=== PATIENT | male | born 1950 | race Two or more races ===

== ENCOUNTER 2016-08-19 11:56 | Inpatient (IN) | payer MEDICARE, OTHER ==
[~2016-08-19] VITALS: Ht 175.3 cm; Wt 83.9 kg
[2016-08-19] MEDS ORDERED: Acetaminophen 650 MG SUPP RECTAL ONE ×2 (12:12→12:30)
[2016-08-19 12:15] VITALS: BP 141/71
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
[2016-08-19] MEDS ORDERED: DILANTIN100 MG ORAL (12:29)
[2016-08-19] MEDS ORDERED: PANTOPRAZOLE SO40 MG ORAL (12:29)
[2016-08-19] MEDS ORDERED: DIOVAN160 MG ORAL (12:29)
[2016-08-19] MEDS ORDERED: NICOTINE PATCH1 EAC5 TD (12:29)
[2016-08-19] MEDS ORDERED: ACTOS30 MG ORAL (12:29)
[2016-08-19] MEDS ORDERED: TRICOR145 MG ORAL (12:29)
[2016-08-19] MEDS ORDERED: COLACE100 MG ORAL (12:29)
[2016-08-19] MEDS ORDERED: KLONOPIN0.5 MG ORAL (12:29)
[2016-08-19] MEDS ORDERED: ZYPREXA5 MG ORAL (12:29)
[2016-08-19] MEDS ORDERED: JANUVIA25 MG ORAL (12:29)
[2016-08-19 12:51] LABS: APPEARANCE,URINE CLOUDY; KETONES,URINE NEGATIVE (NEGATIVE); LEUKOCYTE ESTERASE ,URINE 3+ (NEGATIVE); NITRITE,URINE NEGATIVE (NEGATIVE); PH,URINE 5 (4.5-8.0); PROTEIN,URINE 2+ (NEGATIVE); UROBILINOGEN,URINE NORMAL MG/DL (0.0-1.0)
[2016-08-19 13:00] LABS: MEAN CORPUSCULAR HEMOGLOBIN 29.2 PG (27.0-31.0); MEAN CORPUSCULAR HGB CONC 33.2 G/DL (32.0-36.0); MEAN CORPUSCULAR VOLUME 88 FL (80-99); MEAN PLATELET VOLUME 8.1 FL (6.5-10.1); PLATELET COUNT 209 K/UL (150-450); RED BLOOD COUNT 3.59 M/UL (4.70-6.10); RED CELL DISTRIBUTION WIDTH 11.8 % (11.6-14.8); WHITE BLOOD COUNT 12.5 K/UL (4.8-10.8)
[2016-08-19 13:04] LABS: GLOMERULAR FILTRATION RATE 20.9 mL/min (>60); MAGNESIUM 1.4 mg/dL (1.7-2.5); PHOSPHORUS 2.2 mg/dL (2.5-4.8); POTASSIUM 4.4 mEQ/L (3.4-4.9); TOTAL PROTEIN 6.5 g/dL (6.6-8.7); TROPONIN I < 0.30 ng/mL (<=0.30)
[2016-08-19 13:06] LABS: REFLEX LACTIC ACID YES OR NO YES
[2016-08-19 13:10] LABS: INR 1.1 (0.9-1.1); PROTHROMBIN TIME 11.1 SEC (9.30-11.50)
[2016-08-19 13:15] LABS: CKMB 2.9 ng/mL (< 6.7)
[2016-08-19 13:16] LABS: SQUAMOUS EPITHELIAL CELL,UR OCCASIONAL /LPF (NONE/OCC)
[2016-08-19] MEDS ORDERED: Piperacillin/Tazobactam 3.375 GM in NS 110 ML IVPB ONE (13:30)
[2016-08-19] MEDS ORDERED: Zosyn 3.375gm inj ONE (13:39)
[2016-08-19] MEDS ORDERED: Phenytoin 500 MG in NS 110 ML IVPB ONE (13:45)
[2016-08-19 13:48] LABS: BAND NEUTROPHILS % (MANUAL) 1 % (0-8); BASOPHILS % (MANUAL) 0 % (0-2); EOSINOPHILS % (MANUAL) 1 % (0-3); LYMPHOCYTES % (MANUAL) 13 % (20-45); NEUTROPHILS % (MANUAL) 79 % (45-75); PLATELET ESTIMATE ADEQUATE; PLATELET MORPHOLOGY NORMAL; TOTAL CELLS COUNTED 100
--- NOTE | 2016-08-19 13:49 | Diagnostic Imaging Report ---
Indication: SOB chest pain Technique: One view of the chest Comparison: none Findings: Inspiration is suboptimal. There is some atelectasis at the right lung base. The heart is upper limits normal in size. Aorta is ectatic calcified and tortuous. The upper mediastinum is unremarkable. Impression: Suboptimal inspiration with bibasilar atelectasis No definite acute process
[2016-08-19] MEDS ORDERED: Phenytoin 250mg/5ml vial ONE (14:27)
--- NOTE | 2016-08-19 14:57 | Diagnostic Imaging Report ---
Indications: Questionable syncopal episode, nonverbal, altered mental status Technique: Spiral acquisitions obtained through the brain. Angled axial and coronal 5 x 5 mm slices were reconstructed. Total dose length product 1369 mGycm. CTDI vol(s) 70 mGy Comparison: None Findings: There is an area of encephalomalacia in the inferior left frontal lobe. There is also bilateral anterior temporal encephalomalacia. These result in mild ex vacuo dilatation of the adjacent CSF spaces. No acute hemorrhage or edema. No mass effect or midline shift. There is age-related enlargement of the ventricles and extra axial CSF spaces. There is minimal ethmoid sinus disease. The calvarium is intact. Impression: Left frontal, bilateral temporal encephalomalacia. These may reflect old infarcts or be due to prior trauma Negative for acute intracranial bleed or mass effect Other chronic and age-related changes, as described The CT scanner at [facility] is accredited by the [employer] and the scans are performed using protocols designed to limit radiation exposure to as low as reasonably achievable to attain images of sufficient resolution adequate for diagnostic evaluation.
[2016-08-19 15:18] VITALS: BP 107/37
[2016-08-19] MEDS ORDERED: Nitroglycerin Subl 0.4mg tab (Bottle Of 25) SL PRN (15:45)
[2016-08-19] MEDS ORDERED: Miralax 17gm pkt ORAL PRN (15:45)
[2016-08-19] MEDS ORDERED: Mylanta II UD 30ml ORAL PRN (15:45)
[2016-08-19] MEDS ORDERED: clonazePAM 0.5mg tab ORAL SCH (15:45)
[2016-08-19] MEDS ORDERED: DuoNeb 0.5-3(2.5)mg/3ml neb HHN PRN (15:45)
--- NOTE | 2016-08-19 16:07 | Infectious Diseases Prog Note ---
Assessment/Plan Problems: (1) HCAP (healthcare-associated pneumonia) Assessment & Plan: will start clindamycin and cefepime, send sputum and blood culture. (2) Sepsis Assessment & Plan: due to pneumonia, and UTI, continue side spectrum antibiotics, await culture (3) UTI (urinary tract infection) Assessment & Plan: on cefepime, send urine culture (4) Urinary retention Assessment & Plan: S/P folley catheter insertion, recommend urologist eval (5) Seizure disorder Assessment & Plan: continue seizure meds follow up with neurologist Subjective Allergies: Coded Allergies: No Known Allergies (Unverified , 08/19/16) Objective Vital Signs Last 24 Hour Vital Signs Date Time Temp Pulse Resp B/P Pulse Ox O2 Delivery O2 Flow Rate FiO2 08/19/16 15:18 98.6 101 28 107/37 94 Room Air 08/19/16 12:15 103.0 111 22 141/71 98 Nasal Cannula 2.0 08/19/16 12:05 98.1 106 16 120/60 98 Nasal Cannula 2.0 Height (Feet): 6 Weight (Pounds): 170 Laboratory Tests Test 08/19/16 12:05 08/19/16 12:20 08/19/16 14:06 White Blood Count 12.5 K/UL (4.8-10.8) H Red Blood Count 3.59 M/UL (4.70-6.10) L Hemoglobin 10.5 G/DL (14.2-18.0) L Hematocrit 31.6 % (42.0-52.0) L Mean Corpuscular Volume 88 FL (80-99) Mean Corpuscular Hemoglobin 29.2 PG (27.0-31.0) Mean Corpuscular Hemoglobin Concent 33.2 G/DL (32.0-36.0) Red Cell Distribution Width 11.8 % (11.6-14.8) Platelet Count 209 K/UL (150-450) Mean Platelet Volume 8.1 FL (6.5-10.1) Neutrophils (%) (Auto) % (45.0-75.0) Lymphocytes (%) (Auto) % (20.0-45.0) Monocytes (%) (Auto) % (1.0-10.0) Eosinophils (%) (Auto) % (0.0-3.0) Basophils (%) (Auto) % (0.0-2.0) Differential Total Cells Counted 100 Neutrophils % (Manual) 79 % (45-75) H Lymphocytes % (Manual) 13 % (20-45) L Monocytes % (Manual) 6 % (1-10) Eosinophils % (Manual) 1 % (0-3) Basophils % (Manual) 0 % (0-2) Band Neutrophils 1 % (0-8) Platelet Estimate Adequate Platelet Morphology Normal Red Blood Cell Morphology Normal Prothrombin Time 11.1 SEC (9.30-11.50) Prothromb Time International Ratio 1.1 (0.9-1.1) Activated Partial Thromboplast Time 25 SEC (23-33) Sodium Level 140 mEQ/L (135-145) Potassium Level 4.4 mEQ/L (3.4-4.9) Chloride Level 99 mEQ/L (98-107) Carbon Dioxide Level 20 mEQ/L (20-30) Anion Gap 21 (5-15) H Blood Urea Nitrogen 32 mg/dL (7-23) H Creatinine 3.0 mg/dL (0.7-1.2) H Estimat Glomerular Filtration Rate 20.9 mL/min (>60) Glucose Level 355 mg/dL (74-106) H Lactic Acid Level 3.70 mmol/L (0.66-2.22) H 2.10 mmol/L (0.66-2.22) Calcium Level 10.0 mg/dL (8.6-10.2) Phosphorus Level 2.2 mg/dL (2.5-4.8) L Magnesium Level 1.4 mg/dL (1.7-2.5) L Total Bilirubin 0.3 mg/dL (0.0-1.2) Aspartate Amino Transf (AST/SGOT) 17 U/L (5-40) Alanine Aminotransferase (ALT/SGPT) 14 U/L (3-41) Alkaline Phosphatase 51 U/L (40-129) Total Creatine Kinase 203 U/L (38-174) H Creatine Kinase MB 2.9 ng/mL (< 6.7) Creatine Kinase MB Relative Index 1.4 Troponin I < 0.30 ng/mL (<=0.30) Pro-B-Type Natriuretic Peptide 5269 pg/mL (0-125) H Total Protein 6.5 g/dL (6.6-8.7) L Albumin 3.3 g/dL (3.5-5.2) L Globulin 3.2 g/dL Albumin/Globulin Ratio 1.0 (1.0-2.7) Lipase 12 U/L (< 60) Phenytoin (Dilantin) Level 6.0 ug/mL (10-20) L Urine Color Yellow Urine Appearance Cloudy Urine pH 5 (4.5-8.0) Urine Specific [place] 1.010 (1.005-1.035) Urine Protein 2+ (NEGATIVE) H Urine Glucose (UA) 2+ (NEGATIVE) H Urine Ketones Negative (NEGATIVE) Urine Occult Blood 5+ (NEGATIVE) H Urine Nitrite Negative (NEGATIVE) Urine Bilirubin Negative (NEGATIVE) Urine Urobilinogen Normal MG/DL (0.0-1.0) Urine Leukocyte Esterase 3+ (NEGATIVE) H Urine RBC 10-15 /HPF (0 - 0) H Urine WBC 5-10 /HPF (0 - 0) H Urine Squamous Epithelial Cells Occasional /LPF Urine Bacteria None /HPF (NONE) Current Medications Medications (Trade) Dose Ordered Sig/Sharif Route PRN Reason Start Time Stop Time Status Last Admin Dose Admin Acetaminophen (Tylenol) 650 mg Q4H PRN ORAL fever 08/19/16 15:45 09/18/16 15:44 UNV Al Hydroxide/Mg Hydroxide (Mylanta II) 30 ml Q6H PRN ORAL dyspepsia 08/19/16 15:45 09/18/16 15:44 UNV Albuterol/ Ipratropium 3 ml 3 ml EVERY 4 HOURS PRN HHN Shortness of Breath 08/19/16 15:45 08/24/16 15:44 UNV Cefepime HCl/ Dextrose (Maxipime/D5W) 55 ml @ 110 mls/hr EVERY 12 HOURS IV 08/19/16 21:00 08/26/16 20:59 UNV Cefepime HCl/ Dextrose (Maxipime/D5W) 55 ml @ 110 mls/hr EVERY 12 HOURS IVPB 08/19/16 21:00 08/26/16 20:59 UNV Clonazepam (KlonoPIN) 0.5 mg Q6H ORAL 08/19/16 15:45 08/26/16 15:44 UNV Dextrose (Dextrose 50%) STAT PRN IV Hypoglycemia 08/19/16 15:45 09/18/16 15:44 UNV Heparin Sodium (Porcine) (Heparin 5000 units/ml) 5,000 units EVERY 12 HOURS SUBQ 08/19/16 21:00 09/18/16 20:59 UNV Insulin Aspart (NovoLOG) BEFORE MEALS AND HS SUBQ 08/19/16 16:30 09/18/16 16:29 UNV Nitroglycerin (Ntg) 0.4 mg Q5M PRN SL Prn Chest Pain 08/19/16 15:45 09/18/16 15:44 UNV Olanzapine (ZyPREXA) 5 mg DAILY ORAL 08/20/16 09:00 09/19/16 08:59 UNV Ondansetron HCl (Zofran) 4 mg Q6H PRN IVP Nausea & Vomiting 08/19/16 15:45 09/18/16 15:44 UNV Pantoprazole (Protonix) 40 mg DAILY ORAL 08/20/16 09:00 09/19/16 08:59 UNV Phenytoin (Dilantin) 100 mg TWICE A DAY ORAL 08/19/16 18:00 09/18/16 17:59 UNV Polyethylene Glycol (Miralax) 17 gm DAILYPRN PRN ORAL Constipation 08/19/16 15:45 09/18/16 15:44 UNV Temazepam (Restoril) 15 mg HSPRN PRN ORAL Insomnia 08/19/16 15:45 08/26/16 15:44 UNV Treva Martinez M.D. Aug 19, 2016 16:07
[2016-08-19] MEDS: NovoLOG Insulin Flexpen SUBQ SCH ×2 (17:45→21:44)
[2016-08-19] MEDS: Clindamycin 600mg 50 ML IV SCH ×2 (17:45→22:20)
[2016-08-19] MEDS ORDERED: Cefepime HCl 1 GM in D5W 55 ML IVPB SCH (18:00)
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
[2016-08-19 20:00] VITALS: BP 119/55
[2016-08-19] MEDS ORDERED: Phenytoin 100mg cap ORAL SCH (21:00)
[2016-08-19] MEDS ORDERED: Cefepime HCl 1 GM in D5W 55 ML IV SCH (21:00)
[2016-08-19] MEDS: Phenytoin 100mg cap ORAL SCH (21:43)
[2016-08-19] MEDS: Heparin 5000 units/ml inj SUBQ SCH (21:44)
[2016-08-19] MEDS ORDERED: clonazePAM 0.5mg tab ORAL PRN (21:45)
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
[2016-08-20] VITALS: BP 133/56
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
[2016-08-20 04:00] VITALS: BP 148/68
[2016-08-20] MEDS: Clindamycin 600mg 50 ML IV SCH (06:19)
[2016-08-20] MEDS: NovoLOG Insulin Flexpen SUBQ SCH ×4 (06:21→21:01)
[2016-08-20 07:22] LABS: BASOPHILS % (AUTO) 0.5 % (0.0-2.0); MEAN CORPUSCULAR HEMOGLOBIN 29.4 PG (27.0-31.0); MEAN CORPUSCULAR HGB CONC 33.1 G/DL (32.0-36.0); MEAN CORPUSCULAR VOLUME 89 FL (80-99); MONOCYTES % (AUTO) 10.1 % (1.0-10.0); NEUTROPHILS % (AUTO) 73.4 % (45.0-75.0); PLATELET COUNT 196 K/UL (150-450); RED BLOOD COUNT 3.76 M/UL (4.70-6.10); RED CELL DISTRIBUTION WIDTH 12.1 % (11.6-14.8); WHITE BLOOD COUNT 12.9 K/UL (4.8-10.8)
[2016-08-20 07:29] LABS: CALCIUM 10.4 mg/dL (8.6-10.2); CREATININE 1.6 mg/dL (0.7-1.2); GLOMERULAR FILTRATION RATE 43.2 mL/min (>60); PHOSPHORUS 3.4 mg/dL (2.5-4.8)
[2016-08-20 08:01] VITALS: BP 126/46
[2016-08-20] MEDS: Phenytoin 100mg cap ORAL SCH ×2 (08:25→21:05)
[2016-08-20] MEDS: Heparin 5000 units/ml inj SUBQ SCH ×2 (08:27→21:00)
[2016-08-20] MEDS ORDERED: LORazepam Inj 2mg/ml 1ml IV PRN ×2 (11:15→13:36)
[2016-08-20] MEDS ORDERED: Haloperidol 5mg/ml Inj IM PRN (11:15)
[2016-08-20] MEDS ORDERED: LORazepam Inj 2mg/ml 1ml IM PRN ×2 (11:15→16:30)
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
[2016-08-20 11:22] VITALS: BP 150/76
[2016-08-20] MEDS ORDERED: DAPTOmycin 500 MG in NS 55 ML IV SCH (12:00)
--- NOTE | 2016-08-20 15:23 | Infectious Diseases Prog Note ---
Assessment/Plan Problems: (1) HCAP (healthcare-associated pneumonia) Assessment & Plan: on clindamycin and cefepime, will switch clindamycin to daptomycin to cover for possible enterococcus bacteremia ,await sputum and blood culture. (2) Sepsis Assessment & Plan: with gram positive cocci in chains, suspect streptococcus VS enterococcus spp, will start daptomycin meanwhile since he is still febrile , and await further identification and sensitivity (3) UTI (urinary tract infection) Assessment & Plan: on cefepime, send urine culture (4) Urinary retention Assessment & Plan: S/P folley catheter insertion, recommend urologist eval (5) Seizure disorder Assessment & Plan: continue seizure meds follow up with neurologist Subjective ROS Limited/Unobtainable: Yes Allergies: Coded Allergies: No Known Allergies (Unverified , 08/19/16) Subjective he is demented, resting in bed, comfortable, daughter at the bedside, not in distress. Objective Vital Signs Last 24 Hour Vital Signs Date Time Temp Pulse Resp B/P Pulse Ox O2 Delivery O2 Flow Rate FiO2 08/20/16 11:22 99.0 100 20 150/76 98 Room Air 08/20/16 09:36 99.7 08/20/16 08:30 100.9 08/20/16 08:27 101 20 Room Air 08/20/16 08:01 102.4 112 20 126/46 95 Room Air 08/20/16 08:00 116 08/20/16 04:00 108 08/20/16 04:00 98.6 109 20 148/68 95 Room Air 08/20/16 00:00 99.3 111 20 133/56 94 Room Air 08/19/16 20:00 97.9 116 21 119/55 94 Room Air 08/19/16 19:37 103 20 Room Air 08/19/16 19:16 113 08/19/16 17:21 101 28 107/37 97 Room Air Height (Feet): 5 Height (Inches): 9.00 Weight (Pounds): 185 General Appearance: WD/WN, no acute distress HEENT: normocephalic, atraumatic, anicteric, mucous membranes moist Respiratory/Chest: chest wall non-tender, lungs clear, normal breath sounds, no respiratory distress, no accessory muscle use Cardiovascular: normal peripheral pulses, normal rate, regular rhythm Abdomen: normal bowel sounds, soft, non tender, no organomegaly, non distended Extremities: no cyanosis, no clubbing Skin: no rash, no lesions, no ulcers Microbiology Date/Time Source Procedure Growth Status 08/19/16 12:15 Blood Blood Culture - Preliminary Resulted 08/19/16 12:05 Blood Blood Culture - Preliminary Resulted Laboratory Tests Test 08/19/16 21:50 08/20/16 06:10 Urine Legionella Antigen Pending White Blood Count 12.9 K/UL (4.8-10.8) H Red Blood Count 3.76 M/UL (4.70-6.10) L Hemoglobin 11.0 G/DL (14.2-18.0) L Hematocrit 33.4 % (42.0-52.0) L Mean Corpuscular Volume 89 FL (80-99) Mean Corpuscular Hemoglobin 29.4 PG (27.0-31.0) Mean Corpuscular Hemoglobin Concent 33.1 G/DL (32.0-36.0) Red Cell Distribution Width 12.1 % (11.6-14.8) Platelet Count 196 K/UL (150-450) Mean Platelet Volume 8.0 FL (6.5-10.1) Neutrophils (%) (Auto) 73.4 % (45.0-75.0) Lymphocytes (%) (Auto) 16.0 % (20.0-45.0) L Monocytes (%) (Auto) 10.1 % (1.0-10.0) H Eosinophils (%) (Auto) 0.0 % (0.0-3.0) Basophils (%) (Auto) 0.5 % (0.0-2.0) Sodium Level 145 mEQ/L (135-145) Potassium Level 4.0 mEQ/L (3.4-4.9) Chloride Level 103 mEQ/L (98-107) Carbon Dioxide Level 24 mEQ/L (20-30) Anion Gap 18 (5-15) H Blood Urea Nitrogen 28 mg/dL (7-23) H Creatinine 1.6 mg/dL (0.7-1.2) H Estimat Glomerular Filtration Rate 43.2 mL/min (>60) Glucose Level 119 mg/dL (74-106) #H Calcium Level 10.4 mg/dL (8.6-10.2) H Phosphorus Level 3.4 mg/dL (2.5-4.8) Albumin 3.5 g/dL (3.5-5.2) Phenytoin (Dilantin) Level 6.7 ug/mL (10-20) L Current Medications Medications (Trade) Dose Ordered Sig/Sharif Route PRN Reason Start Time Stop Time Status Last Admin Dose Admin Acetaminophen (Tylenol) 650 mg Q4H PRN ORAL fever 08/19/16 15:45 09/18/16 15:44 08/20/16 08:37 Al Hydroxide/Mg Hydroxide (Mylanta II) 30 ml Q6H PRN ORAL dyspepsia 08/19/16 15:45 09/18/16 15:44 Albuterol/ Ipratropium (DuoNeb 0.5-3(2.5)mg/3ml) 3 ml Q4H PRN HHN Shortness of Breath 08/19/16 15:45 08/24/16 15:44 Cefepime HCl/ Dextrose (Maxipime/D5W) 55 ml @ 110 mls/hr Q24H IVPB 08/19/16 18:00 08/26/16 17:59 08/19/16 19:00 Clindamycin HCl/ Dextrose (Cleocin 600mg) 50 ml @ 100 mls/hr Q8HR IV 08/19/16 17:00 08/26/16 16:59 08/20/16 06:19 Clonazepam (KlonoPIN) 0.5 mg Q6H PRN ORAL anxiety 08/19/16 21:45 08/26/16 21:44 Daptomycin/Sodium Chloride (Cubicin/Sodium Chloride) 55 ml @ 100 mls/hr Q24H IV 08/20/16 12:00 08/27/16 11:59 08/20/16 12:50 Dextrose STAT PRN IV Hypoglycemia 08/19/16 15:45 09/18/16 15:44 Haloperidol Lactate (Haldol) 5 mg Q6H PRN IM Agitation 08/20/16 11:15 09/19/16 11:14 Heparin Sodium (Porcine) (Heparin 5000 units/ml) 5,000 units EVERY 12 HOURS SUBQ 08/19/16 21:00 09/18/16 20:59 08/20/16 08:27 Insulin Aspart (NovoLOG) BEFORE MEALS AND HS SUBQ 08/19/16 17:00 09/18/16 16:59 08/20/16 12:52 Lorazepam (Ativan 2mg/ml 1ml) 1 mg Q4H PRN IM For Anxiety 08/20/16 11:15 08/27/16 11:14 Lorazepam (Ativan 2mg/ml 1ml) 1 mg Q4H PRN IV For Anxiety 08/20/16 13:36 08/27/16 11:14 08/20/16 14:09 Nitroglycerin (Ntg) 0.4 mg Q5M PRN SL Prn Chest Pain 08/19/16 15:45 09/18/16 15:44 Olanzapine (ZyPREXA) 5 mg DAILY ORAL 08/20/16 09:00 09/19/16 08:59 08/20/16 08:26 Ondansetron HCl (Zofran) 4 mg Q6H PRN IVP Nausea & Vomiting 08/19/16 15:45 09/18/16 15:44 Pantoprazole (Protonix) 40 mg DAILY ORAL 08/20/16 09:00 09/19/16 08:59 08/20/16 08:26 Phenytoin 200 mg 200 mg Q12HR ORAL 08/19/16 21:00 09/18/16 20:59 08/20/16 08:25 Polyethylene Glycol (Miralax) 17 gm DAILYPRN PRN ORAL Constipation 08/19/16 15:45 09/18/16 15:44 Temazepam (Restoril) 15 mg HSPRN PRN ORAL Insomnia 08/19/16 15:45 08/26/16 15:44 Treva Martinez M.D. Aug 20, 2016 15:23
[2016-08-20] MEDS ORDERED: Nitroglycerin Subl 0.4mg tab (Bottle Of 25) SL PRN (15:35)
[2016-08-20] MEDS ORDERED: Mylanta II UD 30ml ORAL PRN (15:45)
[2016-08-20] MEDS ORDERED: Miralax 17gm pkt ORAL PRN (15:45)
[2016-08-20] MEDS ORDERED: DuoNeb 0.5-3(2.5)mg/3ml neb HHN PRN (15:45)
[2016-08-20 16:00] VITALS: BP 142/75
[2016-08-20] MEDS: LORazepam Inj 2mg/ml 1ml IV PRN ×2 (16:35→22:12)
[2016-08-20] MEDS ORDERED: Tubing IV Secondary IV ONE (16:58)
[2016-08-20] MEDS ORDERED: NS 275ml ONE (16:58)
--- NOTE | 2016-08-20 17:49 | General Progress Note ---
Progress Note Progress Note [id number] full note dictated NENITA PINO Aug 20, 2016 17:49
--- NOTE | 2016-08-20 17:59 | History and Physical Report ---
DATE OF ADMISSION: 08/19/2016 Time Seen: At 8:00 a.m. CONSULTANTS: 1. Kaylynn Fountain M.D. 2. Treva Martinez M.D. 3. Carmina Calvillo M.D. 4. Antonio Chapin M.D. 5. Freddy Ford M.D. CHIEF COMPLAINT: Possible syncopal episode. BRIEF HISTORY: This is a 66-year-old male who lives at home was deaf and blind, initially had a possible syncopal episode and was sent to [place] diagnosed with syncope, UTI, sepsis, weakness, and renal insufficiency and admitted to telemetry for further care. Currently, sleep in bed, not talking much. REVIEW OF SYSTEMS: Unavailable. PAST MEDICAL HISTORY: Diabetes, hypertension, deafness, and blindness. PAST SURGICAL HISTORY: None. MEDICATIONS: Include Zyprexa, Protonix, Klonopin, heparin, Dilantin, cefepime, NovoLog, clindamycin, DuoNeb, Tylenol, Zofran, MiraLAX, and Restoril. ALLERGIES: None. SOCIAL HISTORY: Positive smoke. No alcohol. No intravenous drug use. FAMILY HISTORY: Noncontributory. PHYSICAL EXAMINATION: GENERAL: Lethargic in bed, sleeping and refusing to answer questions. VITAL SIGNS: Show temperature is 98 degrees, pulse 109, respirations 20, and blood pressure 140/68. CARDIOVASCULAR: No murmur. LUNGS: Poor air exchange. ABDOMEN: Positive bowel sounds. Nontender. Nondistended. EXTREMITIES: No cyanosis, clubbing, or edema. NEUROLOGIC: The patient moves all extremities and does not want to follow commands. LABORATORY DATA: Show white count 12.9, hemoglobin and hematocrit 11 and 33, and platelet 196,000. BMP shows BUN and creatinine 20 and 1.6, glucose 119, otherwise CBC, BNP is 5269 and INR is 1.0. Urine toxicology, phenytoin of 6.0. Urinalysis 5+ blood, 3+ leukocyte esterase. ASSESSMENT: 1. Syncope. 2. Renal insufficiency. 3. Urinary tract infection. 4. Sepsis. 5. Anemia. 6. Deafness. 7. Blindness. 8. Diabetes. 9. Hypertension. PLAN: Continue premedications. Troponin q. 8 x3. EKG in the morning. Accu-Chek sliding scale. Antibiotics per Infectious Disease. Check cultures. OT/PT dietary evaluation. CBC and BMP. Dr. Fountain, Dr. Martinez, Dr. Calvillo, Dr. Chapin, and Dr. Dubois to consult. Abelino Marvin D.O. DR: KATHY JOB#: [id number] CC:
[2016-08-20] MEDS: Cefepime HCl 1 GM in D5W 55 ML IVPB SCH (18:20)
[2016-08-20 20:35] VITALS: BP 158/85
[2016-08-21] VITALS (24 sets, daily range): BP systolic 94–243; BP diastolic 38–121
[2016-08-21] MEDS: Haloperidol 5mg/ml Inj IM PRN (00:23)
[2016-08-21] MEDS: clonazePAM 0.5mg tab ORAL PRN (03:11)
[2016-08-21 04:40] LABS: ABG ALLEN TEST POSITIVE; ABG BASE EXCESS -4.6
[2016-08-21 06:03] LABS: ABG BASE EXCESS -4.9; ABG PCO2 34.2 mmHg (35.0-45.0)
[2016-08-21 06:04] LABS: ABG ALLEN TEST POSITIVE
[2016-08-21] MEDS: NovoLOG Insulin Flexpen SUBQ SCH ×4 (06:47→20:40)
--- NOTE | 2016-08-21 07:39 | Consultation ---
DATE OF CONSULTATION: 08/20/2016 NEPHROLOGY CONSULTATION: CONSULTING PHYSICIAN: Carmina Calvillo M.D. REFERRING PHYSICIAN: Abelino Marvin D.O. REASON FOR CONSULTATION: Acute renal failure and electrolyte abnormalities. HISTORY OF PRESENT ILLNESS: The patient is an unfortunate 66-year-old male with past medical history significant for history of diabetes, dyslipidemia, hypertension, , legally blind, history of CVA who was brought in by family to [facility] for questionable epidural syncopal episode and generalized weakness and increased confusion. Upon arrival in the ER, the patient found to have an elevation of the creatinine at 503 also found to be hyperglycemic, dehydrated, and was admitted in the hospital, had a CT scan of head neurology evaluation and I was called for evaluation of his abnormal renal function. PAST MEDICAL HISTORY: 1. Diabetes. 2. Hypertension. 3. History of CVA. 4. History of bilateral deafness and legally blind. 5. History of hypertension. 6. History of dyslipidemia. 7. History of chronic paranoid psychosis. ALLERGIES: Not known drug allergies. HOME MEDICATIONS: Including 1. Klonopin 0.5 mg q.6. 2. Colace 100 mg p.o. b.i.d. 3. Fenofibrate 145 mg by mouth daily. 4. . 5. Zyprexa 5 mg p.o. daily. 6. Protonix 40 mg p.o. daily. 7. Dilantin 100 mg by mouth twice a day. 8. Paxil 30 mg by mouth daily. 9. Januvia 100 mg p.o. daily. 10. Losartan and Diovan 160 mg by mouth daily. FAMILY HISTORY: Noncontributory. PAST SURGICAL HISTORY: None. REVIEW OF SYSTEMS: Unable to obtain due to patient condition and mental status. He open his eyes with verbal stimuli and not following commands. By the fact, therefore at this time I was in the room. The patient pulls his IV and he is not follow any of . PHYSICAL EXAMINATION: VITAL SIGNS: The patient has temperature of 102.4 degrees, pulse rate of 112, respiratory rate of 20, blood pressure 124/96. HEAD AND NECK: No JVP. No LAD. No thyromegaly. Dry mucous membranes. LUNGS EXAM: Clear to auscultation. CARDIAC: Regular rate and rhythm. S1-S2. No murmur. No rub. ABDOMEN: Soft, nontender, and nondistended. EXTREMITIES: Trace edema. No clubbing. No cyanosis. LABORATORY STUDIES: The patient has a sodium of 140, potassium 4.4, chloride 99, bicarbonate 25, BUN of 32, creatinine of 3, glucose of 365, calcium of 10, phosphorus of 2.2, and magnesium of 1.4. AST of 17, ALT of 14, alkaline phosphatase of 51. Total CK of 203. BNP of 5269. Total protein of 6.9. Albumin of 3.3. CBC reveal WBC count of 12,000, hemoglobin of 10, hematocrit of 31, and platelet count of 201,000. Chemistry revealed UA specific gravity of 1.010, protein 2+, glucose 3+, blood 5+, leukocyte esterase ____, RBC 10 to [address] of the head, the patient had a left frontal and bilateral temporal encephalomalacia, negative for any history of any acute disease. Chest x-ray is negative for any acute process. ASSESSMENT: 1. Acute renal failure, the etiology of acute renal failure including prerenal azotemia versus azotemia versus obstructive uropathy. 2. Uncontrolled diabetes. 3. Hypomagnesemia. 4. Urosepsis. 5. Fever. 6. History of seizure disorder. PLAN: Plan for the patient is to obtain and repeat the UA. Check the random urine, protein, creatinine ratio to calculate the proteinuria. Check the urine sodium and creatinine to calculate fractional excretion of sodium. Ultrasound of the kidney to evaluate the kidney size. Check the urine for eosinophils. Controlling the diabetes, intravenous fluids, and broad-spectrum antibiotics. Repeat the UA and ultrasound of the kidney. Avoid any further nephrotoxins. Monitor renal function closely. Again, I would like to thank, Dr. Abelino Marvin for allowing me to participate in the care of this patient. Carmina Calvillo M.D. DR: FARRUKH JOB#: [id number] CC:
--- NOTE | 2016-08-21 07:44 | General Progress Note ---
Assessment/Plan Problem List: (1) Hypertensive urgency ICD Codes: I16.0 - Hypertensive urgency SNOMED: 796756171 (2) Respiratory failure ICD Codes: J96.90 - Respiratory failure, unspecified, unspecified whether with hypoxia or hypercapnia SNOMED: 242127316 (3) Blind ICD Codes: H54.0 - Blindness, both eyes SNOMED: 171098586 (4) Renal insufficiency ICD Codes: N28.9 - Disorder of kidney and ureter, unspecified SNOMED: 770006641 (5) Sepsis ICD Codes: A41.9 - Sepsis, unspecified organism SNOMED: 54843587 (6) UTI (urinary tract infection) ICD Codes: N39.0 - Urinary tract infection, site not specified SNOMED: 88839588 Status: unchanged Assessment/Plan o2 pulm tx abx cbcb mp am psyc eval Subjective Constitutional: Reports: weakness Allergies: Coded Allergies: No Known Allergies (Unverified , 08/19/16) All Systems: reviewed and negative except above Subjective on o2 mask in icu Objective Last 24 Hour Vital Signs Date Time Temp Pulse Resp B/P Pulse Ox O2 Delivery O2 Flow Rate FiO2 08/21/16 07:00 84 32 104/57 93 Bi-pap 30 08/21/16 06:48 98 35 96 Facial 30 08/21/16 06:00 95 30 105/61 92 Bi-pap 30 08/21/16 05:00 116 36 131/58 93 Bi-pap 30 08/21/16 05:00 30 08/21/16 04:45 122 37 95 Facial 30 08/21/16 04:30 128 08/21/16 04:30 100.0 128 36 174/90 92 Non-Rebreather 15.0 100 08/21/16 04:00 97.0 24 219/114 99 Non-Rebreather 08/21/16 03:45 97.0 24 243/121 98 Non-Rebreather 15.0 08/21/16 01:37 98.0 103 20 143/75 96 Nasal Cannula 2.0 08/21/16 00:58 97.7 105 19 141/66 90 Nasal Cannula 08/21/16 00:24 110 22 92 Room Air 08/21/16 00:21 110 22 92 Room Air 08/20/16 20:35 97.9 92 19 158/85 95 Room Air 08/20/16 19:45 98 18 Room Air 08/20/16 16:00 99.5 107 20 142/75 94 Room Air 08/20/16 11:22 99.0 100 20 150/76 98 Room Air 08/20/16 09:36 99.7 08/20/16 08:30 100.9 08/20/16 08:27 101 20 Room Air 08/20/16 08:01 102.4 112 20 126/46 95 Room Air 08/20/16 08:00 116 Intake and Output 08/20/16 08/21/16 18:59 06:59 Intake Total 390 ml 240 ml Output Total 600 ml 1300 ml Balance -210 ml -1060 ml Intake Oral 390 ml 240 ml Output Urine Total 600 ml 1300 ml Laboratory Tests 08/21/16 04:35: Arterial Blood pH 7.200*L, Arterial Blood Partial Pressure CO2 63.0*H, Arterial Blood Partial Pressure O2 114.8H, Arterial Blood HCO3 24.2, Arterial Blood Oxygen Saturation 97.0, Arterial Blood Base Excess -4.6, Erasto Test Positive 08/21/16 05:55: Arterial Blood pH 7.376, Arterial Blood Partial Pressure CO2 34.2L, Arterial Blood Partial Pressure O2 71.6L, Arterial Blood HCO3 19.6L, Arterial Blood Oxygen Saturation 92.9, Arterial Blood Base Excess -4.9, Erasto Test Positive Height (Feet): 5 Height (Inches): 9.00 Weight (Pounds): 185 General Appearance: lethargic EENT: normal ENT inspection Neck: normal alignment Cardiovascular: normal peripheral pulses, normal rate, regular rhythm Respiratory/Chest: chest wall non-tender, lungs clear, decreased breath sounds Abdomen: normal bowel sounds, non tender, soft Extremities: normal inspection Edema: no edema noted Arm (L), no edema noted Arm (R), no edema noted Leg (L), no edema noted Leg (R), no edema noted Pedal (L), no edema noted Pedal (R), no edema noted Generalized Neurologic: motor weakness Skin: normal pigmentation, warm/dry DOROTA FRANCO Aug 21, 2016 07:44
[2016-08-21] MEDS: Phenytoin 100mg cap ORAL SCH ×2 (09:00→20:28)
[2016-08-21] MEDS: Heparin 5000 units/ml inj SUBQ SCH ×2 (09:00→20:45)
[2016-08-21 09:10] LABS: BASOPHILS % (AUTO) 0.4 % (0.0-2.0); EOSINOPHILS % (AUTO) 0.1 % (0.0-3.0); LYMPHOCYTES % (AUTO) 7.7 % (20.0-45.0); MEAN CORPUSCULAR HEMOGLOBIN 28.8 PG (27.0-31.0); MEAN CORPUSCULAR HGB CONC 32.4 G/DL (32.0-36.0); MEAN CORPUSCULAR VOLUME 89 FL (80-99); MEAN PLATELET VOLUME 8.8 FL (6.5-10.1); MONOCYTES % (AUTO) 10.3 % (1.0-10.0); NEUTROPHILS % (AUTO) 81.5 % (45.0-75.0); PLATELET COUNT 218 K/UL (150-450); RED BLOOD COUNT 3.56 M/UL (4.70-6.10); RED CELL DISTRIBUTION WIDTH 12.1 % (11.6-14.8); WHITE BLOOD COUNT 10.2 K/UL (4.8-10.8)
[2016-08-21 09:25] LABS: CALCIUM 9.8 mg/dL (8.6-10.2); CREATININE 1.7 mg/dL (0.7-1.2); GLOMERULAR FILTRATION RATE 40.3 mL/min (>60)
--- NOTE | 2016-08-21 11:27 | Pulmonolgy Critical Care Note ---
Critical Care - Asmt/Plan Problems: (1) Respiratory failure (2) Bacteremia (3) Sepsis (4) Seizure disorder (5) Deaf (6) Blind (7) sp severe TBI Respiratory: monitor respiratory rate, adjust FIO2, CXR, weaning trial Cardiac: continue to monitor HR/BP Infectious Disease: check cultures Gastrointestinal: continue feedings/current rate Endocrine: monitor blood sugar, check HgA1C, continue sliding scale insulin Hematologic: transfuse if hgb<8.5 Neurologic: keep patient comfortable Affect: PRN ativan Notes Reviewed: whizzer, cardio, renal Discussed with: nurses, consultants Critical Care - Objective Last 24 Hour Vital Signs Date Time Temp Pulse Resp B/P Pulse Ox O2 Delivery O2 Flow Rate FiO2 08/21/16 10:00 88 22 116/71 98 Bi-pap 30 08/21/16 09:04 95 25 100 Facial 30 08/21/16 09:00 85 17 101/51 100 Bi-pap 30 08/21/16 08:00 98.3 86 20 107/59 100 Bi-pap 30 08/21/16 07:00 84 32 104/57 93 Bi-pap 30 08/21/16 06:48 98 35 96 Facial 30 08/21/16 06:00 95 30 105/61 92 Bi-pap 30 08/21/16 05:00 116 36 131/58 93 Bi-pap 30 08/21/16 05:00 30 08/21/16 04:45 122 37 95 Facial 30 08/21/16 04:30 128 08/21/16 04:30 100.0 128 36 174/90 92 Non-Rebreather 15.0 100 08/21/16 04:00 97.0 24 219/114 99 Non-Rebreather 08/21/16 03:45 97.0 24 243/121 98 Non-Rebreather 15.0 08/21/16 01:37 98.0 103 20 143/75 96 Nasal Cannula 2.0 08/21/16 00:58 97.7 105 19 141/66 90 Nasal Cannula 08/21/16 00:24 110 22 92 Room Air 08/21/16 00:21 110 22 92 Room Air 08/20/16 20:35 97.9 92 19 158/85 95 Room Air 08/20/16 19:45 98 18 Room Air 08/20/16 16:00 99.5 107 20 142/75 94 Room Air Status: awake, sedated Condition: critical HEENT: atraumatic Neck: full ROM Heart: HR/BP stable, HR/BP unstable Abdomen: soft, non-tender Extremities: no C/C/E, edema Micro: Microbiology Date/Time Source Procedure Growth Status 08/19/16 12:15 Blood Blood Culture - Preliminary Streptococcus Species Resulted 08/19/16 12:05 Blood Blood Culture - Preliminary Streptococcus Species Resulted Accucheck: 210 Critical Care - Subjective ROS Limited/Unobtainable: Yes ICU Day: 1 Interval Events: pt was dyspnic early this morning, an ABG showed hypercapnea and hypoxemia, pt was started on BIPAP and transferred to ICU. He is somnolent now, saturating well. FI02: 30 Sputum Amount: None I&O: Intake and Output 08/20/16 08/21/16 19:00 07:00 Intake Total 390 ml 240 ml Output Total 600 ml 1330 ml Balance -210 ml -1090 ml Intake Oral 390 ml 240 ml Output Urine Total 600 ml 1330 ml CXR: BRIAN Labs: Laboratory Tests Test 08/21/16 04:35 08/21/16 05:55 08/21/16 08:00 Arterial Blood pH 7.200 (7.350-7.450) 7.376 (7.350-7.450) Arterial Blood Partial Pressure CO2 63.0 mmHg (35.0-45.0) *H 34.2 mmHg (35.0-45.0) L Arterial Blood Partial Pressure O2 114.8 mmHg (75.0-100.0) H 71.6 mmHg (75.0-100.0) L Arterial Blood HCO3 24.2 mmol/L (22.0-26.0) 19.6 mmol/L (22.0-26.0) L Arterial Blood Oxygen Saturation 97.0 % (92.0-98.0) 92.9 % (92.0-98.0) Arterial Blood Base Excess -4.6 -4.9 Erasto Test Positive Positive White Blood Count 10.2 K/UL (4.8-10.8) Red Blood Count 3.56 M/UL (4.70-6.10) L Hemoglobin 10.2 G/DL (14.2-18.0) L Hematocrit 31.6 % (42.0-52.0) L Mean Corpuscular Volume 89 FL (80-99) Mean Corpuscular Hemoglobin 28.8 PG (27.0-31.0) Mean Corpuscular Hemoglobin Concent 32.4 G/DL (32.0-36.0) Red Cell Distribution Width 12.1 % (11.6-14.8) Platelet Count 218 K/UL (150-450) Mean Platelet Volume 8.8 FL (6.5-10.1) Neutrophils (%) (Auto) 81.5 % (45.0-75.0) H Lymphocytes (%) (Auto) 7.7 % (20.0-45.0) L Monocytes (%) (Auto) 10.3 % (1.0-10.0) H Eosinophils (%) (Auto) 0.1 % (0.0-3.0) Basophils (%) (Auto) 0.4 % (0.0-2.0) Sodium Level 142 mEQ/L (135-145) Potassium Level 4.0 mEQ/L (3.4-4.9) Chloride Level 100 mEQ/L (98-107) Carbon Dioxide Level 22 mEQ/L (20-30) Anion Gap 20 (5-15) H Blood Urea Nitrogen 36 mg/dL (7-23) H Creatinine 1.7 mg/dL (0.7-1.2) H Estimat Glomerular Filtration Rate 40.3 mL/min (>60) Glucose Level 172 mg/dL (74-106) H Calcium Level 9.8 mg/dL (8.6-10.2) LATANYA GALLARDO Aug 21, 2016 11:27
[2016-08-21] MEDS ORDERED: DAPTOmycin 500 MG in NS 110 ML IV SCH (12:00)
--- NOTE | 2016-08-21 12:05 | Diagnostic Imaging Report ---
Clinical history: Shortness of breath Technique: Portable AP chest radiograph was obtained. Comparison: 08/19/16. Findings: Low lung volumes with basilar atelectasis noted. There is no significant interval change in the interval, allowing for differences in technique and positioning. Impression: Low lung volumes with probable basilar atelectasis and vascular crowding.
[2016-08-21] MEDS: Cefepime HCl 1 GM in D5W 55 ML IVPB SCH (18:02)
--- NOTE | 2016-08-21 21:15 | Nephrology Progress Note ---
Assessment/Plan Assessment 1. Acute renal failure, 2. Uncontrolled diabetes. 3. Hypomagnesemia. 4. Urosepsis. 5. Fever. 6. History of seizure disorder. Plan plan to continue IVF Fallow up with urine study monitoring renal function avoid NSAID Fallow up with us of kidney Subjective ROS Limited/Unobtainable: Yes Constitutional: Reports: no symptoms HEENT: Reports: no symptoms Genitourinary: Reports: no symptoms Neurologic/Psychiatric: Reports: no symptoms Subjective awake confused Objective Objective Last 24 Hour Vital Signs Date Time Temp Pulse Resp B/P Pulse Ox O2 Delivery O2 Flow Rate FiO2 08/21/16 20:00 72 08/21/16 20:00 98.1 74 20 113/61 99 Bi-pap 30 08/21/16 20:00 30 08/21/16 19:54 74 17 98 Facial 30 08/21/16 19:00 79 20 110/56 99 Bi-pap 30 08/21/16 18:00 79 20 112/38 99 Bi-pap 30 08/21/16 17:04 75 22 98 Facial 30 08/21/16 17:00 89 19 116/46 99 Bi-pap 30 08/21/16 16:00 30 08/21/16 16:00 97.7 79 21 125/40 99 Bi-pap 30 08/21/16 15:09 79 18 99 Facial 30 08/21/16 15:00 78 20 110/58 99 Bi-pap 30 08/21/16 14:00 80 20 94/45 99 Bi-pap 30 08/21/16 13:18 83 30 99 Facial 30 08/21/16 13:00 85 22 110/50 98 Bi-pap 30 08/21/16 12:00 97.8 88 18 124/67 98 Bi-pap 30 08/21/16 12:00 30 08/21/16 11:25 97 24 100 Facial 30 08/21/16 11:00 87 30 129/66 98 Bi-pap 30 08/21/16 10:00 88 22 116/71 98 Bi-pap 30 08/21/16 09:04 95 25 100 Facial 30 08/21/16 09:00 85 17 101/51 100 Bi-pap 30 08/21/16 08:00 30 08/21/16 08:00 98.3 86 20 107/59 100 Bi-pap 30 08/21/16 07:00 84 32 104/57 93 Bi-pap 30 08/21/16 06:48 98 35 96 Facial 30 08/21/16 06:00 95 30 105/61 92 Bi-pap 30 08/21/16 05:00 116 36 131/58 93 Bi-pap 30 08/21/16 05:00 30 08/21/16 04:45 122 37 95 Facial 30 08/21/16 04:30 128 08/21/16 04:30 100.0 128 36 174/90 92 Non-Rebreather 15.0 100 08/21/16 04:00 97.0 24 219/114 99 Non-Rebreather 08/21/16 03:45 97.0 24 243/121 98 Non-Rebreather 15.0 08/21/16 01:37 98.0 103 20 143/75 96 Nasal Cannula 2.0 08/21/16 00:58 97.7 105 19 141/66 90 Nasal Cannula 08/21/16 00:24 110 22 92 Room Air 08/21/16 00:21 110 22 92 Room Air Intake and Output 08/20/16 08/21/16 19:00 07:00 Intake Total 390 ml 240 ml Output Total 600 ml 1330 ml Balance -210 ml -1090 ml Intake Oral 390 ml 240 ml Output Urine Total 600 ml 1330 ml Laboratory Tests 08/21/16 04:35: Arterial Blood pH 7.200*L, Arterial Blood Partial Pressure CO2 63.0*H, Arterial Blood Partial Pressure O2 114.8H, Arterial Blood HCO3 24.2, Arterial Blood Oxygen Saturation 97.0, Arterial Blood Base Excess -4.6, Erasto Test Positive 08/21/16 05:55: Arterial Blood pH 7.376, Arterial Blood Partial Pressure CO2 34.2L, Arterial Blood Partial Pressure O2 71.6L, Arterial Blood HCO3 19.6L, Arterial Blood Oxygen Saturation 92.9, Arterial Blood Base Excess -4.9, Erasto Test Positive 08/21/16 08:00: White Blood Count 10.2, Red Blood Count 3.56L, Hemoglobin 10.2L, Hematocrit 31.6L, Mean Corpuscular Volume 89, Mean Corpuscular Hemoglobin 28.8, Mean Corpuscular Hemoglobin Concent 32.4, Red Cell Distribution Width 12.1, Platelet Count 218, Mean Platelet Volume 8.8, Neutrophils (%) (Auto) 81.5H, Lymphocytes ( %) (Auto) 7.7L, Monocytes (%) (Auto) 10.3H, Eosinophils (%) (Auto) 0.1, Basophils (%) (Auto) 0.4, Sodium Level 142, Potassium Level 4.0, Chloride Level 100, Carbon Dioxide Level 22, Anion Gap 20H, Blood Urea Nitrogen 36H, Creatinine 1.7H, Estimat Glomerular Filtration Rate 40.3, Glucose Level 172H, Calcium Level 9.8 Height (Feet): 5 Height (Inches): 9.00 Weight (Pounds): 185 Objective HEAD AND NECK: No JVP. No LAD. No thyromegaly. Dry mucous membranes. LUNGS EXAM: Clear to auscultation. CARDIAC: Regular rate and rhythm. S1-S2. No murmur. No rub. ABDOMEN: Soft, nontender, and nondistended. EXTREMITIES: Trace edema. No clubbing. No cyanosis. NENITA PINO Aug 21, 2016 21:15
--- NOTE | 2016-08-21 21:17 | Cardiology Report ---
APPROVED REPORT EKG Measurement Heart [id number] Sinus tachycardia Possible Left atrial enlargement Left ventricular hypertrophy with repolarization abnormality Abnormal ECG
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
[2016-08-21] MEDS: LORazepam Inj 2mg/ml 1ml IV PRN (23:07)
[2016-08-22] VITALS (24 sets, daily range): BP systolic 31–200; BP diastolic 61–166
--- NOTE | 2016-08-22 03:09 | Progress Note ---
DATE: 08/21/2016 CARDIOLOGY PROGRESS NOTE: Coverage for Dr. Chapin. SUBJECTIVE: The patient's condition has worsened overnight. He became acutely tachypneic, tachycardic, and developed malignant range hypertension. He was transferred to the intensive care unit. His initial ABG revealed a pH 7.20, pCO2 63, and pO2 114. Blood pressure was above 230 systolic. BiPAP support was initiated with improvement noted over the subsequent hours. Presently, he is in no acute distress, but remains on BiPAP support. OBJECTIVE: VITAL SIGNS: Temperature maximum 100, blood pressure 131/58, heart rate 116, and respiratory rate 36. RESPIRATORY: Bilateral breath sounds with rhonchi. CARDIOVASCULAR: Regular rhythm. Rapid rate. Normal S1 and S2. ABDOMEN: Distended, but soft. EXTREMITIES: With dependent edema. NEUROLOGIC: The patient is withdrawn and lethargic. LABORATORY AND DIAGNOSTIC DATA: Repeat ABG; 7.37, 34, 71. Labs: White count 10 and hemoglobin 10. Sodium 142, potassium 4.0, bicarbonate 22, BUN 36, and creatinine 1.7. IMPRESSION: 1. Acute respiratory insufficiency. 2. Acute on chronic respiratory acidosis. 3. Acute bronchospasm. 4. Chronic encephalopathy. 5. Probable sepsis. 6. Recovering lactic acidosis. 7. Acute myocardial ischemia, secondary sinus tachycardia. PLAN: BiPAP support. Continued hydration. Avoid sedation. Anxiolytics as tolerated. DVT and stress ulcer prophylaxis. Recheck troponin level. Check Dilantin level. Volodymyr Ibarra M.D. DR: Linda JOB#: [id number] CC:
[2016-08-22] MEDS: LORazepam Inj 2mg/ml 1ml IV PRN ×4 (03:10→20:17)
[2016-08-22 05:12] LABS: BASOPHILS % (AUTO) 0.5 % (0.0-2.0); EOSINOPHILS % (AUTO) 2.3 % (0.0-3.0); LYMPHOCYTES % (AUTO) 16.9 % (20.0-45.0); MEAN CORPUSCULAR HEMOGLOBIN 29.6 PG (27.0-31.0); MEAN CORPUSCULAR HGB CONC 33.2 G/DL (32.0-36.0); MEAN CORPUSCULAR VOLUME 89 FL (80-99); MEAN PLATELET VOLUME 8.4 FL (6.5-10.1); MONOCYTES % (AUTO) 7.9 % (1.0-10.0); NEUTROPHILS % (AUTO) 72.4 % (45.0-75.0); PLATELET COUNT 216 K/UL (150-450); RED CELL DISTRIBUTION WIDTH 12.8 % (11.6-14.8)
[2016-08-22] MEDS: NovoLOG Insulin Flexpen SUBQ SCH ×4 (05:29→21:00)
[2016-08-22 05:42] LABS: APPEARANCE,URINE VERY CLOUDY; KETONES,URINE NEGATIVE (NEGATIVE); LEUKOCYTE ESTERASE ,URINE 2+ (NEGATIVE); NITRITE,URINE NEGATIVE (NEGATIVE); PH,URINE 5 (4.5-8.0); PROTEIN,URINE 3+ (NEGATIVE); UROBILINOGEN,URINE NORMAL MG/DL (0.0-1.0)
[2016-08-22 05:53] LABS: ALBUMIN/GLOBULIN RATIO 0.7 (1.0-2.7); CALCIUM 9.4 mg/dL (8.6-10.2); CREATININE 1.4 mg/dL (0.7-1.2); GLOMERULAR FILTRATION RATE 50.4 mL/min (>60); POTASSIUM 4.5 mEQ/L (3.4-4.9); TOTAL PROTEIN 6.4 g/dL (6.6-8.7)
[2016-08-22 06:12] LABS: BACTERIA,URINE MODERATE /HPF; RBC,URINE TNTC /HPF (0 - 0); SQUAMOUS EPITHELIAL CELL,UR MODERATE /LPF (NONE/OCC); WBC,URINE 15-20 /HPF (0 - 0)
[2016-08-22 06:13] LABS: AMORPHOUS SEDIMENT,UR MODERATE /LPF
[2016-08-22 06:28] LABS: TROPONIN I < 0.30 ng/mL (<=0.30)
[2016-08-22 06:58] LABS: MAGNESIUM 1.9 mg/dL (1.7-2.5); PHOSPHORUS 3.8 mg/dL (2.5-4.8)
[2016-08-22] MEDS: Phenytoin 100mg cap ORAL SCH ×2 (08:37→20:49)
[2016-08-22] MEDS: Heparin 5000 units/ml inj SUBQ SCH ×2 (08:41→20:51)
[2016-08-22] MEDS: Clindamycin 600mg 50 ML IV SCH ×2 (09:44→22:24)
[2016-08-22 10:07] LABS: ABG BASE EXCESS -1.5; ABG PCO2 35.4 mmHg (35.0-45.0)
[2016-08-22] MEDS: Ampicillin/Sulbactam Sod 3 GM in NS 110 ML IVPB SCH ×3 (10:25→22:24)
[2016-08-22] MEDS: Haloperidol 5mg/ml Inj IM PRN ×2 (10:35→17:13)
--- NOTE | 2016-08-22 11:17 | Pulmonology Progress Note ---
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 Discussed with: nurses, consultants, gearcase assembler Subjective ROS Limited/Unobtainable: No Interval Events: comfortable, agitated at times Allergies: Coded Allergies: No Known Allergies (Unverified , 08/19/16) Objective Last 24 Hour Vital Signs Date Time Temp Pulse Resp B/P Pulse Ox O2 Delivery O2 Flow Rate FiO2 08/22/16 09:00 111 36 176/104 95 Nasal Cannula 2.0 08/22/16 08:00 81 08/22/16 08:00 30 08/22/16 08:00 97.7 78 26 145/70 99 Bi-pap 30 08/22/16 07:25 77 26 98 Facial 30 08/22/16 07:00 74 20 149/64 99 Bi-pap 30 08/22/16 06:00 72 20 136/65 99 Bi-pap 30 08/22/16 05:35 74 18 98 Facial 30 08/22/16 05:00 71 20 131/61 99 Bi-pap 30 08/22/16 04:01 98.0 70 20 139/71 99 Bi-pap 30 08/22/16 04:00 30 08/22/16 04:00 72 08/22/16 03:20 73 16 98 Facial 30 08/22/16 03:00 70 20 126/73 99 Bi-pap 30 08/22/16 02:00 68 20 131/62 99 Bi-pap 30 08/22/16 01:40 72 18 98 Facial 30 08/22/16 01:00 69 20 128/84 99 Bi-pap 30 08/22/16 00:00 30 08/22/16 00:00 98.0 72 20 138/68 99 Bi-pap 30 08/22/16 00:00 75 08/21/16 23:18 71 23 97 Facial 30 08/21/16 23:00 80 20 147/72 99 Bi-pap 30 08/21/16 22:00 68 21 123/56 99 Bi-pap 30 08/21/16 21:20 77 16 100 Facial 30 08/21/16 21:00 80 21 118/69 99 Bi-pap 30 08/21/16 20:00 72 08/21/16 20:00 98.1 74 20 113/61 99 Bi-pap 30 08/21/16 20:00 30 08/21/16 19:54 74 17 98 Facial 30 08/21/16 19:00 79 20 110/56 99 Bi-pap 30 08/21/16 18:00 79 20 112/38 99 Bi-pap 30 08/21/16 17:04 75 22 98 Facial 30 08/21/16 17:00 89 19 116/46 99 Bi-pap 30 08/21/16 16:00 30 08/21/16 16:00 97.7 79 21 125/40 99 Bi-pap 30 08/21/16 15:09 79 18 99 Facial 30 08/21/16 15:00 78 20 110/58 99 Bi-pap 30 08/21/16 14:00 80 20 94/45 99 Bi-pap 30 08/21/16 13:18 83 30 99 Facial 30 08/21/16 13:00 85 22 110/50 98 Bi-pap 30 08/21/16 12:00 97.8 88 18 124/67 98 Bi-pap 30 08/21/16 12:00 30 08/21/16 11:25 97 24 100 Facial 30 Intake and Output 08/21/16 08/22/16 19:00 07:00 Intake Total 575 ml 600 ml Output Total 160 ml 610 ml Balance 415 ml -10 ml IV Total 575 ml 600 ml Output Urine Total 160 ml 610 ml General Appearance: WD/WN HEENT: normocephalic, atraumatic Respiratory/Chest: chest wall non-tender, lungs clear Cardiovascular: normal peripheral pulses, normal rate Abdomen: normal bowel sounds, soft, non tender Genitourinary: normal external genitalia Extremities: no cyanosis Skin: no rash 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, no motor/sensory deficits Lymphatic: no neck adenopathy Microbiology Date/Time Source Procedure Growth Status 08/19/16 12:15 Blood Blood Culture - Final Enterococcus Faecalis Complete 08/19/16 12:05 Blood Blood Culture - Final Enterococcus Faecalis Complete Laboratory Tests 08/22/16 04:20: White Blood Count 9.0, Red Blood Count 3.20L, Hemoglobin 9.5L, Hematocrit 28.6L , Mean Corpuscular Volume 89, Mean Corpuscular Hemoglobin 29.6, Mean Corpuscular Hemoglobin Concent 33.2, Red Cell Distribution Width 12.8, Platelet Count 216, Mean Platelet Volume 8.4, Neutrophils (%) (Auto) 72.4, Lymphocytes (% ) (Auto) 16.9L, Monocytes (%) (Auto) 7.9, Eosinophils (%) (Auto) 2.3, Basophils (%) (Auto) 0.5, Sodium Level 150H, Potassium Level 4.5, Chloride Level 109H, Carbon Dioxide Level 24, Anion Gap 17H, Blood Urea Nitrogen 47H, Creatinine 1.4H , Estimat Glomerular Filtration Rate 50.4, Glucose Level 95, Calcium Level 9.4, Phosphorus Level 3.8, Magnesium Level 1.9, Total Bilirubin 0.2, Aspartate Amino Transf (AST/SGOT) 61H, Alanine Aminotransferase (ALT/SGPT) 34, Alkaline Phosphatase 51, Troponin I < 0.30, Pro-B-Type Natriuretic Peptide 656H, Total Protein 6.4L, Albumin 2.8L, Globulin 3.6, Albumin/Globulin Ratio 0.7L, Phenytoin (Dilantin) Level 3.0L 08/22/16 05:00: Urine Color Brown, Urine Appearance Very cloudy, Urine pH 5, Urine Specific [place] 1.020, Urine Protein 3+H, Urine Glucose (UA) Negative, Urine Ketones Negative, Urine Occult Blood 5+H, Urine Nitrite Negative, Urine Bilirubin Negative, Urine Urobilinogen Normal, Urine Leukocyte Esterase 2+H, Urine RBC TntcH, Urine WBC 15-20H, Urine Squamous Epithelial Cells ModerateH, Urine Amorphous Sediment ModerateH, Urine Bacteria ModerateH, Urine Eosinophils None seen 08/22/16 10:03: Arterial Blood pH 7.420, Arterial Blood Partial Pressure CO2 35.4, Arterial Blood Partial Pressure O2 65.0L, Arterial Blood HCO3 22.5, Arterial Blood Oxygen Saturation 91.2L, Arterial Blood Base Excess -1.5, Erasto Test N/a Current Medications Medications (Trade) Dose Ordered Sig/Sharif Route PRN Reason Start Time Stop Time Status Last Admin Dose Admin Acetaminophen (Tylenol) 650 mg Q4H PRN ORAL fever 08/20/16 15:45 09/19/16 15:44 Al Hydroxide/Mg Hydroxide (Mylanta II) 30 ml Q6H PRN ORAL dyspepsia 08/20/16 15:45 09/19/16 15:44 Albuterol/ Ipratropium (DuoNeb 0.5-3(2.5)mg/3ml) 3 ml Q4H PRN HHN Shortness of Breath 08/20/16 15:45 08/25/16 15:44 08/21/16 00:30 Ampicillin Sodium/ Sulbactam Sodium 3 gm/Sodium Chloride 110 ml @ 220 mls/hr Q6H IVPB 08/22/16 10:30 08/29/16 10:29 08/22/16 10:25 Clindamycin HCl/ Dextrose 50 ml @ 100 mls/hr Q8HR IV 08/22/16 10:00 08/29/16 09:59 08/22/16 09:44 Clonazepam (KlonoPIN) 0.5 mg Q6H PRN ORAL anxiety 08/20/16 15:45 08/27/16 15:44 08/21/16 03:11 Dextrose (D5W 1000ml) 1,000 ml @ 75 mls/hr [id number] IV 08/22/16 09:45 09/21/16 09:44 08/22/16 09:44 Dextrose (Dextrose 50%) STAT PRN IV Hypoglycemia 08/20/16 15:45 09/19/16 15:44 Haloperidol Lactate (Haldol) 5 mg Q6H PRN IM Agitation 08/20/16 17:15 09/19/16 17:14 08/22/16 10:35 Heparin Sodium (Porcine) (Heparin 5000 units/ml) 5,000 units EVERY 12 HOURS SUBQ 08/20/16 21:00 09/19/16 20:59 08/22/16 08:41 Insulin Aspart (NovoLOG) BEFORE MEALS AND HS SUBQ 08/20/16 16:30 09/19/16 16:29 08/21/16 12:21 Lorazepam 0.5 mg 0.5 mg Q4H PRN IV For Anxiety 08/21/16 11:30 08/28/16 11:29 08/22/16 08:47 Nitroglycerin (Ntg) 0.4 mg Q5M PRN SL Prn Chest Pain 08/20/16 15:35 09/19/16 15:34 Olanzapine (ZyPREXA) 5 mg DAILY ORAL 08/21/16 09:00 09/20/16 08:59 08/22/16 08:37 Ondansetron HCl (Zofran) 4 mg Q6H PRN IVP Nausea & Vomiting 08/20/16 15:45 09/19/16 15:44 Pantoprazole (Protonix) 40 mg DAILY ORAL 08/21/16 09:00 09/20/16 08:59 08/22/16 08:37 Phenytoin (Dilantin) 200 mg Q12HR ORAL 08/20/16 21:00 09/19/16 20:59 08/22/16 08:37 Polyethylene Glycol (Miralax) 17 gm DAILYPRN PRN ORAL Constipation 08/20/16 15:45 09/19/16 15:44 Temazepam (Restoril) 15 mg HSPRN PRN ORAL Insomnia 08/20/16 15:45 08/27/16 15:44 LATANYA GALLARDO Aug 22, 2016 11:17
--- NOTE | 2016-08-22 12:10 | Diagnostic Imaging Report ---
Indication: DYSPNEA Technique: One view of the chest Comparison: 08/21/2016 Findings: Lungs and pleural spaces are clear. Heart size is normal. No significant change Impression: No acute process
--- NOTE | 2016-08-22 13:33 | General Progress Note ---
Assessment/Plan Problem List: (1) Hypertensive urgency ICD Codes: I16.0 - Hypertensive urgency SNOMED: 844382440 (2) Respiratory failure ICD Codes: J96.90 - Respiratory failure, unspecified, unspecified whether with hypoxia or hypercapnia SNOMED: 088869777 (3) Blind ICD Codes: H54.0 - Blindness, both eyes SNOMED: 946316826 (4) Renal insufficiency ICD Codes: N28.9 - Disorder of kidney and ureter, unspecified SNOMED: 233403522 (5) Sepsis ICD Codes: A41.9 - Sepsis, unspecified organism SNOMED: 55895708 (6) UTI (urinary tract infection) ICD Codes: N39.0 - Urinary tract infection, site not specified SNOMED: 29206313 Assessment/Plan o2 pulm tx abx cbc bmp am psyc eval promise ltach eval Subjective Constitutional: Reports: weakness Allergies: Coded Allergies: No Known Allergies (Unverified , 08/19/16) All Systems: reviewed and negative except above Subjective on o2 nc in icu Objective Last 24 Hour Vital Signs Date Time Temp Pulse Resp B/P Pulse Ox O2 Delivery O2 Flow Rate FiO2 08/22/16 13:00 127 40 179/122 98 Nasal Cannula 3.0 08/22/16 12:00 132 08/22/16 12:00 97.9 125 26 200/166 97 Nasal Cannula 3.0 08/22/16 11:16 3.0 08/22/16 11:00 123 35 174/154 94 Nasal Cannula 2.0 08/22/16 10:00 112 36 183/88 95 Nasal Cannula 2.0 08/22/16 09:00 111 36 176/104 95 Nasal Cannula 2.0 08/22/16 08:00 81 08/22/16 08:00 30 08/22/16 08:00 97.7 78 26 145/70 99 Bi-pap 30 08/22/16 07:25 77 26 98 Facial 30 08/22/16 07:00 74 20 149/64 99 Bi-pap 30 08/22/16 06:00 72 20 136/65 99 Bi-pap 30 08/22/16 05:35 74 18 98 Facial 30 08/22/16 05:00 71 20 131/61 99 Bi-pap 30 08/22/16 04:01 98.0 70 20 139/71 99 Bi-pap 30 08/22/16 04:00 30 08/22/16 04:00 72 08/22/16 03:20 73 16 98 Facial 30 08/22/16 03:00 70 20 126/73 99 Bi-pap 30 08/22/16 02:00 68 20 131/62 99 Bi-pap 30 08/22/16 01:40 72 18 98 Facial 30 08/22/16 01:00 69 20 128/84 99 Bi-pap 30 08/22/16 00:00 30 08/22/16 00:00 98.0 72 20 138/68 99 Bi-pap 30 08/22/16 00:00 75 08/21/16 23:18 71 23 97 Facial 30 08/21/16 23:00 80 20 147/72 99 Bi-pap 30 08/21/16 22:00 68 21 123/56 99 Bi-pap 30 08/21/16 21:20 77 16 100 Facial 30 08/21/16 21:00 80 21 118/69 99 Bi-pap 30 08/21/16 20:00 72 08/21/16 20:00 98.1 74 20 113/61 99 Bi-pap 30 08/21/16 20:00 30 08/21/16 19:54 74 17 98 Facial 30 08/21/16 19:00 79 20 110/56 99 Bi-pap 30 08/21/16 18:00 79 20 112/38 99 Bi-pap 30 08/21/16 17:04 75 22 98 Facial 30 08/21/16 17:00 89 19 116/46 99 Bi-pap 30 08/21/16 16:00 30 08/21/16 16:00 97.7 79 21 125/40 99 Bi-pap 30 08/21/16 15:09 79 18 99 Facial 30 08/21/16 15:00 78 20 110/58 99 Bi-pap 30 08/21/16 14:00 80 20 94/45 99 Bi-pap 30 Intake and Output 08/21/16 08/22/16 18:59 06:59 Intake Total 470 ml 655 ml Output Total 180 ml 520 ml Balance 290 ml 135 ml IV Total 470 ml 655 ml Output Urine Total 180 ml 520 ml Laboratory Tests 08/22/16 04:20: White Blood Count 9.0, Red Blood Count 3.20L, Hemoglobin 9.5L, Hematocrit 28.6L , Mean Corpuscular Volume 89, Mean Corpuscular Hemoglobin 29.6, Mean Corpuscular Hemoglobin Concent 33.2, Red Cell Distribution Width 12.8, Platelet Count 216, Mean Platelet Volume 8.4, Neutrophils (%) (Auto) 72.4, Lymphocytes (% ) (Auto) 16.9L, Monocytes (%) (Auto) 7.9, Eosinophils (%) (Auto) 2.3, Basophils (%) (Auto) 0.5, Sodium Level 150H, Potassium Level 4.5, Chloride Level 109H, Carbon Dioxide Level 24, Anion Gap 17H, Blood Urea Nitrogen 47H, Creatinine 1.4H , Estimat Glomerular Filtration Rate 50.4, Glucose Level 95, Calcium Level 9.4, Phosphorus Level 3.8, Magnesium Level 1.9, Total Bilirubin 0.2, Aspartate Amino Transf (AST/SGOT) 61H, Alanine Aminotransferase (ALT/SGPT) 34, Alkaline Phosphatase 51, Troponin I < 0.30, Pro-B-Type Natriuretic Peptide 656H, Total Protein 6.4L, Albumin 2.8L, Globulin 3.6, Albumin/Globulin Ratio 0.7L, Phenytoin (Dilantin) Level 3.0L 08/22/16 05:00: Urine Color Brown, Urine Appearance Very cloudy, Urine pH 5, Urine Specific [place] 1.020, Urine Protein 3+H, Urine Glucose (UA) Negative, Urine Ketones Negative, Urine Occult Blood 5+H, Urine Nitrite Negative, Urine Bilirubin Negative, Urine Urobilinogen Normal, Urine Leukocyte Esterase 2+H, Urine RBC TntcH, Urine WBC 15-20H, Urine Squamous Epithelial Cells ModerateH, Urine Amorphous Sediment ModerateH, Urine Bacteria ModerateH, Urine Eosinophils None seen 08/22/16 10:03: Arterial Blood pH 7.420, Arterial Blood Partial Pressure CO2 35.4, Arterial Blood Partial Pressure O2 65.0L, Arterial Blood HCO3 22.5, Arterial Blood Oxygen Saturation 91.2L, Arterial Blood Base Excess -1.5, Erasto Test N/a Height (Feet): 5 Height (Inches): 9.00 Weight (Pounds): 185 General Appearance: lethargic EENT: normal ENT inspection Neck: normal alignment Cardiovascular: normal peripheral pulses, normal rate, regular rhythm Respiratory/Chest: chest wall non-tender, lungs clear, decreased breath sounds Abdomen: normal bowel sounds, non tender, soft Extremities: normal inspection Edema: no edema noted Arm (L), no edema noted Arm (R), no edema noted Leg (L), no edema noted Leg (R), no edema noted Pedal (L), no edema noted Pedal (R), no edema noted Generalized Neurologic: motor weakness Skin: normal pigmentation, warm/dry DOROTA FRANCO Aug 22, 2016 13:33
[2016-08-22] MEDS: Lactobacillus-GG tablet ORAL SCH ×2 (13:39→17:58)
[2016-08-22] MEDS ORDERED: 1/2 NS 1000ml IV ONE (14:15)
[2016-08-22] MEDS ORDERED: Tubing IV Secondary IV ONE (14:15)
--- NOTE | 2016-08-22 15:07 | Wound Care Consultation ---
Wound Assessment Wound Assessment #1: Wound Number: #1 Wound Present on Admission: Yes New Wound: No Status Change of Wound: No Wound Location Body Site Modif: left Wound Location Body Site: toe - 3rd Wound Type: other - Diabetic Ulcer Eron Test: Does not Eron Wound Thickness: Full Thickness Wound Width: 1.0 Wound Depth: 1.0 Percent of Wound Black/Brown: 100 - dry adhered scab attached Wound Drainage Amount: None Wound Drainage Odor: None/Absent Tissue Surrounding Wound: Intact Wound General Appearance: Blackened - scab Wound Assessment #2: Wound Number: #2 Wound Present on Admission: Yes New Wound: No Status Change of Wound: No Wound Location Body Site Modif: left, lateral, plantar Wound Location Body Site: toe - 1st Wound Type: other - DM ULCER WITH THICK CALLOUS ADHERED Eron Test: Does not Eron Wound Thickness: Full Thickness Wound Length: 2.0 Wound Width: 2.0 Wound Depth: UTD Percent of Wound Black/Brown: 100 Wound Drainage Amount: None Wound Drainage Odor: None/Absent Tissue Surrounding Wound: Intact Wound General Appearance: Blackened - INTACT ADHERED THICK DRY SCAB Wound Comment #1 Left 1st lateral toe Diabetic ulcer.-thick callus adhered to site. #2 Left 3rd toe Diabetic ulcer.- Dry Scab adhered to site. Recommendation -Local wound care as ordered. -Turn and reposition. -Keep clean and dry. -Optimize nutrition. -Heel protectors. -Offload heels and feet. -Pressure reducing mattress for skin management. -Assess and notify MD for any changes in condition noted. ROSA TAFOYA Aug 22, 2016 15:07
--- NOTE | 2016-08-22 17:37 | Infectious Diseases Prog Note ---
Assessment/Plan Problems: (1) HCAP (healthcare-associated pneumonia) Assessment & Plan: on clindamycin and unasyn to cover for E.faecalis bacteremia , await sputum culture , monitor CXR (2) Sepsis Assessment & Plan: with enterococcus faecalis , source ? could be gallbladder , or GI tract, will order US of the gall bladder , and echocardiogram to rule out valve vegetations , will stop daptomycin and switch him to unasyn. (3) UTI (urinary tract infection) Assessment & Plan: on unasyn , await urine culture (4) Urinary retention Assessment & Plan: S/P folley catheter insertion, recommend urologist eval (5) Seizure disorder Assessment & Plan: continue seizure meds follow up with neurologist Subjective ROS Limited/Unobtainable: Yes Allergies: Coded Allergies: No Known Allergies (Unverified , 08/19/16) Subjective he was restless , lying in bed , not agitated, daughter at the bedside, not in distress. Objective Vital Signs Last 24 Hour Vital Signs Date Time Temp Pulse Resp B/P Pulse Ox O2 Delivery O2 Flow Rate FiO2 08/22/16 17:00 97.0 93 26 160/95 97 Nasal Cannula 3.0 08/22/16 16:00 103 35 145/85 97 Nasal Cannula 3.0 08/22/16 16:00 99 08/22/16 15:08 3.0 08/22/16 15:00 101 40 184/78 97 Nasal Cannula 3.0 08/22/16 14:38 98.8 08/22/16 14:00 104 41 199/67 96 Nasal Cannula 3.0 08/22/16 13:00 127 40 179/122 98 Nasal Cannula 3.0 08/22/16 12:53 3.0 08/22/16 12:00 132 08/22/16 12:00 97.9 125 26 200/166 97 Nasal Cannula 3.0 08/22/16 11:16 3.0 08/22/16 11:00 123 35 174/154 94 Nasal Cannula 2.0 08/22/16 10:00 112 36 183/88 95 Nasal Cannula 2.0 08/22/16 09:00 111 36 176/104 95 Nasal Cannula 2.0 08/22/16 08:00 81 08/22/16 08:00 30 08/22/16 08:00 97.7 78 26 145/70 99 Bi-pap 30 08/22/16 07:25 77 26 98 Facial 30 08/22/16 07:00 74 20 149/64 99 Bi-pap 30 08/22/16 06:00 72 20 136/65 99 Bi-pap 30 08/22/16 05:35 74 18 98 Facial 30 08/22/16 05:00 71 20 131/61 99 Bi-pap 30 08/22/16 04:01 98.0 70 20 139/71 99 Bi-pap 30 08/22/16 04:00 30 08/22/16 04:00 72 08/22/16 03:20 73 16 98 Facial 30 08/22/16 03:00 70 20 126/73 99 Bi-pap 30 08/22/16 02:00 68 20 131/62 99 Bi-pap 30 08/22/16 01:40 72 18 98 Facial 30 08/22/16 01:00 69 20 128/84 99 Bi-pap 30 08/22/16 00:00 30 08/22/16 00:00 98.0 72 20 138/68 99 Bi-pap 30 08/22/16 00:00 75 08/21/16 23:18 71 23 97 Facial 30 08/21/16 23:00 80 20 147/72 99 Bi-pap 30 08/21/16 22:00 68 21 123/56 99 Bi-pap 30 08/21/16 21:20 77 16 100 Facial 30 08/21/16 21:00 80 21 118/69 99 Bi-pap 30 08/21/16 20:00 72 08/21/16 20:00 98.1 74 20 113/61 99 Bi-pap 30 08/21/16 20:00 30 08/21/16 19:54 74 17 98 Facial 30 08/21/16 19:00 79 20 110/56 99 Bi-pap 30 08/21/16 18:00 79 20 112/38 99 Bi-pap 30 Height (Feet): 5 Height (Inches): 9.00 Weight (Pounds): 185 General Appearance: WD/WN HEENT: normocephalic, atraumatic, anicteric, mucous membranes moist Respiratory/Chest: chest wall non-tender, normal breath sounds, no respiratory distress, no accessory muscle use, decreased breath sounds, crackles/rales Cardiovascular: normal peripheral pulses, regular rhythm, no gallop/murmur, tachycardia Abdomen: normal bowel sounds, soft, non tender, no organomegaly, non distended , no mass Extremities: no cyanosis, no clubbing Skin: no rash, no lesions Laboratory Tests Test 08/22/16 04:20 08/22/16 05:00 08/22/16 10:03 White Blood Count 9.0 K/UL (4.8-10.8) Red Blood Count 3.20 M/UL (4.70-6.10) L Hemoglobin 9.5 G/DL (14.2-18.0) L Hematocrit 28.6 % (42.0-52.0) L Mean Corpuscular Volume 89 FL (80-99) Mean Corpuscular Hemoglobin 29.6 PG (27.0-31.0) Mean Corpuscular Hemoglobin Concent 33.2 G/DL (32.0-36.0) Red Cell Distribution Width 12.8 % (11.6-14.8) Platelet Count 216 K/UL (150-450) Mean Platelet Volume 8.4 FL (6.5-10.1) Neutrophils (%) (Auto) 72.4 % (45.0-75.0) Lymphocytes (%) (Auto) 16.9 % (20.0-45.0) L Monocytes (%) (Auto) 7.9 % (1.0-10.0) Eosinophils (%) (Auto) 2.3 % (0.0-3.0) Basophils (%) (Auto) 0.5 % (0.0-2.0) Sodium Level 150 mEQ/L (135-145) H Potassium Level 4.5 mEQ/L (3.4-4.9) Chloride Level 109 mEQ/L (98-107) H Carbon Dioxide Level 24 mEQ/L (20-30) Anion Gap 17 (5-15) H Blood Urea Nitrogen 47 mg/dL (7-23) H Creatinine 1.4 mg/dL (0.7-1.2) H Estimat Glomerular Filtration Rate 50.4 mL/min (>60) Glucose Level 95 mg/dL (74-106) Calcium Level 9.4 mg/dL (8.6-10.2) Phosphorus Level 3.8 mg/dL (2.5-4.8) Magnesium Level 1.9 mg/dL (1.7-2.5) Total Bilirubin 0.2 mg/dL (0.0-1.2) Aspartate Amino Transf (AST/SGOT) 61 U/L (5-40) H Alanine Aminotransferase (ALT/SGPT) 34 U/L (3-41) Alkaline Phosphatase 51 U/L (40-129) Troponin I < 0.30 ng/mL (<=0.30) Pro-B-Type Natriuretic Peptide 656 pg/mL (0-125) H Total Protein 6.4 g/dL (6.6-8.7) L Albumin 2.8 g/dL (3.5-5.2) L Globulin 3.6 g/dL Albumin/Globulin Ratio 0.7 (1.0-2.7) L Phenytoin (Dilantin) Level 3.0 ug/mL (10-20) L Urine Color Brown Urine Appearance Very cloudy Urine pH 5 (4.5-8.0) Urine Specific [place] 1.020 (1.005-1.035) Urine Protein 3+ (NEGATIVE) H Urine Glucose (UA) Negative (NEGATIVE) Urine Ketones Negative (NEGATIVE) Urine Occult Blood 5+ (NEGATIVE) H Urine Nitrite Negative (NEGATIVE) Urine Bilirubin Negative (NEGATIVE) Urine Urobilinogen Normal MG/DL (0.0-1.0) Urine Leukocyte Esterase 2+ (NEGATIVE) H Urine RBC Tntc /HPF (0 - 0) H Urine WBC 15-20 /HPF (0 - 0) H Urine Squamous Epithelial Cells Moderate /LPF (NONE/OCC) H Urine Amorphous Sediment Moderate /LPF (NONE) H Urine Bacteria Moderate /HPF (NONE) H Urine Eosinophils None seen Arterial Blood pH 7.420 (7.350-7.450) Arterial Blood Partial Pressure CO2 35.4 mmHg (35.0-45.0) Arterial Blood Partial Pressure O2 65.0 mmHg (75.0-100.0) L Arterial Blood HCO3 22.5 mmol/L (22.0-26.0) Arterial Blood Oxygen Saturation 91.2 % (92.0-98.0) L Arterial Blood Base Excess -1.5 Erasto Test N/a Current Medications Medications (Trade) Dose Ordered Sig/Sharif Route PRN Reason Start Time Stop Time Status Last Admin Dose Admin Acetaminophen (Tylenol) 650 mg Q4H PRN ORAL fever 08/20/16 15:45 09/19/16 15:44 08/22/16 13:39 Al Hydroxide/Mg Hydroxide (Mylanta II) 30 ml Q6H PRN ORAL dyspepsia 08/20/16 15:45 09/19/16 15:44 Albuterol/ Ipratropium (DuoNeb 0.5-3(2.5)mg/3ml) 3 ml Q4H PRN HHN Shortness of Breath 08/20/16 15:45 08/25/16 15:44 08/21/16 00:30 Ampicillin Sodium/ Sulbactam Sodium 3 gm/Sodium Chloride 110 ml @ 220 mls/hr Q6H IVPB 08/22/16 10:30 08/29/16 10:29 08/22/16 16:35 Clindamycin HCl/ Dextrose 50 ml @ 100 mls/hr Q8HR IV 08/22/16 10:00 08/29/16 09:59 08/22/16 09:44 Clonazepam (KlonoPIN) 0.5 mg Q6H PRN ORAL anxiety 08/20/16 15:45 08/27/16 15:44 08/21/16 03:11 Dextrose (D5W 1000ml) 1,000 ml @ 75 mls/hr [id number] IV 08/22/16 09:45 09/21/16 09:44 08/22/16 09:44 Dextrose (Dextrose 50%) STAT PRN IV Hypoglycemia 08/20/16 15:45 09/19/16 15:44 Haloperidol Lactate (Haldol) 5 mg Q6H PRN IM Agitation 08/20/16 17:15 09/19/16 17:14 08/22/16 17:13 Heparin Sodium (Porcine) (Heparin 5000 units/ml) 5,000 units EVERY 12 HOURS SUBQ 08/20/16 21:00 09/19/16 20:59 08/22/16 08:41 Insulin Aspart (NovoLOG) BEFORE MEALS AND HS SUBQ 08/20/16 16:30 09/19/16 16:29 08/22/16 11:43 Lactobacillus Acidophilus (Culturelle) 1 tab THREE TIMES A DAY ORAL 08/22/16 13:00 09/21/16 12:59 08/22/16 13:39 Lorazepam 0.5 mg 0.5 mg Q4H PRN IV For Anxiety 08/21/16 11:30 08/28/16 11:29 08/22/16 12:58 Nitroglycerin (Ntg) 0.4 mg Q5M PRN SL Prn Chest Pain 08/20/16 15:35 09/19/16 15:34 Olanzapine (ZyPREXA) 5 mg DAILY ORAL 08/21/16 09:00 09/20/16 08:59 08/22/16 08:37 Ondansetron HCl (Zofran) 4 mg Q6H PRN IVP Nausea & Vomiting 08/20/16 15:45 09/19/16 15:44 Pantoprazole (Protonix) 40 mg DAILY ORAL 08/21/16 09:00 09/20/16 08:59 08/22/16 08:37 Phenytoin (Dilantin) 200 mg Q12HR ORAL 08/20/16 21:00 09/19/16 20:59 08/22/16 08:37 Polyethylene Glycol (Miralax) 17 gm DAILYPRN PRN ORAL Constipation 08/20/16 15:45 09/19/16 15:44 Quetiapine Fumarate (SEROquel) 50 mg Q12HR ORAL 08/22/16 12:00 09/21/16 11:59 08/22/16 11:41 Temazepam (Restoril) 15 mg HSPRN PRN ORAL Insomnia 08/20/16 15:45 08/27/16 15:44 Treva Martinez M.D. Aug 22, 2016 17:37
--- NOTE | 2016-08-22 19:27 | Nephrology Progress Note ---
Assessment/Plan Assessment 1. Acute renal failure, 2. Uncontrolled diabetes. 3. Hypomagnesemia. 4. Urosepsis. 5. Fever. 6. History of seizure disorder. 7.hypernatremia Plan plan to continue IVF change to d5w at 75cc/hour monitoring urine out put monitoring renal function avoid NSAID Fallow up with us of kidney Subjective ROS Limited/Unobtainable: Yes Subjective awake confused in icu Objective Objective Last 24 Hour Vital Signs Date Time Temp Pulse Resp B/P Pulse Ox O2 Delivery O2 Flow Rate FiO2 08/22/16 19:00 97 26 97 3.0 08/22/16 19:00 97 35 164/72 97 Nasal Cannula 3.0 08/22/16 18:00 95 35 154/72 97 Nasal Cannula 3.0 08/22/16 17:30 93 24 97 3.0 08/22/16 17:00 97.0 93 26 160/95 97 Nasal Cannula 3.0 08/22/16 16:00 103 35 145/85 97 Nasal Cannula 3.0 08/22/16 16:00 99 08/22/16 15:08 3.0 08/22/16 15:00 101 40 184/78 97 Nasal Cannula 3.0 08/22/16 14:38 98.8 08/22/16 14:00 104 41 199/67 96 Nasal Cannula 3.0 08/22/16 13:00 127 40 179/122 98 Nasal Cannula 3.0 08/22/16 12:53 3.0 08/22/16 12:00 132 08/22/16 12:00 97.9 125 26 200/166 97 Nasal Cannula 3.0 08/22/16 11:16 3.0 08/22/16 11:00 123 35 174/154 94 Nasal Cannula 2.0 08/22/16 10:00 112 36 183/88 95 Nasal Cannula 2.0 08/22/16 09:00 111 36 176/104 95 Nasal Cannula 2.0 08/22/16 08:00 81 08/22/16 08:00 30 08/22/16 08:00 97.7 78 26 145/70 99 Bi-pap 30 08/22/16 07:25 77 26 98 Facial 30 08/22/16 07:00 74 20 149/64 99 Bi-pap 30 08/22/16 06:00 72 20 136/65 99 Bi-pap 30 08/22/16 05:35 74 18 98 Facial 30 08/22/16 05:00 71 20 131/61 99 Bi-pap 30 08/22/16 04:01 98.0 70 20 139/71 99 Bi-pap 30 08/22/16 04:00 30 08/22/16 04:00 72 08/22/16 03:20 73 16 98 Facial 30 08/22/16 03:00 70 20 126/73 99 Bi-pap 30 08/22/16 02:00 68 20 131/62 99 Bi-pap 30 08/22/16 01:40 72 18 98 Facial 30 08/22/16 01:00 69 20 128/84 99 Bi-pap 30 08/22/16 00:00 30 08/22/16 00:00 98.0 72 20 138/68 99 Bi-pap 30 08/22/16 00:00 75 08/21/16 23:18 71 23 97 Facial 30 08/21/16 23:00 80 20 147/72 99 Bi-pap 30 08/21/16 22:00 68 21 123/56 99 Bi-pap 30 08/21/16 21:20 77 16 100 Facial 30 08/21/16 21:00 80 21 118/69 99 Bi-pap 30 08/21/16 20:00 72 08/21/16 20:00 98.1 74 20 113/61 99 Bi-pap 30 08/21/16 20:00 30 08/21/16 19:54 74 17 98 Facial 30 Intake and Output 08/21/16 08/22/16 19:00 07:00 Intake Total 575 ml 600 ml Output Total 160 ml 610 ml Balance 415 ml -10 ml IV Total 575 ml 600 ml Output Urine Total 160 ml 610 ml Laboratory Tests 08/22/16 04:20: White Blood Count 9.0, Red Blood Count 3.20L, Hemoglobin 9.5L, Hematocrit 28.6L , Mean Corpuscular Volume 89, Mean Corpuscular Hemoglobin 29.6, Mean Corpuscular Hemoglobin Concent 33.2, Red Cell Distribution Width 12.8, Platelet Count 216, Mean Platelet Volume 8.4, Neutrophils (%) (Auto) 72.4, Lymphocytes (% ) (Auto) 16.9L, Monocytes (%) (Auto) 7.9, Eosinophils (%) (Auto) 2.3, Basophils (%) (Auto) 0.5, Sodium Level 150H, Potassium Level 4.5, Chloride Level 109H, Carbon Dioxide Level 24, Anion Gap 17H, Blood Urea Nitrogen 47H, Creatinine 1.4H , Estimat Glomerular Filtration Rate 50.4, Glucose Level 95, Calcium Level 9.4, Phosphorus Level 3.8, Magnesium Level 1.9, Total Bilirubin 0.2, Aspartate Amino Transf (AST/SGOT) 61H, Alanine Aminotransferase (ALT/SGPT) 34, Alkaline Phosphatase 51, Troponin I < 0.30, Pro-B-Type Natriuretic Peptide 656H, Total Protein 6.4L, Albumin 2.8L, Globulin 3.6, Albumin/Globulin Ratio 0.7L, Phenytoin (Dilantin) Level 3.0L 08/22/16 05:00: Urine Color Brown, Urine Appearance Very cloudy, Urine pH 5, Urine Specific [place] 1.020, Urine Protein 3+H, Urine Glucose (UA) Negative, Urine Ketones Negative, Urine Occult Blood 5+H, Urine Nitrite Negative, Urine Bilirubin Negative, Urine Urobilinogen Normal, Urine Leukocyte Esterase 2+H, Urine RBC TntcH, Urine WBC 15-20H, Urine Squamous Epithelial Cells ModerateH, Urine Amorphous Sediment ModerateH, Urine Bacteria ModerateH, Urine Eosinophils None seen 08/22/16 10:03: Arterial Blood pH 7.420, Arterial Blood Partial Pressure CO2 35.4, Arterial Blood Partial Pressure O2 65.0L, Arterial Blood HCO3 22.5, Arterial Blood Oxygen Saturation 91.2L, Arterial Blood Base Excess -1.5, Erasto Test N/a Height (Feet): 5 Height (Inches): 9.00 Weight (Pounds): 185 Objective HEAD AND NECK: No JVP. No LAD. No thyromegaly. Dry mucous membranes. LUNGS EXAM: Clear to auscultation. CARDIAC: Regular rate and rhythm. S1-S2. No murmur. No rub. ABDOMEN: Soft, nontender, and nondistended. EXTREMITIES: Trace edema. No clubbing. No cyanosis. NENITA PINO Aug 22, 2016 19:27
--- NOTE | 2016-08-22 21:59 | Consultation ---
DATE OF CONSULTATION: 08/21/2016 PSYCHOTHERAPY CONSULTATION PROGRESS NOTE: CONSULTING PHYSICIAN: Adan Sebastian M.D. TREATING ATTENDING: Abelino Marvin D.O. HISTORY OF PRESENT ILLNESS: The patient is a 66-year-old male. The patient has been admitted to the hospital for possible syncopal episode. He lives at home. He presented to [facility] due to possible syncope, UTI, sepsis, weakness, and renal insufficiency. The patient was psychotherapy and therapeutic services. This clinician assessed this patient at this time as well and was very confused, disorganized, altered mental status, and weak. He is very poor historian, unable to provide any liable information at this time. PAST MEDICAL HISTORY: History of diabetes and hypertension documented and diagnosed. ALLERGIES: The patient has no known drug allergies. SUBSTANCE ABUSE HISTORY: There is no indication of alcohol use, illicit substance use, or smoking cigarettes for this patient SOCIAL HISTORY: The patient is a 66-year-old male lives at home. MENTAL STATUS EXAMINATION: The patient is alert and oriented to person. Mood is . Affect is congruent. The patient has poor attention and concentration at this time. The patient is unable to provide any valuable information. DIAGNOSES: AXIS I 02:55 AXIS II Deferred. AXIS III Per History and Physical. AXIS IV Problems with social environment. PLAN: This clinician assessed the patient, assessed the patient's mental status. At this time, the patient is a very poor historian. Continue with medication management and behavioral management. This clinician has reviewed the patient's chart. Discussed the treatment with nursing staff. Adan Sebastian PsyD. DR: Beena JOB#: [id number] CC:
--- NOTE | 2016-08-22 23:58 | Cardiology Progress Note ---
Assessment/Plan Assessment/Plan 1. Sinus tachycardia likely due to hypovolemia, continue hydration,.start low dose non-selective B-blockers. 2. Syncope, likely due to hypovolemia. 3. Possible sepsis. 4. Toxic and metabolic encephalopathy. 5. Seizure disorder. Subjective Subjective Agitated. Sinus tachycardia at 105. Has been hypertensive. Objective Last 24 Hour Vital Signs Date Time Temp Pulse Resp B/P Pulse Ox O2 Delivery O2 Flow Rate FiO2 08/22/16 23:27 96 25 99 3.0 08/22/16 23:00 98 36 175/80 97 Nasal Cannula 3.0 08/22/16 22:00 105 36 176/87 98 Nasal Cannula 3.0 08/22/16 21:12 96 25 99 3.0 08/22/16 21:00 113 35 170/90 98 Nasal Cannula 3.0 08/22/16 20:00 98 08/22/16 20:00 97.7 105 26 161/99 98 Nasal Cannula 3.0 08/22/16 19:00 97 26 97 3.0 08/22/16 19:00 97 35 164/72 97 Nasal Cannula 3.0 08/22/16 18:00 95 35 154/72 97 Nasal Cannula 3.0 08/22/16 17:30 93 24 97 3.0 08/22/16 17:00 97.0 93 26 160/95 97 Nasal Cannula 3.0 08/22/16 16:00 103 35 145/85 97 Nasal Cannula 3.0 08/22/16 16:00 99 08/22/16 15:08 3.0 08/22/16 15:00 101 40 184/78 97 Nasal Cannula 3.0 08/22/16 14:38 98.8 08/22/16 14:00 104 41 199/67 96 Nasal Cannula 3.0 08/22/16 13:00 127 40 179/122 98 Nasal Cannula 3.0 08/22/16 12:53 3.0 08/22/16 12:00 132 08/22/16 12:00 97.9 125 26 200/166 97 Nasal Cannula 3.0 08/22/16 11:16 3.0 08/22/16 11:00 123 35 174/154 94 Nasal Cannula 2.0 08/22/16 10:00 112 36 183/88 95 Nasal Cannula 2.0 08/22/16 09:00 111 36 176/104 95 Nasal Cannula 2.0 08/22/16 08:00 81 08/22/16 08:00 30 08/22/16 08:00 97.7 78 26 145/70 99 Bi-pap 30 08/22/16 07:25 77 26 98 Facial 30 08/22/16 07:00 74 20 149/64 99 Bi-pap 30 08/22/16 06:00 72 20 136/65 99 Bi-pap 30 08/22/16 05:35 74 18 98 Facial 30 08/22/16 05:00 71 20 131/61 99 Bi-pap 30 08/22/16 04:01 98.0 70 20 139/71 99 Bi-pap 30 08/22/16 04:00 30 08/22/16 04:00 72 08/22/16 03:20 73 16 98 Facial 30 08/22/16 03:00 70 20 126/73 99 Bi-pap 30 08/22/16 02:00 68 20 131/62 99 Bi-pap 30 08/22/16 01:40 72 18 98 Facial 30 08/22/16 01:00 69 20 128/84 99 Bi-pap 30 08/22/16 00:00 30 08/22/16 00:00 98.0 72 20 138/68 99 Bi-pap 30 08/22/16 00:00 75 Intake and Output 08/21/16 08/22/16 19:00 07:00 Intake Total 575 ml 600 ml Output Total 160 ml 610 ml Balance 415 ml -10 ml IV Total 575 ml 600 ml Output Urine Total 160 ml 610 ml Laboratory Tests Test 08/22/16 04:20 08/22/16 05:00 08/22/16 10:03 White Blood Count 9.0 K/UL (4.8-10.8) Red Blood Count 3.20 M/UL (4.70-6.10) L Hemoglobin 9.5 G/DL (14.2-18.0) L Hematocrit 28.6 % (42.0-52.0) L Mean Corpuscular Volume 89 FL (80-99) Mean Corpuscular Hemoglobin 29.6 PG (27.0-31.0) Mean Corpuscular Hemoglobin Concent 33.2 G/DL (32.0-36.0) Red Cell Distribution Width 12.8 % (11.6-14.8) Platelet Count 216 K/UL (150-450) Mean Platelet Volume 8.4 FL (6.5-10.1) Neutrophils (%) (Auto) 72.4 % (45.0-75.0) Lymphocytes (%) (Auto) 16.9 % (20.0-45.0) L Monocytes (%) (Auto) 7.9 % (1.0-10.0) Eosinophils (%) (Auto) 2.3 % (0.0-3.0) Basophils (%) (Auto) 0.5 % (0.0-2.0) Sodium Level 150 mEQ/L (135-145) H Potassium Level 4.5 mEQ/L (3.4-4.9) Chloride Level 109 mEQ/L (98-107) H Carbon Dioxide Level 24 mEQ/L (20-30) Anion Gap 17 (5-15) H Blood Urea Nitrogen 47 mg/dL (7-23) H Creatinine 1.4 mg/dL (0.7-1.2) H Estimat Glomerular Filtration Rate 50.4 mL/min (>60) Glucose Level 95 mg/dL (74-106) Calcium Level 9.4 mg/dL (8.6-10.2) Phosphorus Level 3.8 mg/dL (2.5-4.8) Magnesium Level 1.9 mg/dL (1.7-2.5) Total Bilirubin 0.2 mg/dL (0.0-1.2) Aspartate Amino Transf (AST/SGOT) 61 U/L (5-40) H Alanine Aminotransferase (ALT/SGPT) 34 U/L (3-41) Alkaline Phosphatase 51 U/L (40-129) Troponin I < 0.30 ng/mL (<=0.30) Pro-B-Type Natriuretic Peptide 656 pg/mL (0-125) H Total Protein 6.4 g/dL (6.6-8.7) L Albumin 2.8 g/dL (3.5-5.2) L Globulin 3.6 g/dL Albumin/Globulin Ratio 0.7 (1.0-2.7) L Phenytoin (Dilantin) Level 3.0 ug/mL (10-20) L Urine Color Brown Urine Appearance Very cloudy Urine pH 5 (4.5-8.0) Urine Specific [place] 1.020 (1.005-1.035) Urine Protein 3+ (NEGATIVE) H Urine Glucose (UA) Negative (NEGATIVE) Urine Ketones Negative (NEGATIVE) Urine Occult Blood 5+ (NEGATIVE) H Urine Nitrite Negative (NEGATIVE) Urine Bilirubin Negative (NEGATIVE) Urine Urobilinogen Normal MG/DL (0.0-1.0) Urine Leukocyte Esterase 2+ (NEGATIVE) H Urine RBC Tntc /HPF (0 - 0) H Urine WBC 15-20 /HPF (0 - 0) H Urine Squamous Epithelial Cells Moderate /LPF (NONE/OCC) H Urine Amorphous Sediment Moderate /LPF (NONE) H Urine Bacteria Moderate /HPF (NONE) H Urine Eosinophils None seen Arterial Blood pH 7.420 (7.350-7.450) Arterial Blood Partial Pressure CO2 35.4 mmHg (35.0-45.0) Arterial Blood Partial Pressure O2 65.0 mmHg (75.0-100.0) L Arterial Blood HCO3 22.5 mmol/L (22.0-26.0) Arterial Blood Oxygen Saturation 91.2 % (92.0-98.0) L Arterial Blood Base Excess -1.5 Erasto Test N/a Objective HEENT: Temporal wasting. Pale conjunctivae. Oropharynx clear, PERRLA, EOMI, Mucous membranes dry. NECK: negative JVD, no carotid bruit with 2+ upstroke B/L LUNGS: clear breath sounds CARDIAC: Regular rate rhythm, tachycardic, Normal S1 and S2 with no murmurs, gallops or rubs. ABDOMEN: Soft and nontender, no HSM, normal BS EXTREMITIES: No edema, clubbing or cyanosis NEUROLOGIC: Altered mental status MAC ATKINSON Aug 22, 2016 23:58
[2016-08-23] VITALS (25 sets, daily range): BP systolic 101–208; BP diastolic 63–110
[2016-08-23] MEDS: Propranolol 10mg tab ORAL SCH ×4 (00:39→22:12)
[2016-08-23] MEDS: LORazepam Inj 2mg/ml 1ml IV PRN ×4 (04:47→19:50)
[2016-08-23] MEDS: Ampicillin/Sulbactam Sod 3 GM in NS 110 ML IVPB SCH ×4 (04:47→22:44)
[2016-08-23] MEDS: Clindamycin 600mg 50 ML IV SCH ×3 (05:41→22:11)
[2016-08-23] MEDS: Haloperidol 5mg/ml Inj IM PRN ×2 (05:44→15:30)
[2016-08-23 05:45] LABS: BASOPHILS % (AUTO) 0.9 % (0.0-2.0); EOSINOPHILS % (AUTO) 3.2 % (0.0-3.0); LYMPHOCYTES % (AUTO) 14.4 % (20.0-45.0); MEAN CORPUSCULAR HEMOGLOBIN 29.5 PG (27.0-31.0); MEAN CORPUSCULAR HGB CONC 32.4 G/DL (32.0-36.0); MEAN CORPUSCULAR VOLUME 91 FL (80-99); MEAN PLATELET VOLUME 7.9 FL (6.5-10.1); MONOCYTES % (AUTO) 9.3 % (1.0-10.0); NEUTROPHILS % (AUTO) 72.1 % (45.0-75.0); PLATELET COUNT 234 K/UL (150-450); RED BLOOD COUNT 3.65 M/UL (4.70-6.10); WHITE BLOOD COUNT 6.5 K/UL (4.8-10.8)
[2016-08-23] MEDS: NovoLOG Insulin Flexpen SUBQ SCH ×4 (05:54→21:08)
[2016-08-23 06:14] LABS: ALANINE AMINOTRANSFERASE 38 U/L (3-41); ALBUMIN/GLOBULIN RATIO 0.7 (1.0-2.7); ANION GAP 15 (5-15); ASPARTATE AMINO TRANSFERASE 51 U/L (5-40); CALCIUM 9.1 mg/dL (8.6-10.2); CARBON DIOXIDE 23 mEQ/L (20-30); CHLORIDE 101 mEQ/L (98-107); CREATININE 0.9 mg/dL (0.7-1.2); GLOMERULAR FILTRATION RATE > 60 mL/min (>60); HEMOLYSIS 3; POTASSIUM 3.6 mEQ/L (3.4-4.9); SODIUM 139 mEQ/L (135-145); TOTAL PROTEIN 6.5 g/dL (6.6-8.7)
[2016-08-23 07:05] LABS: CREATININE, RANDOM URINE 142.1 mg/dL
[2016-08-23] MEDS: Phenytoin 100mg cap ORAL SCH ×2 (08:47→20:36)
[2016-08-23] MEDS: Lactobacillus-GG tablet ORAL SCH ×3 (08:49→17:49)
[2016-08-23] MEDS: Heparin 5000 units/ml inj SUBQ SCH ×2 (08:52→21:11)
--- NOTE | 2016-08-23 09:29 | Pulmonolgy Critical Care Note ---
Critical Care - Asmt/Plan Problems: (1) Respiratory failure (2) Bacteremia (3) Sepsis (4) Seizure disorder (5) Deaf (6) Blind (7) sp severe TBI Respiratory: monitor respiratory rate Cardiac: continue to monitor HR/BP Renal: F/U I&O, keep IV fluid, check electrolytes Infectious Disease: check cultures, continue antibiotics, other - blood has enterococus faecalis Gastrointestinal: continue feedings/current rate Endocrine: monitor blood sugar, continue sliding scale insulin Hematologic: monitor H/H, transfuse if hgb<8.5 Neurologic: PRN Ativan, keep patient comfortable Affect: PRN ativan Prophylaxis: Protonix Notes Reviewed: inspector ball points, cardio, renal Discussed with: nurses, consultants, case resolution specialistmanager cargo - Objective Last 24 Hour Vital Signs Date Time Temp Pulse Resp B/P Pulse Ox O2 Delivery O2 Flow Rate FiO2 08/23/16 08:46 96 177/91 08/23/16 07:05 78 36 152/83 97 Nasal Cannula 3.0 08/23/16 06:20 95 193/88 08/23/16 06:00 95 36 193/88 97 Nasal Cannula 3.0 08/23/16 05:11 93 20 94 3.0 08/23/16 05:00 88 36 162/73 97 Nasal Cannula 3.0 08/23/16 04:00 80 08/23/16 04:00 98.5 80 36 155/90 97 Nasal Cannula 3.0 08/23/16 03:16 82 20 99 3.0 08/23/16 03:01 98.3 85 36 101/79 97 Nasal Cannula 3.0 08/23/16 02:00 78 36 150/72 97 Nasal Cannula 3.0 08/23/16 01:00 80 20 99 3.0 08/23/16 01:00 101.6 90 36 163/80 97 Nasal Cannula 3.0 08/23/16 00:57 101.6 08/23/16 00:39 102 174/88 08/23/16 00:00 102.2 98 36 174/88 97 Nasal Cannula 3.0 08/23/16 00:00 98 08/22/16 23:27 96 25 99 3.0 08/22/16 23:00 98 36 175/80 97 Nasal Cannula 3.0 08/22/16 22:00 105 36 176/87 98 Nasal Cannula 3.0 08/22/16 21:12 96 25 99 3.0 08/22/16 21:00 113 35 170/90 98 Nasal Cannula 3.0 08/22/16 20:00 98 08/22/16 20:00 97.7 105 26 161/99 98 Nasal Cannula 3.0 08/22/16 19:00 97 26 97 3.0 08/22/16 19:00 97 35 164/72 97 Nasal Cannula 3.0 08/22/16 18:00 95 35 154/72 97 Nasal Cannula 3.0 08/22/16 17:30 93 24 97 3.0 08/22/16 17:00 97.0 93 26 160/95 97 Nasal Cannula 3.0 08/22/16 16:00 103 35 145/85 97 Nasal Cannula 3.0 08/22/16 16:00 99 08/22/16 15:08 3.0 08/22/16 15:00 101 40 184/78 97 Nasal Cannula 3.0 08/22/16 14:00 104 41 199/67 96 Nasal Cannula 3.0 08/22/16 13:00 127 40 179/122 98 Nasal Cannula 3.0 08/22/16 12:53 3.0 08/22/16 12:00 132 08/22/16 12:00 97.9 125 26 200/166 97 Nasal Cannula 3.0 08/22/16 11:16 3.0 08/22/16 11:00 123 35 174/154 94 Nasal Cannula 2.0 08/22/16 10:00 112 36 183/88 95 Nasal Cannula 2.0 Status: sedated Condition: critical HEENT: atraumatic, normocephalic Neck: full ROM Lungs: rales, rhonchi Heart: HR/BP stable Abdomen: soft, non-tender, active bowel sounds Extremities: no C/C/E, edema Decubiti: location Micro: Microbiology Date/Time Source Procedure Growth Status 08/22/16 05:00 Urine,Clean Catch Urine Culture - Preliminary NO GROWTH AFTER 24 HOURS Resulted Accucheck: 125 Critical Care - Subjective ROS Limited/Unobtainable: Yes ICU Day: 3 Intubation Day: 3 Interval Events: agitated at times, eating well. needs restrains. EKG Rhythm: Sinus Rhythm FI02: 30 Sputum Amount: None Fluids: d5 /12 NS 75 cc.hour I&O: Intake and Output 08/22/16 08/23/16 19:00 07:00 Intake Total 1255 ml 2335 ml Output Total 1770 ml 1225 ml Balance -515 ml 1110 ml Intake Oral 380 ml 1230 ml IV Total 875 ml 1105 ml Output Urine Total 1770 ml 1225 ml CXR: no new infiltrate Labs: Laboratory Tests Test 08/22/16 10:03 08/23/16 04:40 08/23/16 05:49 Arterial Blood pH 7.420 (7.350-7.450) Arterial Blood Partial Pressure CO2 35.4 mmHg (35.0-45.0) Arterial Blood Partial Pressure O2 65.0 mmHg (75.0-100.0) L Arterial Blood HCO3 22.5 mmol/L (22.0-26.0) Arterial Blood Oxygen Saturation 91.2 % (92.0-98.0) L Arterial Blood Base Excess -1.5 Erasto Test N/a White Blood Count 6.5 K/UL (4.8-10.8) Red Blood Count 3.65 M/UL (4.70-6.10) L Hemoglobin 10.7 G/DL (14.2-18.0) L Hematocrit 33.2 % (42.0-52.0) L Mean Corpuscular Volume 91 FL (80-99) Mean Corpuscular Hemoglobin 29.5 PG (27.0-31.0) Mean Corpuscular Hemoglobin Concent 32.4 G/DL (32.0-36.0) Red Cell Distribution Width 12.0 % (11.6-14.8) Platelet Count 234 K/UL (150-450) Mean Platelet Volume 7.9 FL (6.5-10.1) Neutrophils (%) (Auto) 72.1 % (45.0-75.0) Lymphocytes (%) (Auto) 14.4 % (20.0-45.0) L Monocytes (%) (Auto) 9.3 % (1.0-10.0) Eosinophils (%) (Auto) 3.2 % (0.0-3.0) H Basophils (%) (Auto) 0.9 % (0.0-2.0) Sodium Level 139 mEQ/L (135-145) Potassium Level 3.6 mEQ/L (3.4-4.9) Chloride Level 101 mEQ/L (98-107) Carbon Dioxide Level 23 mEQ/L (20-30) Anion Gap 15 (5-15) Blood Urea Nitrogen 20 mg/dL (7-23) # Creatinine 0.9 mg/dL (0.7-1.2) Estimat Glomerular Filtration Rate > 60 mL/min (>60) Glucose Level 129 mg/dL (74-106) H Calcium Level 9.1 mg/dL (8.6-10.2) Total Bilirubin 0.3 mg/dL (0.0-1.2) Aspartate Amino Transf (AST/SGOT) 51 U/L (5-40) H Alanine Aminotransferase (ALT/SGPT) 38 U/L (3-41) Alkaline Phosphatase 54 U/L (40-129) Total Protein 6.5 g/dL (6.6-8.7) L Albumin 2.7 g/dL (3.5-5.2) L Globulin 3.8 g/dL Albumin/Globulin Ratio 0.7 (1.0-2.7) L Urine Random Creatinine Pending Urine Random Microalbumin Pending Urine Random Total Protein 105 mg/dL Urine Creatinine 142.1 mg/dL Urine Microalbumin/Creatinine Ratio Pending LATANYA GALLARDO Aug 23, 2016 09:29
--- NOTE | 2016-08-23 12:57 | Diagnostic Imaging Report ---
Indications: Bowel pain, elevated hepatic and renal function tests Technique: Transabdominal real-time grayscale and duplex Doppler imaging of the upper abdomen and retroperitoneum was performed. Findings: Comparison: None. Liver 19.5 cm in length. Normal surface contour, parenchymal echogenicity. 1.5 cm circumscribed anechoic focus in right lobe. No other focal lesions. Gallbladder unremarkable. No intraluminal stones or sludge. No mural thickening or adjacent fluid collections. Sonographic Whitney sign not reported.. Bile ducts normal caliber. Common bile duct 6 mm. Pancreas head and body unremarkable; tail obscured. Spleen 13.5 cm, no focal lesions.. Right kidney unremarkable. Left kidney unremarkable. Abdominal aorta, intrahepatic portion of inferior vena cava patent, normal caliber. Duplex Doppler imaging demonstrates antegrade flow in splenic, portal, hepatic veins. No ascites. IMPRESSION: Hepatosplenomegaly Hepatic cyst Pancreatic tail obscured Remainder of exam unremarkable.
--- NOTE | 2016-08-23 12:57 | Diagnostic Imaging Report ---
Indications: DYSPNEA Technique: Portable AP chest Findings: Comparison: 08/22/16 Inspiratory effort has decreased. Linear densities have increased in the right lung base. Left lung remains clear. Cardiac mediastinal silhouette stable. No obvious pleural abnormalities. IMPRESSION: Worsening of right lung base subsegmental atelectasis with decrease in inspiration No other evidence of acute cardio pulmonary disease, unchanged
--- NOTE | 2016-08-23 15:31 | General Progress Note ---
Assessment/Plan Problem List: (1) Hypertensive urgency ICD Codes: I16.0 - Hypertensive urgency SNOMED: 641923910 (2) Respiratory failure ICD Codes: J96.90 - Respiratory failure, unspecified, unspecified whether with hypoxia or hypercapnia SNOMED: 877606361 (3) Blind ICD Codes: H54.0 - Blindness, both eyes SNOMED: 077460639 (4) Renal insufficiency ICD Codes: N28.9 - Disorder of kidney and ureter, unspecified SNOMED: 477603574 (5) Sepsis ICD Codes: A41.9 - Sepsis, unspecified organism SNOMED: 08991827 (6) UTI (urinary tract infection) ICD Codes: N39.0 - Urinary tract infection, site not specified SNOMED: 58068038 Status: stable, progressing, tolerating diet Assessment/Plan o2 pulm tx abx cbc bmp am psyc eval promise ltach eval Subjective Constitutional: Reports: weakness Allergies: Coded Allergies: No Known Allergies (Unverified , 08/19/16) All Systems: reviewed and negative except above Subjective on o2 nc in icu Objective Last 24 Hour Vital Signs Date Time Temp Pulse Resp B/P Pulse Ox O2 Delivery O2 Flow Rate FiO2 08/23/16 15:00 98.7 89 34 166/92 97 Nasal Cannula 3.0 08/23/16 14:09 88 156/77 08/23/16 14:00 98.6 87 34 156/77 97 Nasal Cannula 3.0 08/23/16 13:00 98.6 86 34 153/68 97 Nasal Cannula 3.0 08/23/16 12:00 98.7 101 36 137/73 97 Nasal Cannula 3.0 08/23/16 11:36 169/72 08/23/16 11:08 208/96 08/23/16 11:00 98.6 101 44 208/96 97 Nasal Cannula 3.0 08/23/16 10:42 102 197/89 08/23/16 10:00 98.8 95 44 197/89 97 Nasal Cannula 3.0 08/23/16 09:44 80 08/23/16 09:00 100.7 98 44 177/74 97 Nasal Cannula 3.0 08/23/16 08:46 96 177/91 08/23/16 08:00 99.1 87 40 177/91 97 Nasal Cannula 3.0 08/23/16 08:00 80 08/23/16 07:11 Nasal Cannula 3.0 08/23/16 07:10 98 Nasal Cannula 3.0 08/23/16 07:05 78 36 152/83 97 Nasal Cannula 3.0 08/23/16 06:20 95 193/88 08/23/16 06:00 95 36 193/88 97 Nasal Cannula 3.0 08/23/16 05:11 93 20 94 3.0 08/23/16 05:00 88 36 162/73 97 Nasal Cannula 3.0 08/23/16 04:00 80 08/23/16 04:00 98.5 80 36 155/90 97 Nasal Cannula 3.0 08/23/16 03:16 82 20 99 3.0 08/23/16 03:01 98.3 85 36 101/79 97 Nasal Cannula 3.0 08/23/16 02:00 78 36 150/72 97 Nasal Cannula 3.0 08/23/16 01:00 80 20 99 3.0 08/23/16 01:00 101.6 90 36 163/80 97 Nasal Cannula 3.0 08/23/16 00:57 101.6 08/23/16 00:39 102 174/88 08/23/16 00:00 102.2 98 36 174/88 97 Nasal Cannula 3.0 08/23/16 00:00 98 08/22/16 23:27 96 25 99 3.0 08/22/16 23:00 98 36 175/80 97 Nasal Cannula 3.0 08/22/16 22:00 105 36 176/87 98 Nasal Cannula 3.0 08/22/16 21:12 96 25 99 3.0 08/22/16 21:00 113 35 170/90 98 Nasal Cannula 3.0 08/22/16 20:00 98 08/22/16 20:00 97.7 105 26 161/99 98 Nasal Cannula 3.0 08/22/16 19:00 97 26 97 3.0 08/22/16 19:00 97 35 164/72 97 Nasal Cannula 3.0 08/22/16 18:00 95 35 154/72 97 Nasal Cannula 3.0 08/22/16 17:30 93 24 97 3.0 08/22/16 17:00 97.0 93 26 160/95 97 Nasal Cannula 3.0 08/22/16 16:00 103 35 145/85 97 Nasal Cannula 3.0 08/22/16 16:00 99 Intake and Output 08/22/16 08/23/16 19:00 07:00 Intake Total 1255 ml 2335 ml Output Total 1770 ml 1225 ml Balance -515 ml 1110 ml Intake Oral 380 ml 1230 ml IV Total 875 ml 1105 ml Output Urine Total 1770 ml 1225 ml Laboratory Tests 08/23/16 04:40: White Blood Count 6.5, Red Blood Count 3.65L, Hemoglobin 10.7L, Hematocrit 33.2L , Mean Corpuscular Volume 91, Mean Corpuscular Hemoglobin 29.5, Mean Corpuscular Hemoglobin Concent 32.4, Red Cell Distribution Width 12.0, Platelet Count 234, Mean Platelet Volume 7.9, Neutrophils (%) (Auto) 72.1, Lymphocytes (% ) (Auto) 14.4L, Monocytes (%) (Auto) 9.3, Eosinophils (%) (Auto) 3.2H, Basophils (%) (Auto) 0.9, Sodium Level 139, Potassium Level 3.6, Chloride Level 101, Carbon Dioxide Level 23, Anion Gap 15, Blood Urea Nitrogen 20#, Creatinine 0.9, Estimat Glomerular Filtration Rate > 60, Glucose Level 129H, Calcium Level 9.1, Total Bilirubin 0.3, Aspartate Amino Transf (AST/SGOT) 51H, Alanine Aminotransferase (ALT/SGPT) 38, Alkaline Phosphatase 54, Total Protein 6.5L, Albumin 2.7L, Globulin 3.8, Albumin/Globulin Ratio 0.7L 08/23/16 05:49: Urine Random Creatinine [Pending], Urine Random Microalbumin [Pending], Urine Random Total Protein 105, Urine Creatinine 142.1, Urine Microalbumin/Creatinine Ratio [Pending] Height (Feet): 5 Height (Inches): 9.00 Weight (Pounds): 185 General Appearance: lethargic EENT: normal ENT inspection Neck: normal alignment Cardiovascular: normal peripheral pulses, normal rate, regular rhythm Respiratory/Chest: chest wall non-tender, lungs clear, normal breath sounds Abdomen: normal bowel sounds, non tender, soft Extremities: normal inspection Edema: no edema noted Arm (L), no edema noted Arm (R), no edema noted Leg (L), no edema noted Leg (R), no edema noted Pedal (L), no edema noted Pedal (R), no edema noted Generalized Neurologic: motor weakness Skin: normal pigmentation, warm/dry DOROTA FRANCO Aug 23, 2016 15:31
--- NOTE | 2016-08-23 16:05 | Nephrology Progress Note ---
Assessment/Plan Assessment 1. Acute renal failure, 2. Uncontrolled HTN 3. Hypomagnesemia. 4. Urosepsis. 5. Fever. 6. History of seizure disorder. 7.hypernatremia resolved Plan plan to d/c ivf start norvasc mg monitoring urine out put monitoring renal function avoid NSAID Subjective Constitutional: Reports: no symptoms HEENT: Reports: no symptoms Genitourinary: Reports: no symptoms Neurologic/Psychiatric: Reports: no symptoms Subjective found to have very elevated BP awake confused in icu Objective Objective Last 24 Hour Vital Signs Date Time Temp Pulse Resp B/P Pulse Ox O2 Delivery O2 Flow Rate FiO2 08/23/16 15:29 163/77 08/23/16 15:00 98.7 89 34 166/92 97 Nasal Cannula 3.0 08/23/16 14:09 88 156/77 08/23/16 14:00 98.6 87 34 156/77 97 Nasal Cannula 3.0 08/23/16 13:00 98.6 86 34 153/68 97 Nasal Cannula 3.0 08/23/16 12:00 98.7 101 36 137/73 97 Nasal Cannula 3.0 08/23/16 11:36 169/72 08/23/16 11:08 208/96 08/23/16 11:00 98.6 101 44 208/96 97 Nasal Cannula 3.0 08/23/16 10:42 102 197/89 08/23/16 10:00 98.8 95 44 197/89 97 Nasal Cannula 3.0 08/23/16 09:44 80 08/23/16 09:00 100.7 98 44 177/74 97 Nasal Cannula 3.0 08/23/16 08:46 96 177/91 08/23/16 08:00 99.1 87 40 177/91 97 Nasal Cannula 3.0 08/23/16 08:00 80 08/23/16 07:11 Nasal Cannula 3.0 08/23/16 07:10 98 Nasal Cannula 3.0 08/23/16 07:05 78 36 152/83 97 Nasal Cannula 3.0 08/23/16 06:20 95 193/88 08/23/16 06:00 95 36 193/88 97 Nasal Cannula 3.0 08/23/16 05:11 93 20 94 3.0 08/23/16 05:00 88 36 162/73 97 Nasal Cannula 3.0 08/23/16 04:00 80 08/23/16 04:00 98.5 80 36 155/90 97 Nasal Cannula 3.0 08/23/16 03:16 82 20 99 3.0 08/23/16 03:01 98.3 85 36 101/79 97 Nasal Cannula 3.0 08/23/16 02:00 78 36 150/72 97 Nasal Cannula 3.0 08/23/16 01:00 80 20 99 3.0 08/23/16 01:00 101.6 90 36 163/80 97 Nasal Cannula 3.0 08/23/16 00:57 101.6 08/23/16 00:39 102 174/88 08/23/16 00:00 102.2 98 36 174/88 97 Nasal Cannula 3.0 08/23/16 00:00 98 08/22/16 23:27 96 25 99 3.0 08/22/16 23:00 98 36 175/80 97 Nasal Cannula 3.0 08/22/16 22:00 105 36 176/87 98 Nasal Cannula 3.0 08/22/16 21:12 96 25 99 3.0 08/22/16 21:00 113 35 170/90 98 Nasal Cannula 3.0 08/22/16 20:00 98 08/22/16 20:00 97.7 105 26 161/99 98 Nasal Cannula 3.0 08/22/16 19:00 97 26 97 3.0 08/22/16 19:00 97 35 164/72 97 Nasal Cannula 3.0 08/22/16 18:00 95 35 154/72 97 Nasal Cannula 3.0 08/22/16 17:30 93 24 97 3.0 08/22/16 17:00 97.0 93 26 160/95 97 Nasal Cannula 3.0 Intake and Output 08/22/16 08/23/16 19:00 07:00 Intake Total 1255 ml 2335 ml Output Total 1770 ml 1225 ml Balance -515 ml 1110 ml Intake Oral 380 ml 1230 ml IV Total 875 ml 1105 ml Output Urine Total 1770 ml 1225 ml Laboratory Tests 08/23/16 04:40: White Blood Count 6.5, Red Blood Count 3.65L, Hemoglobin 10.7L, Hematocrit 33.2L , Mean Corpuscular Volume 91, Mean Corpuscular Hemoglobin 29.5, Mean Corpuscular Hemoglobin Concent 32.4, Red Cell Distribution Width 12.0, Platelet Count 234, Mean Platelet Volume 7.9, Neutrophils (%) (Auto) 72.1, Lymphocytes (% ) (Auto) 14.4L, Monocytes (%) (Auto) 9.3, Eosinophils (%) (Auto) 3.2H, Basophils (%) (Auto) 0.9, Sodium Level 139, Potassium Level 3.6, Chloride Level 101, Carbon Dioxide Level 23, Anion Gap 15, Blood Urea Nitrogen 20#, Creatinine 0.9, Estimat Glomerular Filtration Rate > 60, Glucose Level 129H, Calcium Level 9.1, Total Bilirubin 0.3, Aspartate Amino Transf (AST/SGOT) 51H, Alanine Aminotransferase (ALT/SGPT) 38, Alkaline Phosphatase 54, Total Protein 6.5L, Albumin 2.7L, Globulin 3.8, Albumin/Globulin Ratio 0.7L 08/23/16 05:49: Urine Random Creatinine [Pending], Urine Random Microalbumin [Pending], Urine Random Total Protein 105, Urine Creatinine 142.1, Urine Microalbumin/Creatinine Ratio [Pending] Height (Feet): 5 Height (Inches): 9.00 Weight (Pounds): 185 Objective HEAD AND NECK: No JVP. No LAD. No thyromegaly. Dry mucous membranes. LUNGS EXAM: Clear to auscultation. CARDIAC: Regular rate and rhythm. S1-S2. No murmur. No rub. ABDOMEN: Soft, nontender, and nondistended. EXTREMITIES: Trace edema. No clubbing. No cyanosis. NENITA PINO Aug 23, 2016 16:05
[2016-08-23] MEDS ORDERED: Tubing IV Secondary IV ONE (18:09)
[2016-08-23] MEDS: clonazePAM 0.5mg tab ORAL PRN (18:51)
--- NOTE | 2016-08-23 20:54 | Infectious Diseases Prog Note ---
Assessment/Plan Problems: (1) HCAP (healthcare-associated pneumonia) Assessment & Plan: with new RLL infiltrates, rule out aspiration, on clindamycin and unasyn to cover for E.faecalis bacteremia , await sputum culture , monitor CXR, recommend swallow eval and NPO (2) Sepsis Assessment & Plan: with enterococcus faecalis , source ? most likely GI tract , US of the gall bladder was unremarkable, and echocardiogram to rule out valve vegetations is pending . (3) UTI (urinary tract infection) Assessment & Plan: on unasyn , await urine culture (4) Urinary retention Assessment & Plan: S/P folley catheter insertion, recommend urologist eval (5) Seizure disorder Assessment & Plan: continue seizure meds follow up with neurologist Subjective ROS Limited/Unobtainable: Yes Allergies: Coded Allergies: No Known Allergies (Unverified , 08/19/16) Subjective he was more quiet and comfortable today , lying in bed , not agitated, daughter at the bedside, not in distress. Objective Vital Signs Last 24 Hour Vital Signs Date Time Temp Pulse Resp B/P Pulse Ox O2 Delivery O2 Flow Rate FiO2 08/23/16 19:54 172/79 08/23/16 19:17 Nasal Cannula 3.0 08/23/16 19:16 98 Nasal Cannula 3.0 08/23/16 19:06 169/91 08/23/16 19:00 98.5 97 36 169/91 98 Nasal Cannula 3.0 08/23/16 18:00 98.6 81 36 144/66 98 Nasal Cannula 3.0 08/23/16 17:00 98.9 84 39 137/65 98 Nasal Cannula 3.0 08/23/16 16:00 98.9 86 40 147/68 98 Nasal Cannula 3.0 08/23/16 16:00 86 08/23/16 15:29 163/77 08/23/16 15:00 98.7 89 34 166/92 97 Nasal Cannula 3.0 08/23/16 14:09 88 156/77 08/23/16 14:00 98.6 87 34 156/77 97 Nasal Cannula 3.0 08/23/16 13:00 98.6 86 34 153/68 97 Nasal Cannula 3.0 08/23/16 12:00 98.7 101 36 137/73 97 Nasal Cannula 3.0 08/23/16 11:36 169/72 08/23/16 11:08 208/96 08/23/16 11:00 98.6 101 44 208/96 97 Nasal Cannula 3.0 08/23/16 10:42 102 197/89 08/23/16 10:00 98.8 95 44 197/89 97 Nasal Cannula 3.0 08/23/16 09:44 80 08/23/16 09:00 100.7 98 44 177/74 97 Nasal Cannula 3.0 08/23/16 08:46 96 177/91 08/23/16 08:00 99.1 87 40 177/91 97 Nasal Cannula 3.0 08/23/16 08:00 80 08/23/16 07:11 Nasal Cannula 3.0 08/23/16 07:10 98 Nasal Cannula 3.0 08/23/16 07:05 78 36 152/83 97 Nasal Cannula 3.0 08/23/16 06:20 95 193/88 08/23/16 06:00 95 36 193/88 97 Nasal Cannula 3.0 08/23/16 05:11 93 20 94 3.0 08/23/16 05:00 88 36 162/73 97 Nasal Cannula 3.0 08/23/16 04:00 80 08/23/16 04:00 98.5 80 36 155/90 97 Nasal Cannula 3.0 08/23/16 03:16 82 20 99 3.0 08/23/16 03:01 98.3 85 36 101/79 97 Nasal Cannula 3.0 08/23/16 02:00 78 36 150/72 97 Nasal Cannula 3.0 08/23/16 01:00 80 20 99 3.0 08/23/16 01:00 101.6 90 36 163/80 97 Nasal Cannula 3.0 08/23/16 00:57 101.6 08/23/16 00:39 102 174/88 08/23/16 00:00 102.2 98 36 174/88 97 Nasal Cannula 3.0 08/23/16 00:00 98 08/22/16 23:27 96 25 99 3.0 08/22/16 23:00 98 36 175/80 97 Nasal Cannula 3.0 08/22/16 22:00 105 36 176/87 98 Nasal Cannula 3.0 08/22/16 21:12 96 25 99 3.0 08/22/16 21:00 113 35 170/90 98 Nasal Cannula 3.0 Height (Feet): 5 Height (Inches): 9.00 Weight (Pounds): 185 General Appearance: WD/WN, no acute distress HEENT: normocephalic, atraumatic, anicteric, mucous membranes moist Respiratory/Chest: chest wall non-tender, normal breath sounds, no respiratory distress, no accessory muscle use, decreased breath sounds, crackles/rales Cardiovascular: normal peripheral pulses, normal rate, regular rhythm, no gallop/murmur Abdomen: normal bowel sounds, soft, non tender, no organomegaly, non distended , no mass, no scars Extremities: no cyanosis, no clubbing Skin: no rash, no lesions Microbiology Date/Time Source Procedure Growth Status 08/22/16 05:00 Urine,Clean Catch Urine Culture - Preliminary NO GROWTH AFTER 24 HOURS Resulted Laboratory Tests Test 08/23/16 04:40 08/23/16 05:49 White Blood Count 6.5 K/UL (4.8-10.8) Red Blood Count 3.65 M/UL (4.70-6.10) L Hemoglobin 10.7 G/DL (14.2-18.0) L Hematocrit 33.2 % (42.0-52.0) L Mean Corpuscular Volume 91 FL (80-99) Mean Corpuscular Hemoglobin 29.5 PG (27.0-31.0) Mean Corpuscular Hemoglobin Concent 32.4 G/DL (32.0-36.0) Red Cell Distribution Width 12.0 % (11.6-14.8) Platelet Count 234 K/UL (150-450) Mean Platelet Volume 7.9 FL (6.5-10.1) Neutrophils (%) (Auto) 72.1 % (45.0-75.0) Lymphocytes (%) (Auto) 14.4 % (20.0-45.0) L Monocytes (%) (Auto) 9.3 % (1.0-10.0) Eosinophils (%) (Auto) 3.2 % (0.0-3.0) H Basophils (%) (Auto) 0.9 % (0.0-2.0) Sodium Level 139 mEQ/L (135-145) Potassium Level 3.6 mEQ/L (3.4-4.9) Chloride Level 101 mEQ/L (98-107) Carbon Dioxide Level 23 mEQ/L (20-30) Anion Gap 15 (5-15) Blood Urea Nitrogen 20 mg/dL (7-23) # Creatinine 0.9 mg/dL (0.7-1.2) Estimat Glomerular Filtration Rate > 60 mL/min (>60) Glucose Level 129 mg/dL (74-106) H Calcium Level 9.1 mg/dL (8.6-10.2) Total Bilirubin 0.3 mg/dL (0.0-1.2) Aspartate Amino Transf (AST/SGOT) 51 U/L (5-40) H Alanine Aminotransferase (ALT/SGPT) 38 U/L (3-41) Alkaline Phosphatase 54 U/L (40-129) Total Protein 6.5 g/dL (6.6-8.7) L Albumin 2.7 g/dL (3.5-5.2) L Globulin 3.8 g/dL Albumin/Globulin Ratio 0.7 (1.0-2.7) L Urine Random Creatinine Pending Urine Random Microalbumin Pending Urine Random Total Protein 105 mg/dL Urine Creatinine 142.1 mg/dL Urine Microalbumin/Creatinine Ratio Pending Current Medications Medications (Trade) Dose Ordered Sig/Sharif Route PRN Reason Start Time Stop Time Status Last Admin Dose Admin Acetaminophen (Tylenol) 650 mg Q4H PRN ORAL fever 08/20/16 15:45 09/19/16 15:44 08/22/16 23:58 Al Hydroxide/Mg Hydroxide (Mylanta II) 30 ml Q6H PRN ORAL dyspepsia 08/20/16 15:45 09/19/16 15:44 Albuterol/ Ipratropium (DuoNeb 0.5-3(2.5)mg/3ml) 3 ml Q4H PRN HHN Shortness of Breath 08/20/16 15:45 08/25/16 15:44 08/21/16 00:30 Ampicillin Sodium/ Sulbactam Sodium 3 gm/Sodium Chloride 110 ml @ 220 mls/hr Q6H IVPB 08/22/16 10:30 08/29/16 10:29 08/23/16 16:02 Clindamycin HCl/ Dextrose 50 ml @ 100 mls/hr Q8HR IV 08/22/16 10:00 08/29/16 09:59 08/23/16 14:04 Clonazepam (KlonoPIN) 0.5 mg Q6H PRN ORAL anxiety 08/20/16 15:45 08/27/16 15:44 08/23/16 18:51 Clonidine HCl (Catapres) 0.1 mg TIDPRN PRN ORAL if SBP >160 mmHg 08/23/16 00:00 09/22/16 00:00 08/23/16 19:06 Dextrose (D5W 1000ml) 1,000 ml @ 75 mls/hr [id number] IV 08/22/16 09:45 09/21/16 09:44 08/23/16 12:40 Dextrose (Dextrose 50%) STAT PRN IV Hypoglycemia 08/20/16 15:45 09/19/16 15:44 Haloperidol Lactate (Haldol) 5 mg Q6H PRN IM Agitation 08/20/16 17:15 09/19/16 17:14 08/23/16 15:30 Heparin Sodium (Porcine) (Heparin 5000 units/ml) 5,000 units EVERY 12 HOURS SUBQ 08/20/16 21:00 09/19/16 20:59 08/23/16 08:52 Hydralazine HCl (Apresoline) 10 mg Q4H PRN IV For SBP > 160. 08/23/16 13:15 09/22/16 13:14 08/23/16 19:54 Insulin Aspart (NovoLOG) BEFORE MEALS AND HS SUBQ 08/20/16 16:30 09/19/16 16:29 08/23/16 16:31 Lactobacillus Acidophilus (Culturelle) 1 tab THREE TIMES A DAY ORAL 08/22/16 13:00 09/21/16 12:59 08/23/16 17:49 Lorazepam 0.5 mg 0.5 mg Q4H PRN IV For Anxiety 08/21/16 11:30 08/28/16 11:29 08/23/16 19:50 Nitroglycerin (Ntg) 0.4 mg Q5M PRN SL Prn Chest Pain 08/20/16 15:35 09/19/16 15:34 Olanzapine (ZyPREXA) 5 mg DAILY ORAL 08/21/16 09:00 09/20/16 08:59 08/23/16 08:47 Ondansetron HCl (Zofran) 4 mg Q6H PRN IVP Nausea & Vomiting 08/20/16 15:45 09/19/16 15:44 Pantoprazole (Protonix) 40 mg DAILY ORAL 08/21/16 09:00 09/20/16 08:59 08/23/16 08:47 Phenytoin (Dilantin) 200 mg Q12HR ORAL 08/20/16 21:00 09/19/16 20:59 08/23/16 20:36 Polyethylene Glycol (Miralax) 17 gm DAILYPRN PRN ORAL Constipation 08/20/16 15:45 09/19/16 15:44 Propranolol HCl (Inderal) 10 mg Q8HR ORAL 08/23/16 00:00 09/22/16 00:00 08/23/16 14:09 Quetiapine Fumarate (SEROquel) 50 mg Q12HR ORAL 08/22/16 12:00 09/21/16 11:59 08/23/16 20:36 Temazepam (Restoril) 15 mg HSPRN PRN ORAL Insomnia 08/20/16 15:45 08/27/16 15:44 Treva Martinez M.D. Aug 23, 2016 20:54
--- NOTE | 2016-08-23 22:32 | Cardiology Progress Note ---
Assessment/Plan Assessment/Plan 1. Sinus tachycardia likely due to hypovolemia, sepsis, continue hydration, continue propranolol. 2. Syncope, likely due to hypovolemia. 3. Enterococcal Faecalis bacteremia, awaiting echo to assess endocarditis. 4. Toxic and metabolic encephalopathy. 5. Seizure disorder. Subjective Subjective Sinus rhythm at 95. Objective Last 24 Hour Vital Signs Date Time Temp Pulse Resp B/P Pulse Ox O2 Delivery O2 Flow Rate FiO2 08/23/16 22:12 97 141/63 08/23/16 21:00 92 36 134/84 100 Nasal Cannula 3.0 08/23/16 20:00 94 08/23/16 20:00 98.9 96 36 165/110 98 Nasal Cannula 3.0 08/23/16 19:54 172/79 08/23/16 19:17 Nasal Cannula 3.0 08/23/16 19:16 98 Nasal Cannula 3.0 08/23/16 19:06 169/91 08/23/16 19:00 98.5 97 36 169/91 98 Nasal Cannula 3.0 08/23/16 18:00 98.6 81 36 144/66 98 Nasal Cannula 3.0 08/23/16 17:00 98.9 84 39 137/65 98 Nasal Cannula 3.0 08/23/16 16:00 98.9 86 40 147/68 98 Nasal Cannula 3.0 08/23/16 16:00 86 08/23/16 15:29 163/77 08/23/16 15:00 98.7 89 34 166/92 97 Nasal Cannula 3.0 08/23/16 14:09 88 156/77 08/23/16 14:00 98.6 87 34 156/77 97 Nasal Cannula 3.0 08/23/16 13:00 98.6 86 34 153/68 97 Nasal Cannula 3.0 08/23/16 12:00 98.7 101 36 137/73 97 Nasal Cannula 3.0 08/23/16 11:36 169/72 08/23/16 11:08 208/96 08/23/16 11:00 98.6 101 44 208/96 97 Nasal Cannula 3.0 08/23/16 10:42 102 197/89 08/23/16 10:00 98.8 95 44 197/89 97 Nasal Cannula 3.0 08/23/16 09:44 80 08/23/16 09:00 100.7 98 44 177/74 97 Nasal Cannula 3.0 08/23/16 08:46 96 177/91 08/23/16 08:00 99.1 87 40 177/91 97 Nasal Cannula 3.0 08/23/16 08:00 80 08/23/16 07:11 Nasal Cannula 3.0 08/23/16 07:10 98 Nasal Cannula 3.0 08/23/16 07:05 78 36 152/83 97 Nasal Cannula 3.0 08/23/16 06:20 95 193/88 08/23/16 06:00 95 36 193/88 97 Nasal Cannula 3.0 08/23/16 05:11 93 20 94 3.0 08/23/16 05:00 88 36 162/73 97 Nasal Cannula 3.0 08/23/16 04:00 80 08/23/16 04:00 98.5 80 36 155/90 97 Nasal Cannula 3.0 08/23/16 03:16 82 20 99 3.0 08/23/16 03:01 98.3 85 36 101/79 97 Nasal Cannula 3.0 08/23/16 02:00 78 36 150/72 97 Nasal Cannula 3.0 08/23/16 01:00 80 20 99 3.0 08/23/16 01:00 101.6 90 36 163/80 97 Nasal Cannula 3.0 08/23/16 00:57 101.6 08/23/16 00:39 102 174/88 08/23/16 00:00 102.2 98 36 174/88 97 Nasal Cannula 3.0 08/23/16 00:00 98 08/22/16 23:27 96 25 99 3.0 08/22/16 23:00 98 36 175/80 97 Nasal Cannula 3.0 Intake and Output 08/22/16 08/23/16 19:00 07:00 Intake Total 1255 ml 2335 ml Output Total 1770 ml 1225 ml Balance -515 ml 1110 ml Intake Oral 380 ml 1230 ml IV Total 875 ml 1105 ml Output Urine Total 1770 ml 1225 ml Laboratory Tests Test 08/23/16 04:40 08/23/16 05:49 White Blood Count 6.5 K/UL (4.8-10.8) Red Blood Count 3.65 M/UL (4.70-6.10) L Hemoglobin 10.7 G/DL (14.2-18.0) L Hematocrit 33.2 % (42.0-52.0) L Mean Corpuscular Volume 91 FL (80-99) Mean Corpuscular Hemoglobin 29.5 PG (27.0-31.0) Mean Corpuscular Hemoglobin Concent 32.4 G/DL (32.0-36.0) Red Cell Distribution Width 12.0 % (11.6-14.8) Platelet Count 234 K/UL (150-450) Mean Platelet Volume 7.9 FL (6.5-10.1) Neutrophils (%) (Auto) 72.1 % (45.0-75.0) Lymphocytes (%) (Auto) 14.4 % (20.0-45.0) L Monocytes (%) (Auto) 9.3 % (1.0-10.0) Eosinophils (%) (Auto) 3.2 % (0.0-3.0) H Basophils (%) (Auto) 0.9 % (0.0-2.0) Sodium Level 139 mEQ/L (135-145) Potassium Level 3.6 mEQ/L (3.4-4.9) Chloride Level 101 mEQ/L (98-107) Carbon Dioxide Level 23 mEQ/L (20-30) Anion Gap 15 (5-15) Blood Urea Nitrogen 20 mg/dL (7-23) # Creatinine 0.9 mg/dL (0.7-1.2) Estimat Glomerular Filtration Rate > 60 mL/min (>60) Glucose Level 129 mg/dL (74-106) H Calcium Level 9.1 mg/dL (8.6-10.2) Total Bilirubin 0.3 mg/dL (0.0-1.2) Aspartate Amino Transf (AST/SGOT) 51 U/L (5-40) H Alanine Aminotransferase (ALT/SGPT) 38 U/L (3-41) Alkaline Phosphatase 54 U/L (40-129) Total Protein 6.5 g/dL (6.6-8.7) L Albumin 2.7 g/dL (3.5-5.2) L Globulin 3.8 g/dL Albumin/Globulin Ratio 0.7 (1.0-2.7) L Urine Random Creatinine Pending Urine Random Microalbumin Pending Urine Random Total Protein 105 mg/dL Urine Creatinine 142.1 mg/dL Urine Microalbumin/Creatinine Ratio Pending Microbiology Date/Time Source Procedure Growth Status 08/22/16 05:00 Urine,Clean Catch Urine Culture - Preliminary NO GROWTH AFTER 24 HOURS Resulted Objective HEENT: Temporal wasting. Pale conjunctivae. Oropharynx clear, PERRLA, EOMI, Mucous membranes dry. NECK: negative JVD, no carotid bruit with 2+ upstroke B/L LUNGS: clear breath sounds CARDIAC: Regular rate rhythm, tachycardic, Normal S1 and S2 with no murmurs, gallops or rubs. ABDOMEN: Soft and nontender, no HSM, normal BS EXTREMITIES: No edema, clubbing or cyanosis NEUROLOGIC: Altered mental status MAC ATKINSON Aug 23, 2016 22:32
[2016-08-24] VITALS (16 sets, daily range): BP systolic 108–164; BP diastolic 32–86
[2016-08-24] MEDS: Ampicillin/Sulbactam Sod 3 GM in NS 110 ML IVPB SCH ×4 (04:00→22:39)
[2016-08-24] MEDS: Haloperidol 5mg/ml Inj IM PRN ×3 (04:26→19:52)
[2016-08-24 06:05] LABS: BASOPHILS % (AUTO) 0.8 % (0.0-2.0); EOSINOPHILS % (AUTO) 3.7 % (0.0-3.0); LYMPHOCYTES % (AUTO) 17.9 % (20.0-45.0); MEAN CORPUSCULAR HEMOGLOBIN 28.9 PG (27.0-31.0); MEAN CORPUSCULAR HGB CONC 31.6 G/DL (32.0-36.0); MEAN CORPUSCULAR VOLUME 91 FL (80-99); MEAN PLATELET VOLUME 8.2 FL (6.5-10.1); MONOCYTES % (AUTO) 9.4 % (1.0-10.0); NEUTROPHILS % (AUTO) 68.1 % (45.0-75.0); PLATELET COUNT 240 K/UL (150-450); RED CELL DISTRIBUTION WIDTH 12.3 % (11.6-14.8); WHITE BLOOD COUNT 5.8 K/UL (4.8-10.8)
[2016-08-24] MEDS: Clindamycin 600mg 50 ML IV SCH ×3 (06:10→22:39)
[2016-08-24] MEDS: Propranolol 10mg tab ORAL SCH ×3 (06:11→22:00)
[2016-08-24] MEDS: NovoLOG Insulin Flexpen SUBQ SCH ×4 (06:13→21:17)
[2016-08-24 06:36] LABS: ALANINE AMINOTRANSFERASE 32 U/L (3-41); ALBUMIN/GLOBULIN RATIO 0.7 (1.0-2.7); ANION GAP 16 (5-15); ASPARTATE AMINO TRANSFERASE 37 U/L (5-40); CALCIUM 9.1 mg/dL (8.6-10.2); CARBON DIOXIDE 23 mEQ/L (20-30); CHLORIDE 104 mEQ/L (98-107); CREATININE 0.8 mg/dL (0.7-1.2); GLOMERULAR FILTRATION RATE > 60 mL/min (>60); HEMOLYSIS 2; MAGNESIUM 1.5 mg/dL (1.7-2.5); PHOSPHORUS 2.9 mg/dL (2.5-4.8); POTASSIUM 3.6 mEQ/L (3.4-4.9); SODIUM 143 mEQ/L (135-145); TOTAL PROTEIN 6.6 g/dL (6.6-8.7)
[2016-08-24] MEDS: Lactobacillus-GG tablet ORAL SCH ×3 (08:14→16:49)
[2016-08-24] MEDS: Phenytoin 100mg cap ORAL SCH ×2 (08:15→21:11)
[2016-08-24] MEDS: Heparin 5000 units/ml inj SUBQ SCH ×2 (08:17→21:12)
[2016-08-24] MEDS ORDERED: Magnesium Oxide 400mg tab ORAL SCH ×2 (09:00→18:00)
[2016-08-24 10:20] LABS: CREATININE RANDOM URINE 136.8 mg/dL (Not Estab.); MICROALBUMIN/CREATININE RATIO 164.2 mg/g creat (0.0-30.0)
[2016-08-24] MEDS ORDERED: Nitroglycerin Subl 0.4mg tab (Bottle Of 25) SL PRN (10:45)
[2016-08-24] MEDS ORDERED: LORazepam Inj 2mg/ml 1ml IV PRN (11:30)
[2016-08-24] MEDS ORDERED: clonazePAM 0.5mg tab ORAL PRN (12:00)
[2016-08-24] MEDS ORDERED: DuoNeb 0.5-3(2.5)mg/3ml neb HHN PRN (12:00)
[2016-08-24] MEDS ORDERED: Mylanta II UD 30ml ORAL PRN (12:00)
[2016-08-24] MEDS ORDERED: Miralax 17gm pkt ORAL PRN (12:00)
--- NOTE | 2016-08-24 12:57 | Pulmonology Progress Note ---
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 Subjective ROS Limited/Unobtainable: No Interval Events: episodes of shortness of breath Allergies: Coded Allergies: No Known Allergies (Unverified , 08/19/16) Objective Last 24 Hour Vital Signs Date Time Temp Pulse Resp B/P Pulse Ox O2 Delivery O2 Flow Rate FiO2 08/24/16 12:18 98 22 97 Nasal Cannula 3.0 32 08/24/16 12:13 96 22 95 Nasal Cannula 3.0 32 08/24/16 12:00 88 08/24/16 12:00 98.5 96 25 164/86 94 Nasal Cannula 2.0 08/24/16 10:00 75 21 108/32 100 Nasal Cannula 2.0 08/24/16 09:26 83 131/53 08/24/16 09:00 83 25 131/53 100 Nasal Cannula 2.0 08/24/16 08:00 98.4 83 31 156/69 100 Nasal Cannula 2.0 08/24/16 08:00 68 08/24/16 07:07 Nasal Cannula 3.0 08/24/16 07:06 98 Nasal Cannula 3.0 08/24/16 07:00 78 31 163/76 100 Nasal Cannula 2.0 08/24/16 06:11 87 150/66 08/24/16 06:00 92 25 150/66 100 Nasal Cannula 2.0 08/24/16 05:00 92 26 149/69 100 Nasal Cannula 2.0 08/24/16 04:00 95 08/24/16 04:00 98.9 92 26 150/69 100 Nasal Cannula 2.0 08/24/16 03:00 93 26 142/69 100 Nasal Cannula 2.0 08/24/16 02:00 86 26 136/59 100 Nasal Cannula 2.0 08/24/16 01:00 79 35 120/57 100 Nasal Cannula 3.0 08/24/16 00:00 99.0 87 38 137/66 100 Nasal Cannula 3.0 08/24/16 00:00 87 08/23/16 23:00 93 36 169/78 100 Nasal Cannula 3.0 08/23/16 22:12 97 141/63 08/23/16 22:00 92 35 141/63 100 Nasal Cannula 3.0 08/23/16 21:00 92 36 134/84 100 Nasal Cannula 3.0 08/23/16 20:00 94 08/23/16 20:00 98.9 96 36 165/110 98 Nasal Cannula 3.0 08/23/16 19:54 172/79 08/23/16 19:17 Nasal Cannula 3.0 08/23/16 19:16 98 Nasal Cannula 3.0 08/23/16 19:06 169/91 08/23/16 19:00 98.5 97 36 169/91 98 Nasal Cannula 3.0 08/23/16 18:00 98.6 81 36 144/66 98 Nasal Cannula 3.0 08/23/16 17:00 98.9 84 39 137/65 98 Nasal Cannula 3.0 08/23/16 16:00 98.9 86 40 147/68 98 Nasal Cannula 3.0 08/23/16 16:00 86 08/23/16 15:29 163/77 08/23/16 15:00 98.7 89 34 166/92 97 Nasal Cannula 3.0 08/23/16 14:09 88 156/77 08/23/16 14:00 98.6 87 34 156/77 97 Nasal Cannula 3.0 08/23/16 13:00 98.6 86 34 153/68 97 Nasal Cannula 3.0 Intake and Output 08/23/16 08/24/16 19:00 07:00 Intake Total 1240 ml 425 ml Output Total 1110 ml 890 ml Balance 130 ml -465 ml Intake Oral 340 ml 200 ml IV Total 900 ml 225 ml Output Urine Total 1110 ml 890 ml General Appearance: WD/WN HEENT: normocephalic, atraumatic Respiratory/Chest: chest wall non-tender, lungs clear Cardiovascular: normal peripheral pulses, normal rate Abdomen: normal bowel sounds, soft, non tender Genitourinary: normal external genitalia Extremities: no cyanosis Skin: no rash Neurologic/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: 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 grossly normal, no motor/sensory deficits Lymphatic: no neck adenopathy Microbiology Date/Time Source Procedure Growth Status 08/22/16 19:55 Blood Blood Culture - Preliminary NO GROWTH AFTER 24 HOURS Resulted 08/22/16 19:45 Blood Blood Culture - Preliminary NO GROWTH AFTER 24 HOURS Resulted 08/22/16 05:00 Urine,Clean Catch Urine Culture - Final Mixed Gram Positive Organism Complete Laboratory Tests 08/24/16 05:20: White Blood Count 5.8, Red Blood Count 3.60L, Hemoglobin 10.4L, Hematocrit 33.0L , Mean Corpuscular Volume 91, Mean Corpuscular Hemoglobin 28.9, Mean Corpuscular Hemoglobin Concent 31.6L, Red Cell Distribution Width 12.3, Platelet Count 240, Mean Platelet Volume 8.2, Neutrophils (%) (Auto) 68.1, Lymphocytes (%) (Auto) 17.9L, Monocytes (%) (Auto) 9.4, Eosinophils (%) (Auto) 3.7H, Basophils (%) (Auto) 0.8, Sodium Level 143, Potassium Level 3.6, Chloride Level 104, Carbon Dioxide Level 23, Anion Gap 16H, Blood Urea Nitrogen 15, Creatinine 0.8, Estimat Glomerular Filtration Rate > 60, Glucose Level 114H, Calcium Level 9.1, Phosphorus Level 2.9, Magnesium Level 1.5L, Total Bilirubin 0.3, Aspartate Amino Transf (AST/SGOT) 37, Alanine Aminotransferase (ALT/SGPT) 32, Alkaline Phosphatase 54, Total Protein 6.6, Albumin 2.8L, Globulin 3.8, Albumin/Globulin Ratio 0.7L Current Medications Medications (Trade) Dose Ordered Sig/Sharif Route PRN Reason Start Time Stop Time Status Last Admin Dose Admin Acetaminophen (Tylenol) 650 mg Q4H PRN ORAL T>100.5 08/24/16 11:45 09/23/16 11:44 Al Hydroxide/Mg Hydroxide (Mylanta II) 30 ml Q6H PRN ORAL dyspepsia 08/24/16 12:00 09/23/16 11:59 Albuterol/ Ipratropium (DuoNeb 0.5-3(2.5)mg/3ml) 3 ml Q4H PRN HHN Shortness of Breath 08/24/16 12:00 08/29/16 11:59 08/24/16 12:16 Amlodipine Besylate (Norvasc) 10 mg DAILY ORAL 08/25/16 09:00 09/24/16 08:59 Ampicillin Sodium/ Sulbactam Sodium 3 gm/Sodium Chloride 110 ml @ 220 mls/hr Q6H IVPB 08/24/16 16:30 08/31/16 16:29 Clindamycin HCl/ Dextrose (Cleocin 600mg) 50 ml @ 100 mls/hr Q8HR IV 08/24/16 14:00 08/31/16 13:59 Clonidine HCl (Catapres) 0.1 mg TIDPRN PRN ORAL if SBP >160 mmHg 08/24/16 12:00 09/23/16 11:59 Dextrose (Dextrose 50%) STAT PRN IV Hypoglycemia 08/24/16 12:00 09/23/16 11:59 Haloperidol Lactate (Haldol) 5 mg Q6H PRN IM Agitation 08/24/16 12:00 09/23/16 11:59 Heparin Sodium (Porcine) (Heparin 5000 units/ml) 5,000 units EVERY 12 HOURS SUBQ 08/24/16 21:00 09/23/16 20:59 Insulin Aspart (NovoLOG) BEFORE MEALS AND HS SUBQ 08/24/16 12:30 09/23/16 12:29 08/24/16 11:36 Lactobacillus Acidophilus (Culturelle) 1 tab THREE TIMES A DAY ORAL 08/24/16 13:00 09/23/16 12:59 Lorazepam (Ativan 2mg/ml 1ml) 0.5 mg Q4H PRN IV For Anxiety 08/24/16 11:30 08/31/16 11:29 Magnesium Oxide (Mag-Ox 400mg) 400 mg BID ORAL 08/24/16 18:00 08/24/16 18:01 Nitroglycerin (Ntg) 0.4 mg Q5M PRN SL Prn Chest Pain 08/24/16 10:45 09/23/16 10:44 Olanzapine (ZyPREXA) 5 mg DAILY ORAL 08/25/16 09:00 09/24/16 08:59 Ondansetron HCl (Zofran) 4 mg Q6H PRN IVP Nausea & Vomiting 08/24/16 15:45 09/23/16 15:44 Pantoprazole (Protonix) 40 mg DAILY ORAL 08/25/16 09:00 09/24/16 08:59 Phenytoin (Dilantin) 200 mg Q12HR ORAL 08/24/16 21:00 09/23/16 20:59 Polyethylene Glycol (Miralax) 17 gm DAILYPRN PRN ORAL Constipation 08/24/16 12:00 09/23/16 11:59 Propranolol HCl (Inderal) 10 mg Q8HR ORAL 08/24/16 14:00 09/23/16 13:59 Quetiapine Fumarate (SEROquel) 50 mg Q12HR ORAL 08/24/16 21:00 09/23/16 20:59 Sodium Chloride 1,000 ml @ 75 mls/hr [id number] IV 08/24/16 11:30 09/23/16 11:29 08/24/16 11:34 Temazepam (Restoril) 15 mg HSPRN PRN ORAL Insomnia 08/24/16 21:00 08/31/16 20:59 LATANYA GALLARDO Aug 24, 2016 12:57
--- NOTE | 2016-08-24 13:36 | Nephrology Progress Note ---
Assessment/Plan Assessment 1. Acute renal failure, 2. Uncontrolled HTN 3. Hypomagnesemia. 4. Urosepsis. 5. Fever. 6. History of seizure disorder. 7.hypernatremia resolved Plan plan to d/c ivf when ct of abdomen done increase norvasc 10 mg monitoring urine out put monitoring renal function avoid NSAID Subjective Constitutional: Reports: no symptoms HEENT: Reports: no symptoms Genitourinary: Reports: no symptoms Neurologic/Psychiatric: Reports: no symptoms Subjective in icu family on his bedside good appetite Objective Objective Last 24 Hour Vital Signs Date Time Temp Pulse Resp B/P Pulse Ox O2 Delivery O2 Flow Rate FiO2 08/24/16 13:04 96 164/86 08/24/16 12:18 98 22 97 Nasal Cannula 3.0 32 08/24/16 12:13 96 22 95 Nasal Cannula 3.0 32 08/24/16 12:00 88 08/24/16 12:00 98.5 96 25 164/86 94 Nasal Cannula 2.0 08/24/16 10:00 75 21 108/32 100 Nasal Cannula 2.0 08/24/16 09:26 83 131/53 08/24/16 09:00 83 25 131/53 100 Nasal Cannula 2.0 08/24/16 08:00 98.4 83 31 156/69 100 Nasal Cannula 2.0 08/24/16 08:00 68 08/24/16 07:07 Nasal Cannula 3.0 08/24/16 07:06 98 Nasal Cannula 3.0 08/24/16 07:00 78 31 163/76 100 Nasal Cannula 2.0 08/24/16 06:11 87 150/66 08/24/16 06:00 92 25 150/66 100 Nasal Cannula 2.0 08/24/16 05:00 92 26 149/69 100 Nasal Cannula 2.0 08/24/16 04:00 95 08/24/16 04:00 98.9 92 26 150/69 100 Nasal Cannula 2.0 08/24/16 03:00 93 26 142/69 100 Nasal Cannula 2.0 08/24/16 02:00 86 26 136/59 100 Nasal Cannula 2.0 08/24/16 01:00 79 35 120/57 100 Nasal Cannula 3.0 08/24/16 00:00 99.0 87 38 137/66 100 Nasal Cannula 3.0 08/24/16 00:00 87 08/23/16 23:00 93 36 169/78 100 Nasal Cannula 3.0 08/23/16 22:12 97 141/63 08/23/16 22:00 92 35 141/63 100 Nasal Cannula 3.0 08/23/16 21:00 92 36 134/84 100 Nasal Cannula 3.0 08/23/16 20:00 94 08/23/16 20:00 98.9 96 36 165/110 98 Nasal Cannula 3.0 08/23/16 19:54 172/79 08/23/16 19:17 Nasal Cannula 3.0 08/23/16 19:16 98 Nasal Cannula 3.0 08/23/16 19:06 169/91 08/23/16 19:00 98.5 97 36 169/91 98 Nasal Cannula 3.0 08/23/16 18:00 98.6 81 36 144/66 98 Nasal Cannula 3.0 08/23/16 17:00 98.9 84 39 137/65 98 Nasal Cannula 3.0 08/23/16 16:00 98.9 86 40 147/68 98 Nasal Cannula 3.0 08/23/16 16:00 86 08/23/16 15:29 163/77 08/23/16 15:00 98.7 89 34 166/92 97 Nasal Cannula 3.0 08/23/16 14:09 88 156/77 08/23/16 14:00 98.6 87 34 156/77 97 Nasal Cannula 3.0 Intake and Output 08/23/16 08/24/16 19:00 07:00 Intake Total 1240 ml 425 ml Output Total 1110 ml 890 ml Balance 130 ml -465 ml Intake Oral 340 ml 200 ml IV Total 900 ml 225 ml Output Urine Total 1110 ml 890 ml Laboratory Tests 08/24/16 05:20: White Blood Count 5.8, Red Blood Count 3.60L, Hemoglobin 10.4L, Hematocrit 33.0L , Mean Corpuscular Volume 91, Mean Corpuscular Hemoglobin 28.9, Mean Corpuscular Hemoglobin Concent 31.6L, Red Cell Distribution Width 12.3, Platelet Count 240, Mean Platelet Volume 8.2, Neutrophils (%) (Auto) 68.1, Lymphocytes (%) (Auto) 17.9L, Monocytes (%) (Auto) 9.4, Eosinophils (%) (Auto) 3.7H, Basophils (%) (Auto) 0.8, Sodium Level 143, Potassium Level 3.6, Chloride Level 104, Carbon Dioxide Level 23, Anion Gap 16H, Blood Urea Nitrogen 15, Creatinine 0.8, Estimat Glomerular Filtration Rate > 60, Glucose Level 114H, Calcium Level 9.1, Phosphorus Level 2.9, Magnesium Level 1.5L, Total Bilirubin 0.3, Aspartate Amino Transf (AST/SGOT) 37, Alanine Aminotransferase (ALT/SGPT) 32, Alkaline Phosphatase 54, Total Protein 6.6, Albumin 2.8L, Globulin 3.8, Albumin/Globulin Ratio 0.7L Height (Feet): 5 Height (Inches): 9.00 Weight (Pounds): 185 Objective HEAD AND NECK: No JVP. No LAD. No thyromegaly. Dry mucous membranes. LUNGS EXAM: Clear to auscultation. CARDIAC: Regular rate and rhythm. S1-S2. No murmur. No rub. ABDOMEN: Soft, nontender, and nondistended. EXTREMITIES: Trace edema. No clubbing. No cyanosis. NENITA PINO Aug 24, 2016 13:36
--- NOTE | 2016-08-24 14:27 | General Progress Note ---
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, both eyes SNOMED: 644062840 (4) Renal insufficiency ICD Codes: N28.9 - Disorder of kidney and ureter, unspecified SNOMED: 247094666 (5) Sepsis ICD Codes: A41.9 - Sepsis, unspecified organism SNOMED: 39846190 (6) UTI (urinary tract infection) ICD Codes: N39.0 - Urinary tract infection, site not specified SNOMED: 01427304 Status: stable, progressing, tolerating diet Assessment/Plan o2 pulm tx abx cbc bmp am psyc eval promise ltach eval Subjective Constitutional: Reports: weakness Allergies: Coded Allergies: No Known Allergies (Unverified , 08/19/16) All Systems: reviewed and negative except above Subjective on o2 nc in [place] Objective Last 24 Hour Vital Signs Date Time Temp Pulse Resp B/P Pulse Ox O2 Delivery O2 Flow Rate FiO2 08/24/16 13:04 96 164/86 08/24/16 12:18 98 22 97 Nasal Cannula 3.0 32 08/24/16 12:13 96 22 95 Nasal Cannula 3.0 32 08/24/16 12:00 88 08/24/16 12:00 98.5 96 25 164/86 94 Nasal Cannula 2.0 08/24/16 10:00 75 21 108/32 100 Nasal Cannula 2.0 08/24/16 09:26 83 131/53 08/24/16 09:00 83 25 131/53 100 Nasal Cannula 2.0 08/24/16 08:00 98.4 83 31 156/69 100 Nasal Cannula 2.0 08/24/16 08:00 68 08/24/16 07:07 Nasal Cannula 3.0 08/24/16 07:06 98 Nasal Cannula 3.0 08/24/16 07:00 78 31 163/76 100 Nasal Cannula 2.0 08/24/16 06:11 87 150/66 08/24/16 06:00 92 25 150/66 100 Nasal Cannula 2.0 08/24/16 05:00 92 26 149/69 100 Nasal Cannula 2.0 08/24/16 04:00 95 08/24/16 04:00 98.9 92 26 150/69 100 Nasal Cannula 2.0 08/24/16 03:00 93 26 142/69 100 Nasal Cannula 2.0 08/24/16 02:00 86 26 136/59 100 Nasal Cannula 2.0 08/24/16 01:00 79 35 120/57 100 Nasal Cannula 3.0 08/24/16 00:00 99.0 87 38 137/66 100 Nasal Cannula 3.0 08/24/16 00:00 87 08/23/16 23:00 93 36 169/78 100 Nasal Cannula 3.0 08/23/16 22:12 97 141/63 08/23/16 22:00 92 35 141/63 100 Nasal Cannula 3.0 08/23/16 21:00 92 36 134/84 100 Nasal Cannula 3.0 08/23/16 20:00 94 08/23/16 20:00 98.9 96 36 165/110 98 Nasal Cannula 3.0 08/23/16 19:54 172/79 08/23/16 19:17 Nasal Cannula 3.0 08/23/16 19:16 98 Nasal Cannula 3.0 08/23/16 19:06 169/91 08/23/16 19:00 98.5 97 36 169/91 98 Nasal Cannula 3.0 08/23/16 18:00 98.6 81 36 144/66 98 Nasal Cannula 3.0 08/23/16 17:00 98.9 84 39 137/65 98 Nasal Cannula 3.0 08/23/16 16:00 98.9 86 40 147/68 98 Nasal Cannula 3.0 08/23/16 16:00 86 08/23/16 15:29 163/77 08/23/16 15:00 98.7 89 34 166/92 97 Nasal Cannula 3.0 Intake and Output 08/23/16 08/24/16 19:00 07:00 Intake Total 1240 ml 425 ml Output Total 1110 ml 890 ml Balance 130 ml -465 ml Intake Oral 340 ml 200 ml IV Total 900 ml 225 ml Output Urine Total 1110 ml 890 ml Laboratory Tests 08/24/16 05:20: White Blood Count 5.8, Red Blood Count 3.60L, Hemoglobin 10.4L, Hematocrit 33.0L , Mean Corpuscular Volume 91, Mean Corpuscular Hemoglobin 28.9, Mean Corpuscular Hemoglobin Concent 31.6L, Red Cell Distribution Width 12.3, Platelet Count 240, Mean Platelet Volume 8.2, Neutrophils (%) (Auto) 68.1, Lymphocytes (%) (Auto) 17.9L, Monocytes (%) (Auto) 9.4, Eosinophils (%) (Auto) 3.7H, Basophils (%) (Auto) 0.8, Sodium Level 143, Potassium Level 3.6, Chloride Level 104, Carbon Dioxide Level 23, Anion Gap 16H, Blood Urea Nitrogen 15, Creatinine 0.8, Estimat Glomerular Filtration Rate > 60, Glucose Level 114H, Calcium Level 9.1, Phosphorus Level 2.9, Magnesium Level 1.5L, Total Bilirubin 0.3, Aspartate Amino Transf (AST/SGOT) 37, Alanine Aminotransferase (ALT/SGPT) 32, Alkaline Phosphatase 54, Total Protein 6.6, Albumin 2.8L, Globulin 3.8, Albumin/Globulin Ratio 0.7L Height (Feet): 5 Height (Inches): 9.00 Weight (Pounds): 185 General Appearance: lethargic EENT: normal ENT inspection Neck: normal alignment Cardiovascular: normal peripheral pulses, normal rate, regular rhythm Respiratory/Chest: chest wall non-tender, lungs clear, decreased breath sounds Abdomen: normal bowel sounds, non tender, soft Extremities: normal inspection Edema: no edema noted Arm (L), no edema noted Arm (R), no edema noted Leg (L), no edema noted Leg (R), no edema noted Pedal (L), no edema noted Pedal (R), no edema noted Generalized Neurologic: motor weakness Skin: normal pigmentation, warm/dry DOROTA FRANCO Aug 24, 2016 14:27
--- NOTE | 2016-08-24 14:30 | Diagnostic Imaging Report ---
Clinical Indication: Abdominal pain Technique: Patient able to ingest only a small amount of oral contrast IV administration nonionic contrast. Venous phase spiral acquisition obtained through the abdomen and pelvis. Multiplanar reconstructions were generated. Total dose length product this 1232 mGycm. CTDIvol(s) 19 mGy Comparison: None Findings: No evidence of diverticulosis or diverticulitis. The appendix is not definitely identified, but there are no findings to suggest acute appendicitis. No small bowel distention. No free or loculated intraperitoneal air or fluid. The distal esophagus, stomach, duodenum are unremarkable. The gallbladder is nondistended. There is no biliary ductal dilatation. The liver demonstrates a 2 cm cyst within segment 5. The pancreas is unremarkable. The spleen and right adrenal are unremarkable. The left adrenal demonstrates a 3.6 cm lesion which is low in attenuation but higher than would be diagnostic for a benign adenoma. The kidneys demonstrate bilateral perinephric fat stranding, right greater than left. There is equivocal slight right renal low-attenuation. The left kidney demonstrates subcentimeter low-attenuation lesions which are too small to characterize. No hydronephrosis, renal or ureteral calculi are evident. No retroperitoneal or mesenteric mass or adenopathy. There is presacral edema, anterior to both the upper sacrum and also the more usual location anterior to the sacrococcygeal junction. There is a Brewer catheter present within the bladder. The bladder is unusually thickwalled. There is a small bladder diverticulum posterolaterally on the right. There is a slight amount of infiltration of the perivesical fat. There is a 11 mm bladder calculus located dependently within the bladder lumen on the left. The prostate is somewhat prominent The lung bases demonstrate dependent atelectasis. The heart is enlarged. Within the lower mediastinum, there is a 2.5 cm diameter fluid attenuation mass without a perceptible wall. There is also a 2 x 0.7 cm fluid collection in the subcarinal region just anterior to the esophagus. The bones demonstrate degenerative spondylosis changes Impression: Unusually thickwalled bladder. The presence of a bladder diverticulum indicates this may be due to chronic bladder obstruction. However, slight infiltration of the perivesical fat ulcer is a possibility of acute cystitis. Correlation with clinical and laboratory findings is recommended There is also an 11 mm bladder calculus Presacral soft tissue edema, nonspecific as regards etiology Equivocal very slight decreased attenuation of the right kidney diffusely, with some perinephric fat stranding. If real, this could indicate mild pyelonephritis changes. Left adrenal 3.6 cm lesion, low but nonspecific in attenuation. Recommend further evaluation with adrenal protocol MRI or contrast CT 2.5 cm fluid attenuation mass within the lower mediastinum, presumably a cyst, the nature of which is otherwise nonspecific, possibly a duplication cyst. There is a second less well-defined subcarinal fluid attenuation lesion as well. Mild cardiomegaly Subcentimeter low-attenuation left renal lesions, too small to characterize, most likely benign simple cortical cysts Other findings as noted, including right lobe liver cyst, Brewer catheter, prominent prostate, subsegmental dependent pulmonary atelectasis, degenerative spondylosis changes The CT scanner at [facility] is accredited by the [employer] and the scans are performed using protocols designed to limit radiation exposure to as low as reasonably achievable to attain images of sufficient resolution adequate for diagnostic evaluation.
[2016-08-24] MEDS ORDERED: 1/2 NS 1000ml IV ONE (15:24)
--- NOTE | 2016-08-24 17:28 | Infectious Diseases Prog Note ---
Assessment/Plan Problems: (1) HCAP (healthcare-associated pneumonia) Assessment & Plan: with RLL infiltrates, rule out aspiration, on clindamycin and unasyn to cover for E.faecalis bacteremia too , await sputum culture , monitor CXR, recommend swallow eval and NPO (2) Sepsis Assessment & Plan: with enterococcus faecalis , source ? unclear, CT abdomen is negative for any abscess or phlegmon. US of the gall bladder was unremarkable, and echocardiogram to rule out valve vegetations is pending . (3) UTI (urinary tract infection) Assessment & Plan: on unasyn , await urine culture (4) Urinary retention Assessment & Plan: S/P folley catheter insertion, recommend urologist eval (5) Seizure disorder Assessment & Plan: continue seizure meds follow up with neurologist Subjective ROS Limited/Unobtainable: Yes Allergies: Coded Allergies: No Known Allergies (Unverified , 08/19/16) Subjective he was more quiet and comfortable today , lying in bed , not agitated, at the bedside Objective Vital Signs Last 24 Hour Vital Signs Date Time Temp Pulse Resp B/P Pulse Ox O2 Delivery O2 Flow Rate FiO2 08/24/16 16:00 87 08/24/16 15:50 98.2 87 21 161/64 95 Nasal Cannula 2.0 08/24/16 14:48 92 160/74 08/24/16 13:04 96 164/86 08/24/16 12:18 98 22 97 Nasal Cannula 3.0 32 08/24/16 12:13 96 22 95 Nasal Cannula 3.0 32 08/24/16 12:00 88 08/24/16 12:00 98.5 96 25 164/86 94 Nasal Cannula 2.0 08/24/16 10:00 75 21 108/32 100 Nasal Cannula 2.0 08/24/16 09:26 83 131/53 08/24/16 09:00 83 25 131/53 100 Nasal Cannula 2.0 08/24/16 08:00 98.4 83 31 156/69 100 Nasal Cannula 2.0 08/24/16 08:00 68 08/24/16 07:07 Nasal Cannula 3.0 08/24/16 07:06 98 Nasal Cannula 3.0 08/24/16 07:00 78 31 163/76 100 Nasal Cannula 2.0 08/24/16 06:11 87 150/66 08/24/16 06:00 92 25 150/66 100 Nasal Cannula 2.0 08/24/16 05:00 92 26 149/69 100 Nasal Cannula 2.0 08/24/16 04:00 95 08/24/16 04:00 98.9 92 26 150/69 100 Nasal Cannula 2.0 08/24/16 03:00 93 26 142/69 100 Nasal Cannula 2.0 08/24/16 02:00 86 26 136/59 100 Nasal Cannula 2.0 08/24/16 01:00 79 35 120/57 100 Nasal Cannula 3.0 08/24/16 00:00 99.0 87 38 137/66 100 Nasal Cannula 3.0 08/24/16 00:00 87 08/23/16 23:00 93 36 169/78 100 Nasal Cannula 3.0 08/23/16 22:12 97 141/63 08/23/16 22:00 92 35 141/63 100 Nasal Cannula 3.0 08/23/16 21:00 92 36 134/84 100 Nasal Cannula 3.0 08/23/16 20:00 94 08/23/16 20:00 98.9 96 36 165/110 98 Nasal Cannula 3.0 08/23/16 19:54 172/79 08/23/16 19:17 Nasal Cannula 3.0 08/23/16 19:16 98 Nasal Cannula 3.0 08/23/16 19:06 169/91 08/23/16 19:00 98.5 97 36 169/91 98 Nasal Cannula 3.0 08/23/16 18:00 98.6 81 36 144/66 98 Nasal Cannula 3.0 Height (Feet): 5 Height (Inches): 9.00 Weight (Pounds): 185 General Appearance: WD/WN, no acute distress HEENT: normocephalic, atraumatic, anicteric, mucous membranes moist Respiratory/Chest: chest wall non-tender, lungs clear, normal breath sounds, no respiratory distress, no accessory muscle use Cardiovascular: normal peripheral pulses, normal rate, regular rhythm, no gallop/murmur, no JVD Abdomen: normal bowel sounds, soft, non tender, no organomegaly, non distended , no mass Extremities: no cyanosis, no clubbing Skin: no rash, no lesions Microbiology Date/Time Source Procedure Growth Status 08/22/16 19:55 Blood Blood Culture - Preliminary NO GROWTH AFTER 24 HOURS Resulted 08/22/16 19:45 Blood Blood Culture - Preliminary NO GROWTH AFTER 24 HOURS Resulted 08/22/16 05:00 Urine,Clean Catch Urine Culture - Final Mixed Gram Positive Organism Complete Laboratory Tests Test 08/24/16 05:20 White Blood Count 5.8 K/UL (4.8-10.8) Red Blood Count 3.60 M/UL (4.70-6.10) L Hemoglobin 10.4 G/DL (14.2-18.0) L Hematocrit 33.0 % (42.0-52.0) L Mean Corpuscular Volume 91 FL (80-99) Mean Corpuscular Hemoglobin 28.9 PG (27.0-31.0) Mean Corpuscular Hemoglobin Concent 31.6 G/DL (32.0-36.0) L Red Cell Distribution Width 12.3 % (11.6-14.8) Platelet Count 240 K/UL (150-450) Mean Platelet Volume 8.2 FL (6.5-10.1) Neutrophils (%) (Auto) 68.1 % (45.0-75.0) Lymphocytes (%) (Auto) 17.9 % (20.0-45.0) L Monocytes (%) (Auto) 9.4 % (1.0-10.0) Eosinophils (%) (Auto) 3.7 % (0.0-3.0) H Basophils (%) (Auto) 0.8 % (0.0-2.0) Sodium Level 143 mEQ/L (135-145) Potassium Level 3.6 mEQ/L (3.4-4.9) Chloride Level 104 mEQ/L (98-107) Carbon Dioxide Level 23 mEQ/L (20-30) Anion Gap 16 (5-15) H Blood Urea Nitrogen 15 mg/dL (7-23) Creatinine 0.8 mg/dL (0.7-1.2) Estimat Glomerular Filtration Rate > 60 mL/min (>60) Glucose Level 114 mg/dL (74-106) H Calcium Level 9.1 mg/dL (8.6-10.2) Phosphorus Level 2.9 mg/dL (2.5-4.8) Magnesium Level 1.5 mg/dL (1.7-2.5) L Total Bilirubin 0.3 mg/dL (0.0-1.2) Aspartate Amino Transf (AST/SGOT) 37 U/L (5-40) Alanine Aminotransferase (ALT/SGPT) 32 U/L (3-41) Alkaline Phosphatase 54 U/L (40-129) Total Protein 6.6 g/dL (6.6-8.7) Albumin 2.8 g/dL (3.5-5.2) L Globulin 3.8 g/dL Albumin/Globulin Ratio 0.7 (1.0-2.7) L Current Medications Medications (Trade) Dose Ordered Sig/Sharif Route PRN Reason Start Time Stop Time Status Last Admin Dose Admin Acetaminophen (Tylenol) 650 mg Q4H PRN ORAL T>100.5 08/24/16 11:45 09/23/16 11:44 Al Hydroxide/Mg Hydroxide (Mylanta II) 30 ml Q6H PRN ORAL dyspepsia 08/24/16 12:00 09/23/16 11:59 Albuterol/ Ipratropium (DuoNeb 0.5-3(2.5)mg/3ml) 3 ml Q4H PRN HHN Shortness of Breath 08/24/16 12:00 08/29/16 11:59 08/24/16 12:16 Amlodipine Besylate (Norvasc) 10 mg DAILY ORAL 08/25/16 09:00 09/24/16 08:59 Ampicillin Sodium/ Sulbactam Sodium 3 gm/Sodium Chloride 110 ml @ 220 mls/hr Q6H IVPB 08/24/16 16:30 08/31/16 16:29 08/24/16 16:36 Clindamycin HCl/ Dextrose (Cleocin 600mg) 50 ml @ 100 mls/hr Q8HR IV 08/24/16 14:00 08/31/16 13:59 08/24/16 14:17 Clonidine HCl (Catapres) 0.1 mg TIDPRN PRN ORAL if SBP >160 mmHg 08/24/16 12:00 09/23/16 11:59 Dextrose (Dextrose 50%) STAT PRN IV Hypoglycemia 08/24/16 12:00 09/23/16 11:59 Haloperidol Lactate (Haldol) 5 mg Q6H PRN IM Agitation 08/24/16 12:00 09/23/16 11:59 08/24/16 13:03 Heparin Sodium (Porcine) (Heparin 5000 units/ml) 5,000 units EVERY 12 HOURS SUBQ 08/24/16 21:00 09/23/16 20:59 Insulin Aspart (NovoLOG) BEFORE MEALS AND HS SUBQ 08/24/16 12:30 09/23/16 12:29 08/24/16 16:43 Lactobacillus Acidophilus (Culturelle) 1 tab THREE TIMES A DAY ORAL 08/24/16 13:00 09/23/16 12:59 08/24/16 16:49 Lorazepam (Ativan 2mg/ml 1ml) 0.5 mg Q4H PRN IV For Anxiety 08/24/16 11:30 08/31/16 11:29 Magnesium Oxide (Mag-Ox 400mg) 400 mg BID ORAL 08/24/16 18:00 08/24/16 18:01 08/24/16 16:48 Nitroglycerin (Ntg) 0.4 mg Q5M PRN SL Prn Chest Pain 08/24/16 10:45 09/23/16 10:44 Olanzapine (ZyPREXA) 5 mg DAILY ORAL 08/25/16 09:00 09/24/16 08:59 Ondansetron HCl (Zofran) 4 mg Q6H PRN IVP Nausea & Vomiting 08/24/16 15:45 09/23/16 15:44 Pantoprazole (Protonix) 40 mg DAILY ORAL 08/25/16 09:00 09/24/16 08:59 Phenytoin (Dilantin) 200 mg Q12HR ORAL 08/24/16 21:00 09/23/16 20:59 Polyethylene Glycol (Miralax) 17 gm DAILYPRN PRN ORAL Constipation 08/24/16 12:00 09/23/16 11:59 Propranolol HCl (Inderal) 10 mg Q8HR ORAL 08/24/16 14:00 09/23/16 13:59 08/24/16 13:04 Quetiapine Fumarate (SEROquel) 50 mg Q12HR ORAL 08/24/16 21:00 09/23/16 20:59 Sodium Chloride 1,000 ml @ 75 mls/hr [id number] IV 08/24/16 11:30 09/23/16 11:29 08/24/16 11:34 Temazepam (Restoril) 15 mg HSPRN PRN ORAL Insomnia 08/24/16 21:00 08/31/16 20:59 Treva Martinez M.D. Aug 24, 2016 17:28
--- NOTE | 2016-08-24 23:51 | Cardiology Progress Note ---
Assessment/Plan Assessment/Plan 1. Sinus tachycardia resolved, likely due to hypovolemia, sepsis, continue hydration and propranolol. 2. Syncope, likely due to hypovolemia. 3. Enterococcal Faecalis bacteremia 4. Toxic and metabolic encephalopathy. 5. Seizure disorder. Subjective Subjective Sinus rhythm at 90. Transferred out of the ICU to [facility]. Objective Last 24 Hour Vital Signs Date Time Temp Pulse Resp B/P Pulse Ox O2 Delivery O2 Flow Rate FiO2 08/24/16 22:00 90 158/80 08/24/16 20:00 90 08/24/16 20:00 98.2 93 24 158/80 96 Room Air 08/24/16 19:44 98 Room Air 08/24/16 19:44 Room Air 21 08/24/16 18:26 72 21 125/54 08/24/16 17:52 161/64 08/24/16 16:00 87 08/24/16 15:50 98.2 87 21 161/64 95 Nasal Cannula 2.0 08/24/16 14:48 92 160/74 08/24/16 13:04 96 164/86 08/24/16 12:18 98 22 97 Nasal Cannula 3.0 32 08/24/16 12:13 96 22 95 Nasal Cannula 3.0 32 08/24/16 12:00 88 08/24/16 12:00 98.5 96 25 164/86 94 Nasal Cannula 2.0 08/24/16 10:00 75 21 108/32 100 Nasal Cannula 2.0 08/24/16 09:26 83 131/53 08/24/16 09:00 83 25 131/53 100 Nasal Cannula 2.0 08/24/16 08:00 98.4 83 31 156/69 100 Nasal Cannula 2.0 08/24/16 08:00 68 08/24/16 07:07 Nasal Cannula 3.0 08/24/16 07:06 98 Nasal Cannula 3.0 08/24/16 07:00 78 31 163/76 100 Nasal Cannula 2.0 08/24/16 06:11 87 150/66 08/24/16 06:00 92 25 150/66 100 Nasal Cannula 2.0 08/24/16 05:00 92 26 149/69 100 Nasal Cannula 2.0 08/24/16 04:00 95 08/24/16 04:00 98.9 92 26 150/69 100 Nasal Cannula 2.0 08/24/16 03:00 93 26 142/69 100 Nasal Cannula 2.0 08/24/16 02:00 86 26 136/59 100 Nasal Cannula 2.0 08/24/16 01:00 79 35 120/57 100 Nasal Cannula 3.0 08/24/16 00:00 99.0 87 38 137/66 100 Nasal Cannula 3.0 08/24/16 00:00 87 Intake and Output 08/23/16 08/24/16 19:00 07:00 Intake Total 1240 ml 425 ml Output Total 1110 ml 890 ml Balance 130 ml -465 ml Intake Oral 340 ml 200 ml IV Total 900 ml 225 ml Output Urine Total 1110 ml 890 ml Laboratory Tests Test 08/24/16 05:20 White Blood Count 5.8 K/UL (4.8-10.8) Red Blood Count 3.60 M/UL (4.70-6.10) L Hemoglobin 10.4 G/DL (14.2-18.0) L Hematocrit 33.0 % (42.0-52.0) L Mean Corpuscular Volume 91 FL (80-99) Mean Corpuscular Hemoglobin 28.9 PG (27.0-31.0) Mean Corpuscular Hemoglobin Concent 31.6 G/DL (32.0-36.0) L Red Cell Distribution Width 12.3 % (11.6-14.8) Platelet Count 240 K/UL (150-450) Mean Platelet Volume 8.2 FL (6.5-10.1) Neutrophils (%) (Auto) 68.1 % (45.0-75.0) Lymphocytes (%) (Auto) 17.9 % (20.0-45.0) L Monocytes (%) (Auto) 9.4 % (1.0-10.0) Eosinophils (%) (Auto) 3.7 % (0.0-3.0) H Basophils (%) (Auto) 0.8 % (0.0-2.0) Sodium Level 143 mEQ/L (135-145) Potassium Level 3.6 mEQ/L (3.4-4.9) Chloride Level 104 mEQ/L (98-107) Carbon Dioxide Level 23 mEQ/L (20-30) Anion Gap 16 (5-15) H Blood Urea Nitrogen 15 mg/dL (7-23) Creatinine 0.8 mg/dL (0.7-1.2) Estimat Glomerular Filtration Rate > 60 mL/min (>60) Glucose Level 114 mg/dL (74-106) H Calcium Level 9.1 mg/dL (8.6-10.2) Phosphorus Level 2.9 mg/dL (2.5-4.8) Magnesium Level 1.5 mg/dL (1.7-2.5) L Total Bilirubin 0.3 mg/dL (0.0-1.2) Aspartate Amino Transf (AST/SGOT) 37 U/L (5-40) Alanine Aminotransferase (ALT/SGPT) 32 U/L (3-41) Alkaline Phosphatase 54 U/L (40-129) Total Protein 6.6 g/dL (6.6-8.7) Albumin 2.8 g/dL (3.5-5.2) L Globulin 3.8 g/dL Albumin/Globulin Ratio 0.7 (1.0-2.7) L Microbiology Date/Time Source Procedure Growth Status 08/22/16 19:55 Blood Blood Culture - Preliminary NO GROWTH AFTER 24 HOURS Resulted 08/22/16 19:45 Blood Blood Culture - Preliminary NO GROWTH AFTER 24 HOURS Resulted 08/22/16 05:00 Urine,Clean Catch Urine Culture - Final Mixed Gram Positive Organism Complete Objective HEENT: Temporal wasting. Pale conjunctivae. Oropharynx clear, PERRLA, EOMI, Mucous membranes dry. NECK: negative JVD, no carotid bruit with 2+ upstroke B/L LUNGS: clear breath sounds CARDIAC: Regular rate rhythm, tachycardic, Normal S1 and S2 with no murmurs, gallops or rubs. ABDOMEN: Soft and nontender, no HSM, normal BS EXTREMITIES: No edema, clubbing or cyanosis MAC ATKINSON Aug 24, 2016 23:51
[2016-08-25] VITALS: BP 186/89
[2016-08-25 04:00] VITALS: BP 196/94
[2016-08-25 04:35] LABS: BASOPHILS % (AUTO) 0.7 % (0.0-2.0); EOSINOPHILS % (AUTO) 4.2 % (0.0-3.0); LYMPHOCYTES % (AUTO) 25.1 % (20.0-45.0); MEAN CORPUSCULAR HEMOGLOBIN 30.6 PG (27.0-31.0); MEAN CORPUSCULAR HGB CONC 33.7 G/DL (32.0-36.0); MEAN CORPUSCULAR VOLUME 91 FL (80-99); MEAN PLATELET VOLUME 7.5 FL (6.5-10.1); MONOCYTES % (AUTO) 8.9 % (1.0-10.0); NEUTROPHILS % (AUTO) 61.1 % (45.0-75.0); PLATELET COUNT 239 K/UL (150-450); RED BLOOD COUNT 3.37 M/UL (4.70-6.10); RED CELL DISTRIBUTION WIDTH 12.3 % (11.6-14.8); WHITE BLOOD COUNT 5.6 K/UL (4.8-10.8)
[2016-08-25] MEDS: Ampicillin/Sulbactam Sod 3 GM in NS 110 ML IVPB SCH ×5 (04:37→22:28)
[2016-08-25] MEDS: Haloperidol 5mg/ml Inj IM PRN ×3 (04:42→20:24)
[2016-08-25 05:16] LABS: ALANINE AMINOTRANSFERASE 35 U/L (3-41); ALBUMIN/GLOBULIN RATIO 0.8 (1.0-2.7); ANION GAP 14 (5-15); ASPARTATE AMINO TRANSFERASE 43 U/L (5-40); CALCIUM 9.3 mg/dL (8.6-10.2); CARBON DIOXIDE 24 mEQ/L (20-30); CHLORIDE 106 mEQ/L (98-107); CREATININE 0.7 mg/dL (0.7-1.2); GLOMERULAR FILTRATION RATE > 60 mL/min (>60); HEMOLYSIS 0; POTASSIUM 3.7 mEQ/L (3.4-4.9); SODIUM 144 mEQ/L (135-145); TOTAL PROTEIN 6.3 g/dL (6.6-8.7)
[2016-08-25] MEDS: Clindamycin 600mg 50 ML IV SCH ×3 (05:51→21:42)
[2016-08-25] MEDS: NovoLOG Insulin Flexpen SUBQ SCH ×4 (06:22→21:53)
[2016-08-25] MEDS: Propranolol 10mg tab ORAL SCH ×3 (06:22→22:00)
--- NOTE | 2016-08-25 07:31 | Nephrology Progress Note ---
Assessment/Plan Assessment 1. Acute renal failure, 2. Uncontrolled HTN 3. Hypomagnesemia. 4. Urosepsis. 5. Fever. 6. History of seizure disorder. 7.hypernatremia resolved Plan plan to d/c ivf increase norvasc 10 mg add losartan 50 mg monitoring urine out put monitoring renal function avoid NSAID Subjective Constitutional: Reports: no symptoms HEENT: Reports: no symptoms Genitourinary: Reports: no symptoms Neurologic/Psychiatric: Reports: no symptoms Subjective transferred out of icu confused Objective Objective Last 24 Hour Vital Signs Date Time Temp Pulse Resp B/P Pulse Ox O2 Delivery O2 Flow Rate FiO2 08/25/16 06:55 97 Room Air 08/25/16 06:55 Room Air 21 08/25/16 06:22 86 196/94 08/25/16 04:00 97.5 78 20 196/94 93 Room Air 08/25/16 04:00 86 08/25/16 00:27 187/96 08/25/16 00:00 86 08/25/16 00:00 97.6 86 22 186/89 93 Room Air 08/24/16 22:00 90 158/80 08/24/16 20:00 90 08/24/16 20:00 98.2 93 24 158/80 96 Room Air 08/24/16 19:44 98 Room Air 08/24/16 19:44 Room Air 21 08/24/16 18:26 72 21 125/54 08/24/16 17:52 161/64 08/24/16 16:00 87 08/24/16 15:50 98.2 87 21 161/64 95 Nasal Cannula 2.0 08/24/16 14:48 92 160/74 08/24/16 13:04 96 164/86 08/24/16 12:18 98 22 97 Nasal Cannula 3.0 32 08/24/16 12:13 96 22 95 Nasal Cannula 3.0 32 08/24/16 12:00 88 08/24/16 12:00 98.5 96 25 164/86 94 Nasal Cannula 2.0 08/24/16 10:00 75 21 108/32 100 Nasal Cannula 2.0 08/24/16 09:26 83 131/53 08/24/16 09:00 83 25 131/53 100 Nasal Cannula 2.0 08/24/16 08:00 98.4 83 31 156/69 100 Nasal Cannula 2.0 08/24/16 08:00 68 Intake and Output 08/24/16 08/25/16 19:00 07:00 Intake Total 1467.5 ml 1465 ml Output Total 775 ml 1100 ml Balance 692.5 ml 365 ml Intake Oral 720 ml 100 ml IV Total 747.5 ml 1365 ml Output Urine Total 775 ml 1100 ml Laboratory Tests 08/25/16 03:45: White Blood Count 5.6, Red Blood Count 3.37L, Hemoglobin 10.3L, Hematocrit 30.6L , Mean Corpuscular Volume 91, Mean Corpuscular Hemoglobin 30.6, Mean Corpuscular Hemoglobin Concent 33.7, Red Cell Distribution Width 12.3, Platelet Count 239, Mean Platelet Volume 7.5, Neutrophils (%) (Auto) 61.1, Lymphocytes (% ) (Auto) 25.1, Monocytes (%) (Auto) 8.9, Eosinophils (%) (Auto) 4.2H, Basophils (%) (Auto) 0.7, Sodium Level 144, Potassium Level 3.7, Chloride Level 106, Carbon Dioxide Level 24, Anion Gap 14, Blood Urea Nitrogen 11, Creatinine 0.7, Estimat Glomerular Filtration Rate > 60, Glucose Level 109H, Calcium Level 9.3, Total Bilirubin < 0.2, Aspartate Amino Transf (AST/SGOT) 43H, Alanine Aminotransferase (ALT/SGPT) 35, Alkaline Phosphatase 53, Pro-B-Type Natriuretic Peptide 598H, Total Protein 6.3L, Albumin 2.8L, Globulin 3.5, Albumin/Globulin Ratio 0.8L Height (Feet): 5 Height (Inches): 9.00 Weight (Pounds): 185 Objective HEAD AND NECK: No JVP. No LAD. No thyromegaly. Dry mucous membranes. LUNGS EXAM: Clear to auscultation. CARDIAC: Regular rate and rhythm. S1-S2. No murmur. No rub. ABDOMEN: Soft, nontender, and nondistended. EXTREMITIES: Trace edema. No clubbing. No cyanosis. NENITA PINO Aug 25, 2016 07:31
[2016-08-25 08:01] VITALS: BP 168/92
[2016-08-25] MEDS: Lactobacillus-GG tablet ORAL SCH ×3 (08:24→17:23)
[2016-08-25] MEDS: Phenytoin 100mg cap ORAL SCH ×2 (08:24→20:24)
[2016-08-25] MEDS: Heparin 5000 units/ml inj SUBQ SCH ×2 (08:27→20:26)
[2016-08-25] MEDS ORDERED: Losartan 50mg tab ORAL SCH (09:00)
[2016-08-25 12:00] VITALS: BP 144/82
--- NOTE | 2016-08-25 12:23 | Diagnostic Imaging Report ---
Indication: DYSPNEA Technique: One view of the chest Comparison: 08/23/2016 Findings: Interim resolution of previously demonstrated right basilar atelectasis. There is mild central interstitial prominence and bronchial wall thickening again demonstrated. No focal airspace consolidation. No effusions. The heart size is normal. Impression: Interim resolution of previously demonstrated right basilar atelectasis. Otherwise, little change management specialist 2 days, findings as described
--- NOTE | 2016-08-25 14:04 | General Progress Note ---
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, both eyes SNOMED: 077363622 (4) Renal insufficiency ICD Codes: N28.9 - Disorder of kidney and ureter, unspecified SNOMED: 431321088 (5) Sepsis ICD Codes: A41.9 - Sepsis, unspecified organism SNOMED: 02407767 (6) UTI (urinary tract infection) ICD Codes: N39.0 - Urinary tract infection, site not specified SNOMED: 70269538 Status: stable, progressing, tolerating diet Assessment/Plan o2 pulm tx abx cbc bmp am dc plan w hh Subjective Allergies: Coded Allergies: No Known Allergies (Unverified , 08/19/16) All Systems: reviewed and negative except above Subjective on o2 nc in [place] Objective Last 24 Hour Vital Signs Date Time Temp Pulse Resp B/P Pulse Ox O2 Delivery O2 Flow Rate FiO2 08/25/16 13:15 73 144/82 08/25/16 12:00 73 08/25/16 12:00 98.2 124 20 144/82 93 Room Air 08/25/16 08:24 96 168/92 08/25/16 08:23 168/92 08/25/16 08:01 98.1 96 21 168/92 93 Room Air 08/25/16 08:00 93 08/25/16 06:55 97 Room Air 08/25/16 06:55 Room Air 21 08/25/16 06:22 86 196/94 08/25/16 04:00 97.5 78 20 196/94 93 Room Air 08/25/16 04:00 86 08/25/16 00:27 187/96 08/25/16 00:00 86 08/25/16 00:00 97.6 86 22 186/89 93 Room Air 08/24/16 22:00 90 158/80 08/24/16 20:00 90 08/24/16 20:00 98.2 93 24 158/80 96 Room Air 08/24/16 19:44 98 Room Air 08/24/16 19:44 Room Air 21 08/24/16 18:26 72 21 125/54 08/24/16 17:52 161/64 08/24/16 16:00 87 08/24/16 15:50 98.2 87 21 161/64 95 Nasal Cannula 2.0 08/24/16 14:48 92 160/74 Intake and Output 08/24/16 08/25/16 19:00 07:00 Intake Total 1467.5 ml 1565 ml Output Total 775 ml 1100 ml Balance 692.5 ml 465 ml Intake Oral 720 ml 100 ml IV Total 747.5 ml 1465 ml Output Urine Total 775 ml 1100 ml Laboratory Tests 08/25/16 03:45: White Blood Count 5.6, Red Blood Count 3.37L, Hemoglobin 10.3L, Hematocrit 30.6L , Mean Corpuscular Volume 91, Mean Corpuscular Hemoglobin 30.6, Mean Corpuscular Hemoglobin Concent 33.7, Red Cell Distribution Width 12.3, Platelet Count 239, Mean Platelet Volume 7.5, Neutrophils (%) (Auto) 61.1, Lymphocytes (% ) (Auto) 25.1, Monocytes (%) (Auto) 8.9, Eosinophils (%) (Auto) 4.2H, Basophils (%) (Auto) 0.7, Sodium Level 144, Potassium Level 3.7, Chloride Level 106, Carbon Dioxide Level 24, Anion Gap 14, Blood Urea Nitrogen 11, Creatinine 0.7, Estimat Glomerular Filtration Rate > 60, Glucose Level 109H, Calcium Level 9.3, Total Bilirubin < 0.2, Aspartate Amino Transf (AST/SGOT) 43H, Alanine Aminotransferase (ALT/SGPT) 35, Alkaline Phosphatase 53, Pro-B-Type Natriuretic Peptide 598H, Total Protein 6.3L, Albumin 2.8L, Globulin 3.5, Albumin/Globulin Ratio 0.8L Height (Feet): 5 Height (Inches): 9.00 Weight (Pounds): 185 General Appearance: lethargic EENT: normal ENT inspection Neck: normal alignment Cardiovascular: normal peripheral pulses, normal rate, regular rhythm Respiratory/Chest: chest wall non-tender, lungs clear, normal breath sounds Abdomen: normal bowel sounds, non tender, soft Extremities: normal inspection Edema: no edema noted Arm (L), no edema noted Arm (R), no edema noted Leg (L), no edema noted Leg (R), no edema noted Pedal (L), no edema noted Pedal (R), no edema noted Generalized Neurologic: motor weakness Skin: normal pigmentation, warm/dry DOROTA FRANCO Aug 25, 2016 14:04
[2016-08-25] MEDS ORDERED: Nitroglycerin Subl 0.4mg tab (Bottle Of 25) SL PRN (14:05)
[2016-08-25] MEDS ORDERED: DuoNeb 0.5-3(2.5)mg/3ml neb HHN PRN (16:00)
[2016-08-25 16:14] VITALS: BP 154/84
[2016-08-25] MEDS: LORazepam Inj 2mg/ml 1ml IV PRN (16:35)
--- NOTE | 2016-08-25 17:56 | Infectious Diseases Prog Note ---
Assessment/Plan Problems: (1) HCAP (healthcare-associated pneumonia) Assessment & Plan: with RLL infiltrates, rule out aspiration, on clindamycin and unasyn , await sputum culture , monitor CXR, recommend swallow eval if not done yet. (2) Sepsis Assessment & Plan: with enterococcus faecalis , source ? unclear, CT abdomen is negative for any abscess or phlegmon. US of the gall bladder was unremarkable, and echocardiogram ruled out valve vegetations , will treat for four weeks starting from the date he clears his bacteremia 08/22/16 (3) UTI (urinary tract infection) Assessment & Plan: on unasyn , await urine culture (4) Urinary retention Assessment & Plan: S/P folley catheter insertion, recommend urologist eval (5) Seizure disorder Assessment & Plan: continue seizure meds follow up with neurologist (6) Adrenal mass, left Assessment & Plan: recommend endocrinology for evaluation and management Subjective ROS Limited/Unobtainable: Yes Allergies: Coded Allergies: No Known Allergies (Unverified , 08/19/16) Subjective he was lying in bed, comfortable, not agitated, sitter at the bedside, afebrile. Objective Vital Signs Last 24 Hour Vital Signs Date Time Temp Pulse Resp B/P Pulse Ox O2 Delivery O2 Flow Rate FiO2 08/25/16 16:14 97.3 83 15 154/84 94 Room Air 08/25/16 13:15 73 144/82 08/25/16 12:00 73 08/25/16 12:00 98.2 88 20 144/82 93 Room Air 08/25/16 08:24 96 168/92 08/25/16 08:23 168/92 08/25/16 08:01 98.1 96 21 168/92 93 Room Air 08/25/16 08:00 93 08/25/16 06:55 97 Room Air 08/25/16 06:55 Room Air 21 08/25/16 06:22 86 196/94 08/25/16 04:00 97.5 78 20 196/94 93 Room Air 08/25/16 04:00 86 08/25/16 00:27 187/96 08/25/16 00:00 86 08/25/16 00:00 97.6 86 22 186/89 93 Room Air 08/24/16 22:00 90 158/80 08/24/16 20:00 90 08/24/16 20:00 98.2 93 24 158/80 96 Room Air 08/24/16 19:44 98 Room Air 08/24/16 19:44 Room Air 21 08/24/16 18:26 72 21 125/54 08/24/16 17:52 161/64 Height (Feet): 5 Height (Inches): 9.00 Weight (Pounds): 185 General Appearance: WD/WN, no acute distress HEENT: normocephalic, atraumatic, anicteric, mucous membranes moist Respiratory/Chest: chest wall non-tender, normal breath sounds, no respiratory distress, no accessory muscle use, decreased breath sounds, crackles/rales Cardiovascular: normal peripheral pulses, normal rate, regular rhythm Abdomen: normal bowel sounds, soft, non tender, no organomegaly, non distended , no mass Extremities: no cyanosis, no clubbing, other - calus Skin: no rash, no lesions Microbiology Date/Time Source Procedure Growth Status 08/22/16 19:55 Blood Blood Culture - Preliminary NO GROWTH AFTER 48 HOURS Resulted 08/22/16 19:45 Blood Blood Culture - Preliminary NO GROWTH AFTER 48 HOURS Resulted Laboratory Tests Test 08/25/16 03:45 White Blood Count 5.6 K/UL (4.8-10.8) Red Blood Count 3.37 M/UL (4.70-6.10) L Hemoglobin 10.3 G/DL (14.2-18.0) L Hematocrit 30.6 % (42.0-52.0) L Mean Corpuscular Volume 91 FL (80-99) Mean Corpuscular Hemoglobin 30.6 PG (27.0-31.0) Mean Corpuscular Hemoglobin Concent 33.7 G/DL (32.0-36.0) Red Cell Distribution Width 12.3 % (11.6-14.8) Platelet Count 239 K/UL (150-450) Mean Platelet Volume 7.5 FL (6.5-10.1) Neutrophils (%) (Auto) 61.1 % (45.0-75.0) Lymphocytes (%) (Auto) 25.1 % (20.0-45.0) Monocytes (%) (Auto) 8.9 % (1.0-10.0) Eosinophils (%) (Auto) 4.2 % (0.0-3.0) H Basophils (%) (Auto) 0.7 % (0.0-2.0) Sodium Level 144 mEQ/L (135-145) Potassium Level 3.7 mEQ/L (3.4-4.9) Chloride Level 106 mEQ/L (98-107) Carbon Dioxide Level 24 mEQ/L (20-30) Anion Gap 14 (5-15) Blood Urea Nitrogen 11 mg/dL (7-23) Creatinine 0.7 mg/dL (0.7-1.2) Estimat Glomerular Filtration Rate > 60 mL/min (>60) Glucose Level 109 mg/dL (74-106) H Calcium Level 9.3 mg/dL (8.6-10.2) Total Bilirubin < 0.2 mg/dL (0.0-1.2) Aspartate Amino Transf (AST/SGOT) 43 U/L (5-40) H Alanine Aminotransferase (ALT/SGPT) 35 U/L (3-41) Alkaline Phosphatase 53 U/L (40-129) Pro-B-Type Natriuretic Peptide 598 pg/mL (0-125) H Total Protein 6.3 g/dL (6.6-8.7) L Albumin 2.8 g/dL (3.5-5.2) L Globulin 3.5 g/dL Albumin/Globulin Ratio 0.8 (1.0-2.7) L Current Medications Medications (Trade) Dose Ordered Sig/Sharif Route PRN Reason Start Time Stop Time Status Last Admin Dose Admin Acetaminophen (Tylenol) 650 mg Q4H PRN ORAL T>100.5 08/25/16 15:45 09/24/16 15:44 Al Hydroxide/Mg Hydroxide (Mylanta II) 30 ml Q6H PRN ORAL dyspepsia 08/25/16 18:00 09/24/16 17:59 Albuterol/ Ipratropium (DuoNeb 0.5-3(2.5)mg/3ml) 3 ml Q4HRT PRN HHN Shortness of Breath 08/25/16 16:00 08/30/16 15:59 Amlodipine Besylate (Norvasc) 10 mg DAILY ORAL 08/26/16 09:00 09/25/16 08:59 Ampicillin Sodium/ Sulbactam Sodium 3 gm/Sodium Chloride 110 ml @ 220 mls/hr Q6H IVPB 08/25/16 16:30 08/31/16 16:29 08/25/16 17:23 Clindamycin HCl/ Dextrose (Cleocin 600mg) 50 ml @ 100 mls/hr Q8HR IV 08/25/16 22:00 08/31/16 21:59 Clonidine HCl (Catapres) 0.1 mg TIDPRN PRN ORAL if SBP >160 mmHg 08/26/16 12:00 09/25/16 11:59 Dextrose (Dextrose 50%) STAT PRN IV Hypoglycemia 08/26/16 12:00 09/25/16 11:59 Haloperidol Lactate (Haldol) 5 mg Q6H PRN IM Agitation 08/25/16 18:00 09/24/16 17:59 08/25/16 14:14 Heparin Sodium (Porcine) (Heparin 5000 units/ml) 5,000 units EVERY 12 HOURS SUBQ 08/25/16 21:00 09/24/16 20:59 Insulin Aspart (NovoLOG) BEFORE MEALS AND HS SUBQ 08/25/16 16:30 09/24/16 16:29 08/25/16 17:23 Lactobacillus Acidophilus (Culturelle) 1 tab THREE TIMES A DAY ORAL 08/25/16 18:00 09/24/16 17:59 08/25/16 17:23 Lorazepam (Ativan 2mg/ml 1ml) 0.5 mg Q4H PRN IV For Anxiety 08/25/16 15:30 09/01/16 15:29 08/25/16 16:35 Losartan Potassium (Cozaar) 50 mg DAILY ORAL 08/26/16 09:00 09/25/16 08:59 Nitroglycerin (Ntg) 0.4 mg Q5M PRN SL Prn Chest Pain 08/25/16 14:05 09/24/16 14:04 Olanzapine (ZyPREXA) 5 mg DAILY ORAL 08/26/16 09:00 09/25/16 08:59 Ondansetron HCl (Zofran) 4 mg Q6H PRN IVP Nausea & Vomiting 08/25/16 15:45 09/24/16 15:44 Pantoprazole (Protonix) 40 mg DAILY ORAL 08/26/16 09:00 09/25/16 08:59 Phenytoin (Dilantin) 200 mg Q12HR ORAL 08/25/16 21:00 09/24/16 20:59 Polyethylene Glycol (Miralax) 17 gm DAILYPRN PRN ORAL Constipation 08/26/16 12:00 09/25/16 11:59 Propranolol HCl (Inderal) 10 mg Q8HR ORAL 08/25/16 22:00 09/24/16 21:59 Quetiapine Fumarate (SEROquel) 50 mg Q12HR ORAL 08/25/16 21:00 09/24/16 20:59 Sodium Chloride 1,000 ml @ 75 mls/hr [id number] IV 08/25/16 14:00 09/24/16 13:59 Temazepam (Restoril) 15 mg HSPRN PRN ORAL Insomnia 08/25/16 21:00 09/01/16 20:59 Treva Martinez M.D. Aug 25, 2016 17:56
[2016-08-25] MEDS ORDERED: Mylanta II UD 30ml ORAL PRN (18:00)
--- NOTE | 2016-08-25 22:04 | Pulmonology Progress Note ---
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 dc planning Subjective ROS Limited/Unobtainable: Yes Allergies: Coded Allergies: No Known Allergies (Unverified , 08/19/16) Objective Last 24 Hour Vital Signs Date Time Temp Pulse Resp B/P Pulse Ox O2 Delivery O2 Flow Rate FiO2 08/25/16 19:16 Room Air 08/25/16 19:16 95 Room Air 08/25/16 19:16 93 18 Room Air 08/25/16 16:14 97.3 83 15 154/84 94 Room Air 08/25/16 13:15 73 144/82 08/25/16 12:00 73 08/25/16 12:00 98.2 88 20 144/82 93 Room Air 08/25/16 08:24 96 168/92 08/25/16 08:23 168/92 08/25/16 08:01 98.1 96 21 168/92 93 Room Air 08/25/16 08:00 93 08/25/16 06:55 97 Room Air 08/25/16 06:55 Room Air 21 08/25/16 06:22 86 196/94 08/25/16 04:00 97.5 78 20 196/94 93 Room Air 08/25/16 04:00 86 08/25/16 00:27 187/96 08/25/16 00:00 86 08/25/16 00:00 97.6 86 22 186/89 93 Room Air Intake and Output 08/24/16 08/25/16 19:00 07:00 Intake Total 1467.5 ml 1565 ml Output Total 775 ml 1100 ml Balance 692.5 ml 465 ml Intake Oral 720 ml 100 ml IV Total 747.5 ml 1465 ml Output Urine Total 775 ml 1100 ml Objective General Appearance: WD/WN HEENT: normocephalic, atraumatic Respiratory/Chest: chest wall non-tender, lungs clear Cardiovascular: normal peripheral pulses, normal rate, regular rhythm Abdomen: normal bowel sounds, soft, non tender, no organomegaly Genitourinary: normal external genitalia Extremities: no cyanosis, no clubbing Skin: no rash, no lesions Neurologic/Psychiatric: leg breaker II-XII grossly normal Laboratory Tests 08/25/16 03:45: White Blood Count 5.6, Red Blood Count 3.37L, Hemoglobin 10.3L, Hematocrit 30.6L , Mean Corpuscular Volume 91, Mean Corpuscular Hemoglobin 30.6, Mean Corpuscular Hemoglobin Concent 33.7, Red Cell Distribution Width 12.3, Platelet Count 239, Mean Platelet Volume 7.5, Neutrophils (%) (Auto) 61.1, Lymphocytes (% ) (Auto) 25.1, Monocytes (%) (Auto) 8.9, Eosinophils (%) (Auto) 4.2H, Basophils (%) (Auto) 0.7, Sodium Level 144, Potassium Level 3.7, Chloride Level 106, Carbon Dioxide Level 24, Anion Gap 14, Blood Urea Nitrogen 11, Creatinine 0.7, Estimat Glomerular Filtration Rate > 60, Glucose Level 109H, Calcium Level 9.3, Total Bilirubin < 0.2, Aspartate Amino Transf (AST/SGOT) 43H, Alanine Aminotransferase (ALT/SGPT) 35, Alkaline Phosphatase 53, Pro-B-Type Natriuretic Peptide 598H, Total Protein 6.3L, Albumin 2.8L, Globulin 3.5, Albumin/Globulin Ratio 0.8L Current Medications Medications (Trade) Dose Ordered Sig/Sharif Route PRN Reason Start Time Stop Time Status Last Admin Dose Admin Acetaminophen (Tylenol) 650 mg Q4H PRN ORAL T>100.5 08/25/16 15:45 09/24/16 15:44 Al Hydroxide/Mg Hydroxide (Mylanta II) 30 ml Q6H PRN ORAL dyspepsia 08/25/16 18:00 09/24/16 17:59 Albuterol/ Ipratropium (DuoNeb 0.5-3(2.5)mg/3ml) 3 ml Q4HRT PRN HHN Shortness of Breath 08/25/16 16:00 08/30/16 15:59 Amlodipine Besylate (Norvasc) 10 mg DAILY ORAL 08/26/16 09:00 09/25/16 08:59 Ampicillin Sodium/ Sulbactam Sodium 3 gm/Sodium Chloride 110 ml @ 220 mls/hr Q6H IVPB 08/25/16 16:30 08/31/16 16:29 08/25/16 17:23 Clindamycin HCl/ Dextrose (Cleocin 600mg) 50 ml @ 100 mls/hr Q8HR IV 08/25/16 22:00 08/31/16 21:59 08/25/16 21:42 Clonidine HCl (Catapres) 0.1 mg TIDPRN PRN ORAL if SBP >160 mmHg 08/26/16 12:00 09/25/16 11:59 Dextrose (Dextrose 50%) STAT PRN IV Hypoglycemia 08/26/16 12:00 09/25/16 11:59 Haloperidol Lactate (Haldol) 5 mg Q6H PRN IM Agitation 08/25/16 18:00 09/24/16 17:59 08/25/16 20:24 Heparin Sodium (Porcine) (Heparin 5000 units/ml) 5,000 units EVERY 12 HOURS SUBQ 08/25/16 21:00 09/24/16 20:59 08/25/16 20:26 Insulin Aspart (NovoLOG) BEFORE MEALS AND HS SUBQ 08/25/16 16:30 09/24/16 16:29 08/25/16 21:53 Lactobacillus Acidophilus (Culturelle) 1 tab THREE TIMES A DAY ORAL 08/25/16 18:00 09/24/16 17:59 08/25/16 17:23 Lorazepam (Ativan 2mg/ml 1ml) 0.5 mg Q4H PRN IV For Anxiety 08/25/16 15:30 09/01/16 15:29 08/25/16 16:35 Losartan Potassium (Cozaar) 50 mg DAILY ORAL 08/26/16 09:00 09/25/16 08:59 Nicotine (Nicoderm) 1 patch Q24H TDERMAL 08/25/16 18:30 09/24/16 18:29 08/25/16 19:21 Nitroglycerin (Ntg) 0.4 mg Q5M PRN SL Prn Chest Pain 08/25/16 14:05 09/24/16 14:04 Olanzapine (ZyPREXA) 5 mg DAILY ORAL 08/26/16 09:00 09/25/16 08:59 Ondansetron HCl (Zofran) 4 mg Q6H PRN IVP Nausea & Vomiting 08/25/16 15:45 09/24/16 15:44 Pantoprazole (Protonix) 40 mg DAILY ORAL 08/26/16 09:00 09/25/16 08:59 Phenytoin (Dilantin) 200 mg Q12HR ORAL 08/25/16 21:00 09/24/16 20:59 08/25/16 20:24 Polyethylene Glycol (Miralax) 17 gm DAILYPRN PRN ORAL Constipation 08/26/16 12:00 09/25/16 11:59 Propranolol HCl (Inderal) 10 mg Q8HR ORAL 08/25/16 22:00 09/24/16 21:59 Quetiapine Fumarate (SEROquel) 50 mg Q12HR ORAL 08/25/16 21:00 09/24/16 20:59 08/25/16 20:23 Sodium Chloride 1,000 ml @ 75 mls/hr [id number] IV 08/25/16 14:00 09/24/16 13:59 Temazepam (Restoril) 15 mg HSPRN PRN ORAL Insomnia 08/25/16 21:00 09/01/16 20:59 LATANYA GALLARDO Aug 25, 2016 22:04
--- NOTE | 2016-08-25 23:22 | Cardiology Progress Note ---
Assessment/Plan Assessment/Plan 1. Sinus tachycardia resolved, likely due to hypovolemia, sepsis, continue hydration and propranolol. 2. HTN, continue amlodipine and clonidine, increase losartan to 100mg daily and propranolol to 20mg po qid. 3. Enterococcal Faecalis bacteremia 4. Toxic and metabolic encephalopathy. 5. Seizure disorder. 6. Syncope, likely due to hypovolemia. Subjective Subjective Sinus rhythm at 73-96. Denies chest pain or SOB Objective Last 24 Hour Vital Signs Date Time Temp Pulse Resp B/P Pulse Ox O2 Delivery O2 Flow Rate FiO2 08/25/16 19:16 Room Air 08/25/16 19:16 95 Room Air 08/25/16 19:16 93 18 Room Air 08/25/16 16:14 97.3 83 15 154/84 94 Room Air 08/25/16 13:15 73 144/82 08/25/16 12:00 73 08/25/16 12:00 98.2 88 20 144/82 93 Room Air 08/25/16 08:24 96 168/92 08/25/16 08:23 168/92 08/25/16 08:01 98.1 96 21 168/92 93 Room Air 08/25/16 08:00 93 08/25/16 06:55 97 Room Air 08/25/16 06:55 Room Air 21 08/25/16 06:22 86 196/94 08/25/16 04:00 97.5 78 20 196/94 93 Room Air 08/25/16 04:00 86 08/25/16 00:27 187/96 08/25/16 00:00 86 08/25/16 00:00 97.6 86 22 186/89 93 Room Air Intake and Output 08/24/16 08/25/16 19:00 07:00 Intake Total 1467.5 ml 1565 ml Output Total 775 ml 1100 ml Balance 692.5 ml 465 ml Intake Oral 720 ml 100 ml IV Total 747.5 ml 1465 ml Output Urine Total 775 ml 1100 ml 2D Echo: LVEF 55%, LVH, Moderate MR, RVSP 18 mmHg Laboratory Tests Test 08/25/16 03:45 White Blood Count 5.6 K/UL (4.8-10.8) Red Blood Count 3.37 M/UL (4.70-6.10) L Hemoglobin 10.3 G/DL (14.2-18.0) L Hematocrit 30.6 % (42.0-52.0) L Mean Corpuscular Volume 91 FL (80-99) Mean Corpuscular Hemoglobin 30.6 PG (27.0-31.0) Mean Corpuscular Hemoglobin Concent 33.7 G/DL (32.0-36.0) Red Cell Distribution Width 12.3 % (11.6-14.8) Platelet Count 239 K/UL (150-450) Mean Platelet Volume 7.5 FL (6.5-10.1) Neutrophils (%) (Auto) 61.1 % (45.0-75.0) Lymphocytes (%) (Auto) 25.1 % (20.0-45.0) Monocytes (%) (Auto) 8.9 % (1.0-10.0) Eosinophils (%) (Auto) 4.2 % (0.0-3.0) H Basophils (%) (Auto) 0.7 % (0.0-2.0) Sodium Level 144 mEQ/L (135-145) Potassium Level 3.7 mEQ/L (3.4-4.9) Chloride Level 106 mEQ/L (98-107) Carbon Dioxide Level 24 mEQ/L (20-30) Anion Gap 14 (5-15) Blood Urea Nitrogen 11 mg/dL (7-23) Creatinine 0.7 mg/dL (0.7-1.2) Estimat Glomerular Filtration Rate > 60 mL/min (>60) Glucose Level 109 mg/dL (74-106) H Calcium Level 9.3 mg/dL (8.6-10.2) Total Bilirubin < 0.2 mg/dL (0.0-1.2) Aspartate Amino Transf (AST/SGOT) 43 U/L (5-40) H Alanine Aminotransferase (ALT/SGPT) 35 U/L (3-41) Alkaline Phosphatase 53 U/L (40-129) Pro-B-Type Natriuretic Peptide 598 pg/mL (0-125) H Total Protein 6.3 g/dL (6.6-8.7) L Albumin 2.8 g/dL (3.5-5.2) L Globulin 3.5 g/dL Albumin/Globulin Ratio 0.8 (1.0-2.7) L Objective HEENT: Temporal wasting. Pale conjunctivae. Oropharynx clear, PERRLA, EOMI, Mucous membranes dry. NECK: negative JVD, no carotid bruit with 2+ upstroke B/L LUNGS: clear breath sounds CARDIAC: Regular rate rhythm, tachycardic, Normal S1 and S2 with no murmurs, gallops or rubs. ABDOMEN: Soft and nontender, no HSM, normal BS EXTREMITIES: No edema, clubbing or cyanosis MAC ATKINSON Aug 25, 2016 23:22
[2016-08-26] VITALS (8 sets, daily range): BP systolic 148–198; BP diastolic 75–103
[2016-08-26] MEDS: LORazepam Inj 2mg/ml 1ml IV PRN ×2 (00:09→04:48)
[2016-08-26] MEDS: Ampicillin/Sulbactam Sod 3 GM in NS 110 ML IVPB SCH ×3 (04:22→17:20)
[2016-08-26] MEDS: Propranolol 10mg tab ORAL SCH ×3 (05:33→21:45)
[2016-08-26] MEDS: Clindamycin 600mg 50 ML IV SCH ×3 (05:33→21:45)
--- NOTE | 2016-08-26 06:12 | General Progress Note ---
Assessment/Plan Problem List: (1) Hypertensive urgency ICD Codes: I16.0 - Hypertensive urgency SNOMED: 554583314 (2) Respiratory failure ICD Codes: J96.90 - Respiratory failure, unspecified, unspecified whether with hypoxia or hypercapnia SNOMED: 076705464 (3) Blind ICD Codes: H54.0 - Blindness, both eyes SNOMED: 451912990 (4) Renal insufficiency ICD Codes: N28.9 - Disorder of kidney and ureter, unspecified SNOMED: 778080960 (5) Sepsis ICD Codes: A41.9 - Sepsis, unspecified organism SNOMED: 48985471 (6) UTI (urinary tract infection) ICD Codes: N39.0 - Urinary tract infection, site not specified SNOMED: 52906576 Status: stable, progressing, tolerating diet Assessment/Plan o2 pulm tx abx cbc bmp am dc plan w hh Subjective Constitutional: Reports: weakness Allergies: Coded Allergies: No Known Allergies (Unverified , 08/19/16) All Systems: reviewed and negative except above Subjective on o2 sleepy Objective Last 24 Hour Vital Signs Date Time Temp Pulse Resp B/P Pulse Ox O2 Delivery O2 Flow Rate FiO2 08/26/16 05:33 91 148/79 08/26/16 04:00 98.2 91 18 148/79 96 Room Air 08/26/16 00:00 98.0 86 16 150/81 95 Room Air 08/25/16 19:16 Room Air 08/25/16 19:16 95 Room Air 08/25/16 19:16 93 18 Room Air 08/25/16 16:14 97.3 83 15 154/84 94 Room Air 08/25/16 13:15 73 144/82 08/25/16 12:00 73 08/25/16 12:00 98.2 88 20 144/82 93 Room Air 08/25/16 08:24 96 168/92 08/25/16 08:23 168/92 08/25/16 08:01 98.1 96 21 168/92 93 Room Air 08/25/16 08:00 93 08/25/16 06:55 97 Room Air 08/25/16 06:55 Room Air 21 08/25/16 06:22 86 196/94 Intake and Output 08/25/16 08/26/16 18:59 06:59 Intake Total 1225 ml 460 ml Output Total 1450 ml 700 ml Balance -225 ml -240 ml Intake Oral 405 ml IV Total 820 ml 460 ml Output Urine Total 1450 ml 700 ml # Bowel Movements 1 Height (Feet): 5 Height (Inches): 9.00 Weight (Pounds): 185 General Appearance: lethargic EENT: normal ENT inspection Neck: normal alignment Cardiovascular: normal peripheral pulses, normal rate, regular rhythm Respiratory/Chest: chest wall non-tender, lungs clear, normal breath sounds Abdomen: normal bowel sounds, non tender, soft Extremities: normal inspection Edema: no edema noted Arm (L), no edema noted Arm (R), no edema noted Leg (L), no edema noted Leg (R), no edema noted Pedal (L), no edema noted Pedal (R), no edema noted Generalized Neurologic: motor weakness Skin: normal pigmentation, warm/dry DOORTA FRANCO Aug 26, 2016 06:12
[2016-08-26] MEDS: NovoLOG Insulin Flexpen SUBQ SCH ×4 (06:23→20:12)
[2016-08-26 06:49] LABS: BASOPHILS % (AUTO) 0.4 % (0.0-2.0); EOSINOPHILS % (AUTO) 4.2 % (0.0-3.0); LYMPHOCYTES % (AUTO) 28.6 % (20.0-45.0); MEAN CORPUSCULAR HEMOGLOBIN 28.9 PG (27.0-31.0); MEAN CORPUSCULAR HGB CONC 32.7 G/DL (32.0-36.0); MEAN CORPUSCULAR VOLUME 88 FL (80-99); MEAN PLATELET VOLUME 7.7 FL (6.5-10.1); NEUTROPHILS % (AUTO) 56.8 % (45.0-75.0); PLATELET COUNT 292 K/UL (150-450); RED BLOOD COUNT 3.66 M/UL (4.70-6.10); RED CELL DISTRIBUTION WIDTH 12.3 % (11.6-14.8); WHITE BLOOD COUNT 4.8 K/UL (4.8-10.8)
[2016-08-26 07:13] LABS: ANION GAP 17 (5-15); CALCIUM 9.3 mg/dL (8.6-10.2); CARBON DIOXIDE 23 mEQ/L (20-30); CHLORIDE 103 mEQ/L (98-107); CREATININE 0.8 mg/dL (0.7-1.2); GLOMERULAR FILTRATION RATE > 60 mL/min (>60); HEMOLYSIS 5; POTASSIUM 3.5 mEQ/L (3.4-4.9); SODIUM 143 mEQ/L (135-145)
[2016-08-26] MEDS: Lactobacillus-GG tablet ORAL SCH ×3 (08:14→18:11)
[2016-08-26] MEDS: Phenytoin 100mg cap ORAL SCH ×2 (08:16→21:11)
[2016-08-26] MEDS: Heparin 5000 units/ml inj SUBQ SCH ×2 (08:19→21:00)
[2016-08-26] MEDS ORDERED: Losartan 50mg tab ORAL SCH ×2 (09:00)
[2016-08-26] MEDS ORDERED: NS 275ml ONE (10:26)
--- NOTE | 2016-08-26 11:32 | Pulmonology Progress Note ---
Assessment/Plan Assessment/Plan ASSESSMENT acute hypoxemic hypercapnic respiratory failure, requiring BiPAP - resolved sepsis with bacteremia /gram negative - Enterococci possible HCAP ( recent dc from [facility] - 3 days ago prior to admission to [facility]) UTI toxic and metabolic encephalopathy ARF/ ATN-resolved ( prerenal likely) HTN urgency sinus tachycardia - resolved ( due to hypovolemia and sepsis) syncope due to hypovolemia 2 to dehydration urinary retention BPH DM seizure disorder with subtherapeutic Dilantin level OBS chronic paranoid psychosis active smoker legally blind anemia-stable L adrenal cyst [facility] floor tachycardia resolved with IV hydration , likely due to hypovolemia and sepsis cardio follows BP management with multiple regimen of antiHTN mediations: BB, ARB, CCB and Clonidine - per cardio management O2 HHN, CPT prn repeated CXR with resolved atelectasis, demonstrated preciously, no acute cardiopulmonary changes Venous Duplex BLE negative 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 These may reflect old infarcts or be due to prior trauma. Negative for acute intracranial bleed or mass effect patient with hx of CVA 7 months ago seizure precautions, continue Dilantin DVT prophylaxis fall precautions dc plan home with HH as per PMD , will need PICC line prior to discharge case discussed and evaluated by supervising physician Subjective Allergies: Coded Allergies: No Known Allergies (Unverified , 08/19/16) Subjective afebrile, no leukocytosis family at the bedside no sign of respiratory distress denies chest pain, SOB Objective Last 24 Hour Vital Signs Date Time Temp Pulse Resp B/P Pulse Ox O2 Delivery O2 Flow Rate FiO2 08/26/16 08:17 173/88 08/26/16 08:16 89 173/88 08/26/16 08:15 173/88 08/26/16 08:00 97.3 89 19 173/88 97 Room Air 08/26/16 05:33 91 148/79 08/26/16 04:00 98.2 91 18 148/79 96 Room Air 08/26/16 00:00 98.0 86 16 150/81 95 Room Air 08/25/16 19:16 Room Air 08/25/16 19:16 95 Room Air 08/25/16 19:16 93 18 Room Air 08/25/16 16:14 97.3 83 15 154/84 94 Room Air 08/25/16 13:15 73 144/82 08/25/16 12:00 73 08/25/16 12:00 98.2 88 20 144/82 93 Room Air Intake and Output 08/25/16 08/26/16 19:00 07:00 Intake Total 1225 ml 620 ml Output Total 1450 ml 1400 ml Balance -225 ml -780 ml Intake Oral 405 ml IV Total 820 ml 620 ml Output Urine Total 1450 ml 1400 ml # Bowel Movements 1 General Appearance: no acute distress HEENT: normocephalic, atraumatic, other - blind Respiratory/Chest: chest wall non-tender, lungs clear - with modearte air entry , no respiratory distress, no accessory muscle use Cardiovascular: normal rate, regular rhythm Abdomen: soft, non tender, non distended Genitourinary: normal external genitalia Extremities: no edema, pedal pulses normal Neurologic/Psychiatric: alert, responsive, other - R side weakness Laboratory Tests 08/26/16 05:50: White Blood Count 4.8, Red Blood Count 3.66L, Hemoglobin 10.6L, Hematocrit 32.3L , Mean Corpuscular Volume 88, Mean Corpuscular Hemoglobin 28.9, Mean Corpuscular Hemoglobin Concent 32.7, Red Cell Distribution Width 12.3, Platelet Count 292, Mean Platelet Volume 7.7, Neutrophils (%) (Auto) 56.8, Lymphocytes (% ) (Auto) 28.6, Monocytes (%) (Auto) 10.0, Eosinophils (%) (Auto) 4.2H, Basophils (%) (Auto) 0.4, Sodium Level 143, Potassium Level 3.5, Chloride Level 103, Carbon Dioxide Level 23, Anion Gap 17H, Blood Urea Nitrogen 8, Creatinine 0.8, Estimat Glomerular Filtration Rate > 60, Glucose Level 96, Calcium Level 9.3 Current Medications Medications (Trade) Dose Ordered Sig/Sharif Route PRN Reason Start Time Stop Time Status Last Admin Dose Admin Acetaminophen (Tylenol) 650 mg Q4H PRN ORAL T>100.5 08/25/16 15:45 09/24/16 15:44 Al Hydroxide/Mg Hydroxide (Mylanta II) 30 ml Q6H PRN ORAL dyspepsia 08/25/16 18:00 09/24/16 17:59 Albuterol/ Ipratropium (DuoNeb 0.5-3(2.5)mg/3ml) 3 ml Q4HRT PRN HHN Shortness of Breath 08/25/16 16:00 08/30/16 15:59 Amlodipine Besylate (Norvasc) 10 mg DAILY ORAL 08/26/16 09:00 09/25/16 08:59 08/26/16 08:16 Ampicillin Sodium/ Sulbactam Sodium 3 gm/Sodium Chloride 110 ml @ 220 mls/hr Q6H IVPB 08/25/16 16:30 08/31/16 16:29 08/26/16 04:22 Clindamycin HCl/ Dextrose (Cleocin 600mg) 50 ml @ 100 mls/hr Q8HR IV 08/25/16 22:00 08/31/16 21:59 08/26/16 05:33 Clonidine HCl (Catapres) 0.1 mg TIDPRN PRN ORAL if SBP >160 mmHg 08/26/16 12:00 09/25/16 11:59 08/26/16 08:17 Dextrose (Dextrose 50%) STAT PRN IV Hypoglycemia 08/26/16 12:00 09/25/16 11:59 Haloperidol Lactate (Haldol) 5 mg Q6H PRN IM Agitation 08/26/16 07:00 09/25/16 06:59 Heparin Sodium (Porcine) (Heparin 5000 units/ml) 5,000 units EVERY 12 HOURS SUBQ 08/25/16 21:00 09/24/16 20:59 08/26/16 08:19 Insulin Aspart (NovoLOG) BEFORE MEALS AND HS SUBQ 08/25/16 16:30 09/24/16 16:29 08/25/16 21:53 Lactobacillus Acidophilus (Culturelle) 1 tab THREE TIMES A DAY ORAL 08/25/16 18:00 09/24/16 17:59 2/17/17 08:14 Lorazepam (Ativan 2mg/ml 1ml) 0.5 mg Q4H PRN IV For Anxiety 08/25/16 15:30 09/01/16 15:29 08/26/16 04:48 Losartan Potassium (Cozaar) 100 mg DAILY ORAL 08/26/16 09:00 09/25/16 08:59 08/26/16 08:15 Nicotine (Nicoderm) 1 patch Q24H TDERMAL 08/25/16 18:30 09/24/16 18:29 08/25/16 19:21 Nitroglycerin (Ntg) 0.4 mg Q5M PRN SL Prn Chest Pain 08/25/16 14:05 09/24/16 14:04 Olanzapine (ZyPREXA) 5 mg DAILY ORAL 08/26/16 09:00 09/25/16 08:59 08/26/16 08:14 Ondansetron HCl (Zofran) 4 mg Q6H PRN IVP Nausea & Vomiting 08/25/16 15:45 09/24/16 15:44 Pantoprazole (Protonix) 40 mg DAILY ORAL 08/26/16 09:00 09/25/16 08:59 08/26/16 08:15 Phenytoin (Dilantin) 200 mg Q12HR ORAL 08/25/16 21:00 09/24/16 20:59 08/26/16 08:16 Polyethylene Glycol (Miralax) 17 gm DAILYPRN PRN ORAL Constipation 08/26/16 12:00 09/25/16 11:59 Propranolol HCl (Inderal) 10 mg Q8HR ORAL 08/25/16 22:00 09/24/16 21:59 08/26/16 05:33 Quetiapine Fumarate (SEROquel) 100 mg Q12HR ORAL 08/26/16 09:00 09/25/16 08:59 08/26/16 08:14 Sodium Chloride 1,000 ml @ 75 mls/hr [id number] IV 08/25/16 14:00 09/24/16 13:59 08/26/16 00:09 Temazepam (Restoril) 15 mg HSPRN PRN ORAL Insomnia 08/25/16 21:00 09/01/16 20:59 Cheyenne Ball NP (Vanchtein) Aug 26, 2016 11:31
[2016-08-26] MEDS ORDERED: Miralax 17gm pkt ORAL PRN (12:00)
--- NOTE | 2016-08-26 14:07 | Nephrology Progress Note ---
Assessment/Plan Assessment 1. Acute renal failure, 2. Uncontrolled HTN 3. Hypomagnesemia. 4. Urosepsis. 5. Fever. 6. History of seizure disorder. 7.hypernatremia resolved Plan plan to d/c ivf increase norvasc 10 mg continue losartan 50 mg monitoring urine out put monitoring renal function avoid NSAID Subjective ROS Limited/Unobtainable: Yes Constitutional: Reports: no symptoms HEENT: Reports: no symptoms Genitourinary: Reports: no symptoms Neurologic/Psychiatric: Reports: no symptoms Subjective awake confused Objective Objective Last 24 Hour Vital Signs Date Time Temp Pulse Resp B/P Pulse Ox O2 Delivery O2 Flow Rate FiO2 08/26/16 11:57 96.8 88 20 162/88 94 Room Air 08/26/16 08:17 173/88 08/26/16 08:16 89 173/88 08/26/16 08:15 173/88 08/26/16 08:00 97.3 89 19 173/88 97 Room Air 08/26/16 05:33 91 148/79 08/26/16 04:00 98.2 91 18 148/79 96 Room Air 08/26/16 00:00 98.0 86 16 150/81 95 Room Air 08/25/16 19:16 Room Air 08/25/16 19:16 95 Room Air 08/25/16 19:16 93 18 Room Air 08/25/16 16:14 97.3 83 15 154/84 94 Room Air Intake and Output 08/25/16 08/26/16 19:00 07:00 Intake Total 1225 ml 620 ml Output Total 1450 ml 1400 ml Balance -225 ml -780 ml Intake Oral 405 ml IV Total 820 ml 620 ml Output Urine Total 1450 ml 1400 ml # Bowel Movements 1 Laboratory Tests 08/26/16 05:50: White Blood Count 4.8, Red Blood Count 3.66L, Hemoglobin 10.6L, Hematocrit 32.3L , Mean Corpuscular Volume 88, Mean Corpuscular Hemoglobin 28.9, Mean Corpuscular Hemoglobin Concent 32.7, Red Cell Distribution Width 12.3, Platelet Count 292, Mean Platelet Volume 7.7, Neutrophils (%) (Auto) 56.8, Lymphocytes (% ) (Auto) 28.6, Monocytes (%) (Auto) 10.0, Eosinophils (%) (Auto) 4.2H, Basophils (%) (Auto) 0.4, Sodium Level 143, Potassium Level 3.5, Chloride Level 103, Carbon Dioxide Level 23, Anion Gap 17H, Blood Urea Nitrogen 8, Creatinine 0.8, Estimat Glomerular Filtration Rate > 60, Glucose Level 96, Calcium Level 9.3 Height (Feet): 5 Height (Inches): 9.00 Weight (Pounds): 185 Objective HEAD AND NECK: No JVP. No LAD. No thyromegaly. Dry mucous membranes. LUNGS EXAM: Clear to auscultation. CARDIAC: Regular rate and rhythm. S1-S2. No murmur. No rub. ABDOMEN: Soft, nontender, and nondistended. EXTREMITIES: Trace edema. No clubbing. No cyanosis. NENITA PINO Aug 26, 2016 14:07
[2016-08-26] MEDS ORDERED: UNASYN 3 GM VIAL3 GM IV (14:58)
[2016-08-26] MEDS ORDERED: Lidocaine 1% Plain 30 ml INJ ONE (15:00)
[2016-08-26] MEDS ORDERED: Sodium Bicarbonate 8.4% 50ml Inj IV ONE (15:00)
[2016-08-26] MEDS ORDERED: Heparin 2000 units/Ns 1000ml INJ ONE (15:00)
--- NOTE | 2016-08-26 16:25 | Infectious Diseases Prog Note ---
Assessment/Plan Problems: (1) HCAP (healthcare-associated pneumonia) Assessment & Plan: improving on clindamycin and unasyn , will continue clindamycin for 7 days total. await sputum culture , monitor CXR, recommend swallow eval if not done yet. (2) Sepsis Assessment & Plan: with enterococcus faecalis , source ? unclear, CT abdomen is negative for any abscess or phlegmon. US of the gall bladder was unremarkable, and echocardiogram ruled out valve vegetations , will treat with unasyn for four weeks starting from the date he clears his bacteremia 08/22/16. EOT 09/19/16 (3) UTI (urinary tract infection) Assessment & Plan: on unasyn , urine culture showed mixed gram positive cocci . (4) Urinary retention Assessment & Plan: S/P folley catheter insertion, recommend urologist eval (5) Seizure disorder Assessment & Plan: continue seizure meds follow up with neurologist (6) Adrenal mass, left Assessment & Plan: recommend endocrinology for evaluation and management Subjective ROS Limited/Unobtainable: Yes Allergies: Coded Allergies: No Known Allergies (Unverified , 08/19/16) Subjective he was lying in bed, not coherent, blind, hard of hearing, not agitated, sitter at the bedside, afebrile. Objective Vital Signs Last 24 Hour Vital Signs Date Time Temp Pulse Resp B/P Pulse Ox O2 Delivery O2 Flow Rate FiO2 08/26/16 15:08 88 162/88 08/26/16 11:57 96.8 88 20 162/88 94 Room Air 08/26/16 08:17 173/88 08/26/16 08:16 89 173/88 08/26/16 08:15 173/88 08/26/16 08:00 97.3 89 19 173/88 97 Room Air 08/26/16 05:33 91 148/79 08/26/16 04:00 98.2 91 18 148/79 96 Room Air 08/26/16 00:00 98.0 86 16 150/81 95 Room Air 08/25/16 19:16 Room Air 08/25/16 19:16 95 Room Air 08/25/16 19:16 93 18 Room Air Height (Feet): 5 Height (Inches): 9.00 Weight (Pounds): 185 General Appearance: WD/WN, no acute distress HEENT: normocephalic, atraumatic, anicteric, mucous membranes moist Respiratory/Chest: chest wall non-tender, lungs clear, normal breath sounds, no respiratory distress Cardiovascular: normal peripheral pulses, normal rate, regular rhythm, no gallop/murmur Abdomen: normal bowel sounds, soft, non tender, no organomegaly, non distended , no mass Extremities: no cyanosis, no clubbing Skin: no rash, no lesions, other - callus Laboratory Tests Test 08/26/16 05:50 White Blood Count 4.8 K/UL (4.8-10.8) Red Blood Count 3.66 M/UL (4.70-6.10) L Hemoglobin 10.6 G/DL (14.2-18.0) L Hematocrit 32.3 % (42.0-52.0) L Mean Corpuscular Volume 88 FL (80-99) Mean Corpuscular Hemoglobin 28.9 PG (27.0-31.0) Mean Corpuscular Hemoglobin Concent 32.7 G/DL (32.0-36.0) Red Cell Distribution Width 12.3 % (11.6-14.8) Platelet Count 292 K/UL (150-450) Mean Platelet Volume 7.7 FL (6.5-10.1) Neutrophils (%) (Auto) 56.8 % (45.0-75.0) Lymphocytes (%) (Auto) 28.6 % (20.0-45.0) Monocytes (%) (Auto) 10.0 % (1.0-10.0) Eosinophils (%) (Auto) 4.2 % (0.0-3.0) H Basophils (%) (Auto) 0.4 % (0.0-2.0) Sodium Level 143 mEQ/L (135-145) Potassium Level 3.5 mEQ/L (3.4-4.9) Chloride Level 103 mEQ/L (98-107) Carbon Dioxide Level 23 mEQ/L (20-30) Anion Gap 17 (5-15) H Blood Urea Nitrogen 8 mg/dL (7-23) Creatinine 0.8 mg/dL (0.7-1.2) Estimat Glomerular Filtration Rate > 60 mL/min (>60) Glucose Level 96 mg/dL (74-106) Calcium Level 9.3 mg/dL (8.6-10.2) Current Medications Medications (Trade) Dose Ordered Sig/Sharif Route PRN Reason Start Time Stop Time Status Last Admin Dose Admin Acetaminophen (Tylenol) 650 mg Q4H PRN ORAL T>100.5 08/25/16 15:45 09/24/16 15:44 Al Hydroxide/Mg Hydroxide (Mylanta II) 30 ml Q6H PRN ORAL dyspepsia 08/25/16 18:00 09/24/16 17:59 Albuterol/ Ipratropium (DuoNeb 0.5-3(2.5)mg/3ml) 3 ml Q4HRT PRN HHN Shortness of Breath 08/25/16 16:00 08/30/16 15:59 Amlodipine Besylate (Norvasc) 10 mg DAILY ORAL 08/26/16 09:00 09/25/16 08:59 08/26/16 08:16 Ampicillin Sodium/ Sulbactam Sodium 3 gm/Sodium Chloride 110 ml @ 220 mls/hr Q6H IVPB 08/25/16 16:30 08/31/16 16:29 08/26/16 12:38 Clindamycin HCl/ Dextrose (Cleocin 600mg) 50 ml @ 100 mls/hr Q8HR IV 08/25/16 22:00 08/31/16 21:59 08/26/16 05:33 Clonidine HCl (Catapres) 0.1 mg TIDPRN PRN ORAL if SBP >160 mmHg 08/26/16 12:00 09/25/16 11:59 08/26/16 08:17 Dextrose (Dextrose 50%) STAT PRN IV Hypoglycemia 08/26/16 12:00 09/25/16 11:59 Haloperidol Lactate (Haldol) 5 mg Q6H PRN IM Agitation 08/26/16 07:00 09/25/16 06:59 Heparin Sodium (Porcine) (Heparin 5000 units/ml) 5,000 units EVERY 12 HOURS SUBQ 08/25/16 21:00 09/24/16 20:59 08/26/16 08:19 Insulin Aspart (NovoLOG) BEFORE MEALS AND HS SUBQ 08/25/16 16:30 09/24/16 16:29 08/25/16 21:53 Lactobacillus Acidophilus (Culturelle) 1 tab THREE TIMES A DAY ORAL 08/25/16 18:00 3/18/17 17:59 08/26/16 12:38 Lorazepam (Ativan 2mg/ml 1ml) 0.5 mg Q4H PRN IV For Anxiety 08/25/16 15:30 09/01/16 15:29 08/26/16 04:48 Losartan Potassium (Cozaar) 100 mg DAILY ORAL 08/26/16 09:00 09/25/16 08:59 08/26/16 08:15 Nicotine (Nicoderm) 1 patch Q24H TDERMAL 08/25/16 18:30 09/24/16 18:29 08/25/16 19:21 Nitroglycerin (Ntg) 0.4 mg Q5M PRN SL Prn Chest Pain 08/25/16 14:05 09/24/16 14:04 Olanzapine (ZyPREXA) 5 mg DAILY ORAL 08/26/16 09:00 09/25/16 08:59 08/26/16 08:14 Ondansetron HCl (Zofran) 4 mg Q6H PRN IVP Nausea & Vomiting 08/25/16 15:45 09/24/16 15:44 Pantoprazole (Protonix) 40 mg DAILY ORAL 08/26/16 09:00 09/25/16 08:59 08/26/16 08:15 Phenytoin (Dilantin) 200 mg Q12HR ORAL 08/25/16 21:00 09/24/16 20:59 08/26/16 08:16 Polyethylene Glycol (Miralax) 17 gm DAILYPRN PRN ORAL Constipation 08/26/16 12:00 09/25/16 11:59 Propranolol HCl (Inderal) 10 mg Q8HR ORAL 08/25/16 22:00 09/24/16 21:59 08/26/16 15:08 Quetiapine Fumarate (SEROquel) 100 mg Q12HR ORAL 08/26/16 09:00 09/25/16 08:59 08/26/16 08:14 Sodium Chloride 1,000 ml @ 75 mls/hr [id number] IV 08/25/16 14:00 09/24/16 13:59 08/26/16 00:09 Temazepam (Restoril) 15 mg HSPRN PRN ORAL Insomnia 08/25/16 21:00 09/01/16 20:59 Treva Martinez M.D. Aug 26, 2016 16:25
--- NOTE | 2016-08-26 16:57 | Diagnostic Imaging Report ---
Indications: Needs long-term IV access Technique: Ultrasound confirms patent compressible [ vein. Total sterile technique, including sterile probe cover and sterile gel, hat, mask,, sterile gown, large sterile drape, and preparation with 2% chlorhexidine utilized. Local anesthesia with 1% lidocaine. Under real-time ultrasound guidance, puncture brachial vein using 21-gauge needle, documented and archived, passage 0.018 guidewire under direct fluoroscopy, which was used to determine appropriate catheter length, exchange for 5 Filipino peel-away sheath. 5 Filipino Bard dual-lumen power PICC cut to 44 cm. It was inserted through the peel-away sheath. Peel-away sheath and guidewire removed. Catheter fixed to the skin. Both catheter ports aspirated and flushed. Patient tolerated procedure well, without immediate complication. Digital radiograph documents satisfactory catheter tip position, at the cavoatrial junction. Total fluoroscopy time 0.4 minutes. Total dose area product 4 dGycm2 Impression: Successful placement of PICC under sonographic and fluoroscopic guidance, as described above.
[2016-08-26] MEDS: Haloperidol 5mg/ml Inj IM PRN ×2 (17:10→17:11)
[2016-08-26] MEDS ORDERED: 1/2 NS 1000ml IV ONE (18:32)
[2016-08-26] MEDS ORDERED: AMLODIPINE BESY10 MG ORAL (21:18)
[2016-08-26] MEDS ORDERED: CATAPRES0.1 MG ORAL (21:19)
[2016-08-26] MEDS ORDERED: LOSARTAN POTASS50 MG ORAL (21:19)
[2016-08-26] MEDS ORDERED: PROPRANOLOL HCL20 MG ORAL (21:19)
--- NOTE | 2016-08-26 23:53 | Cardiology Progress Note ---
Assessment/Plan Assessment/Plan 1. Sinus tachycardia resolved, likely due to hypovolemia, sepsis, continue hydration, increase propranolol. 2. HTN, continue amlodipine and clonidine, losartan and propranolol. 3. Enterococcal Faecalis bacteremia 4. Toxic and metabolic encephalopathy. 5. Seizure disorder. 6. Syncope, likely due to hypovolemia. Subjective Subjective Transferred to the med-surg unit.. Denies chest pain or SOB Objective Last 24 Hour Vital Signs Date Time Temp Pulse Resp B/P Pulse Ox O2 Delivery O2 Flow Rate FiO2 08/26/16 21:45 91 162/95 08/26/16 21:03 91 162/95 08/26/16 20:12 198/103 08/26/16 20:00 97.3 93 20 198/103 94 Room Air 08/26/16 18:58 85 18 Room Air 08/26/16 16:00 97.5 74 20 160/75 96 Room Air 08/26/16 15:08 88 162/88 08/26/16 11:57 96.8 88 20 162/88 94 Room Air 08/26/16 08:17 173/88 08/26/16 08:16 89 173/88 08/26/16 08:15 173/88 08/26/16 08:00 97.3 89 19 173/88 97 Room Air 08/26/16 05:33 91 148/79 08/26/16 04:00 98.2 91 18 148/79 96 Room Air 08/26/16 00:00 98.0 86 16 150/81 95 Room Air Intake and Output 08/25/16 08/26/16 19:00 07:00 Intake Total 1225 ml 620 ml Output Total 1450 ml 1400 ml Balance -225 ml -780 ml Intake Oral 405 ml IV Total 820 ml 620 ml Output Urine Total 1450 ml 1400 ml # Bowel Movements 1 2D Echo: LVEF 55%, LVH, Moderate MR, RVSP 18 mmHg Laboratory Tests Test 08/26/16 05:50 White Blood Count 4.8 K/UL (4.8-10.8) Red Blood Count 3.66 M/UL (4.70-6.10) L Hemoglobin 10.6 G/DL (14.2-18.0) L Hematocrit 32.3 % (42.0-52.0) L Mean Corpuscular Volume 88 FL (80-99) Mean Corpuscular Hemoglobin 28.9 PG (27.0-31.0) Mean Corpuscular Hemoglobin Concent 32.7 G/DL (32.0-36.0) Red Cell Distribution Width 12.3 % (11.6-14.8) Platelet Count 292 K/UL (150-450) Mean Platelet Volume 7.7 FL (6.5-10.1) Neutrophils (%) (Auto) 56.8 % (45.0-75.0) Lymphocytes (%) (Auto) 28.6 % (20.0-45.0) Monocytes (%) (Auto) 10.0 % (1.0-10.0) Eosinophils (%) (Auto) 4.2 % (0.0-3.0) H Basophils (%) (Auto) 0.4 % (0.0-2.0) Sodium Level 143 mEQ/L (135-145) Potassium Level 3.5 mEQ/L (3.4-4.9) Chloride Level 103 mEQ/L (98-107) Carbon Dioxide Level 23 mEQ/L (20-30) Anion Gap 17 (5-15) H Blood Urea Nitrogen 8 mg/dL (7-23) Creatinine 0.8 mg/dL (0.7-1.2) Estimat Glomerular Filtration Rate > 60 mL/min (>60) Glucose Level 96 mg/dL (74-106) Calcium Level 9.3 mg/dL (8.6-10.2) Objective HEENT: Temporal wasting. Pale conjunctivae. Oropharynx clear, PERRLA, EOMI, Mucous membranes dry. NECK: negative JVD, no carotid bruit with 2+ upstroke B/L LUNGS: clear breath sounds CARDIAC: Regular rate rhythm, Normal S1 and S2 with no murmurs, gallops or rubs. ABDOMEN: Soft and nontender, no HSM, normal BS EXTREMITIES: No edema, clubbing or cyanosis MAC ATKINSON Aug 26, 2016 23:53
[2016-08-27] MEDS ORDERED: Tubing IV Secondary IV ONE (00:29)
[2016-08-27] MEDS ORDERED: Propranolol 10mg tab ORAL SCH (06:00)
[2016-08-27] MEDS ORDERED: TRIAMTERENE ORAL SCH (09:00)
[2016-08-27] MEDS ORDERED: HCTZ ORAL SCH (09:00)
--- NOTE | 2016-08-29 09:03 | Discharge Summary ---
Discharge Summary Hospital Course Date of Admission Aug 19, 2016 at 13:00 Date of Discharge Aug 27, 2016 at 00:30 Admitting Diagnosis syncope, tachycardia HPI Costa Kelly is a 66 year old male who was admitted on Aug 19, 2016 at 13:00 for Hyperglycemia, Tachy Tele Hospital Course [place] [facility] dictated # [id number] Discharge Medications Continued Medications: Amlodipine Besylate* (Amlodipine Besylate*) 10 Mg Tablet 10 MG ORAL DAILY, TAB Ampicillin Sodium/Sulbactam Na (Unasyn 3 Gm Vial) 3 Gm Vial 3 GM IV Q6HR for 24 Days, VIAL Clonazepam* (Klonopin*) 0.5 Mg Tablet 0.5 MG ORAL Q6H, #15 TAB 0 Refills Clonidine Hcl* (Catapres*) 0.1 Mg Tablet 0.1 MG ORAL EVERY 8 HOURS PRN for SBP > 160, TAB Docusate Sodium* (Colace*) 100 Mg Capsule 100 MG ORAL DAILY, CAP Fenofibrate (Tricor) 145 Mg Tablet 145 MG ORAL DAILY, #30 TAB 0 Refills Nicotine (Nicotine Patch) 1 Each Patch.dysq 1 EACH TD, PATCH Olanzapine* (Zyprexa*) 5 Mg Tablet 5 MG ORAL DAILY, TAB Pantoprazole* (Pantoprazole*) 40 Mg Tablet.dr 40 MG ORAL DAILY, TAB Phenytoin Sodium Extended* (Dilantin*) 100 Mg Capsule 100 MG ORAL TWICE A DAY, #90 CAP 0 Refills Pioglitazone Hcl* (Actos*) 30 Mg Tablet 30 MG ORAL DAILY, TAB Propranolol Hcl* (Inderal*) 20 Mg Tablet 20 MG ORAL QID, #90 TAB 0 Refills Sitagliptin* (Januvia*) 25 Mg Tablet 100 MG ORAL DAILY, TAB Valsartan (Diovan) 160 Mg Tablet 160 MG ORAL DAILY, TAB Discharge Condition Upon Discharge: improving Discharge Disposition Patient was discharged to Home with Home Health() Discharge Diagnoses: Quinn (Corinne)[place] NP Aug 29, 2016 09:02
--- NOTE | 2016-08-29 10:49 | Cardiology Report ---
APPROVED REPORT EXAM: Two-dimensional and M-mode echocardiogram with Doppler and color Doppler. INDICATION Endocarditits M-Mode DIMENSIONS IVSd1.6 (0.7-1.1cm)Left Atrium (MM)3.9 (1.6-4.0cm) LVDd5.1 (3.5-5.6cm)Aortic Root3.0 (2.0-3.7cm) PWd1.3 (0.7-1.1cm)Aortic Cusp Exc.2.0 (1.5-2.0cm) LVDs2.7 (2.5-4.0cm) PWs2.5 cm Technically difficult study due to combative patient. Normal left ventricular chamber size, systolic function and wall motion. Left ventricular ejection fraction estimated to be 55-60 %. Mild left ventricular hypertrophy. Anterior Echo-free space, may be due to pericardial fat or effusion. No evidence of pericaridal effusion. All other cardiac chamber sizes are within normal limits. Mild focal aortic valve sclerosis with adequate cusp excursion. Mildly thickened mitral valve leaflets with normal excursion. Mild mitral annulus and aortic root calcification. Pulmonic valve not well visualized. Normal tricuspid valve structure. IVC dilated at 2.1 cm with physiologic collapse. No vegetations are seen, but cannot r/o. BRIANNA is suggested to evaluate for vegetations if clinically indicated. A color flow and spectral Doppler study was performed and revealed: No aortic regurgitation. Moderate mitral regurgitation. Mitral diastolic velocities suggest reduced left ventricular relaxation (Grade I). Trace tricuspid regurgitation. Tricuspid systolic velocities suggests peak right ventricular systolic pressure of 18 mmHg. Trace pulmonic regurgitation present.
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
== END 2016-08-27 00:30 | disposition home or self-care (01) | DRG 871 ==
LOC: EDBD 11:56 → EMR 12:10 → EDBEDREQ 12:20 → 2E 13:00 → EDBEDREQ 15:19 → 2E 18:02 → 3E 08-20 15:11 → ICU 08-21 04:26 → 2W 08-24 09:59 → 4W 08-25 14:25
PROC: 5A09457 Assistance with Respiratory Ventilation, 24-96 Consecutive Hours, Continuous Positive Airway Pressure (ICD-10-PCS; principal; 2016-08-21)
PROC: 02HV33Z Insertion of Infusion Device into Superior Vena Cava, Percutaneous Approach (ICD-10-PCS; 2016-08-26)
DX: A41.81 Sepsis due to Enterococcus (principal); G92 Toxic encephalopathy; N17.0 Acute kidney failure with tubular necrosis; J96.02 Acute respiratory failure with hypercapnia; J96.01 Acute respiratory failure with hypoxia; J18.9 Pneumonia, unspecified organism; F01.50 Vascular dementia, unspecified severity, without behavioral disturbance, psychotic disturbance, mood disturbance, and anxiety; E86.0 Dehydration; N39.0 Urinary tract infection, site not specified; N13.8 Other obstructive and reflux uropathy; G40.909 Epilepsy, unspecified, not intractable, without status epilepticus; F22 Delusional disorders; H54.8 Legal blindness, as defined in USA; N40.1 Benign prostatic hyperplasia with lower urinary tract symptoms; R33.8 Other retention of urine; Z87.820 Personal history of traumatic brain injury; V89.2XXS Person injured in unspecified motor-vehicle accident, traffic, sequela; I10 Essential (primary) hypertension; H91.8X3 Other specified hearing loss, bilateral; E78.5 Hyperlipidemia, unspecified; E83.42 Hypomagnesemia; E11.65 Type 2 diabetes mellitus with hyperglycemia; E86.1 Hypovolemia; I16.0 Hypertensive urgency; Z79.4 Long term (current) use of insulin; R55 Syncope and collapse
CPT/HCPCS: 36415; 36569; 36600; 70450; 71010; 74177; 76700; 76937; 80048; 80053; 80069; 80185; 81001; 81003; 82043; 82044; 82164; 82550; 82553; 82570; 82803; 82962; 83605; 83690; 83735; 83880; 84100; 84484; 85007; 85025; 85610; 85730; 87040; 87086; 87181; 89050; 93005; 93306; 94640; 94660; 94664; 94760; 97803; J1165; J1815; S0077

== ENCOUNTER 2017-09-09 15:02 | Inpatient (IN) | payer MEDICARE, OTHER ==
[~2017-09-09] VITALS: Ht 198.1 cm; Wt 78.0 kg
[~2017-09-09 15:02] MED LIST: ACTOS30 MG ORAL; AMLODIPINE BESY10 MG ORAL; CATAPRES0.1 MG ORAL; COLACE100 MG ORAL; DILANTIN100 MG ORAL; DIOVAN160 MG ORAL; JANUVIA25 MG ORAL; KLONOPIN0.5 MG ORAL; LOSARTAN POTASS50 MG ORAL; NICOTINE PATCH1 EAC5 TD; PANTOPRAZOLE SO40 MG ORAL; PROPRANOLOL HCL20 MG ORAL; TRICOR145 MG ORAL; UNASYN 3 GM VIAL3 GM IV; ZYPREXA5 MG ORAL
[2017-09-09 15:04] VITALS: BP 139/61
[2017-09-09] MEDS ORDERED: METFORMIN HCL1000 M1 ORAL (15:09)
[2017-09-09] MEDS ORDERED: METOPROLOL SUCC25 MG ORAL (15:10)
[2017-09-09 15:45] LABS: MEAN CORPUSCULAR VOLUME 87 FL (80-99); PLATELET COUNT 480 K/UL (150-450); RED BLOOD COUNT 2.51 M/UL (4.70-6.10); RED CELL DISTRIBUTION WIDTH 15.2 % (11.6-14.8); WHITE BLOOD COUNT 16.2 K/UL (4.8-10.8)
[2017-09-09 16:03] LABS: INR 1.1 (0.9-1.1)
--- NOTE | 2017-09-09 16:09 | Emergency Room Report ---
History of Present Illness General Chief Complaint: Altered Level of Consciousness Source: EMS Present Illness HPI 67-year-old male presents to ED for evaluation. EMS states that patient had a syncopal episode at home today. No reported head injury. Daughter called 911. Patient had been more altered unusual for the last one week. History of schizophrenia. Is deaf. Also blind. However patient is not behaving at his baseline. PMD told daughter that patient also may be anemic based on recent blood work. Upon arrival patient showing no signs of distress. Denies chest pain or shortness of breath. No other aggravating relieving factors. Denies any other associated symptoms Allergies: Coded Allergies: No Known Allergies (Unverified , 08/19/16) Patient History Past Medical History: HTN, CVA/TIA, seizures, psych hx Past Surgical History: none Pertinent Family History: none Social History: Denies: smoking, alcohol use, drug use Immunizations: UTD Reviewed Nursing Documentation: PMH: Agreed, PSxH: Agreed Nursing Documentation-PMH Past Medical History: No History, Except For Hx Hypertension: Yes Hx Pacemaker: No Hx Asthma: No Hx COPD: No Hx Diabetes: Yes Hx Gastrointestinal Problems: Yes Hx Dialysis: No History Of Psychiatric Problem: Yes - schizophrenia Hx Neurological Problems: Yes Hx Cerebrovascular Accident: Yes - 7 months ago Hx Seizures: Yes Hx Head Trauma: Yes Hx Concentration Difficulty: Yes Hx Weakness: Yes Review of Systems All Other Systems: negative except mentioned in HPI Physical Exam Vital Signs Date Time Temp Pulse Resp B/P (MAP) Pulse Ox O2 Delivery O2 Flow Rate FiO2 09/09/17 14:53 89 14 125/69 100 Room Air 09/09/17 15:04 97.6 97.6 Sp02 EP Interpretation: reviewed, normal General Appearance: no apparent distress, alert, other - nonverbal Head: normocephalic, atraumatic Eyes: bilateral eye normal inspection, bilateral eye PERRL ENT: hearing grossly normal, normal pharynx, no angioedema, normal voice Neck: full range of motion, supple/symm/no masses Respiratory: chest non-tender, lungs clear, normal breath sounds, speaking full sentences Cardiovascular #1: regular rate, rhythm, no edema Cardiovascular #2: 2+ carotid (R), 2+ carotid (L), 2+ radial (R), 2+ radial (L) , 2+ dorsalis pedis (R), 2+ dorsalis pedis (L) Gastrointestinal: normal bowel sounds, non tender, soft, non-distended, no guarding, no rebound Rectal: deferred Genitourinary: normal inspection, no CVA tenderness Musculoskeletal: back normal, gait/station normal, normal range of motion, non- tender Neurologic: alert, other - nonverbal Psychiatric: other - nonverbal Reflexes: 3+ bicep (R), 3+ bicep (L), 3+ tricep (R), 3+ tricep (L), 3+ knee (R) , 3+ knee (L) Skin: normal color, no rash, warm/dry, well hydrated Lymphatic: no adenopathy Medical Decision Making Diagnostic Impression: Primary Impression: Syncope Qualified Codes: R55 - Syncope and collapse Additional Impressions: Anemia Qualified Codes: D64.9 - Anemia, unspecified Renal insufficiency UTI (urinary tract infection) Qualified Codes: N39.0 - Urinary tract infection, site not specified ER Course Hospital Course 67-year-old M presents ED s/p syncopal episode. altered for 1 week Differential diagnoses include: PA/unstable angina, arrythmia, dehydration, CVA/ TIA Clinical course Patient placed on stretcher. on office messenger helper. After initial history and physical I ordered labs, EKG, chest x-ray, IVFs, CT Brain labs reviewed- noted leukocytosis, hemoglobin 7.0, BUN/Cr elevated, trop negative, UA + bacteria, Depakote subtherapeutic EKG- NSR, no acute ischemic changes interpreted by me Chest x-ray- no acute process CT brain-unremarkable Given IV fluids. Given antibiotics. PRBCs ordered. Given Depakote IV Patient is deaf, blind. Schizophrenia. Daughter at bedside. States that if required patient may need soft restraints and Haldol for sedation Case discussed with Dr. Wren and he agreed to accept the patient to his service for further care and support I. I feel this is a highly complex case requiring extensive working including EKG/Rhythm strip, Xray/CT/US, Blood/urine lab work, repeat exams while in ED, and administration of strong opiates/narcotics for pain control, admission to hospital or close patient follow up. Diagnosis - syncope, anemia, renal insufficiency, UTI admitted to telemetry in serious condition Labs Test 09/09/17 15:20 09/09/17 15:40 White Blood Count 16.2 K/UL (4.8-10.8) Red Blood Count 2.51 M/UL (4.70-6.10) Hemoglobin 7.0 G/DL (14.2-18.0) Hematocrit 22.0 % (42.0-52.0) Mean Corpuscular Volume 87 FL (80-99) Mean Corpuscular Hemoglobin 27.8 PG (27.0-31.0) Mean Corpuscular Hemoglobin Concent 31.8 G/DL (32.0-36.0) Red Cell Distribution Width 15.2 % (11.6-14.8) Platelet Count 480 K/UL (150-450) Mean Platelet Volume 5.4 FL (6.5-10.1) Neutrophils (%) (Auto) % (45.0-75.0) Lymphocytes (%) (Auto) % (20.0-45.0) Monocytes (%) (Auto) % (1.0-10.0) Eosinophils (%) (Auto) % (0.0-3.0) Basophils (%) (Auto) % (0.0-2.0) Differential Total Cells Counted 100 Neutrophils % (Manual) 85 % (45-75) Lymphocytes % (Manual) 10 % (20-45) Monocytes % (Manual) 5 % (1-10) Eosinophils % (Manual) 0 % (0-3) Basophils % (Manual) 0 % (0-2) Band Neutrophils 0 % (0-8) Platelet Estimate Adequate Platelet Morphology Normal Hypochromasia 1+ Anisocytosis 1+ Microcytosis Occasional Prothrombin Time 11.0 SEC (9.30-11.50) Prothromb Time International Ratio 1.1 (0.9-1.1) Activated Partial Thromboplast Time 30 SEC (23-33) Sodium Level 136 MMOL/L (136-145) Potassium Level 4.9 MMOL/L (3.5-5.1) Chloride Level 106 MMOL/L (98-107) Carbon Dioxide Level 21 MMOL/L (21-32) Anion Gap 9 mmol/L (5-15) Blood Urea Nitrogen 49 mg/dL (7-18) Creatinine 3.0 MG/DL (0.55-1.30) Estimat Glomerular Filtration Rate 20.9 mL/min (>60) Glucose Level 101 MG/DL (74-106) Calcium Level 9.1 MG/DL (8.5-10.1) Total Bilirubin 0.2 MG/DL (0.2-1.0) Aspartate Amino Transf (AST/SGOT) 40 U/L (15-37) Alanine Aminotransferase (ALT/SGPT) 31 U/L (12-78) Alkaline Phosphatase 94 U/L (46-116) Total Creatine Kinase 15 U/L (26-308) Creatine Kinase MB 1.1 NG/ML (0.0-3.6) Creatine Kinase MB Relative Index 7.3 Troponin I 0.000 ng/mL (0.000-0.056) Pro-B-Type Natriuretic Peptide 3056 pg/mL (0-125) Total Protein 7.4 G/DL (6.4-8.2) Albumin 1.7 G/DL (3.4-5.0) Globulin 5.7 g/dL Albumin/Globulin Ratio 0.3 (1.0-2.7) Phenytoin (Dilantin) Level 7.5 ug/mL (10-20) Urine Color Pale yellow Urine Appearance Turbid Urine pH 5 (4.5-8.0) Urine Specific [place] 1.010 (1.005-1.035) Urine Protein 3+ (NEGATIVE) Urine Glucose (UA) Negative (NEGATIVE) Urine Ketones Negative (NEGATIVE) Urine Occult Blood 4+ (NEGATIVE) Urine Nitrite Positive (NEGATIVE) Urine Bilirubin Negative (NEGATIVE) Urine Urobilinogen Normal MG/DL (0.0-1.0) Urine Leukocyte Esterase 3+ (NEGATIVE) Urine RBC 15-20 /HPF (0 - 0) Urine WBC Tntc /HPF (0 - 0) Urine Squamous Epithelial Cells Occasional /LPF Urine Bacteria Many /HPF (NONE) EKG Diagnostic Results Rate: normal Rhythm: NSR ST Segments: no acute changes ASA given to the pt in ED: No Rhythm Strip Diag. Results EP Interpretation: yes Rhythm: NSR, no PVC's, no ectopy Chest X-Ray Diagnostic Results Chest X-Ray Diagnostic Results : Chest X-Ray Ordered: Yes # of Views/Limited/Complete: 1 View Indication: Other - syncope EP Interpretation: Yes Interpretation: no consolidation, no effusion, no pneumothorax, no acute cardiopulmonary disease Impression: No acute disease Electronically Signed by: Electronically signed by Chavo Eaton MD CT/MRI/US Diagnostic Results CT/MRI/US Diagnostic Results : Imaging Test Ordered: CT Head Impression no acute process Last Vital Signs Date Time Temp Pulse Resp B/P (MAP) Pulse Ox O2 Delivery O2 Flow Rate FiO2 09/09/17 15:06 78 24 Room Air 09/09/17 15:04 97.6 139/61 100 97.6 Status: improved Disposition: ADMITTED INPATIENT Condition: Serious Referrals: NON PHYSICIAN (PCP) CHAVO EATON M.D. Sep 09, 2017 16:09
[2017-09-09 16:12] LABS: ANION GAP 9 mmol/L (5-15); BLOOD UREA NITROGEN 49 mg/dL (7-18); CALCIUM 9.1 MG/DL (8.5-10.1); CARBON DIOXIDE 21 MMOL/L (21-32); CHLORIDE 106 MMOL/L (98-107); POTASSIUM 4.9 MMOL/L (3.5-5.1); SODIUM 136 MMOL/L (136-145)
[2017-09-09 16:25] LABS: ALANINE AMINOTRANSFERASE 31 U/L (12-78); ALBUMIN 1.7 G/DL (3.4-5.0); ALBUMIN/GLOBULIN RATIO 0.3 (1.0-2.7); ALKALINE PHOSPHATASE 94 U/L (46-116); ASPARTATE AMINO TRANSFERASE 40 U/L (15-37); BILIRUBIN,TOTAL 0.2 MG/DL (0.2-1.0); CKMB 1.1 NG/ML (0.0-3.6); CREATINE KINASE 15 U/L (26-308)
[2017-09-09 16:39] LABS: APPEARANCE,URINE TURBID; BILIRUBIN, URINE NEGATIVE (NEGATIVE); COLOR,URINE PALE YELLOW; GLUCOSE, URINE (UA) NEGATIVE (NEGATIVE); KETONES,URINE NEGATIVE (NEGATIVE); LEUKOCYTE ESTERASE ,URINE 3+ (NEGATIVE); NITRITE,URINE POSITIVE (NEGATIVE); PH,URINE 5 (4.5-8.0); PROTEIN,URINE 3+ (NEGATIVE); UROBILINOGEN,URINE NORMAL MG/DL (0.0-1.0)
[2017-09-09] MEDS ORDERED: Phenytoin 500 MG in NS 110 ML IVPB ONE (16:45)
[2017-09-09] MEDS ORDERED: Phenytoin 250mg/5ml vial ONE (16:51)
[2017-09-09] MEDS ORDERED: cefTRIAXone 1 GM in NS 55 ML IVPB ONE (17:00)
[2017-09-09 17:09] VITALS: BP 143/62
[2017-09-09] MEDS ORDERED: Mylanta II UD 30ml ORAL PRN (17:30)
[2017-09-09] MEDS ORDERED: Morphine Sulfate 2mg/ml Inj IVP PRN (17:30)
[2017-09-09] MEDS ORDERED: Nitroglycerin Subl 0.4mg tab SL PRN (17:30)
[2017-09-09] MEDS ORDERED: Miralax 17gm pkt ORAL PRN (17:30)
[2017-09-09] MEDS ORDERED: Albuterol/Ipratropium 3ml neb HHN PRN (17:30)
[2017-09-09] MEDS ORDERED: JANUVIA100 MG ORAL (17:48)
[2017-09-09] MEDS ORDERED: KLONOPIN1 MG ORAL (17:48)
[2017-09-09] MEDS ORDERED: CLONIDINE1 EAC1 TD (17:48)
[2017-09-09] MEDS ORDERED: OLANZAPINE ODT5 MG PO (17:52)
[2017-09-09] MEDS ORDERED: PHENYTOIN SODI100 MG ORAL (17:52)
[2017-09-09] MEDS: Propranolol 10mg tab ORAL SCH ×2 (18:40→22:12)
[2017-09-09] MEDS: LORazepam Inj 2mg/ml 1ml IV PRN (18:40)
[2017-09-09] MEDS: Phenytoin 100mg cap ORAL SCH ×2 (18:40→18:43)
[2017-09-09 20:00] VITALS: BP 130/63
[2017-09-09] MEDS: NovoLOG Insulin Flexpen SUBQ SCH (21:00)
[2017-09-09] MEDS: Heparin 5000 units/ml inj SUBQ SCH (22:16)
[2017-09-10] VITALS (8 sets, daily range): BP systolic 128–162; BP diastolic 54–111
[2017-09-10] MEDS: NovoLOG Insulin Flexpen SUBQ SCH ×4 (06:04→21:00)
[2017-09-10] MEDS: OLANZapine 2.5mg tab ORAL SCH (09:46)
[2017-09-10] MEDS: Propranolol 10mg tab ORAL SCH ×4 (09:47→20:31)
[2017-09-10] MEDS: Phenytoin 100mg cap ORAL SCH ×2 (09:47→17:19)
[2017-09-10] MEDS: Heparin 5000 units/ml inj SUBQ SCH ×2 (09:49→20:40)
[2017-09-10] MEDS: Metoprolol Succinate XL 25mg tab ORAL SCH (09:55)
--- NOTE | 2017-09-10 11:00 | Diagnostic Imaging Report ---
Indication: Syncope Technique: Contiguous 5 mm thick transaxial imaging of the head obtained in a Siemens Sensation [address] scanner. Soft tissue and bone windows generated. Automatic Exposure Control was utilized. Total Dose length Product (DLP): 1474.[address] Dose Index Volume (CTDIvol): 70.38 mGy Comparison: 08/19/2016 Findings: There is moderate prominence of the ventricles, basal cisterns, and cerebral sulci consistent with atrophy. Moderate, nonspecific, white matter hypoattenuation is noted throughout the brain consistent with chronic small vessel disease. There is mild encephalomalacia involving the left frontal lobe which may be due to an old infarct or trauma. Similar findings with regard to bilateral temporal lobes. There is no midline shift, edema, acute hemorrhage, mass effect, or abnormal extra-axial fluid collections. Bones and extra osseous soft tissues are unremarkable. Impression: No acute intracranial bleed, mass effect or edema. Scattered bilateral encephalomalacia may be on the basis of old ischemia or trauma. Moderate atrophy of the brain. Evidence of chronic small vessel disease involving white matter tracts. No change compared to the prior study The CT scanner at [facility] is accredited by the [employer] and the scans are performed using dose optimization techniques as appropriate to a performed exam including Automatic Exposure control.
--- NOTE | 2017-09-10 12:07 | Diagnostic Imaging Report ---
Indication: Dyspnea Comparison: 08/25/2016 A single view chest radiograph was obtained. Findings: Cardiomediastinal appearance is within normal limits for age. Pulmonary vascularity is appropriate. The diaphragmatic contour is smooth and costophrenic angles are sharp. No pleural effusions are identified. The bones are unremarkable. Impression: No acute findings
--- NOTE | 2017-09-10 13:37 | Consultation ---
History of Present Illness General Date patient seen: Sep 10, 2017 Time patient seen: 13:00 Chief Complaint: Altered Level of Consciousness Referring physician: dr Wren Reason for Consultation: inpatient management Present Illness HPI 67-year-old male with PMH of HTN, DM, seizure disorder, recent CVA, schizophrenia, deaf, legally blind, presented to ED for evaluation. patient had a syncopal episode at home, family caled 911 No reported head injury. Daughter called 911. Patient was more altered than usually for the last one week. Daughter reported that patient may be anemic given recent laboratory work by PMD Patient denied chest pain or shortness of breath. VSS troponi negatiev CT head gabe cute ischemic changes ECG-NSR elevated WBC UA with probable UTI Hgb-7.0 renal failure with elevated BUN and creat CXR no acute CP pathology patient was admitted for further management Allergies: Coded Allergies: No Known Allergies (Unverified , 08/19/16) Medication History Scheduled Clonazepam* (Klonopin*), 0.5 MG ORAL BID, (Reported) Fenofibrate (Tricor), 145 MG ORAL DAILY, (Reported) Metformin Hcl* (Metformin Hcl*), 1,000 MG ORAL BID, (Reported) Metoprolol Succinate* (Metoprolol Succinate*), 25 MG ORAL DAILY, (Reported) Olanzapine (Olanzapine Odt), 5 MG PO DAILY, (Reported) Pantoprazole* (Pantoprazole*), 40 MG ORAL DAILY, (Reported) Phenytoin Sodium Extended* (Phenytoin Sodium Extended*), 200 MG ORAL TWICE A DAY , (Reported) Sitagliptin (Januvia), 100 MG ORAL DAILY, (Reported) Valsartan (Diovan), 160 MG ORAL DAILY, (Reported) Miscellaneous Medications Clonidine (Clonidine), 1 EACH TD, (Reported) Discontinued Medications Amlodipine Besylate* (Amlodipine Besylate*), 10 MG ORAL DAILY, (Reported) Discontinued Reason: Pt stopped taking med Ampicillin Sodium/Sulbactam Na (Unasyn 3 Gm Vial), 3 GM IV Q6HR, (Reported) Discontinued Reason: Therapy completed Clonazepam* (Klonopin*), 0.5 MG ORAL Q6H, (Reported) Discontinued Reason: Medication dose changed Clonidine Hcl* (Catapres*), 0.1 MG ORAL EVERY 8 HOURS PRN for SBP > 160, ( Reported) Discontinued Reason: Pt stopped taking med Docusate Sodium* (Colace*), 100 MG ORAL BID, (Reported) Discontinued Reason: Pt stopped taking med Nicotine (Nicotine Patch), 1 EACH TD, (Reported) Discontinued Reason: Pt stopped taking med Phenytoin Sodium Extended* (Dilantin*), 100 MG ORAL TWICE A DAY, (Reported) Discontinued Reason: MD discontinued med Pioglitazone Hcl* (Actos*), 30 MG ORAL DAILY, (Reported) Discontinued Reason: Pt stopped taking med Propranolol Hcl* (Inderal*), 20 MG ORAL QID, (Reported) Discontinued Reason: Pt stopped taking med Patient History Healthcare decision maker Resuscitation status Full Code Advanced Directive on File Review of Systems ROS Narrative unable to obtain due to ALOC Physical Exam General Appearance: no apparent distress, alert - awake, Lines, tubes and drains: peripheral HEENT: normocephalic, atraumatic, anicteric, mucous membranes moist, supple, no JVD, other - blind and deaf Neck: non-tender, supple Respiratory/Chest: lungs clear, no accessory muscle use Cardiovascular/Chest: normal peripheral pulses, normal rate - SR on tele , regular rhythm, no JVD Abdomen: normal bowel sounds, non tender, soft Extremities: normal range of motion, non-tender, no calf tenderness Skin Exam: warm/dry Neurologic: alert Musculoskeletal: normal muscle bulk Last 24 Hour Vital Signs Date Time Temp Pulse Resp B/P (MAP) Pulse Ox O2 Delivery O2 Flow Rate FiO2 09/10/17 12:20 65 167/111 09/10/17 09:55 78 140/87 09/10/17 09:48 87 140/87 09/10/17 09:47 78 140/87 09/10/17 08:00 69 09/10/17 08:00 97.7 78 20 140/87 96 Room Air 97.7 09/10/17 05:00 72 09/10/17 04:00 97.5 72 16 141/71 98 Room Air 97.5 09/10/17 00:00 97.3 76 16 136/66 97 Room Air 97.3 09/09/17 22:12 84 131/48 09/09/17 20:00 96.3 65 18 130/63 100 96.3 09/09/17 18:40 84 131/48 09/09/17 18:27 98.1 84 24 131/48 100 Room Air 09/09/17 17:09 97.8 85 20 143/62 99 Room Air 97.8 09/09/17 15:06 78 24 Room Air 09/09/17 15:04 97.6 78 24 139/61 100 Room Air 97.6 09/09/17 14:53 89 14 125/69 100 Room Air Intake and Output 09/09/17 09/10/17 19:00 07:00 Intake Total 120 ml Balance 120 ml Intake Oral 0 ml IV Total 120 ml Laboratory Tests Test 09/09/17 15:20 09/09/17 15:40 White Blood Count 16.2 K/UL (4.8-10.8) H Red Blood Count 2.51 M/UL (4.70-6.10) L Hemoglobin 7.0 G/DL (14.2-18.0) L Hematocrit 22.0 % (42.0-52.0) L Mean Corpuscular Volume 87 FL (80-99) Mean Corpuscular Hemoglobin 27.8 PG (27.0-31.0) Mean Corpuscular Hemoglobin Concent 31.8 G/DL (32.0-36.0) L Red Cell Distribution Width 15.2 % (11.6-14.8) H Platelet Count 480 K/UL (150-450) H Mean Platelet Volume 5.4 FL (6.5-10.1) L Neutrophils (%) (Auto) % (45.0-75.0) Lymphocytes (%) (Auto) % (20.0-45.0) Monocytes (%) (Auto) % (1.0-10.0) Eosinophils (%) (Auto) % (0.0-3.0) Basophils (%) (Auto) % (0.0-2.0) Differential Total Cells Counted 100 Neutrophils % (Manual) 85 % (45-75) H Lymphocytes % (Manual) 10 % (20-45) L Monocytes % (Manual) 5 % (1-10) Eosinophils % (Manual) 0 % (0-3) Basophils % (Manual) 0 % (0-2) Band Neutrophils 0 % (0-8) Platelet Estimate Adequate Platelet Morphology Normal Hypochromasia 1+ Anisocytosis 1+ Microcytosis Occasional Prothrombin Time 11.0 SEC (9.30-11.50) Prothromb Time International Ratio 1.1 (0.9-1.1) Activated Partial Thromboplast Time 30 SEC (23-33) Sodium Level 136 MMOL/L (136-145) Potassium Level 4.9 MMOL/L (3.5-5.1) Chloride Level 106 MMOL/L (98-107) Carbon Dioxide Level 21 MMOL/L (21-32) Anion Gap 9 mmol/L (5-15) Blood Urea Nitrogen 49 mg/dL (7-18) H Creatinine 3.0 MG/DL (0.55-1.30) H Estimat Glomerular Filtration Rate 20.9 mL/min (>60) Glucose Level 101 MG/DL (74-106) Calcium Level 9.1 MG/DL (8.5-10.1) Total Bilirubin 0.2 MG/DL (0.2-1.0) Aspartate Amino Transf (AST/SGOT) 40 U/L (15-37) H Alanine Aminotransferase (ALT/SGPT) 31 U/L (12-78) Alkaline Phosphatase 94 U/L (46-116) Total Creatine Kinase 15 U/L (26-308) L Creatine Kinase MB 1.1 NG/ML (0.0-3.6) Creatine Kinase MB Relative Index 7.3 Troponin I 0.000 ng/mL (0.000-0.056) Pro-B-Type Natriuretic Peptide 3056 pg/mL (0-125) H Total Protein 7.4 G/DL (6.4-8.2) Albumin 1.7 G/DL (3.4-5.0) L Globulin 5.7 g/dL Albumin/Globulin Ratio 0.3 (1.0-2.7) L Phenytoin (Dilantin) Level 7.5 ug/mL (10-20) L Urine Color Pale yellow Urine Appearance Turbid Urine pH 5 (4.5-8.0) Urine Specific [place] 1.010 (1.005-1.035) Urine Protein 3+ (NEGATIVE) H Urine Glucose (UA) Negative (NEGATIVE) Urine Ketones Negative (NEGATIVE) Urine Occult Blood 4+ (NEGATIVE) H Urine Nitrite Positive (NEGATIVE) H Urine Bilirubin Negative (NEGATIVE) Urine Urobilinogen Normal MG/DL (0.0-1.0) Urine Leukocyte Esterase 3+ (NEGATIVE) H Urine RBC 15-20 /HPF (0 - 0) H Urine WBC Tntc /HPF (0 - 0) H Urine Squamous Epithelial Cells Occasional /LPF Urine Bacteria Many /HPF (NONE) H Microbiology Date/Time Source Procedure Growth Status 09/09/17 15:40 Urine,Clean Catch Urine Culture - Preliminary Gram Negative Bacillus 1 Resulted Height (Feet): 6 Height (Inches): 0.00 Weight (Pounds): 190 Medications Current Medications Medications (Trade) Dose Ordered Sig/Sharif Route PRN Reason Start Time Stop Time Status Last Admin Dose Admin Acetaminophen (Tylenol) 650 mg Q4H PRN ORAL fever 09/09/17 17:30 10/09/17 17:29 Al Hydroxide/Mg Hydroxide (Mylanta II) 30 ml Q6H PRN ORAL dyspepsia 09/09/17 17:30 10/09/17 17:29 Albuterol/ Ipratropium (Albuterol/ Ipratropium) 3 ml Q4H PRN HHN Shortness of Breath 09/09/17 17:30 09/14/17 17:29 Amlodipine Besylate (Norvasc) 10 mg DAILY ORAL 09/10/17 09:00 10/10/17 08:59 09/10/17 09:48 Clonidine HCl (Catapres Tab) 0.1 mg Q4H PRN ORAL For High Blood Pressure 09/09/17 17:30 10/09/17 17:29 Clonidine HCl (Catapres Tab) 0.1 mg Q6H PRN ORAL SBP > 160 09/09/17 17:30 10/09/17 17:29 Dextrose (Dextrose 50%) STAT PRN IV Hypoglycemia 09/09/17 17:30 10/09/17 17:29 Dextrose (Dextrose 50%) STAT PRN IV Hypoglycemia 09/09/17 17:30 10/09/17 17:29 Heparin Sodium (Porcine) (Heparin 5000 units/ml) 5,000 units EVERY 12 HOURS SUBQ 09/09/17 21:00 10/09/17 20:59 09/10/17 09:49 Insulin Aspart (NovoLOG) BEFORE MEALS AND HS SUBQ 09/09/17 21:00 10/09/17 20:59 09/10/17 12:14 Lorazepam (Ativan 2mg/ml 1ml) 0.5 mg Q4H PRN IV For Anxiety 09/09/17 17:30 09/16/17 17:29 09/09/17 18:40 Metoprolol Succinate (Toprol XL) 25 mg DAILY ORAL 09/10/17 09:00 10/10/17 08:59 09/10/17 09:55 Morphine Sulfate (Morphine Sulfate) 1 mg Q4H PRN IVP For Pain 7-10 09/09/17 17:30 09/16/17 17:29 Nitroglycerin (Ntg) 0.4 mg Q5M X 3 DOSES PRN SL Prn Chest Pain 09/09/17 17:30 10/09/17 17:29 Olanzapine (ZyPREXA) 5 mg DAILY ORAL 09/10/17 09:00 10/10/17 08:59 09/10/17 09:46 Ondansetron HCl (Zofran) 4 mg Q6H PRN IVP Nausea & Vomiting 09/09/17 17:30 10/09/17 17:29 Phenytoin (Dilantin) 100 mg TWICE A DAY ORAL 09/09/17 18:00 10/09/17 17:59 09/10/17 09:47 Polyethylene Glycol (Miralax) 17 gm HSPRN PRN ORAL Constipation 09/09/17 17:30 10/09/17 17:29 Propranolol HCl (Inderal) 20 mg QID ORAL 09/09/17 18:00 10/09/17 17:59 09/10/17 12:20 Temazepam (Restoril) 15 mg HSPRN PRN ORAL Insomnia 09/09/17 17:30 09/16/17 17:29 Assessment/Plan Assessment/Plan ASSESSMENT syncopal episode (likely due to combination of severe anemia and UTI in addition to underlying blindness) severe anemia UTI acute toxic metabolic encephalopathy on chronic schizophrenia ( likely due to infection and ARF) ARF on CKD seizure disorder HTN hx of recent CVA DM seizure disorder deaf and legally blind PLAN OF CARE tele CT head negative neuro eval Carotid Duplex orthostatic VS CBC stat and transfuse if Hgb below 8 s/p 2 u PRBC anemia w/up stool OB GI eval BP management with CCB and BB, optimize as needed BS management wtih SS of insulin, check HgA1c seizure precautions, continue Dilantin, subtherapeutic level renal US gentle IVF monitor renal parameters correct lytes as needed avoid nephrotoxic DVT prophayxlsi PT/OT/ST fall precautions case discussed and evaluated by supervising physician Quinn (Corinne),Cheyenne MONTANO Sep 10, 2017 13:37
--- NOTE | 2017-09-10 14:09 | History & Physical ---
History and Physical History & Physicial Dictated for Int Med - Dr Wren no. [id number]. DESTINY SETH Sep 10, 2017 14:09
--- NOTE | 2017-09-10 14:16 | Consultation ---
Consult Note Assessment/Plan fill dictation to follow anemia work up fu nephrology plan EGd and colonoscopy this week SILVINA ORTEGA Sep 10, 2017 14:16
--- NOTE | 2017-09-10 15:24 | Cardiology Report ---
APPROVED REPORT EXAM: Two-dimensional and M-mode echocardiogram with Doppler and color Doppler. INDICATION LV FUNCTION M-Mode DIMENSIONS IVSd1.4 (0.7-1.1cm)Left Atrium (MM)3.9 (1.6-4.0cm) LVDd5.5 (3.5-5.6cm)Aortic Root3.7 (2.0-3.7cm) PWd1.4 (0.7-1.1cm)Aortic Cusp Exc.2.3 (1.5-2.0cm) IVSs2.5 cm LVDs3.8 (2.5-4.0cm) PWs1.5 cm Normal left ventricular chamber size, systolic function and wall motion. Left ventricular ejection fraction estimated to be 55-60 %. Mild left ventricular hypertrophy by 2-d. No pericardial effusion . Right cardiac chamber sizes are within normal limits . Focal aortic valve sclerosis with adequate cusp excursion. Thickened mitral valve leaflets with normal excursion. Mitral annulus and aortic root calcification. Normal Pulmonic valve structure. Normal tricuspid valve structure. IVC at size 2.0 with physiological collapse . A color flow and spectral Doppler study was performed and revealed: Mild aortic regurgitation. Mild mitral regurgitation. Mitral diastolic velocities suggest reduced left ventricular relaxation c/w mild LV diastolic dysfunction (Grade I ). Trace tricuspid regurgitation. Tricuspid systolic velocities suggests peak right ventricular systolic pressure of 24 mmHg, No Pulmonic regurgitation present.
[2017-09-10] MEDS ORDERED: NS 275ml ONE (16:33)
[2017-09-10] MEDS ORDERED: Tubing Blood Filter IV ONE (16:33)
--- NOTE | 2017-09-10 18:03 | Consultation ---
Consult Note Consult Note [id number] VIOLETA ESPINOZA M.D. Sep 10, 2017 18:03
[2017-09-10] MEDS ORDERED: cefTRIAXone 1 GM in NS 55 ML IVPB SCH (20:00)
[2017-09-10] MEDS: LORazepam Inj 2mg/ml 1ml IV PRN (20:13)
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
[2017-09-11 01:13] LABS: BASOPHILS % (AUTO) 0.3 % (0.0-2.0); EOSINOPHILS % (AUTO) 0.5 % (0.0-3.0); HEMATOCRIT 28.7 % (42.0-52.0); HEMOGLOBIN 9.5 G/DL (14.2-18.0); LYMPHOCYTES % (AUTO) 11.9 % (20.0-45.0); MEAN CORPUSCULAR VOLUME 86 FL (80-99); MONOCYTES % (AUTO) 5.5 % (1.0-10.0); NEUTROPHILS % (AUTO) 81.9 % (45.0-75.0); PLATELET COUNT 408 K/UL (150-450); RED BLOOD COUNT 3.31 M/UL (4.70-6.10); RED CELL DISTRIBUTION WIDTH 14.6 % (11.6-14.8); WHITE BLOOD COUNT 12.8 K/UL (4.8-10.8)
[2017-09-11 01:23] LABS: ALANINE AMINOTRANSFERASE 24 U/L (12-78); ALBUMIN 1.6 G/DL (3.4-5.0); ALBUMIN/GLOBULIN RATIO 0.3 (1.0-2.7); ALKALINE PHOSPHATASE 106 U/L (46-116); ANION GAP 9 mmol/L (5-15); ASPARTATE AMINO TRANSFERASE 30 U/L (15-37); BILIRUBIN,TOTAL 0.3 MG/DL (0.2-1.0); BLOOD UREA NITROGEN 40 mg/dL (7-18); CALCIUM 8.8 MG/DL (8.5-10.1); CARBON DIOXIDE 21 MMOL/L (21-32); CHLORIDE 108 MMOL/L (98-107); CREATININE 2.7 MG/DL (0.55-1.30); POTASSIUM 4.5 MMOL/L (3.5-5.1); SODIUM 138 MMOL/L (136-145)
[2017-09-11 02:08] LABS: % IRON SATURATION 17 % (15-50); IRON 23 ug/dL (50-175); TOTAL IRON BINDING CAPACITY 136 ug/dL (250-450)
[2017-09-11 04:08] VITALS: BP 137/61
[2017-09-11] MEDS: NovoLOG Insulin Flexpen SUBQ SCH ×3 (06:30→20:30)
[2017-09-11 08:00] VITALS: BP 137/71
[2017-09-11] MEDS: OLANZapine 2.5mg tab ORAL SCH (08:50)
[2017-09-11] MEDS: Phenytoin 100mg cap ORAL SCH (08:50)
[2017-09-11] MEDS: Propranolol 10mg tab ORAL SCH ×2 (08:50→12:16)
[2017-09-11] MEDS: Metoprolol Succinate XL 25mg tab ORAL SCH (08:51)
[2017-09-11] MEDS: Heparin 5000 units/ml inj SUBQ SCH ×2 (08:51→20:29)
--- NOTE | 2017-09-11 11:14 | Internal Med Progress Note ---
Subjective Date of Service: Sep 11, 2017 Physician Name Destiny Seth Attending Physician Remi Wren MD Current Medications Medications (Trade) Dose Ordered Sig/Sharif Route PRN Reason Start Time Stop Time Status Last Admin Dose Admin Acetaminophen (Tylenol) 650 mg Q4H PRN ORAL fever 09/09/17 17:30 10/09/17 17:29 Al Hydroxide/Mg Hydroxide (Mylanta II) 30 ml Q6H PRN ORAL dyspepsia 09/09/17 17:30 10/09/17 17:29 Albuterol/ Ipratropium (Albuterol/ Ipratropium) 3 ml Q4H PRN HHN Shortness of Breath 09/09/17 17:30 09/14/17 17:29 Amlodipine Besylate (Norvasc) 10 mg DAILY ORAL 09/10/17 09:00 10/10/17 08:59 09/11/17 08:50 Ceftriaxone Sodium 1 gm/ Sodium Chloride 55 ml @ 110 mls/hr Q24H IVPB 09/10/17 20:00 09/17/17 19:59 09/10/17 20:15 Clonidine HCl (Catapres Tab) 0.1 mg Q4H PRN ORAL For High Blood Pressure 09/09/17 17:30 10/09/17 17:29 Dextrose (Dextrose 50%) STAT PRN IV Hypoglycemia 09/09/17 17:30 10/09/17 17:29 Folic Acid (Folate) 1 mg DAILY ORAL 09/11/17 10:00 10/11/17 09:59 09/11/17 10:45 Heparin Sodium (Porcine) (Heparin 5000 units/ml) 5,000 units EVERY 12 HOURS SUBQ 09/09/17 21:00 10/09/17 20:59 09/10/17 20:40 Insulin Aspart (NovoLOG) BEFORE MEALS AND HS SUBQ 09/09/17 21:00 10/09/17 20:59 09/10/17 12:14 Lorazepam (Ativan 2mg/ml 1ml) 0.5 mg Q4H PRN IV For Anxiety 09/09/17 17:30 09/16/17 17:29 09/10/17 20:13 Metoprolol Succinate (Toprol XL) 25 mg DAILY ORAL 09/10/17 09:00 10/10/17 08:59 09/11/17 08:51 Morphine Sulfate (Morphine Sulfate) 1 mg Q4H PRN IVP For Pain 7-10 09/09/17 17:30 09/16/17 17:29 Nitroglycerin (Ntg) 0.4 mg Q5M X 3 DOSES PRN SL Prn Chest Pain 09/09/17 17:30 10/09/17 17:29 Olanzapine (ZyPREXA) 5 mg DAILY ORAL 09/10/17 09:00 10/10/17 08:59 09/11/17 08:50 Ondansetron HCl (Zofran) 4 mg Q6H PRN IVP Nausea & Vomiting 09/09/17 17:30 10/09/17 17:29 Phenytoin (Dilantin) 200 mg TWICE A DAY ORAL 09/11/17 18:00 10/11/17 17:59 Polyethylene Glycol (Miralax) 17 gm HSPRN PRN ORAL Constipation 09/09/17 17:30 10/09/17 17:29 09/10/17 22:14 Propranolol HCl (Inderal) 20 mg QID ORAL 09/09/17 18:00 10/09/17 17:59 09/11/17 08:50 Sodium Chloride 1,000 ml @ 50 mls/hr Q20H IV 09/10/17 14:00 10/10/17 13:59 09/11/17 10:00 Temazepam (Restoril) 15 mg HSPRN PRN ORAL Insomnia 09/09/17 17:30 09/16/17 17:29 09/10/17 22:14 Allergies: Coded Allergies: No Known Allergies (Unverified , 08/19/16) ROS Limited/Unobtainable: Yes Constitutional: Reports: no symptoms HEENT: Reports: no symptoms Cardiovascular: Reports: no symptoms Respiratory: Reports: no symptoms Gastrointestinal/Abdominal: Reports: no symptoms Genitourinary: Reports: no symptoms Neurologic/Psychiatric: Reports: no symptoms Subjective 67 YO M admitted with vertigo and severe anemia. S/P transfusion. Await GI workup. Cover for Gloria Lui-Dr Wren. Objective Last Vital Signs Date Time Temp Pulse Resp B/P (MAP) Pulse Ox O2 Delivery O2 Flow Rate FiO2 09/11/17 08:51 70 137/71 09/11/17 08:00 97.0 20 98 97.0 09/10/17 16:00 Room Air General Appearance: WD/WN, lethargic EENT: normal ENT inspection Neck: non-tender, normal alignment, supple, normal inspection Cardiovascular: normal peripheral pulses, normal rate, regular rhythm, no gallop/murmur, no JVD Respiratory/Chest: chest wall non-tender, lungs clear, normal breath sounds, no respiratory distress, no accessory muscle use Abdomen: normal bowel sounds, non tender, soft, no organomegaly, no mass Extremities: non-tender Neurologic: quick mixer operator II-XII grossly normal, no motor/sensory deficits Skin: normal pigmentation, warm/dry Laboratory Tests Test 09/11/17 00:40 09/11/17 02:00 White Blood Count 12.8 K/UL (4.8-10.8) H Red Blood Count 3.31 M/UL (4.70-6.10) L Hemoglobin 9.5 G/DL (14.2-18.0) #L Hematocrit 28.7 % (42.0-52.0) #L Mean Corpuscular Volume 86 FL (80-99) Mean Corpuscular Hemoglobin 28.7 PG (27.0-31.0) Mean Corpuscular Hemoglobin Concent 33.2 G/DL (32.0-36.0) Red Cell Distribution Width 14.6 % (11.6-14.8) Platelet Count 408 K/UL (150-450) Mean Platelet Volume 5.4 FL (6.5-10.1) L Neutrophils (%) (Auto) 81.9 % (45.0-75.0) H Lymphocytes (%) (Auto) 11.9 % (20.0-45.0) L Monocytes (%) (Auto) 5.5 % (1.0-10.0) Eosinophils (%) (Auto) 0.5 % (0.0-3.0) Basophils (%) (Auto) 0.3 % (0.0-2.0) Sodium Level 138 MMOL/L (136-145) Potassium Level 4.5 MMOL/L (3.5-5.1) Chloride Level 108 MMOL/L (98-107) H Carbon Dioxide Level 21 MMOL/L (21-32) Anion Gap 9 mmol/L (5-15) Blood Urea Nitrogen 40 mg/dL (7-18) H Creatinine 2.7 MG/DL (0.55-1.30) H Estimat Glomerular Filtration Rate 23.5 mL/min (>60) Glucose Level 100 MG/DL (74-106) Hemoglobin A1c 6.4 % (4.3-6.0) H Calcium Level 8.8 MG/DL (8.5-10.1) Iron Level 23 ug/dL (50-175) L Total Iron Binding Capacity 136 ug/dL (250-450) L Percent Iron Saturation 17 % (15-50) Unsaturated Iron Binding 113 ug/dL (112-346) Total Bilirubin 0.3 MG/DL (0.2-1.0) Aspartate Amino Transf (AST/SGOT) 30 U/L (15-37) Alanine Aminotransferase (ALT/SGPT) 24 U/L (12-78) Alkaline Phosphatase 106 U/L (46-116) Total Protein 7.3 G/DL (6.4-8.2) Albumin 1.6 G/DL (3.4-5.0) L Globulin 5.7 g/dL Albumin/Globulin Ratio 0.3 (1.0-2.7) L Vitamin B12 Level 202 PG/ML (193-986) Folate 2.8 NG/ML (8.6-58.9) L Phenytoin (Dilantin) Level 9.7 ug/mL (10-20) L Urine Random Sodium 58 mmol/L (20-110) Microbiology Date/Time Source Procedure Growth Status 09/09/17 15:40 Urine,Clean Catch Urine Culture - Preliminary Escherichia Coli Resulted Intake and Output 09/10/17 09/11/17 19:00 07:00 Intake Total 638 ml 295 ml Balance 638 ml 295 ml Intake Oral 588 ml 240 ml IV Total 50 ml 55 ml # Voids 4 5 # Bowel Movements 1 Assessment/Plan Problem List: (1) Diabetes mellitus type II, controlled (2) Seizure disorder Assessment & Plan: Continue dilantin. Await neurology consult. (3) Renal failure Assessment & Plan: Await nephrology consult. 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 S/P transfusion 2 units PRBC total. Await GI workup. Status: not improved Assessment/Plan Discharge planning: patient is bed bound and requires hospital bed at home. DESTINY SETH Sep 11, 2017 11:14
--- NOTE | 2017-09-11 11:19 | GI Progress Note ---
Assessment/Plan Problems: (1) Anemia ICD Codes: D64.9 - Anemia, unspecified SNOMED: 752997724 Qualifiers: Qualified Codes: D64.9 - Anemia, unspecified (2) Blind ICD Codes: H54.0 - Blindness, both eyes SNOMED: 624944308 (3) Syncope ICD Codes: R55 - Syncope and collapse SNOMED: 983402849 Qualifiers: Qualified Codes: R55 - Syncope and collapse Status: unchanged Status Narrative Discussed with Dr. Bonilla. Assessment/Plan anemia work up OB stool r/o GI bleed folate deficiency fu nephrology plan EGD and colonoscopy this week fu labs Subjective Subjective limited Objective Last 24 Hour Vital Signs Date Time Temp Pulse Resp B/P (MAP) Pulse Ox O2 Delivery O2 Flow Rate FiO2 09/11/17 08:51 70 137/71 09/11/17 08:50 70 137/71 09/11/17 08:50 70 137/71 09/11/17 08:00 97.0 70 20 137/71 98 97.0 09/11/17 08:00 69 70 09/11/17 08:00 69 09/11/17 04:08 98.1 65 19 137/61 96 98.1 09/11/17 04:00 66 09/11/17 00:00 62 09/10/17 23:54 98.1 67 19 131/58 99 98.1 09/10/17 20:39 98.3 71 20 128/54 99 98.3 09/10/17 20:31 69 136/69 09/10/17 20:00 69 09/10/17 17:19 69 142/59 09/10/17 16:00 68 09/10/17 16:00 145/60 136/57 09/10/17 16:00 97.7 69 20 142/54 100 Room Air 97.7 09/10/17 12:20 65 167/111 09/10/17 12:00 96.6 66 18 162/111 100 Room Air 96.6 09/10/17 12:00 63 Intake and Output 09/10/17 09/11/17 19:00 07:00 Intake Total 638 ml 295 ml Balance 638 ml 295 ml Intake Oral 588 ml 240 ml IV Total 50 ml 55 ml # Voids 4 5 # Bowel Movements 1 Laboratory Tests Test 09/11/17 00:40 09/11/17 02:00 White Blood Count 12.8 K/UL (4.8-10.8) H Red Blood Count 3.31 M/UL (4.70-6.10) L Hemoglobin 9.5 G/DL (14.2-18.0) #L Hematocrit 28.7 % (42.0-52.0) #L Mean Corpuscular Volume 86 FL (80-99) Mean Corpuscular Hemoglobin 28.7 PG (27.0-31.0) Mean Corpuscular Hemoglobin Concent 33.2 G/DL (32.0-36.0) Red Cell Distribution Width 14.6 % (11.6-14.8) Platelet Count 408 K/UL (150-450) Mean Platelet Volume 5.4 FL (6.5-10.1) L Neutrophils (%) (Auto) 81.9 % (45.0-75.0) H Lymphocytes (%) (Auto) 11.9 % (20.0-45.0) L Monocytes (%) (Auto) 5.5 % (1.0-10.0) Eosinophils (%) (Auto) 0.5 % (0.0-3.0) Basophils (%) (Auto) 0.3 % (0.0-2.0) Sodium Level 138 MMOL/L (136-145) Potassium Level 4.5 MMOL/L (3.5-5.1) Chloride Level 108 MMOL/L (98-107) H Carbon Dioxide Level 21 MMOL/L (21-32) Anion Gap 9 mmol/L (5-15) Blood Urea Nitrogen 40 mg/dL (7-18) H Creatinine 2.7 MG/DL (0.55-1.30) H Estimat Glomerular Filtration Rate 23.5 mL/min (>60) Glucose Level 100 MG/DL (74-106) Hemoglobin A1c 6.4 % (4.3-6.0) H Calcium Level 8.8 MG/DL (8.5-10.1) Iron Level 23 ug/dL (50-175) L Total Iron Binding Capacity 136 ug/dL (250-450) L Percent Iron Saturation 17 % (15-50) Unsaturated Iron Binding 113 ug/dL (112-346) Total Bilirubin 0.3 MG/DL (0.2-1.0) Aspartate Amino Transf (AST/SGOT) 30 U/L (15-37) Alanine Aminotransferase (ALT/SGPT) 24 U/L (12-78) Alkaline Phosphatase 106 U/L (46-116) Total Protein 7.3 G/DL (6.4-8.2) Albumin 1.6 G/DL (3.4-5.0) L Globulin 5.7 g/dL Albumin/Globulin Ratio 0.3 (1.0-2.7) L Vitamin B12 Level 202 PG/ML (193-986) Folate 2.8 NG/ML (8.6-58.9) L Phenytoin (Dilantin) Level 9.7 ug/mL (10-20) L Urine Random Sodium 58 mmol/L (20-110) Height (Feet): 6 Height (Inches): 0.00 Weight (Pounds): 190 General Appearance: thin Cardiovascular: normal rate Respiratory/Chest: other - NC Abdominal Exam: soft Angelique Wheat N.P. Sep 11, 2017 11:19
[2017-09-11 12:00] VITALS: BP 149/71
[2017-09-11] MEDS ORDERED: Piperacillin/Tazobactam 3.375 GM in NS 110 ML IVPB SCH (14:00)
--- NOTE | 2017-09-11 14:19 | Pulmonology Progress Note ---
Assessment/Plan Problems: (1) Acute encephalopathy (2) COPD (chronic obstructive pulmonary disease) (3) UTI (urinary tract infection) (4) Anemia (5) HTN (hypertension) (6) Diabetes mellitus type II, controlled (7) Seizure disorder Assessment/Plan respiratory treatment IV abx check sputum check urine culture anemia w/u stool of OB Subjective ROS Limited/Unobtainable: No Interval Events: comfortable, talked to daughter at the bed site. Allergies: Coded Allergies: No Known Allergies (Unverified , 08/19/16) Objective Last 24 Hour Vital Signs Date Time Temp Pulse Resp B/P (MAP) Pulse Ox O2 Delivery O2 Flow Rate FiO2 09/11/17 12:16 73 147/71 09/11/17 12:00 97.0 73 18 149/71 99 Room Air 97.0 09/11/17 08:51 70 137/71 09/11/17 08:50 70 137/71 09/11/17 08:50 70 137/71 09/11/17 08:00 97.0 70 20 137/71 98 97.0 09/11/17 08:00 69 70 09/11/17 08:00 69 09/11/17 04:08 98.1 65 19 137/61 96 98.1 09/11/17 04:00 66 09/11/17 00:00 62 09/10/17 23:54 98.1 67 19 131/58 99 98.1 09/10/17 20:39 98.3 71 20 128/54 99 98.3 09/10/17 20:31 69 136/69 09/10/17 20:00 69 09/10/17 17:19 69 142/59 09/10/17 16:00 68 09/10/17 16:00 145/60 136/57 09/10/17 16:00 97.7 69 20 142/54 100 Room Air 97.7 Intake and Output 09/10/17 09/11/17 19:00 07:00 Intake Total 638 ml 295 ml Balance 638 ml 295 ml Intake Oral 588 ml 240 ml IV Total 50 ml 55 ml # Voids 4 5 # Bowel Movements 1 General Appearance: WD/WN HEENT: normocephalic, atraumatic Respiratory/Chest: chest wall non-tender, normal breath sounds Cardiovascular: normal peripheral pulses, normal rate Abdomen: normal bowel sounds, soft, non tender Genitourinary: normal external genitalia Extremities: no cyanosis Skin: no rash, no lesions Microbiology Date/Time Source Procedure Growth Status 09/09/17 15:40 Urine,Clean Catch Urine Culture - Preliminary Escherichia Coli Resulted Laboratory Tests 09/11/17 00:40: White Blood Count 12.8H, Red Blood Count 3.31L, Hemoglobin 9.5#L, Hematocrit 28.7#L, Mean Corpuscular Volume 86, Mean Corpuscular Hemoglobin 28.7, Mean Corpuscular Hemoglobin Concent 33.2, Red Cell Distribution Width 14.6, Platelet Count 408, Mean Platelet Volume 5.4L, Neutrophils (%) (Auto) 81.9H, Lymphocytes (%) (Auto) 11.9L, Monocytes (%) (Auto) 5.5, Eosinophils (%) (Auto) 0.5, Basophils (%) (Auto) 0.3, Sodium Level 138, Potassium Level 4.5, Chloride Level 108H, Carbon Dioxide Level 21, Anion Gap 9, Blood Urea Nitrogen 40H, Creatinine 2.7H, Estimat Glomerular Filtration Rate 23.5, Glucose Level 100, Hemoglobin A1c 6.4H, Calcium Level 8.8, Iron Level 23L, Total Iron Binding Capacity 136L, Percent Iron Saturation 17, Unsaturated Iron Binding 113, Total Bilirubin 0.3, Aspartate Amino Transf (AST/SGOT) 30, Alanine Aminotransferase (ALT/SGPT) 24, Alkaline Phosphatase 106, Total Protein 7.3, Albumin 1.6L, Globulin 5.7, Albumin /Globulin Ratio 0.3L, Vitamin B12 Level 202, Folate 2.8L, Phenytoin (Dilantin) Level 9.7L 09/11/17 02:00: Urine Random Sodium 58 Current Medications Medications (Trade) Dose Ordered Sig/Sharif Route PRN Reason Start Time Stop Time Status Last Admin Dose Admin Acetaminophen (Tylenol) 650 mg Q4H PRN ORAL fever 09/09/17 17:30 10/09/17 17:29 Al Hydroxide/Mg Hydroxide (Mylanta II) 30 ml Q6H PRN ORAL dyspepsia 09/09/17 17:30 10/09/17 17:29 Albuterol/ Ipratropium (Albuterol/ Ipratropium) 3 ml Q4H PRN HHN Shortness of Breath 09/09/17 17:30 09/14/17 17:29 Amlodipine Besylate (Norvasc) 10 mg DAILY ORAL 09/10/17 09:00 10/10/17 08:59 09/11/17 08:50 Clonidine HCl (Catapres Tab) 0.1 mg Q4H PRN ORAL For High Blood Pressure 09/09/17 17:30 10/09/17 17:29 Dextrose (Dextrose 50%) STAT PRN IV Hypoglycemia 09/09/17 17:30 10/09/17 17:29 Folic Acid (Folate) 1 mg DAILY ORAL 09/11/17 10:00 10/11/17 09:59 09/11/17 10:45 Heparin Sodium (Porcine) (Heparin 5000 units/ml) 5,000 units EVERY 12 HOURS SUBQ 09/09/17 21:00 10/09/17 20:59 09/10/17 20:40 Insulin Aspart (NovoLOG) BEFORE MEALS AND HS SUBQ 09/09/17 21:00 10/09/17 20:59 09/11/17 12:17 Lorazepam (Ativan 2mg/ml 1ml) 0.5 mg Q4H PRN IV For Anxiety 09/09/17 17:30 09/16/17 17:29 09/10/17 20:13 Metoprolol Succinate (Toprol XL) 25 mg DAILY ORAL 09/10/17 09:00 10/10/17 08:59 09/11/17 08:51 Morphine Sulfate (Morphine Sulfate) 1 mg Q4H PRN IVP For Pain 7-10 09/09/17 17:30 09/16/17 17:29 Nitroglycerin (Ntg) 0.4 mg Q5M X 3 DOSES PRN SL Prn Chest Pain 09/09/17 17:30 10/09/17 17:29 Olanzapine (ZyPREXA) 5 mg DAILY ORAL 09/10/17 09:00 10/10/17 08:59 09/11/17 08:50 Ondansetron HCl (Zofran) 4 mg Q6H PRN IVP Nausea & Vomiting 09/09/17 17:30 10/09/17 17:29 Phenytoin (Dilantin) 200 mg TWICE A DAY ORAL 09/11/17 18:00 10/11/17 17:59 Piperacillin Sod/ Tazobactam Sod 3.375 gm/Sodium Chloride 110 ml @ 27.5 mls/hr EVERY 8 HOURS IVPB 09/11/17 14:00 09/16/17 13:59 Polyethylene Glycol (Miralax) 17 gm HSPRN PRN ORAL Constipation 09/09/17 17:30 10/09/17 17:29 09/10/17 22:14 Propranolol HCl (Inderal) 20 mg QID ORAL 09/09/17 18:00 10/09/17 17:59 09/11/17 12:16 Sodium Chloride 1,000 ml @ 50 mls/hr Q20H IV 09/10/17 14:00 10/10/17 13:59 09/11/17 10:00 Temazepam (Restoril) 15 mg HSPRN PRN ORAL Insomnia 09/09/17 17:30 09/16/17 17:29 09/10/17 22:14 LATANYA GALLARDO Sep 11, 2017 14:19
--- NOTE | 2017-09-11 14:44 | Consultation ---
Consult Note Consult Note asked to eval for renal failure- 67-year-old male presents to ED for evaluation. EMS states that patient had a syncopal episode at home today. No reported head injury. Daughter called 911. Patient had been more altered unusual for the last one week. History of schizophrenia. Is deaf. Also blind. However patient is not behaving at his baseline. PMD told daughter that patient also may be anemic based on recent blood work. Upon arrival patient showing no signs of distress. Denies chest pain or shortness of breath. No other aggravating relieving factors. Denies any other associated symptoms Past Medical History: HTN, CVA/TIA, seizures, psych hx Hx Hypertension: Yes Hx Diabetes: Yes Hx Gastrointestinal Problems: Yes History Of Psychiatric Problem: Yes - schizophrenia Hx Neurological Problems: Yes Hx Cerebrovascular Accident: Yes - 7 months ago Hx Seizures: Yes Hx Head Trauma: Yes Hx Concentration Difficulty: Yes Hx Weakness: Yes examined data reviewed Assessment/Plan - Anemia. - Diabetes. - Hypertension. - Seizure disorder. - Renal failure. acute on chronic - Deaf. - Blind. hydrate- urine studies- avoid nephrotoxics B12- Folate- Iron monitor renal parameters BRAYAN BRITO Sep 11, 2017 14:44
[2017-09-11] MEDS ORDERED: Vitamin B12 1000mcg/ml Inj SUBQ ONE (15:00)
[2017-09-11] MEDS ORDERED: Vitamin B12 1000mcg/ml Inj SUBQ SCH (15:15)
[2017-09-11 16:00] VITALS: BP 147/70
[2017-09-11] MEDS ORDERED: Iron Sucrose 200 MG in NS 110 ML IV ONE (16:00)
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
[2017-09-11] MEDS ORDERED: Sertraline 50mg tab ORAL SCH (17:15)
[2017-09-11] MEDS ORDERED: OLANZapine 2.5mg tab ORAL PRN ×2 (17:15→17:45)
[2017-09-11] MEDS ORDERED: Nitroglycerin Subl 0.4mg tab SL PRN (17:45)
[2017-09-11] MEDS ORDERED: Miralax 17gm pkt ORAL PRN (17:45)
[2017-09-11] MEDS ORDERED: LORazepam Inj 2mg/ml 1ml IV PRN (17:45)
[2017-09-11] MEDS ORDERED: Albuterol/Ipratropium 3ml neb HHN PRN (17:45)
[2017-09-11] MEDS ORDERED: Morphine Sulfate 2mg/ml Inj IVP PRN (17:45)
[2017-09-11 18:00] VITALS: BP 163/72
[2017-09-11] MEDS ORDERED: Phenytoin 100mg cap ORAL SCH ×2 (18:00)
[2017-09-11 20:00] VITALS: BP 148/71
[2017-09-11] MEDS: Tamsulosin 0.4mg cap ORAL SCH (20:28)
--- NOTE | 2017-09-11 20:39 | Infectious Diseases Prog Note ---
Assessment/Plan Assessment/Plan A: Leukocytosis improving Sepsis ALCO 2/2/ above UTI E coli Afebrile Nl WBC syncopal episode anemia schizophrenia ARF on CKD seizure disorder HTN hx of recent CVA DM deaf and legally blind P: cont pt on IV Zosyn d# 2 , upon DC will change to Invanz to complete the course Monitor CBC Monitor BMP Monitor Cx Subjective Allergies: Coded Allergies: No Known Allergies (Unverified , 08/19/16) Subjective Afebrile Objective Vital Signs Last 24 Hour Vital Signs Date Time Temp Pulse Resp B/P (MAP) Pulse Ox O2 Delivery O2 Flow Rate FiO2 09/11/17 20:00 97.0 80 21 148/71 96 97.0 09/11/17 18:18 163/72 09/11/17 18:00 97.2 81 20 163/72 97 Room Air 97.2 09/11/17 16:00 97.3 68 18 147/70 99 Room Air 97.3 09/11/17 12:16 73 147/71 09/11/17 12:00 97.0 73 18 149/71 99 Room Air 97.0 09/11/17 08:51 70 137/71 09/11/17 08:50 70 137/71 09/11/17 08:50 70 137/71 09/11/17 08:00 97.0 70 20 137/71 98 97.0 09/11/17 08:00 69 70 09/11/17 08:00 69 09/11/17 04:08 98.1 65 19 137/61 96 98.1 09/11/17 04:00 66 09/11/17 00:00 62 09/10/17 23:54 98.1 67 19 131/58 99 98.1 09/10/17 20:39 98.3 71 20 128/54 99 98.3 Height (Feet): 6 Height (Inches): 0.00 Weight (Pounds): 190 Respiratory/Chest: respiratory distress Cardiovascular: no JVD Abdomen: no mass Microbiology Date/Time Source Procedure Growth Status 09/09/17 15:40 Urine,Clean Catch Urine Culture - Preliminary Escherichia Coli Resulted Laboratory Tests Test 09/11/17 00:40 09/11/17 02:00 09/11/17 04:30 09/11/17 18:50 White Blood Count 12.8 K/UL (4.8-10.8) H Red Blood Count 3.31 M/UL (4.70-6.10) L Hemoglobin 9.5 G/DL (14.2-18.0) #L Hematocrit 28.7 % (42.0-52.0) #L Mean Corpuscular Volume 86 FL (80-99) Mean Corpuscular Hemoglobin 28.7 PG (27.0-31.0) Mean Corpuscular Hemoglobin Concent 33.2 G/DL (32.0-36.0) Red Cell Distribution Width 14.6 % (11.6-14.8) Platelet Count 408 K/UL (150-450) Mean Platelet Volume 5.4 FL (6.5-10.1) L Neutrophils (%) (Auto) 81.9 % (45.0-75.0) H Lymphocytes (%) (Auto) 11.9 % (20.0-45.0) L Monocytes (%) (Auto) 5.5 % (1.0-10.0) Eosinophils (%) (Auto) 0.5 % (0.0-3.0) Basophils (%) (Auto) 0.3 % (0.0-2.0) Sodium Level 138 MMOL/L (136-145) Potassium Level 4.5 MMOL/L (3.5-5.1) Chloride Level 108 MMOL/L (98-107) H Carbon Dioxide Level 21 MMOL/L (21-32) Anion Gap 9 mmol/L (5-15) Blood Urea Nitrogen 40 mg/dL (7-18) H Creatinine 2.7 MG/DL (0.55-1.30) H Estimat Glomerular Filtration Rate 23.5 mL/min (>60) Glucose Level 100 MG/DL (74-106) Hemoglobin A1c 6.4 % (4.3-6.0) H Calcium Level 8.8 MG/DL (8.5-10.1) Iron Level 23 ug/dL (50-175) L Total Iron Binding Capacity 136 ug/dL (250-450) L Percent Iron Saturation 17 % (15-50) Unsaturated Iron Binding 113 ug/dL (112-346) Total Bilirubin 0.3 MG/DL (0.2-1.0) Aspartate Amino Transf (AST/SGOT) 30 U/L (15-37) Alanine Aminotransferase (ALT/SGPT) 24 U/L (12-78) Alkaline Phosphatase 106 U/L (46-116) Total Protein 7.3 G/DL (6.4-8.2) Albumin 1.6 G/DL (3.4-5.0) L Globulin 5.7 g/dL Albumin/Globulin Ratio 0.3 (1.0-2.7) L Vitamin B12 Level 202 PG/ML (193-986) Folate 2.8 NG/ML (8.6-58.9) L Phenytoin (Dilantin) Level 9.7 ug/mL (10-20) L Urine Random Sodium 58 mmol/L (20-110) Ferritin 536 NG/ML (8-388) H C-Reactive Protein, Quantitative > 70.0 mg/dL (0.00-0.90) H Stool Occult Blood Pending Current Medications Medications (Trade) Dose Ordered Sig/Sharif Route PRN Reason Start Time Stop Time Status Last Admin Dose Admin Acetaminophen (Tylenol) 650 mg Q4H PRN ORAL T>100.5 09/11/17 17:45 10/09/17 17:44 Albuterol/ Ipratropium (Albuterol/ Ipratropium) 3 ml Q4H PRN HHN Shortness of Breath 09/11/17 17:45 09/14/17 17:44 Amlodipine Besylate (Norvasc) 10 mg DAILY ORAL 09/12/17 09:00 10/10/17 08:59 Clonidine HCl (Catapres Tab) 0.1 mg Q4H PRN ORAL SBP>160mmHg 09/11/17 18:00 10/09/17 17:59 09/11/17 18:18 Cyanocobalamin (Vitamin B12) 1,000 mcg DAILY SUBQ 09/12/17 09:00 09/13/17 09:01 Dextrose (Dextrose 50%) STAT PRN IV Hypoglycemia 09/12/17 17:30 10/09/17 17:29 Divalproex Sodium (Depakote) 250 mg EVERY 12 HOURS ORAL 09/11/17 21:00 10/11/17 17:14 Folic Acid (Folate) 5 mg DAILY ORAL 09/12/17 09:00 10/12/17 08:59 Heparin Sodium (Porcine) (Heparin 5000 units/ml) 5,000 units EVERY 12 HOURS SUBQ 09/11/17 21:00 10/09/17 20:59 Insulin Aspart (NovoLOG) BEFORE MEALS AND HS SUBQ 09/11/17 21:00 10/09/17 20:59 Lorazepam (Ativan 2mg/ml 1ml) 0.5 mg Q4H PRN IV For Anxiety 09/11/17 17:45 09/16/17 17:44 Metoprolol Succinate (Toprol XL) 50 mg DAILY ORAL 09/12/17 09:00 10/12/17 08:59 Morphine Sulfate (Morphine Sulfate) 1 mg Q4H PRN IVP For Pain 7-10 09/11/17 17:45 09/16/17 17:44 Nitroglycerin (Ntg) 0.4 mg Q5M X 3 DOSES PRN SL Prn Chest Pain 09/11/17 17:45 10/09/17 17:29 Olanzapine (ZyPREXA) 5 mg DAILYPRN PRN ORAL severe agitation 09/11/17 17:45 10/11/17 17:44 Ondansetron HCl (Zofran) 4 mg Q6H PRN IVP Nausea & Vomiting 09/11/17 17:45 10/09/17 17:44 Phenytoin (Dilantin) 200 mg TWICE A DAY ORAL 09/11/17 18:00 10/11/17 17:59 09/11/17 18:00 Piperacillin Sod/ Tazobactam Sod 3.375 gm/Sodium Chloride 110 ml @ 27.5 mls/hr EVERY 8 HOURS IVPB 09/11/17 22:00 09/16/17 21:59 Polyethylene Glycol (Miralax) 17 gm HSPRN PRN ORAL Constipation 09/11/17 17:45 10/11/17 17:44 Sertraline HCl (Zoloft) 25 mg DAILY ORAL 09/12/17 09:00 10/11/17 17:14 Sodium Chloride 1,000 ml @ 75 mls/hr [id number] IV 09/11/17 17:45 10/11/17 17:44 09/11/17 18:00 Tamsulosin HCl (Flomax) 0.4 mg BEDTIME ORAL 09/11/17 21:00 10/11/17 20:59 Temazepam (Restoril) 15 mg HSPRN PRN ORAL Insomnia 09/11/17 21:00 09/18/17 20:59 VIOLETA ESPINOZA M.D. Sep 11, 2017 20:39
[2017-09-11] MEDS ORDERED: Tamsulosin 0.4mg cap ORAL SCH (21:00)
[2017-09-11] MEDS: Piperacillin/Tazobactam 3.375 GM in NS 110 ML IVPB SCH (22:02)
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
[2017-09-12] VITALS (8 sets, daily range): BP systolic 127–176; BP diastolic 70–90
--- NOTE | 2017-09-12 03:30 | Consultation ---
DATE OF CONSULTATION: 09/10/2017 HEMATOLOGY/ONCOLOGY CONSULTATION CONSULTING PHYSICIAN: Juaquin Mace M.D. REQUESTING PHYSICIAN: Chai Jarrell M.D. REASON FOR CONSULT: Evaluation of ongoing anemia . IDENTIFYING DATA: Dear Dr. Jarrell, The patient is a pleasant 67-year-old male with past medical history psychosis, at this time presents with anemia EGD and colonoscopy, presented with altered level of consciousness. Hematology Service was consulted given ongoing anemia with a hemoglobin of 7, for further evaluation and treatment. The patient presents with a syncopal episode, likely related to anemia, UTI, history of blindness, and acute toxic metabolic encephalopathy, most likely, again pending EGD and colonoscopy and workup from Neurology Service. PAST MEDICAL HISTORY: 01:33 seizure disorder. PAST SURGICAL HISTORY: None reported. ALLERGIES: No known drug allergies. SOCIAL HISTORY: No alcohol, tobacco, or illicit drug use. REVIEW OF SYSTEMS: CONSTITUTIONAL: No fever, chills, or night sweats. SKIN: No rashes, bumps, or itching. HEENT: No headache, hearing or vision changes. BREASTS: No lumps, pain, or discharge. PULMONARY: No cough, sputum, or shortness of breath. GASTROINTESTINAL: No nausea, vomiting, or diarrhea. GENITOURINARY: No dysuria, frequency, or urgency. MUSCULOSKELETAL: No joint swelling, muscle pain, or trauma. PHYSICAL EXAMINATION: VITAL SIGNS: Reviewed. GENERAL: No distress. PULMONARY: Decreased breath sounds. Some crackles at the base. CARDIOVASCULAR: Regular rate. No S3 or S4. ABDOMEN: Soft, nontender, and nondistended. EXTREMITIES: No cyanosis, swelling, or edema. LABORATORY AND DIAGNOSTIC DATA: WBC 16,000, hemoglobin 7, hematocrit 23, and platelet count . BUN of 49 and creatinine of 2. INR 1.1. ASSESSMENT AND RECOMMENDATION: 1. Anemia due to underlying chronic disease. Closely monitor. Obtain anemia workup, potentially to occult blood loss. 2. Thrombocytosis secondary to reactive process from anemia. 3. Leukocytosis, potentially secondary to infection versus reactive process. 4. seizures. 5. Hypertension. Systolic blood pressure goal blood pressure goal . 6. Cerebrovascular accident and transient ischemic attack. Closely monitor. 7. Tetanus. Evaluate as needed. I appreciate the consultation. Juaquin Mace M.D. DR: JANAE JOB#: [id number] CC:
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
[2017-09-12] MEDS: Piperacillin/Tazobactam 3.375 GM in NS 110 ML IVPB SCH (05:18)
[2017-09-12] MEDS: NovoLOG Insulin Flexpen SUBQ SCH ×4 (06:30→20:59)
[2017-09-12 07:52] LABS: BASOPHILS % (AUTO) 0.2 % (0.0-2.0); EOSINOPHILS % (AUTO) 0.3 % (0.0-3.0); HEMATOCRIT 27.6 % (42.0-52.0); HEMOGLOBIN 9.1 G/DL (14.2-18.0); LYMPHOCYTES % (AUTO) 11.5 % (20.0-45.0); MEAN CORPUSCULAR VOLUME 88 FL (80-99); MONOCYTES % (AUTO) 5.1 % (1.0-10.0); NEUTROPHILS % (AUTO) 82.8 % (45.0-75.0); PLATELET COUNT 434 K/UL (150-450); RED BLOOD COUNT 3.14 M/UL (4.70-6.10); RED CELL DISTRIBUTION WIDTH 14.6 % (11.6-14.8); WHITE BLOOD COUNT 13.8 K/UL (4.8-10.8)
[2017-09-12 08:40] LABS: ALANINE AMINOTRANSFERASE 29 U/L (12-78); ALBUMIN 1.7 G/DL (3.4-5.0); ALBUMIN/GLOBULIN RATIO 0.3 (1.0-2.7); ALKALINE PHOSPHATASE 132 U/L (46-116); ANION GAP 11 mmol/L (5-15); ASPARTATE AMINO TRANSFERASE 45 U/L (15-37); BILIRUBIN,TOTAL 0.3 MG/DL (0.2-1.0); BLOOD UREA NITROGEN 42 mg/dL (7-18); CALCIUM 9.1 MG/DL (8.5-10.1); CARBON DIOXIDE 21 MMOL/L (21-32); CHLORIDE 110 MMOL/L (98-107); CHOLESTEROL 154 MG/DL (< 200); HDL CHOLESTEROL 27 MG/DL (40-60); POTASSIUM 4.9 MMOL/L (3.5-5.1); SODIUM 142 MMOL/L (136-145); TRIGLYCERIDES 178 MG/DL (30-150)
[2017-09-12] MEDS: Sertraline 50mg tab ORAL SCH (08:46)
[2017-09-12] MEDS: Heparin 5000 units/ml inj SUBQ SCH ×2 (08:48→21:00)
[2017-09-12] MEDS ORDERED: Metoprolol Succinate XL 25mg tab ORAL SCH (09:00)
[2017-09-12] MEDS ORDERED: Metoprolol Succinate XL 50mg tab ORAL SCH (09:00)
[2017-09-12] MEDS: Valproic Acid 250mg/5ml Liquid ORAL SCH ×2 (09:39→20:57)
[2017-09-12] MEDS: Vitamin B12 1000mcg/ml Inj SUBQ SCH (09:40)
[2017-09-12] MEDS: Phenytoin Susp 100mg/4ml ORAL SCH ×2 (09:40→20:58)
[2017-09-12 09:55] LABS: CREATINE KINASE 22 U/L (26-308); GAMMA GLUTAMYL TRANSPEPTIDASE 195 U/L (5-85); PHOSPHORUS 3.9 MG/DL (2.5-4.9)
--- NOTE | 2017-09-12 10:48 | Diagnostic Imaging Report ---
APPROVED REPORT CPT Code: 22566 Vascular Symptoms Syncope Doppler Spectral Velocity Analysis RightLeft BILATERAL: CCA/BULB - Imaging reveals irregular, minimal plaque (20-30%) in both carotid internal and external carotid arteries. The Doppler spectral flow analysis is within normal limits throughout the internal and external carotid arteries. VERTEBRALS - Imaging reveals both vertebral arteries to be patent, without evidence of stenosis or steal.
--- NOTE | 2017-09-12 11:42 | Pulmonology Progress Note ---
Assessment/Plan Problems: (1) Acute encephalopathy (2) COPD (chronic obstructive pulmonary disease) (3) UTI (urinary tract infection) (4) Anemia (5) HTN (hypertension) (6) Diabetes mellitus type II, controlled (7) Seizure disorder Assessment/Plan urine has MDR Ecoli sensitive to zosyn respiratory treatment IV abx check sputum check urine culture anemia w/u stool of OB GI f/u Subjective Interval Events: looks comfortable Allergies: Coded Allergies: No Known Allergies (Unverified , 08/19/16) Objective Last 24 Hour Vital Signs Date Time Temp Pulse Resp B/P (MAP) Pulse Ox O2 Delivery O2 Flow Rate FiO2 09/12/17 08:47 86 174/90 09/12/17 08:47 86 174/90 09/12/17 08:00 97.6 73 20 174/90 97 97.6 09/12/17 07:58 73 20 Room Air 21 09/12/17 05:17 166/76 09/12/17 04:00 98.2 61 21 166/76 94 98.2 09/12/17 00:10 127/70 09/12/17 00:00 98.5 74 21 165/75 97 98.5 09/12/17 00:00 Room Air 09/11/17 20:00 97.0 80 21 148/71 96 97.0 09/11/17 20:00 Room Air 09/11/17 18:18 163/72 09/11/17 18:00 97.2 81 20 163/72 97 Room Air 97.2 09/11/17 16:00 97.3 68 18 147/70 99 Room Air 97.3 09/11/17 12:16 73 147/71 09/11/17 12:00 97.0 73 18 149/71 99 Room Air 97.0 Intake and Output 09/11/17 09/12/17 19:00 07:00 Intake Total 315 ml 587.5 ml Output Total 800 ml Balance 315 ml -212.5 ml Intake Oral 240 ml IV Total 75 ml 587.5 ml Output Urine Total 800 ml # Voids 2 # Bowel Movements 1 General Appearance: WD/WN HEENT: normocephalic, atraumatic Respiratory/Chest: chest wall non-tender, lungs clear Cardiovascular: normal peripheral pulses, normal rate Abdomen: normal bowel sounds, soft, non tender Genitourinary: normal external genitalia Extremities: no cyanosis Skin: no lesions 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 Microbiology Date/Time Source Procedure Growth Status 09/09/17 15:40 Urine,Clean Catch Urine Culture - Final Escherichia Coli - Esbl Complete Laboratory Tests 09/11/17 18:50: Stool Occult Blood [Pending] 09/11/17 21:15: Urine Random Sodium 57 09/12/17 04:25: Urine Eosinophils Positive 09/12/17 06:25: White Blood Count 13.8H, Red Blood Count 3.14L, Hemoglobin 9.1L, Hematocrit 27.6L, Mean Corpuscular Volume 88, Mean Corpuscular Hemoglobin 29.1, Mean Corpuscular Hemoglobin Concent 33.1, Red Cell Distribution Width 14.6, Platelet Count 434, Mean Platelet Volume 5.2L, Neutrophils (%) (Auto) 82.8H, Lymphocytes (%) (Auto) 11.5L, Monocytes (%) (Auto) 5.1, Eosinophils (%) (Auto) 0.3, Basophils (%) (Auto) 0.2, Sodium Level 142, Potassium Level 4.9, Chloride Level 110H, Carbon Dioxide Level 21, Anion Gap 11, Blood Urea Nitrogen 42H, Creatinine 3.0H, Estimat Glomerular Filtration Rate 20.9, Glucose Level 99, Uric Acid 5.6, Calcium Level 9.1, Phosphorus Level 3.9, Magnesium Level 2.2, Total Bilirubin 0.3, Gamma Glutamyl Transpeptidase 195H, Aspartate Amino Transf (AST/SGOT) 45H, Alanine Aminotransferase (ALT/SGPT) 29, Alkaline Phosphatase 132H, Total Creatine Kinase 22L, Pro-B-Type Natriuretic Peptide 8664H, Total Protein 7.4, Albumin 1.7L, Globulin 5.7, Albumin/Globulin Ratio 0.3L, Triglycerides Level 178H, Cholesterol Level 154, LDL Cholesterol 92, HDL Cholesterol 27L, Cholesterol/HDL Ratio 5.7H, Thyroid Stimulating Hormone (TSH) 1.409, Phenytoin (Dilantin) Level 7.6L Current Medications Medications (Trade) Dose Ordered Sig/Sharif Route PRN Reason Start Time Stop Time Status Last Admin Dose Admin Acetaminophen (Tylenol) 650 mg Q4H PRN ORAL T>100.5 09/11/17 17:45 10/09/17 17:44 Albuterol/ Ipratropium (Albuterol/ Ipratropium) 3 ml Q4H PRN HHN Shortness of Breath 09/11/17 17:45 09/14/17 17:44 Amlodipine Besylate (Norvasc) 10 mg DAILY ORAL 09/12/17 09:00 10/10/17 08:59 09/12/17 08:47 Clonidine HCl (Catapres Tab) 0.1 mg Q4H PRN ORAL SBP>160mmHg 09/11/17 18:00 10/09/17 17:59 09/12/17 05:17 Cyanocobalamin (Vitamin B12) 1,000 mcg DAILY SUBQ 09/12/17 09:00 09/13/17 09:01 09/12/17 09:40 Dextrose (Dextrose 50%) STAT PRN IV Hypoglycemia 09/12/17 17:30 10/09/17 17:29 Folic Acid (Folate) 5 mg DAILY ORAL 09/12/17 09:00 10/12/17 08:59 09/12/17 09:38 Heparin Sodium (Porcine) (Heparin 5000 units/ml) 5,000 units EVERY 12 HOURS SUBQ 09/11/17 21:00 10/09/17 20:59 09/12/17 08:48 Insulin Aspart (NovoLOG) BEFORE MEALS AND HS SUBQ 09/11/17 21:00 10/09/17 20:59 09/11/17 20:30 Lorazepam (Ativan 2mg/ml 1ml) 0.5 mg Q4H PRN IV For Anxiety 09/11/17 17:45 09/16/17 17:44 Metoprolol Succinate (Toprol XL) 50 mg DAILY ORAL 09/12/17 09:00 10/12/17 08:59 09/12/17 08:47 Morphine Sulfate (Morphine Sulfate) 1 mg Q4H PRN IVP For Pain 7-10 09/11/17 17:45 09/16/17 17:44 Nitroglycerin (Ntg) 0.4 mg Q5M X 3 DOSES PRN SL Prn Chest Pain 09/11/17 17:45 10/09/17 17:29 Olanzapine (ZyPREXA) 5 mg DAILYPRN PRN ORAL severe agitation 09/11/17 17:45 10/11/17 17:44 Ondansetron HCl (Zofran) 4 mg Q6H PRN IVP Nausea & Vomiting 09/11/17 17:45 10/09/17 17:44 Phenytoin (Dilantin) 200 mg Q12HR ORAL 09/12/17 09:05 10/12/17 09:04 09/12/17 09:40 Piperacillin Sod/ Tazobactam Sod 3.375 gm/Sodium Chloride 110 ml @ 27.5 mls/hr EVERY 8 HOURS IVPB 09/11/17 22:00 09/16/17 21:59 09/12/17 05:18 Polyethylene Glycol (Miralax) 17 gm HSPRN PRN ORAL Constipation 09/11/17 17:45 10/11/17 17:44 Sertraline HCl (Zoloft) 25 mg DAILY ORAL 09/12/17 09:00 10/11/17 17:14 09/12/17 08:46 Sodium Chloride 1,000 ml @ 75 mls/hr [id number] IV 09/11/17 17:45 10/11/17 17:44 09/11/17 18:00 Tamsulosin HCl (Flomax) 0.4 mg BEDTIME ORAL 09/11/17 21:00 10/11/17 20:59 09/11/17 20:28 Temazepam (Restoril) 15 mg HSPRN PRN ORAL Insomnia 09/11/17 21:00 09/18/17 20:59 Valproic Acid (Depakene) 250 mg Q12HR ORAL 09/12/17 09:00 10/12/17 08:59 09/12/17 09:39 LATANYA GALLARDO Sep 12, 2017 11:42
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
[2017-09-12] MEDS: Ertapenem 1 GM in NS 55 ML IVPB SCH (14:59)
[2017-09-12] MEDS ORDERED: Nulytely 4L ORAL ONE (15:30)
[2017-09-12] MEDS ORDERED: Magnesium Citrate Liq Btl ORAL ONE (16:00)
[2017-09-12] MEDS ORDERED: Polyethylene Glycol 238gm bottle ORAL ONE (16:00)
[2017-09-12] MEDS ORDERED: Bisacodyl EC 5mg tab ORAL ONE (16:00)
--- NOTE | 2017-09-12 16:14 | GI Progress Note ---
Assessment/Plan Problems: (1) Anemia ICD Codes: D64.9 - Anemia, unspecified SNOMED: 285063845 Qualifiers: Qualified Codes: D64.9 - Anemia, unspecified (2) Blind ICD Codes: H54.0 - Blindness, both eyes SNOMED: 935078875 (3) Syncope ICD Codes: R55 - Syncope and collapse SNOMED: 561483377 Qualifiers: Qualified Codes: R55 - Syncope and collapse Status: unchanged Status Narrative Discussed with Dr. Bonilla. Assessment/Plan EGD/colonoscopy scheduled for tomorrow. - CLD, NPO @ CO. - folate deficiency ppi fu nephrology fu labs The patient was seen and examined at bedside and all new and available data was reviewed in the patients chart. I agree with the above findings, impression and plan. (Patient seen earlier today. Signature stamp does not reflect patient encounter time.). - Jay Bonilla MD Subjective Subjective limited Objective Last 24 Hour Vital Signs Date Time Temp Pulse Resp B/P (MAP) Pulse Ox O2 Delivery O2 Flow Rate FiO2 09/12/17 12:00 97.4 67 20 159/79 97 97.4 09/12/17 08:47 86 174/90 09/12/17 08:47 86 174/90 09/12/17 08:00 97.6 73 20 174/90 97 97.6 09/12/17 07:58 73 20 Room Air 21 09/12/17 05:17 166/76 09/12/17 04:00 98.2 61 21 166/76 94 98.2 09/12/17 00:10 127/70 09/12/17 00:00 98.5 74 21 165/75 97 98.5 09/12/17 00:00 Room Air 09/11/17 20:00 97.0 80 21 148/71 96 97.0 09/11/17 20:00 Room Air 09/11/17 18:18 163/72 09/11/17 18:00 97.2 81 20 163/72 97 Room Air 97.2 Intake and Output 09/11/17 09/12/17 19:00 07:00 Intake Total 315 ml 587.5 ml Output Total 800 ml Balance 315 ml -212.5 ml Intake Oral 240 ml IV Total 75 ml 587.5 ml Output Urine Total 800 ml # Voids 2 # Bowel Movements 1 Laboratory Tests Test 09/11/17 18:50 09/11/17 21:15 09/12/17 04:25 09/12/17 06:25 Stool Occult Blood Pending Urine Random Sodium 57 mmol/L (20-110) Urine Eosinophils Positive White Blood Count 13.8 K/UL (4.8-10.8) H Red Blood Count 3.14 M/UL (4.70-6.10) L Hemoglobin 9.1 G/DL (14.2-18.0) L Hematocrit 27.6 % (42.0-52.0) L Mean Corpuscular Volume 88 FL (80-99) Mean Corpuscular Hemoglobin 29.1 PG (27.0-31.0) Mean Corpuscular Hemoglobin Concent 33.1 G/DL (32.0-36.0) Red Cell Distribution Width 14.6 % (11.6-14.8) Platelet Count 434 K/UL (150-450) Mean Platelet Volume 5.2 FL (6.5-10.1) L Neutrophils (%) (Auto) 82.8 % (45.0-75.0) H Lymphocytes (%) (Auto) 11.5 % (20.0-45.0) L Monocytes (%) (Auto) 5.1 % (1.0-10.0) Eosinophils (%) (Auto) 0.3 % (0.0-3.0) Basophils (%) (Auto) 0.2 % (0.0-2.0) Sodium Level 142 MMOL/L (136-145) Potassium Level 4.9 MMOL/L (3.5-5.1) Chloride Level 110 MMOL/L (98-107) H Carbon Dioxide Level 21 MMOL/L (21-32) Anion Gap 11 mmol/L (5-15) Blood Urea Nitrogen 42 mg/dL (7-18) H Creatinine 3.0 MG/DL (0.55-1.30) H Estimat Glomerular Filtration Rate 20.9 mL/min (>60) Glucose Level 99 MG/DL (74-106) Uric Acid 5.6 MG/DL (2.6-7.2) Calcium Level 9.1 MG/DL (8.5-10.1) Phosphorus Level 3.9 MG/DL (2.5-4.9) Magnesium Level 2.2 MG/DL (1.8-2.4) Total Bilirubin 0.3 MG/DL (0.2-1.0) Gamma Glutamyl Transpeptidase 195 U/L (5-85) H Aspartate Amino Transf (AST/SGOT) 45 U/L (15-37) H Alanine Aminotransferase (ALT/SGPT) 29 U/L (12-78) Alkaline Phosphatase 132 U/L (46-116) H Total Creatine Kinase 22 U/L (26-308) L Pro-B-Type Natriuretic Peptide 8664 pg/mL (0-125) H Total Protein 7.4 G/DL (6.4-8.2) Albumin 1.7 G/DL (3.4-5.0) L Globulin 5.7 g/dL Albumin/Globulin Ratio 0.3 (1.0-2.7) L Triglycerides Level 178 MG/DL (30-150) H Cholesterol Level 154 MG/DL (< 200) LDL Cholesterol 92 mg/dL (<100) HDL Cholesterol 27 MG/DL (40-60) L Cholesterol/HDL Ratio 5.7 (3.3-4.4) H Thyroid Stimulating Hormone (TSH) 1.409 uiU/mL (0.358-3.740) Phenytoin (Dilantin) Level 7.6 ug/mL (10-20) L Height (Feet): 6 Height (Inches): 0.00 Weight (Pounds): 190 General Appearance: no apparent distress Cardiovascular: normal rate Abdominal Exam: normal bowel sounds, non tender, soft Angelique Wheat.Alejo Sep 12, 2017 16:14 SILVINA BONILLA Sep 19, 2017 13:32
--- NOTE | 2017-09-12 16:20 | Cardiology Report ---
APPROVED REPORT EKG Measurement Heart [id number] [id number] Normal sinus rhythm Left axis deviation Minimal voltage criteria for LVH, may be normal variant T wave abnormality, consider lateral ischemia Prolonged QT Abnormal ECG
--- NOTE | 2017-09-12 19:43 | Internal Med Progress Note ---
Subjective Date of Service: Sep 12, 2017 Physician Name Destiny Seth Attending Physician Remi Wren MD Current Medications Medications (Trade) Dose Ordered Sig/Sharif Route PRN Reason Start Time Stop Time Status Last Admin Dose Admin Acetaminophen (Tylenol) 650 mg Q4H PRN ORAL T>100.5 09/11/17 17:45 10/09/17 17:44 Albuterol/ Ipratropium (Albuterol/ Ipratropium) 3 ml Q4H PRN HHN Shortness of Breath 09/11/17 17:45 09/14/17 17:44 Amlodipine Besylate (Norvasc) 10 mg DAILY ORAL 09/12/17 09:00 10/10/17 08:59 09/12/17 08:47 Carvedilol (Coreg) 6.25 mg EVERY 12 HOURS ORAL 09/12/17 21:00 10/12/17 20:59 Clonidine HCl (Catapres Tab) 0.1 mg Q4H PRN ORAL SBP>160mmHg 09/11/17 18:00 10/09/17 17:59 09/12/17 16:20 Cyanocobalamin (Vitamin B12) 1,000 mcg DAILY SUBQ 09/12/17 09:00 09/13/17 09:01 09/12/17 09:40 Dextrose (Dextrose 50%) STAT PRN IV Hypoglycemia 09/12/17 17:30 10/09/17 17:29 Ertapenem 1 gm/ Sodium Chloride 55 ml @ 110 mls/hr Q24H IVPB 09/12/17 14:00 09/17/17 13:59 09/12/17 14:59 Folic Acid (Folate) 5 mg DAILY ORAL 09/12/17 09:00 10/12/17 08:59 09/12/17 09:38 Heparin Sodium (Porcine) (Heparin 5000 units/ml) 5,000 units EVERY 12 HOURS SUBQ 09/11/17 21:00 10/09/17 20:59 09/12/17 08:48 Insulin Aspart (NovoLOG) BEFORE MEALS AND HS SUBQ 09/11/17 21:00 10/09/17 20:59 09/12/17 17:41 Lorazepam (Ativan 2mg/ml 1ml) 0.5 mg Q4H PRN IV For Anxiety 09/11/17 17:45 09/16/17 17:44 Morphine Sulfate (Morphine Sulfate) 1 mg Q4H PRN IVP For Pain 7-10 09/11/17 17:45 09/16/17 17:44 Nitroglycerin (Ntg) 0.4 mg Q5M X 3 DOSES PRN SL Prn Chest Pain 09/11/17 17:45 10/09/17 17:29 Olanzapine (ZyPREXA) 5 mg DAILYPRN PRN ORAL severe agitation 09/11/17 17:45 10/11/17 17:44 Ondansetron HCl (Zofran) 4 mg Q6H PRN IVP Nausea & Vomiting 09/11/17 17:45 10/09/17 17:44 Phenytoin (Dilantin) 200 mg Q12HR ORAL 09/12/17 09:05 10/12/17 09:04 09/12/17 09:40 Polyethylene Glycol (Miralax) 17 gm HSPRN PRN ORAL Constipation 09/11/17 17:45 10/11/17 17:44 Sertraline HCl (Zoloft) 25 mg DAILY ORAL 09/12/17 09:00 10/11/17 17:14 09/12/17 08:46 Sodium Chloride 1,000 ml @ 75 mls/hr [id number] IV 09/11/17 17:45 10/11/17 17:44 09/11/17 18:00 Tamsulosin HCl (Flomax) 0.4 mg BEDTIME ORAL 09/11/17 21:00 10/11/17 20:59 09/11/17 20:28 Temazepam (Restoril) 15 mg HSPRN PRN ORAL Insomnia 09/11/17 21:00 09/18/17 20:59 Valproic Acid (Depakene) 250 mg Q12HR ORAL 09/12/17 09:00 10/12/17 08:59 09/12/17 09:39 Allergies: Coded Allergies: No Known Allergies (Unverified , 08/19/16) ROS Limited/Unobtainable: Yes Subjective 67 YO M admitted with vertigo and severe anemia. S/P transfusion. Await Colonoscopy and endoscopy on 09/13/17. Cover for Int Hu-Dr Wren. Objective Last Vital Signs Date Time Temp Pulse Resp B/P (MAP) Pulse Ox O2 Delivery O2 Flow Rate FiO2 09/12/17 18:30 97.5 72 20 165/76 100 97.5 09/12/17 07:58 Room Air 21 Laboratory Tests Test 09/11/17 21:15 09/12/17 04:25 09/12/17 06:25 Urine Random Sodium 57 mmol/L (20-110) Urine Eosinophils Positive White Blood Count 13.8 K/UL (4.8-10.8) H Red Blood Count 3.14 M/UL (4.70-6.10) L Hemoglobin 9.1 G/DL (14.2-18.0) L Hematocrit 27.6 % (42.0-52.0) L Mean Corpuscular Volume 88 FL (80-99) Mean Corpuscular Hemoglobin 29.1 PG (27.0-31.0) Mean Corpuscular Hemoglobin Concent 33.1 G/DL (32.0-36.0) Red Cell Distribution Width 14.6 % (11.6-14.8) Platelet Count 434 K/UL (150-450) Mean Platelet Volume 5.2 FL (6.5-10.1) L Neutrophils (%) (Auto) 82.8 % (45.0-75.0) H Lymphocytes (%) (Auto) 11.5 % (20.0-45.0) L Monocytes (%) (Auto) 5.1 % (1.0-10.0) Eosinophils (%) (Auto) 0.3 % (0.0-3.0) Basophils (%) (Auto) 0.2 % (0.0-2.0) Sodium Level 142 MMOL/L (136-145) Potassium Level 4.9 MMOL/L (3.5-5.1) Chloride Level 110 MMOL/L (98-107) H Carbon Dioxide Level 21 MMOL/L (21-32) Anion Gap 11 mmol/L (5-15) Blood Urea Nitrogen 42 mg/dL (7-18) H Creatinine 3.0 MG/DL (0.55-1.30) H Estimat Glomerular Filtration Rate 20.9 mL/min (>60) Glucose Level 99 MG/DL (74-106) Uric Acid 5.6 MG/DL (2.6-7.2) Calcium Level 9.1 MG/DL (8.5-10.1) Phosphorus Level 3.9 MG/DL (2.5-4.9) Magnesium Level 2.2 MG/DL (1.8-2.4) Total Bilirubin 0.3 MG/DL (0.2-1.0) Gamma Glutamyl Transpeptidase 195 U/L (5-85) H Aspartate Amino Transf (AST/SGOT) 45 U/L (15-37) H Alanine Aminotransferase (ALT/SGPT) 29 U/L (12-78) Alkaline Phosphatase 132 U/L (46-116) H Total Creatine Kinase 22 U/L (26-308) L Pro-B-Type Natriuretic Peptide 8664 pg/mL (0-125) H Total Protein 7.4 G/DL (6.4-8.2) Albumin 1.7 G/DL (3.4-5.0) L Globulin 5.7 g/dL Albumin/Globulin Ratio 0.3 (1.0-2.7) L Triglycerides Level 178 MG/DL (30-150) H Cholesterol Level 154 MG/DL (< 200) LDL Cholesterol 92 mg/dL (<100) HDL Cholesterol 27 MG/DL (40-60) L Cholesterol/HDL Ratio 5.7 (3.3-4.4) H Thyroid Stimulating Hormone (TSH) 1.409 uiU/mL (0.358-3.740) Phenytoin (Dilantin) Level 7.6 ug/mL (10-20) L Intake and Output 09/11/17 09/12/17 19:00 07:00 Intake Total 315 ml 587.5 ml Output Total 800 ml Balance 315 ml -212.5 ml Intake Oral 240 ml IV Total 75 ml 587.5 ml Output Urine Total 800 ml # Voids 2 # Bowel Movements 1 Objective General Appearance: WD/WN, lethargic EENT: normal ENT inspection Neck: non-tender, normal alignment, supple, normal inspection Cardiovascular: normal peripheral pulses, normal rate, regular rhythm, no gallop/murmur, no JVD Respiratory/Chest: chest wall non-tender, lungs clear, normal breath sounds, no respiratory distress, no accessory muscle use Abdomen: normal bowel sounds, non tender, soft, no organomegaly, no mass Extremities: non-tender 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 Await neurology consult. (3) Renal failure Assessment & Plan: Await nephrology consult. 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 S/P transfusion 2 units PRBC total. Await colonoscopy and endoscopy 09/13/17. Status: not improved Assessment/Plan Discharge planning: patient is bed bound and requires hospital bed at home. DESTINY SETH Sep 12, 2017 19:43
[2017-09-12] MEDS: Carvedilol 6.25mg Tab ORAL SCH (20:57)
[2017-09-12] MEDS: Tamsulosin 0.4mg cap ORAL SCH (20:58)
--- NOTE | 2017-09-12 22:51 | Consultation ---
History of Present Illness General Date patient seen: Sep 10, 2017 Chief Complaint: Altered Level of Consciousness Referring physician: dr Wren Reason for Consultation: inpatient management Present Illness HPI 67-year-old male with past medical history psychosis who presents with anemia EGD and altered level of consciousness. the pt is deaf and blind the family provided the hx. the pt gets agitated and pulls out the iv and attempts to come out of bed. Allergies: Coded Allergies: No Known Allergies (Unverified , 08/19/16) Medication History Scheduled Clonazepam* (Klonopin*), 0.5 MG ORAL BID, (Reported) Fenofibrate (Tricor), 145 MG ORAL DAILY, (Reported) Metformin Hcl* (Metformin Hcl*), 1,000 MG ORAL BID, (Reported) Metoprolol Succinate* (Metoprolol Succinate*), 25 MG ORAL DAILY, (Reported) Olanzapine (Olanzapine Odt), 5 MG PO DAILY, (Reported) Pantoprazole* (Pantoprazole*), 40 MG ORAL DAILY, (Reported) Phenytoin Sodium Extended* (Phenytoin Sodium Extended*), 200 MG ORAL TWICE A DAY , (Reported) Sitagliptin (Januvia), 100 MG ORAL DAILY, (Reported) Valsartan (Diovan), 160 MG ORAL DAILY, (Reported) Miscellaneous Medications Clonidine (Clonidine), 1 EACH TD, (Reported) Discontinued Medications Amlodipine Besylate* (Amlodipine Besylate*), 10 MG ORAL DAILY, (Reported) Discontinued Reason: Pt stopped taking med Ampicillin Sodium/Sulbactam Na (Unasyn 3 Gm Vial), 3 GM IV Q6HR, (Reported) Discontinued Reason: Therapy completed Clonazepam* (Klonopin*), 0.5 MG ORAL Q6H, (Reported) Discontinued Reason: Medication dose changed Clonidine Hcl* (Catapres*), 0.1 MG ORAL EVERY 8 HOURS PRN for SBP > 160, ( Reported) Discontinued Reason: Pt stopped taking med Docusate Sodium* (Colace*), 100 MG ORAL BID, (Reported) Discontinued Reason: Pt stopped taking med Nicotine (Nicotine Patch), 1 EACH TD, (Reported) Discontinued Reason: Pt stopped taking med Phenytoin Sodium Extended* (Dilantin*), 100 MG ORAL TWICE A DAY, (Reported) Discontinued Reason: MD discontinued med Pioglitazone Hcl* (Actos*), 30 MG ORAL DAILY, (Reported) Discontinued Reason: Pt stopped taking med Propranolol Hcl* (Inderal*), 20 MG ORAL QID, (Reported) Discontinued Reason: Pt stopped taking med Patient History Limited by: medical condition History Provided By: Family Member, PMD Healthcare decision maker AND DTR Resuscitation status Full Code Advanced Directive on File Past Medical/Surgical History Past Medical/Surgical History: (1) HCAP (healthcare-associated pneumonia) (2) Organic brain syndrome (chronic) (3) Respiratory failure (4) Hypertensive urgency (5) Bacteremia (6) Adrenal mass, left (7) Renal insufficiency (8) UTI (urinary tract infection) (9) Anemia (10) Syncope (11) Blind (12) Renal failure (13) Seizure disorder (14) Deaf (15) Diabetes mellitus type II, controlled (16) Blind in both eyes (17) Chronic paranoid psychosis (18) sp severe TBI (19) Acute encephalopathy (20) COPD (chronic obstructive pulmonary disease) (21) HTN (hypertension) Review of Systems Psychiatric: Reports: prior hx, anxiety, depressed feelings, emotional problems Physical Exam General Appearance: no apparent distress, alert, confused, agitated Last 24 Hour Vital Signs Date Time Temp Pulse Resp B/P (MAP) Pulse Ox O2 Delivery O2 Flow Rate FiO2 09/12/17 20:59 166/77 09/12/17 20:57 73 166/77 09/12/17 20:00 97.6 73 21 166/77 98 97.6 09/12/17 18:30 97.5 72 20 165/76 100 97.5 09/12/17 16:20 176/81 09/12/17 16:05 73 09/12/17 16:00 97.7 73 20 176/81 100 97.7 09/12/17 16:00 72 09/12/17 12:00 97.4 67 20 159/79 97 97.4 09/12/17 08:47 86 174/90 09/12/17 08:47 86 174/90 09/12/17 08:00 97.6 73 20 174/90 97 97.6 09/12/17 07:58 73 20 Room Air 21 09/12/17 05:17 166/76 09/12/17 04:00 98.2 61 21 166/76 94 98.2 09/12/17 00:10 127/70 09/12/17 00:00 98.5 74 21 165/75 97 98.5 09/12/17 00:00 Room Air Intake and Output 09/11/17 09/12/17 19:00 07:00 Intake Total 315 ml 587.5 ml Output Total 800 ml Balance 315 ml -212.5 ml Intake Oral 240 ml IV Total 75 ml 587.5 ml Output Urine Total 800 ml # Voids 2 # Bowel Movements 1 Laboratory Tests Test 09/12/17 04:25 09/12/17 06:25 Urine Eosinophils Positive White Blood Count 13.8 K/UL (4.8-10.8) H Red Blood Count 3.14 M/UL (4.70-6.10) L Hemoglobin 9.1 G/DL (14.2-18.0) L Hematocrit 27.6 % (42.0-52.0) L Mean Corpuscular Volume 88 FL (80-99) Mean Corpuscular Hemoglobin 29.1 PG (27.0-31.0) Mean Corpuscular Hemoglobin Concent 33.1 G/DL (32.0-36.0) Red Cell Distribution Width 14.6 % (11.6-14.8) Platelet Count 434 K/UL (150-450) Mean Platelet Volume 5.2 FL (6.5-10.1) L Neutrophils (%) (Auto) 82.8 % (45.0-75.0) H Lymphocytes (%) (Auto) 11.5 % (20.0-45.0) L Monocytes (%) (Auto) 5.1 % (1.0-10.0) Eosinophils (%) (Auto) 0.3 % (0.0-3.0) Basophils (%) (Auto) 0.2 % (0.0-2.0) Sodium Level 142 MMOL/L (136-145) Potassium Level 4.9 MMOL/L (3.5-5.1) Chloride Level 110 MMOL/L (98-107) H Carbon Dioxide Level 21 MMOL/L (21-32) Anion Gap 11 mmol/L (5-15) Blood Urea Nitrogen 42 mg/dL (7-18) H Creatinine 3.0 MG/DL (0.55-1.30) H Estimat Glomerular Filtration Rate 20.9 mL/min (>60) Glucose Level 99 MG/DL (74-106) Uric Acid 5.6 MG/DL (2.6-7.2) Calcium Level 9.1 MG/DL (8.5-10.1) Phosphorus Level 3.9 MG/DL (2.5-4.9) Magnesium Level 2.2 MG/DL (1.8-2.4) Total Bilirubin 0.3 MG/DL (0.2-1.0) Gamma Glutamyl Transpeptidase 195 U/L (5-85) H Aspartate Amino Transf (AST/SGOT) 45 U/L (15-37) H Alanine Aminotransferase (ALT/SGPT) 29 U/L (12-78) Alkaline Phosphatase 132 U/L (46-116) H Total Creatine Kinase 22 U/L (26-308) L Pro-B-Type Natriuretic Peptide 8664 pg/mL (0-125) H Total Protein 7.4 G/DL (6.4-8.2) Albumin 1.7 G/DL (3.4-5.0) L Globulin 5.7 g/dL Albumin/Globulin Ratio 0.3 (1.0-2.7) L Triglycerides Level 178 MG/DL (30-150) H Cholesterol Level 154 MG/DL (< 200) LDL Cholesterol 92 mg/dL (<100) HDL Cholesterol 27 MG/DL (40-60) L Cholesterol/HDL Ratio 5.7 (3.3-4.4) H Thyroid Stimulating Hormone (TSH) 1.409 uiU/mL (0.358-3.740) Phenytoin (Dilantin) Level 7.6 ug/mL (10-20) L Height (Feet): 6 Height (Inches): 0.00 Weight (Pounds): 190 Medications Current Medications Medications (Trade) Dose Ordered Sig/Sharif Route PRN Reason Start Time Stop Time Status Last Admin Dose Admin Acetaminophen (Tylenol) 650 mg Q4H PRN ORAL T>100.5 09/11/17 17:45 10/09/17 17:44 Albuterol/ Ipratropium (Albuterol/ Ipratropium) 3 ml Q4H PRN HHN Shortness of Breath 09/11/17 17:45 09/14/17 17:44 Amlodipine Besylate (Norvasc) 10 mg DAILY ORAL 09/12/17 09:00 10/10/17 08:59 09/12/17 08:47 Carvedilol (Coreg) 6.25 mg EVERY 12 HOURS ORAL 09/12/17 21:00 10/12/17 20:59 09/12/17 20:57 Clonidine HCl (Catapres Tab) 0.1 mg Q4H PRN ORAL SBP>160mmHg 09/11/17 18:00 10/09/17 17:59 09/12/17 20:59 Cyanocobalamin (Vitamin B12) 1,000 mcg DAILY SUBQ 09/12/17 09:00 09/13/17 09:01 09/12/17 09:40 Dextrose (Dextrose 50%) STAT PRN IV Hypoglycemia 09/12/17 17:30 10/09/17 17:29 Ertapenem 1 gm/ Sodium Chloride 55 ml @ 110 mls/hr Q24H IVPB 09/12/17 14:00 09/17/17 13:59 09/12/17 14:59 Folic Acid (Folate) 5 mg DAILY ORAL 09/12/17 09:00 10/12/17 08:59 09/12/17 09:38 Heparin Sodium (Porcine) (Heparin 5000 units/ml) 5,000 units EVERY 12 HOURS SUBQ 09/11/17 21:00 10/09/17 20:59 09/12/17 08:48 Insulin Aspart (NovoLOG) BEFORE MEALS AND HS SUBQ 09/11/17 21:00 10/09/17 20:59 09/12/17 20:59 Lorazepam (Ativan 2mg/ml 1ml) 0.5 mg Q4H PRN IV For Anxiety 09/11/17 17:45 09/16/17 17:44 Morphine Sulfate (Morphine Sulfate) 1 mg Q4H PRN IVP For Pain 7-10 09/11/17 17:45 09/16/17 17:44 Nitroglycerin (Ntg) 0.4 mg Q5M X 3 DOSES PRN SL Prn Chest Pain 09/11/17 17:45 10/09/17 17:29 Olanzapine (ZyPREXA) 5 mg DAILYPRN PRN ORAL severe agitation 09/11/17 17:45 10/11/17 17:44 Ondansetron HCl (Zofran) 4 mg Q6H PRN IVP Nausea & Vomiting 09/11/17 17:45 10/09/17 17:44 Phenytoin (Dilantin) 200 mg Q12HR ORAL 09/12/17 09:05 10/12/17 09:04 09/12/17 20:58 Polyethylene Glycol (Miralax) 17 gm HSPRN PRN ORAL Constipation 09/11/17 17:45 10/11/17 17:44 Sertraline HCl (Zoloft) 25 mg DAILY ORAL 09/12/17 09:00 10/11/17 17:14 09/12/17 08:46 Sodium Chloride 1,000 ml @ 75 mls/hr [id number] IV 09/11/17 17:45 10/11/17 17:44 09/12/17 20:55 Tamsulosin HCl (Flomax) 0.4 mg BEDTIME ORAL 09/11/17 21:00 10/11/17 20:59 09/12/17 20:58 Temazepam (Restoril) 15 mg HSPRN PRN ORAL Insomnia 09/11/17 21:00 09/18/17 20:59 Valproic Acid (Depakene) 250 mg Q12HR ORAL 09/12/17 09:00 10/12/17 08:59 09/12/17 20:57 Assessment/Plan Status: stable Assessment/Plan encephalopathy the pt would benefit from low dose antipsychotics the pts daughter is reluctant Lan Weeks M.D. Sep 12, 2017 22:51
--- NOTE | 2017-09-12 22:53 | General Progress Note ---
Assessment/Plan Status: stable Assessment/Plan encephalopathy ativan the daughter reluctant to other meds Subjective Date patient seen: Sep 12, 2017 Neurologic/Psychiatric: Reports: anxiety, depressed, emotional problems Allergies: Coded Allergies: No Known Allergies (Unverified , 08/19/16) Objective Last 24 Hour Vital Signs Date Time Temp Pulse Resp B/P (MAP) Pulse Ox O2 Delivery O2 Flow Rate FiO2 09/12/17 20:59 166/77 09/12/17 20:57 73 166/77 09/12/17 20:00 97.6 73 21 166/77 98 97.6 09/12/17 18:30 97.5 72 20 165/76 100 97.5 09/12/17 16:20 176/81 09/12/17 16:05 73 09/12/17 16:00 97.7 73 20 176/81 100 97.7 09/12/17 16:00 72 09/12/17 12:00 97.4 67 20 159/79 97 97.4 09/12/17 08:47 86 174/90 09/12/17 08:47 86 174/90 09/12/17 08:00 97.6 73 20 174/90 97 97.6 09/12/17 07:58 73 20 Room Air 21 09/12/17 05:17 166/76 09/12/17 04:00 98.2 61 21 166/76 94 98.2 09/12/17 00:10 127/70 09/12/17 00:00 98.5 74 21 165/75 97 98.5 09/12/17 00:00 Room Air Intake and Output 09/11/17 09/12/17 19:00 07:00 Intake Total 315 ml 587.5 ml Output Total 800 ml Balance 315 ml -212.5 ml Intake Oral 240 ml IV Total 75 ml 587.5 ml Output Urine Total 800 ml # Voids 2 # Bowel Movements 1 Laboratory Tests 09/12/17 04:25: Urine Eosinophils Positive 09/12/17 06:25: White Blood Count 13.8H, Red Blood Count 3.14L, Hemoglobin 9.1L, Hematocrit 27.6L, Mean Corpuscular Volume 88, Mean Corpuscular Hemoglobin 29.1, Mean Corpuscular Hemoglobin Concent 33.1, Red Cell Distribution Width 14.6, Platelet Count 434, Mean Platelet Volume 5.2L, Neutrophils (%) (Auto) 82.8H, Lymphocytes (%) (Auto) 11.5L, Monocytes (%) (Auto) 5.1, Eosinophils (%) (Auto) 0.3, Basophils (%) (Auto) 0.2, Sodium Level 142, Potassium Level 4.9, Chloride Level 110H, Carbon Dioxide Level 21, Anion Gap 11, Blood Urea Nitrogen 42H, Creatinine 3.0H, Estimat Glomerular Filtration Rate 20.9, Glucose Level 99, Uric Acid 5.6, Calcium Level 9.1, Phosphorus Level 3.9, Magnesium Level 2.2, Total Bilirubin 0.3, Gamma Glutamyl Transpeptidase 195H, Aspartate Amino Transf (AST/SGOT) 45H, Alanine Aminotransferase (ALT/SGPT) 29, Alkaline Phosphatase 132H, Total Creatine Kinase 22L, Pro-B-Type Natriuretic Peptide 8664H, Total Protein 7.4, Albumin 1.7L, Globulin 5.7, Albumin/Globulin Ratio 0.3L, Triglycerides Level 178H, Cholesterol Level 154, LDL Cholesterol 92, HDL Cholesterol 27L, Cholesterol/HDL Ratio 5.7H, Thyroid Stimulating Hormone (TSH) 1.409, Phenytoin (Dilantin) Level 7.6L Height (Feet): 6 Height (Inches): 0.00 Weight (Pounds): 190 General Appearance: no apparent distress, alert Neurologic: alert, depressed affect Lan Weeks M.D. Sep 12, 2017 22:52
--- NOTE | 2017-09-12 22:54 | Psych Consult Progress Note ---
Psych Consult Progress Note Consult 09/11/17 Vital Signs Last 24 Hour Vital Signs Date Time Temp Pulse Resp B/P (MAP) Pulse Ox O2 Delivery O2 Flow Rate FiO2 09/12/17 20:59 166/77 09/12/17 20:57 73 166/77 09/12/17 20:00 97.6 73 21 166/77 98 97.6 09/12/17 18:30 97.5 72 20 165/76 100 97.5 09/12/17 16:20 176/81 09/12/17 16:05 73 09/12/17 16:00 97.7 73 20 176/81 100 97.7 09/12/17 16:00 72 09/12/17 12:00 97.4 67 20 159/79 97 97.4 09/12/17 08:47 86 174/90 09/12/17 08:47 86 174/90 09/12/17 08:00 97.6 73 20 174/90 97 97.6 09/12/17 07:58 73 20 Room Air 21 09/12/17 05:17 166/76 09/12/17 04:00 98.2 61 21 166/76 94 98.2 09/12/17 00:10 127/70 09/12/17 00:00 98.5 74 21 165/75 97 98.5 09/12/17 00:00 Room Air Labs Laboratory Tests Test 09/12/17 04:25 09/12/17 06:25 Urine Eosinophils Positive White Blood Count 13.8 K/UL (4.8-10.8) H Red Blood Count 3.14 M/UL (4.70-6.10) L Hemoglobin 9.1 G/DL (14.2-18.0) L Hematocrit 27.6 % (42.0-52.0) L Mean Corpuscular Volume 88 FL (80-99) Mean Corpuscular Hemoglobin 29.1 PG (27.0-31.0) Mean Corpuscular Hemoglobin Concent 33.1 G/DL (32.0-36.0) Red Cell Distribution Width 14.6 % (11.6-14.8) Platelet Count 434 K/UL (150-450) Mean Platelet Volume 5.2 FL (6.5-10.1) L Neutrophils (%) (Auto) 82.8 % (45.0-75.0) H Lymphocytes (%) (Auto) 11.5 % (20.0-45.0) L Monocytes (%) (Auto) 5.1 % (1.0-10.0) Eosinophils (%) (Auto) 0.3 % (0.0-3.0) Basophils (%) (Auto) 0.2 % (0.0-2.0) Sodium Level 142 MMOL/L (136-145) Potassium Level 4.9 MMOL/L (3.5-5.1) Chloride Level 110 MMOL/L (98-107) H Carbon Dioxide Level 21 MMOL/L (21-32) Anion Gap 11 mmol/L (5-15) Blood Urea Nitrogen 42 mg/dL (7-18) H Creatinine 3.0 MG/DL (0.55-1.30) H Estimat Glomerular Filtration Rate 20.9 mL/min (>60) Glucose Level 99 MG/DL (74-106) Uric Acid 5.6 MG/DL (2.6-7.2) Calcium Level 9.1 MG/DL (8.5-10.1) Phosphorus Level 3.9 MG/DL (2.5-4.9) Magnesium Level 2.2 MG/DL (1.8-2.4) Total Bilirubin 0.3 MG/DL (0.2-1.0) Gamma Glutamyl Transpeptidase 195 U/L (5-85) H Aspartate Amino Transf (AST/SGOT) 45 U/L (15-37) H Alanine Aminotransferase (ALT/SGPT) 29 U/L (12-78) Alkaline Phosphatase 132 U/L (46-116) H Total Creatine Kinase 22 U/L (26-308) L Pro-B-Type Natriuretic Peptide 8664 pg/mL (0-125) H Total Protein 7.4 G/DL (6.4-8.2) Albumin 1.7 G/DL (3.4-5.0) L Globulin 5.7 g/dL Albumin/Globulin Ratio 0.3 (1.0-2.7) L Triglycerides Level 178 MG/DL (30-150) H Cholesterol Level 154 MG/DL (< 200) LDL Cholesterol 92 mg/dL (<100) HDL Cholesterol 27 MG/DL (40-60) L Cholesterol/HDL Ratio 5.7 (3.3-4.4) H Thyroid Stimulating Hormone (TSH) 1.409 uiU/mL (0.358-3.740) Phenytoin (Dilantin) Level 7.6 ug/mL (10-20) L Medications Current Medications Medications (Trade) Dose Ordered Sig/Sharif Route PRN Reason Start Time Stop Time Status Last Admin Dose Admin Acetaminophen (Tylenol) 650 mg Q4H PRN ORAL T>100.5 09/11/17 17:45 10/09/17 17:44 Albuterol/ Ipratropium (Albuterol/ Ipratropium) 3 ml Q4H PRN HHN Shortness of Breath 09/11/17 17:45 09/14/17 17:44 Amlodipine Besylate (Norvasc) 10 mg DAILY ORAL 09/12/17 09:00 10/10/17 08:59 09/12/17 08:47 Carvedilol (Coreg) 6.25 mg EVERY 12 HOURS ORAL 09/12/17 21:00 10/12/17 20:59 09/12/17 20:57 Clonidine HCl (Catapres Tab) 0.1 mg Q4H PRN ORAL SBP>160mmHg 09/11/17 18:00 10/09/17 17:59 09/12/17 20:59 Cyanocobalamin (Vitamin B12) 1,000 mcg DAILY SUBQ 09/12/17 09:00 09/13/17 09:01 09/12/17 09:40 Dextrose (Dextrose 50%) STAT PRN IV Hypoglycemia 09/12/17 17:30 10/09/17 17:29 Ertapenem 1 gm/ Sodium Chloride 55 ml @ 110 mls/hr Q24H IVPB 09/12/17 14:00 09/17/17 13:59 09/12/17 14:59 Folic Acid (Folate) 5 mg DAILY ORAL 09/12/17 09:00 10/12/17 08:59 09/12/17 09:38 Heparin Sodium (Porcine) (Heparin 5000 units/ml) 5,000 units EVERY 12 HOURS SUBQ 09/11/17 21:00 10/09/17 20:59 09/12/17 08:48 Insulin Aspart (NovoLOG) BEFORE MEALS AND HS SUBQ 09/11/17 21:00 10/09/17 20:59 09/12/17 20:59 Lorazepam (Ativan 2mg/ml 1ml) 0.5 mg Q4H PRN IV For Anxiety 09/11/17 17:45 09/16/17 17:44 Morphine Sulfate (Morphine Sulfate) 1 mg Q4H PRN IVP For Pain 7-10 09/11/17 17:45 09/16/17 17:44 Nitroglycerin (Ntg) 0.4 mg Q5M X 3 DOSES PRN SL Prn Chest Pain 09/11/17 17:45 10/09/17 17:29 Olanzapine (ZyPREXA) 5 mg DAILYPRN PRN ORAL severe agitation 09/11/17 17:45 10/11/17 17:44 Ondansetron HCl (Zofran) 4 mg Q6H PRN IVP Nausea & Vomiting 09/11/17 17:45 10/09/17 17:44 Phenytoin (Dilantin) 200 mg Q12HR ORAL 09/12/17 09:05 10/12/17 09:04 09/12/17 20:58 Polyethylene Glycol (Miralax) 17 gm HSPRN PRN ORAL Constipation 09/11/17 17:45 10/11/17 17:44 Sertraline HCl (Zoloft) 25 mg DAILY ORAL 09/12/17 09:00 10/11/17 17:14 09/12/17 08:46 Sodium Chloride 1,000 ml @ 75 mls/hr [id number] IV 09/11/17 17:45 10/11/17 17:44 09/12/17 20:55 Tamsulosin HCl (Flomax) 0.4 mg BEDTIME ORAL 09/11/17 21:00 10/11/17 20:59 09/12/17 20:58 Temazepam (Restoril) 15 mg HSPRN PRN ORAL Insomnia 09/11/17 21:00 09/18/17 20:59 Valproic Acid (Depakene) 250 mg Q12HR ORAL 09/12/17 09:00 10/12/17 08:59 09/12/17 20:57 Problems: (1) Renal insufficiency Status: Acute (2) UTI (urinary tract infection) Status: Acute (3) Anemia Status: Acute (4) Syncope Status: Acute (5) Blind (6) Renal failure (7) Seizure disorder (8) Deaf (9) Diabetes mellitus type II, controlled (10) Blind in both eyes (11) Chronic paranoid psychosis (12) sp severe TBI (13) Acute encephalopathy (14) COPD (chronic obstructive pulmonary disease) (15) HTN (hypertension) (16) Bacteremia (17) Respiratory failure (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 Sep 12, 2017 22:53
[2017-09-12] MEDS ORDERED: Fleet's Enema 133ml RECTAL ONE (23:00)
[2017-09-13] VITALS (11 sets, daily range): BP systolic 122–187; BP diastolic 75–99
[2017-09-13] MEDS: NovoLOG Insulin Flexpen SUBQ SCH ×4 (05:34→20:19)
--- NOTE | 2017-09-13 06:58 | Anethesia Preoperative Eval ---
Anesthesia Pre-op PMH/ROS General Date of Evaluation: Sep 13, 2017 Time of Evaluation: 06:49 Anesthesiologist: vincent ASA Score: ASA 4 Mallampati Score Class I : Soft palate, uvula, fauces, pillars visible Class II: Soft palate, uvula, fauces visible Class III: Soft palate, base of uvula visible Class IV: Only hard plate visible Mallampati Classification: Class II Surgeon: sho Surgical Procedure: egd/colonoscopy Anesthesia History: none Social History: smoking - former smoker Family History: no anesthesia problems Allergies: Coded Allergies: No Known Allergies (Unverified , 08/19/16) Medications: see eMAR Past Medical History Cardiovascular: Reports: HTN Pulmonary: Reports: other - respitory failure Neurologic/Psychiatric: Reports: other - paranoid Endocrine: Reports: DM HEENT: Reports: other - blind, deaf Hematology/Immune: Reports: anemia Anesthesia Pre-op Phys. Exam Physician Exam Last Vital Signs Date Time Temp Pulse Resp B/P (MAP) Pulse Ox O2 Delivery O2 Flow Rate FiO2 09/13/17 05:11 162/77 09/13/17 04:00 97.9 75 20 97 97.9 09/12/17 19:02 Room Air 21 Constitutional: NAD Neurologic: other - blind, deaf Cardiovascular: RRR Respiratory: CTA Gastrointestinal: S/NT/ND Airway Exam Mallampati Score: Class II MO: limited Neck: supple TMD: 2fb ROM: limited Anesthesia Pre-op A/P Labs Labs Test 09/11/17 00:40 09/11/17 02:00 09/11/17 04:30 09/11/17 18:50 White Blood Count 12.8 K/UL (4.8-10.8) Red Blood Count 3.31 M/UL (4.70-6.10) Hemoglobin 9.5 G/DL (14.2-18.0) Hematocrit 28.7 % (42.0-52.0) Mean Corpuscular Volume 86 FL (80-99) Mean Corpuscular Hemoglobin 28.7 PG (27.0-31.0) Mean Corpuscular Hemoglobin Concent 33.2 G/DL (32.0-36.0) Red Cell Distribution Width 14.6 % (11.6-14.8) Platelet Count 408 K/UL (150-450) Mean Platelet Volume 5.4 FL (6.5-10.1) Neutrophils (%) (Auto) 81.9 % (45.0-75.0) Lymphocytes (%) (Auto) 11.9 % (20.0-45.0) Monocytes (%) (Auto) 5.5 % (1.0-10.0) Eosinophils (%) (Auto) 0.5 % (0.0-3.0) Basophils (%) (Auto) 0.3 % (0.0-2.0) Sodium Level 138 MMOL/L (136-145) Potassium Level 4.5 MMOL/L (3.5-5.1) Chloride Level 108 MMOL/L (98-107) Carbon Dioxide Level 21 MMOL/L (21-32) Anion Gap 9 mmol/L (5-15) Blood Urea Nitrogen 40 mg/dL (7-18) Creatinine 2.7 MG/DL (0.55-1.30) Estimat Glomerular Filtration Rate 23.5 mL/min (>60) Glucose Level 100 MG/DL (74-106) Hemoglobin A1c 6.4 % (4.3-6.0) Calcium Level 8.8 MG/DL (8.5-10.1) Iron Level 23 ug/dL (50-175) Total Iron Binding Capacity 136 ug/dL (250-450) Percent Iron Saturation 17 % (15-50) Unsaturated Iron Binding 113 ug/dL (112-346) Total Bilirubin 0.3 MG/DL (0.2-1.0) Aspartate Amino Transf (AST/SGOT) 30 U/L (15-37) Alanine Aminotransferase (ALT/SGPT) 24 U/L (12-78) Alkaline Phosphatase 106 U/L (46-116) Total Protein 7.3 G/DL (6.4-8.2) Albumin 1.6 G/DL (3.4-5.0) Globulin 5.7 g/dL Albumin/Globulin Ratio 0.3 (1.0-2.7) Vitamin B12 Level 202 PG/ML (193-986) Folate 2.8 NG/ML (8.6-58.9) Phenytoin (Dilantin) Level 9.7 ug/mL (10-20) Urine Random Sodium 58 mmol/L (20-110) Ferritin 536 NG/ML (8-388) C-Reactive Protein, Quantitative > 70.0 mg/dL (0.00-0.90) Test 09/11/17 21:15 09/12/17 04:25 09/12/17 06:25 09/13/17 03:00 Urine Random Sodium 57 mmol/L (20-110) Urine Eosinophils Positive White Blood Count 13.8 K/UL (4.8-10.8) Red Blood Count 3.14 M/UL (4.70-6.10) Hemoglobin 9.1 G/DL (14.2-18.0) Hematocrit 27.6 % (42.0-52.0) Mean Corpuscular Volume 88 FL (80-99) Mean Corpuscular Hemoglobin 29.1 PG (27.0-31.0) Mean Corpuscular Hemoglobin Concent 33.1 G/DL (32.0-36.0) Red Cell Distribution Width 14.6 % (11.6-14.8) Platelet Count 434 K/UL (150-450) Mean Platelet Volume 5.2 FL (6.5-10.1) Neutrophils (%) (Auto) 82.8 % (45.0-75.0) Lymphocytes (%) (Auto) 11.5 % (20.0-45.0) Monocytes (%) (Auto) 5.1 % (1.0-10.0) Eosinophils (%) (Auto) 0.3 % (0.0-3.0) Basophils (%) (Auto) 0.2 % (0.0-2.0) Sodium Level 142 MMOL/L (136-145) Potassium Level 4.9 MMOL/L (3.5-5.1) Chloride Level 110 MMOL/L (98-107) Carbon Dioxide Level 21 MMOL/L (21-32) Anion Gap 11 mmol/L (5-15) Blood Urea Nitrogen 42 mg/dL (7-18) Creatinine 3.0 MG/DL (0.55-1.30) Estimat Glomerular Filtration Rate 20.9 mL/min (>60) Glucose Level 99 MG/DL (74-106) Uric Acid 5.6 MG/DL (2.6-7.2) Calcium Level 9.1 MG/DL (8.5-10.1) Phosphorus Level 3.9 MG/DL (2.5-4.9) Magnesium Level 2.2 MG/DL (1.8-2.4) Total Bilirubin 0.3 MG/DL (0.2-1.0) Gamma Glutamyl Transpeptidase 195 U/L (5-85) Aspartate Amino Transf (AST/SGOT) 45 U/L (15-37) Alanine Aminotransferase (ALT/SGPT) 29 U/L (12-78) Alkaline Phosphatase 132 U/L (46-116) Total Creatine Kinase 22 U/L (26-308) Pro-B-Type Natriuretic Peptide 8664 pg/mL (0-125) Total Protein 7.4 G/DL (6.4-8.2) Albumin 1.7 G/DL (3.4-5.0) Globulin 5.7 g/dL Albumin/Globulin Ratio 0.3 (1.0-2.7) Triglycerides Level 178 MG/DL (30-150) Cholesterol Level 154 MG/DL (< 200) LDL Cholesterol 92 mg/dL (<100) HDL Cholesterol 27 MG/DL (40-60) Cholesterol/HDL Ratio 5.7 (3.3-4.4) Thyroid Stimulating Hormone (TSH) 1.409 uiU/mL (0.358-3.740) Phenytoin (Dilantin) Level 7.6 ug/mL (10-20) Risk Assessment & Plan Assessment: [email or web address] Plan: mac Status Change Before Surgery: No Pre-Antibiotics Drug: CARMELINA Tong Sep 13, 2017 06:58
--- NOTE | 2017-09-13 06:59 | Pre-Procedure Note/Attestation ---
Pre-Procedure Note/Attestation Complete Prior to Procedure Planned Procedure: not applicable Procedure Narrative: esophagogastroduodenoscopy and colonoscopy Indications for Procedure Pre-Operative Diagnosis: anemia Attestation I attest that I discussed the nature of the procedure; its benefits; risks and complications; and alternatives (and the risks and benefits of such alternatives ), prior to the procedure, with the patient (or the patient's legal b2b sales representative). I attest that, if there was a reasonable possibility of needing a blood transfusion, the patient (or the patient's legal b2b sales representative) was given the [facility] standardized written summary, pursuant to the Tam Matias Blood Safety Act ([place] Health and Safety Code # 1645, as amended). I attest that I re-evaluated the patient just prior to the surgery and that there has been no change in the patient's H&P, except as documented below: SILVINA ORTEGA Sep 13, 2017 06:59
[2017-09-13] MEDS ORDERED: Atropine Inj 1mg/10ml Syr IV PRN (07:00)
[2017-09-13] MEDS ORDERED: fentaNYL 100 mcg/2 mL IV PRN (07:00)
[2017-09-13] MEDS ORDERED: Propofol 200mg/20ml IV ONE (07:00)
[2017-09-13] MEDS ORDERED: DiphenhydrAMINE 50mg/ml Inj IVP PRN (07:00)
[2017-09-13] MEDS ORDERED: Midazolam 2mg/2ml Inj IVP PRN (07:00)
[2017-09-13] MEDS ORDERED: Lidocaine 1% MPF 10mg/ml 5ml ONE (07:00)
--- NOTE | 2017-09-13 07:00 | General Progress Note ---
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 ICD Codes: H54.3 - Unqualified visual loss, both eyes SNOMED: 87574079, 626127968 (3) Deaf ICD Codes: H91.90 - Unspecified hearing loss, unspecified ear SNOMED: 29124004 (4) Seizure disorder ICD Codes: G40.909 - Epilepsy, unspecified, not intractable, without status epilepticus SNOMED: 361141383 (5) Anemia ICD Codes: D64.9 - Anemia, unspecified SNOMED: 813196834 Qualifiers: Qualified Codes: D64.9 - Anemia, unspecified Assessment/Plan plan EGD and colonoscopy today Subjective ROS Limited/Unobtainable: No Allergies: Coded Allergies: No Known Allergies (Unverified , 08/19/16) Objective Last 24 Hour Vital Signs Date Time Temp Pulse Resp B/P (MAP) Pulse Ox O2 Delivery O2 Flow Rate FiO2 09/13/17 05:11 162/77 09/13/17 04:00 97.9 75 20 162/77 97 97.9 09/13/17 00:00 97.7 73 22 156/87 98 97.7 09/12/17 20:59 166/77 09/12/17 20:57 73 166/77 09/12/17 20:00 97.6 73 21 166/77 98 97.6 09/12/17 19:02 82 20 Room Air 21 09/12/17 18:30 97.5 72 20 165/76 100 97.5 09/12/17 16:20 176/81 09/12/17 16:05 73 09/12/17 16:00 97.7 73 20 176/81 100 97.7 09/12/17 16:00 72 09/12/17 12:00 97.4 67 20 159/79 97 97.4 09/12/17 08:47 86 174/90 09/12/17 08:47 86 174/90 09/12/17 08:00 97.6 73 20 174/90 97 97.6 09/12/17 07:58 73 20 Room Air 21 Intake and Output 09/12/17 09/13/17 19:00 07:00 Intake Total 1345 ml 600 ml Balance 1345 ml 600 ml Intake Oral 840 ml IV Total 505 ml 600 ml # Voids 7 # Bowel Movements 3 Laboratory Tests 09/13/17 03:00: Urine Eosinophils [Pending] Height (Feet): 6 Height (Inches): 6.00 Weight (Pounds): 172 General Appearance: no apparent distress EENT: normal ENT inspection Neck: supple Cardiovascular: normal rate Respiratory/Chest: decreased breath sounds Abdomen: normal bowel sounds, non tender, soft Extremities: non-tender SILVINA ORTEGA Sep 13, 2017 07:00
[2017-09-13] MEDS ORDERED: NS 500ML IV ONE (07:05)
--- NOTE | 2017-09-13 07:28 | Endoscopy Procedure Note ---
Endoscopy Procedure Note General Indication for Procedure: anemia Procedures Performed: EGD Operative Findings/Diagnosis: gu, gastritis Specimen: yes Pt Tolerated Procedure Well: Yes Estimated Blood Loss: none Anesthesia Anesthesiologist: robb Anesthesia: MAC Inserted Devices Implant(s) used?: No GI Core Measures 50 yrs or older w/o bx or poly: Not Applicable 10yrs. F/U not recommended: Not Applicable SILVINA OTREGA Sep 13, 2017 07:28
[2017-09-13] MEDS: Heparin 5000 units/ml inj SUBQ SCH ×2 (09:00→20:19)
--- NOTE | 2017-09-13 09:05 | 48 Hour Post Anesthesia Eval ---
Post Anesthesia Evaluation Procedure: egd/colonoscopy Date of Evaluation: Sep 13, 2017 Time of Evaluation: 07:49 Blood Pressure Systolic: 187 0: 85 Pulse Rate: 68 Respiratory Rate: 18 Temperature (Fahrenheit): 97.3 O2 Sat by Pulse Oximetry: 100 Airway: patent Nausea: No Vomiting: No Pain Intensity: 0 Hydration Status: adequate Cardiopulmonary Status: stable Mental Status/LOC: patient returned to baseline Post-Anesthesia Complications: none Follow-up care needed: N/A CARMELINA MUNIZ Sep 13, 2017 09:05
--- NOTE | 2017-09-13 09:05 | Immediate Post-Op Evaluation ---
Immediate Post-Op Evalulation Immediate Post-Op Evalulation Procedure: egd/colonoscopy Date of Evaluation: Sep 13, 2017 Time of Evaluation: 07:47 IV Fluids: 200ml 0.9ns Blood Products: none Estimated Blood Loss: negligible Blood Pressure Systolic: 169 Blood Pressure Diastolic: 88 Pulse Rate: 68 Respiratory Rate: 18 O2 Sat by Pulse Oximetry: 100 Temperature (Fahrenheit): 97.3 Pain Score (1-10): 0 Nausea: No Vomiting: No Complications none Patient Status: awake, reacts, patent Hydration Status: adequate Drug: CARMELINA Tong Sep 13, 2017 09:05
[2017-09-13] MEDS: Sertraline 50mg tab ORAL SCH (09:51)
[2017-09-13] MEDS: Phenytoin Susp 100mg/4ml ORAL SCH ×2 (09:51→20:17)
[2017-09-13] MEDS: Carvedilol 6.25mg Tab ORAL SCH ×2 (09:51→20:18)
[2017-09-13] MEDS: Valproic Acid 250mg/5ml Liquid ORAL SCH ×2 (09:51→20:17)
[2017-09-13] MEDS: Vitamin B12 1000mcg/ml Inj SUBQ SCH (09:52)
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
--- NOTE | 2017-09-13 10:39 | General Progress Note ---
Assessment/Plan Status: unchanged Assessment/Plan 1. Anemia due to underlying chronic disease. Closely monitor. --> Anemia workup completed and reviewed. --> Iron 23, TIBC 136, Ferritin 536, Vit B12 202, Folate 2.8 --> Occult blood has been detected. Consider GI services and recommendations. --> Transfuse if hgb <7 or symptomatic. 2. Leukocytosis, potentially secondary to infection versus reactive process. --> Wbc count improved from yesterday. 3. Thrombocytosis secondary to reactive process from anemia. --> Platelet count now WNL. Resolved. 4. Seizures. 5. Hypertension. --> Monitor BP 6. Cerebrovascular accident and transient ischemic attack. --> Closely monitor. 7. Tetanus. Evaluate as needed. Time of document entry does not reflect date patient was seen Subjective Date patient seen: Sep 12, 2017 Constitutional: Denies: no symptoms, chills, diaphoresis, fever, malaise, weakness, other HEENT: Denies: no symptoms, eye pain, blurred vision, tearing, double vision, ear pain, ear discharge, nose pain, nose congestion, throat pain, throat swelling, mouth pain, mouth swelling, other Cardiovascular: Denies: no symptoms, chest pain, edema, irregular heart rate, lightheadedness, palpitations, syncope, other Respiratory: Denies: no symptoms, cough, orthopnea, shortness of breath, SOB with excertion, SOB at rest, sputum, stridor, wheezing, other Gastrointestinal/Abdominal: Denies: no symptoms, abdomen distended, abdominal pain, black stools, tarry stools, blood in stool, constipated, diarrhea, difficulty swallowing, nausea, poor appetite, poor fluid intake, rectal bleeding , vomiting, other Genitourinary: Denies: no symptoms, burning, discharge, frequency, flank pain, hematuria, incontinence, pain, urgency, other Neurologic/Psychiatric: Denies: no symptoms, anxiety, depressed, emotional problems, headache, numbness, paresthesia, pre-existing deficit, seizure, tingling, tremors, weakness, other Hematologic/Lymphatic: Reports: anemia Allergies: Coded Allergies: No Known Allergies (Unverified , 08/19/16) Subjective Occult blood found. No fever. On abx. Objective Last 24 Hour Vital Signs Date Time Temp Pulse Resp B/P (MAP) Pulse Ox O2 Delivery O2 Flow Rate FiO2 3/7/18 09:51 66 183/83 09/13/17 09:51 183/83 09/13/17 09:51 66 183/83 09/13/17 08:10 97.6 66 19 183/83 100 Room Air 97.6 09/13/17 07:55 68 18 185/85 100 Room Air 09/13/17 07:45 68 19 187/85 100 Room Air 09/13/17 07:40 68 19 165/89 100 Simple Mask 6.0 09/13/17 07:35 97.3 68 20 169/88 100 Simple Mask 6.0 97.3 09/13/17 05:11 162/77 09/13/17 04:00 97.9 75 20 162/77 97 97.9 09/13/17 00:00 97.7 73 22 156/87 98 97.7 09/12/17 20:59 166/77 09/12/17 20:57 73 166/77 09/12/17 20:00 97.6 73 21 166/77 98 97.6 09/12/17 19:02 82 20 Room Air 21 09/12/17 18:30 97.5 72 20 165/76 100 97.5 09/12/17 16:20 176/81 09/12/17 16:05 73 09/12/17 16:00 97.7 73 20 176/81 100 97.7 09/12/17 16:00 72 09/12/17 12:00 97.4 67 20 159/79 97 97.4 Intake and Output 09/12/17 09/13/17 19:00 07:00 Intake Total 1345 ml 600 ml Balance 1345 ml 600 ml Intake Oral 840 ml IV Total 505 ml 600 ml # Voids 7 # Bowel Movements 3 Laboratory Tests 09/13/17 03:00: Urine Eosinophils Positive Height (Feet): 6 Height (Inches): 6.00 Weight (Pounds): 172 General Appearance: confused Neck: normal alignment Respiratory/Chest: decreased breath sounds Juaquin Mace Sep 13, 2017 10:39
--- NOTE | 2017-09-13 10:51 | Diagnostic Imaging Report ---
Indication:Elevated Bun and Creatinine. Technique: Grayscale and duplex Doppler imaging of the kidneys performed. Comparison: None Findings: There is moderate bilateral hydronephrosis demonstrated. Both kidneys measure between 12 and 13 cm in length. The bladder is mildly distended as well. There is thickening of the bladder wall. IMPRESSION: Moderate bilateral hydronephrosis. Mild distention of the urinary bladder with thickened wall. Cystitis suspected. Please correlate clinically.
[2017-09-13 11:22] LABS: BASOPHILS % (AUTO) 0.3 % (0.0-2.0); HEMATOCRIT 28.3 % (42.0-52.0); HEMOGLOBIN 9.1 G/DL (14.2-18.0); LYMPHOCYTES % (AUTO) 13.6 % (20.0-45.0); MEAN CORPUSCULAR VOLUME 89 FL (80-99); MONOCYTES % (AUTO) 5.4 % (1.0-10.0); NEUTROPHILS % (AUTO) 79.7 % (45.0-75.0); PLATELET COUNT 394 K/UL (150-450); RED BLOOD COUNT 3.19 M/UL (4.70-6.10); RED CELL DISTRIBUTION WIDTH 14.7 % (11.6-14.8); WHITE BLOOD COUNT 8.2 K/UL (4.8-10.8)
[2017-09-13 11:36] LABS: INR 1.1 (0.9-1.1)
[2017-09-13 11:45] LABS: PHOSPHORUS 4.2 MG/DL (2.5-4.9)
[2017-09-13 12:32] LABS: ALANINE AMINOTRANSFERASE 23 U/L (12-78); ALBUMIN 1.7 G/DL (3.4-5.0); ALBUMIN/GLOBULIN RATIO 0.3 (1.0-2.7); ALKALINE PHOSPHATASE 109 U/L (46-116); ANION GAP 8 mmol/L (5-15); ASPARTATE AMINO TRANSFERASE 25 U/L (15-37); BILIRUBIN,TOTAL 0.2 MG/DL (0.2-1.0); BLOOD UREA NITROGEN 32 mg/dL (7-18); CALCIUM 9.1 MG/DL (8.5-10.1); CARBON DIOXIDE 24 MMOL/L (21-32); CHLORIDE 113 MMOL/L (98-107); CREATININE 2.9 MG/DL (0.55-1.30); POTASSIUM 4.5 MMOL/L (3.5-5.1); SODIUM 145 MMOL/L (136-145)
--- NOTE | 2017-09-13 12:35 | Internal Med Progress Note ---
Subjective Date of Service: Sep 13, 2017 Physician Name Chai Seth Attending Physician Remi Wren MD Current Medications Medications (Trade) Dose Ordered Sig/Sharif Route PRN Reason Start Time Stop Time Status Last Admin Dose Admin Acetaminophen (Tylenol) 650 mg Q4H PRN ORAL T>100.5 09/11/17 17:45 10/09/17 17:44 Al Hydroxide/Mg Hydroxide (Mylanta) 15 ml Q1H PRN ORAL gi upset 09/13/17 07:00 09/13/17 13:00 Albuterol/ Ipratropium (Albuterol/ Ipratropium) 3 ml Q4H PRN HHN Shortness of Breath 09/11/17 17:45 09/14/17 17:44 Amlodipine Besylate (Norvasc) 10 mg DAILY ORAL 09/12/17 09:00 10/10/17 08:59 09/13/17 09:51 Atropine Sulfate (Atropine) 0.5 mg Q5M PRN IV HR less than 45bpm 09/13/17 07:00 09/13/17 13:00 Carvedilol (Coreg) 6.25 mg EVERY 12 HOURS ORAL 09/12/17 21:00 10/12/17 20:59 09/13/17 09:51 Clonidine HCl (Catapres Tab) 0.1 mg Q4H PRN ORAL SBP>160mmHg 09/11/17 18:00 10/09/17 17:59 09/13/17 09:51 Dextrose (Dextrose 50%) STAT PRN IV Hypoglycemia 09/12/17 17:30 10/09/17 17:29 Diphenhydramine HCl (Benadryl) 25 mg Q15M PRN IVP Itching 09/13/17 07:00 09/13/17 13:00 Ertapenem 1 gm/ Sodium Chloride 55 ml @ 110 mls/hr Q24H IVPB 09/12/17 14:00 09/17/17 13:59 09/12/17 14:59 Fentanyl Citrate (Sublimaze 100 mcg/2 mL) 25 mcg Q10M PRN IV Moderate Pain (Pain Scale 4-6) 09/13/17 07:00 09/13/17 13:00 Folic Acid (Folate) 5 mg DAILY ORAL 09/12/17 09:00 10/12/17 08:59 09/13/17 09:51 Heparin Sodium (Porcine) (Heparin 5000 units/ml) 5,000 units EVERY 12 HOURS SUBQ 09/11/17 21:00 10/09/17 20:59 09/12/17 08:48 Hydralazine HCl (Apresoline) 5 mg Q30M PRN IV SBP>160 /DBP>90 09/13/17 07:00 09/13/17 13:00 Insulin Aspart (NovoLOG) BEFORE MEALS AND HS SUBQ 09/11/17 21:00 10/09/17 20:59 09/13/17 12:16 Lorazepam (Ativan 2mg/ml 1ml) 0.5 mg Q4H PRN IV For Anxiety 09/11/17 17:45 09/16/17 17:44 09/12/17 22:48 Midazolam HCl (Versed 2mg/2ml vial) 1 mg Q15M PRN IVP For Anxiety 09/13/17 07:00 09/13/17 13:00 Morphine Sulfate (Morphine Sulfate) 1 mg Q4H PRN IVP For Pain 01-1609/11/17 17:45 09/16/17 17:44 Nitroglycerin (Ntg) 0.4 mg Q5M X 3 DOSES PRN SL Prn Chest Pain 09/11/17 17:45 10/09/17 17:29 Olanzapine (ZyPREXA) 5 mg DAILYPRN PRN ORAL severe agitation 09/11/17 17:45 10/11/17 17:44 Ondansetron HCl (Zofran) 4 mg Q1H PRN IVP Nausea & Vomiting 09/13/17 07:00 09/13/17 13:00 Ondansetron HCl (Zofran) 4 mg Q6H PRN IVP Nausea & Vomiting 09/11/17 17:45 10/09/17 17:44 Pantoprazole (Protonix) 40 mg DAILY ORAL 09/13/17 09:00 10/13/17 08:59 09/13/17 09:51 Phenytoin (Dilantin) 200 mg Q12HR ORAL 09/12/17 09:05 10/12/17 09:04 09/13/17 09:51 Polyethylene Glycol (Miralax) 17 gm HSPRN PRN ORAL Constipation 09/11/17 17:45 10/11/17 17:44 Sertraline HCl (Zoloft) 25 mg DAILY ORAL 09/12/17 09:00 10/11/17 17:14 09/13/17 09:51 Sodium Chloride 1,000 ml @ 75 mls/hr [id number] IV 09/11/17 17:45 10/11/17 17:44 09/13/17 09:52 Tamsulosin HCl (Flomax) 0.4 mg BEDTIME ORAL 09/11/17 21:00 10/11/17 20:59 09/12/17 20:58 Temazepam (Restoril) 15 mg HSPRN PRN ORAL Insomnia 09/11/17 21:00 09/18/17 20:59 Valproic Acid (Depakene) 250 mg Q12HR ORAL 09/12/17 09:00 10/12/17 08:59 09/13/17 09:51 Allergies: Coded Allergies: No Known Allergies (Unverified , 08/19/16) ROS Limited/Unobtainable: Yes Subjective 67 YO M admitted with vertigo and severe anemia. S/P transfusion. S/P endoscopy today Mon09/13/17. Cover for Int Med-Dr Wren. Objective Last Vital Signs Date Time Temp Pulse Resp B/P (MAP) Pulse Ox O2 Delivery O2 Flow Rate FiO2 09/13/17 09:51 66 183/83 09/13/17 08:10 97.6 19 100 Room Air 97.6 09/13/17 07:40 6.0 09/12/17 19:02 21 Laboratory Tests Test 09/13/17 03:00 09/13/17 08:30 09/13/17 10:40 Urine Eosinophils Positive Stool Occult Blood Pending White Blood Count 8.2 K/UL (4.8-10.8) Red Blood Count 3.19 M/UL (4.70-6.10) L Hemoglobin 9.1 G/DL (14.2-18.0) L Hematocrit 28.3 % (42.0-52.0) L Mean Corpuscular Volume 89 FL (80-99) Mean Corpuscular Hemoglobin 28.6 PG (27.0-31.0) Mean Corpuscular Hemoglobin Concent 32.3 G/DL (32.0-36.0) Red Cell Distribution Width 14.7 % (11.6-14.8) Platelet Count 394 K/UL (150-450) Mean Platelet Volume 5.1 FL (6.5-10.1) L Neutrophils (%) (Auto) 79.7 % (45.0-75.0) H Lymphocytes (%) (Auto) 13.6 % (20.0-45.0) L Monocytes (%) (Auto) 5.4 % (1.0-10.0) Eosinophils (%) (Auto) 1.0 % (0.0-3.0) Basophils (%) (Auto) 0.3 % (0.0-2.0) Haptoglobin Pending Prothrombin Time 11.1 SEC (9.30-11.50) Prothromb Time International Ratio 1.1 (0.9-1.1) Activated Partial Thromboplast Time 30 SEC (23-33) Sodium Level 145 MMOL/L (136-145) Potassium Level 4.5 MMOL/L (3.5-5.1) Chloride Level 113 MMOL/L (98-107) H Carbon Dioxide Level 24 MMOL/L (21-32) Anion Gap 8 mmol/L (5-15) Blood Urea Nitrogen 32 mg/dL (7-18) H Creatinine 2.9 MG/DL (0.55-1.30) H Estimat Glomerular Filtration Rate 21.7 mL/min (>60) Glucose Level 132 MG/DL (74-106) H Calcium Level 9.1 MG/DL (8.5-10.1) Phosphorus Level 4.2 MG/DL (2.5-4.9) Magnesium Level 2.1 MG/DL (1.8-2.4) Total Bilirubin 0.2 MG/DL (0.2-1.0) Aspartate Amino Transf (AST/SGOT) 25 U/L (15-37) Alanine Aminotransferase (ALT/SGPT) 23 U/L (12-78) Alkaline Phosphatase 109 U/L (46-116) Total Protein 7.4 G/DL (6.4-8.2) Albumin 1.7 G/DL (3.4-5.0) L Globulin 5.7 g/dL Albumin/Globulin Ratio 0.3 (1.0-2.7) L Methylmalonic Acid Pending Homocystine Pending Valproic Acid (Depakene) Level 6 MCG/ML (50-100) L Intake and Output 09/12/17 09/13/17 19:00 07:00 Intake Total 1345 ml 600 ml Balance 1345 ml 600 ml Intake Oral 840 ml IV Total 505 ml 600 ml # Voids 7 # Bowel Movements 3 Objective General Appearance: WD/WN, lethargic EENT: normal ENT inspection Neck: non-tender, normal alignment, supple, normal inspection Cardiovascular: normal peripheral pulses, normal rate, regular rhythm, no gallop/murmur, no JVD Respiratory/Chest: chest wall non-tender, lungs clear, normal breath sounds, no respiratory distress, no accessory muscle use Abdomen: normal bowel sounds, non tender, soft, no organomegaly, no mass Extremities: non-tender 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 Await neurology consult. (3) Renal failure Assessment & Plan: Await nephrology consult. 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 S/P transfusion 2 units PRBC total. Await colonoscopy and endoscopy 09/13/17. (8) Gastric ulcer Assessment & Plan: S/P endoscopy 09/13/17. See GI note. Continue protonix (9) Gastritis Assessment & Plan: Continue protonix Status: not improved Assessment/Plan Discharge planning: patient is bed bound and requires hospital bed at home. CHAI SETH Sep 13, 2017 12:35
--- NOTE | 2017-09-13 13:57 | Nephrology Progress Note ---
Assessment/Plan Problem List: (1) Renal failure (2) HTN (hypertension) (3) Diabetes mellitus type II, controlled Assessment - Anemia. - Diabetes. - Hypertension. - Seizure disorder. - Renal failure. acute on chronic - Deaf. - Blind. Plan add hydralazine to bp meds hydrate- urine studies- avoid nephrotoxics B12- Folate- Iron monitor renal parameters ? DC planning Subjective ROS Limited/Unobtainable: No Constitutional: Reports: malaise Objective Objective Last 24 Hour Vital Signs Date Time Temp Pulse Resp B/P (MAP) Pulse Ox O2 Delivery O2 Flow Rate FiO2 09/13/17 13:00 207.1 68 18 100 09/13/17 12:58 207.1 68 18 100 09/13/17 12:00 97.6 85 18 162/99 100 Room Air 97.6 09/13/17 09:51 66 183/83 09/13/17 09:51 183/83 09/13/17 09:51 66 183/83 09/13/17 08:10 97.6 66 19 183/83 100 Room Air 97.6 09/13/17 07:55 68 18 185/85 100 Room Air 09/13/17 07:45 68 19 187/85 100 Room Air 09/13/17 07:40 68 19 165/89 100 Simple Mask 6.0 09/13/17 07:35 97.3 68 20 169/88 100 Simple Mask 6.0 97.3 09/13/17 05:11 162/77 09/13/17 04:00 97.9 75 20 162/77 97 97.9 09/13/17 00:00 97.7 73 22 156/87 98 97.7 09/12/17 20:59 166/77 09/12/17 20:57 73 166/77 09/12/17 20:00 97.6 73 21 166/77 98 97.6 09/12/17 19:02 82 20 Room Air 21 09/12/17 18:30 97.5 72 20 165/76 100 97.5 09/12/17 16:20 176/81 09/12/17 16:05 73 09/12/17 16:00 97.7 73 20 176/81 100 97.7 09/12/17 16:00 72 Intake and Output 09/12/17 09/13/17 19:00 07:00 Intake Total 1345 ml 600 ml Balance 1345 ml 600 ml Intake Oral 840 ml IV Total 505 ml 600 ml # Voids 7 # Bowel Movements 3 Laboratory Tests 09/13/17 03:00: Urine Eosinophils Positive 09/13/17 08:30: Stool Occult Blood [Pending] 09/13/17 10:40: White Blood Count 8.2, Red Blood Count 3.19L, Hemoglobin 9.1L, Hematocrit 28.3L , Mean Corpuscular Volume 89, Mean Corpuscular Hemoglobin 28.6, Mean Corpuscular Hemoglobin Concent 32.3, Red Cell Distribution Width 14.7, Platelet Count 394, Mean Platelet Volume 5.1L, Neutrophils (%) (Auto) 79.7H, Lymphocytes (%) (Auto) 13.6L, Monocytes (%) (Auto) 5.4, Eosinophils (%) (Auto) 1.0, Basophils (%) (Auto) 0.3, Haptoglobin [Pending], Prothrombin Time 11.1, Prothromb Time International Ratio 1.1, Activated Partial Thromboplast Time 30, Sodium Level 145, Potassium Level 4.5, Chloride Level 113H, Carbon Dioxide Level 24, Anion Gap 8, Blood Urea Nitrogen 32H, Creatinine 2.9H, Estimat Glomerular Filtration Rate 21.7, Glucose Level 132H, Calcium Level 9.1, Phosphorus Level 4.2, Magnesium Level 2.1, Total Bilirubin 0.2, Aspartate Amino Transf (AST/SGOT) 25, Alanine Aminotransferase (ALT/SGPT) 23, Alkaline Phosphatase 109, Total Protein 7.4, Albumin 1.7L, Globulin 5.7, Albumin/ Globulin Ratio 0.3L, Methylmalonic Acid [Pending], Homocystine [Pending], Valproic Acid (Depakene) Level 6L Height (Feet): 6 Height (Inches): 6.00 Weight (Pounds): 172 General Appearance: no apparent distress Objective no change BRAYAN BRITO Sep 13, 2017 13:57
--- NOTE | 2017-09-13 14:18 | Wound Care Consultation ---
Wound Assessment Wound Assessment #1: Wound Number: 1 Wound Present on Admission: Yes New Wound: No Status Change of Wound: No Wound Location Body Site Modif: left Wound Location Body Site: trochanter Wound Type: pressure ulcer Eron Test: Does not Eron Pressure Ulcer Stage: Unstageable Wound Thickness: Full Thickness Wound Length: 7.0 Wound Width: 5.0 Wound Depth: utd Percent of Wound Bed Yellow/Wh: 100 Wound Drainage Description: Serosanguineous Wound Drainage Amount: Moderate Wound Drainage Odor: None/Absent Tissue Surrounding Wound: Macerated Wound General Appearance: Draining, Necrotic Wound Assessment #2: Wound Number: 2 Wound Present on Admission: Yes New Wound: No Status Change of Wound: No Wound Location Body Site Modif: left, lateral Wound Location Body Site: malleolus/ankle Wound Type: pressure ulcer Eron Test: Does not Eron Pressure Ulcer Stage: I Wound Length: 3.0 Wound Width: 3.0 Percent of Wound [place]/Red: 100 Wound Drainage Amount: None Wound Drainage Odor: None/Absent Tissue Surrounding Wound: Intact Wound General Appearance: Reddened Wound Comment #1 left trochanter unstageable pressure ulcer #2 left lateral malleolus stage 1 Assessed left 1st tip of toe no DTI present, skin remains intact at this time, no maroon or red color present recommendation offload toes, reassess repositioning and avoid foot of bed. Recommendation. -Local wound care as ordered per protocol. -Turn and reposition. -Keep clean and dry. -Optimize nutrition. -Apply low air loss mattress. -Heel protectors. -Assess and notify MD for any change of condition to skin noted. ROSA TAFOYA Sep 13, 2017 14:18
--- NOTE | 2017-09-13 14:46 | Pulmonology Progress Note ---
Assessment/Plan Problems: (1) Acute encephalopathy (2) COPD (chronic obstructive pulmonary disease) (3) UTI (urinary tract infection) (4) Anemia (5) HTN (hypertension) (6) Diabetes mellitus type II, controlled (7) Seizure disorder Assessment/Plan urine has MDR Ecoli sensitive to zosyn respiratory treatment swallow study today check sputum check urine culture anemia w/u stool of OB GI f/u hem f/u pt will be going home Subjective ROS Limited/Unobtainable: No Allergies: Coded Allergies: No Known Allergies (Unverified , 08/19/16) Objective Last 24 Hour Vital Signs Date Time Temp Pulse Resp B/P (MAP) Pulse Ox O2 Delivery O2 Flow Rate FiO2 09/13/17 13:00 207.1 68 18 100 09/13/17 12:58 207.1 68 18 100 09/13/17 12:00 97.6 85 18 162/99 100 Room Air 97.6 09/13/17 09:51 66 183/83 09/13/17 09:51 183/83 09/13/17 09:51 66 183/83 09/13/17 08:10 97.6 66 19 183/83 100 Room Air 97.6 09/13/17 07:55 68 18 185/85 100 Room Air 09/13/17 07:45 68 19 187/85 100 Room Air 09/13/17 07:40 68 19 165/89 100 Simple Mask 6.0 09/13/17 07:35 97.3 68 20 169/88 100 Simple Mask 6.0 97.3 09/13/17 05:11 162/77 09/13/17 04:00 97.9 75 20 162/77 97 97.9 09/13/17 00:00 97.7 73 22 156/87 98 97.7 09/12/17 20:59 166/77 09/12/17 20:57 73 166/77 09/12/17 20:00 97.6 73 21 166/77 98 97.6 09/12/17 19:02 82 20 Room Air 21 09/12/17 18:30 97.5 72 20 165/76 100 97.5 09/12/17 16:20 176/81 09/12/17 16:05 73 09/12/17 16:00 97.7 73 20 176/81 100 97.7 09/12/17 16:00 72 Intake and Output 09/12/17 09/13/17 19:00 07:00 Intake Total 1345 ml 600 ml Balance 1345 ml 600 ml Intake Oral 840 ml IV Total 505 ml 600 ml # Voids 7 # Bowel Movements 3 General Appearance: cachetic HEENT: normocephalic, atraumatic Respiratory/Chest: chest wall non-tender, lungs clear Cardiovascular: normal peripheral pulses, normal rate Abdomen: normal bowel sounds, soft, non tender Genitourinary: normal external genitalia Extremities: no clubbing Skin: no lesions Laboratory Tests 09/13/17 03:00: Urine Eosinophils Positive 09/13/17 08:30: Stool Occult Blood [Pending] 09/13/17 10:40: White Blood Count 8.2, Red Blood Count 3.19L, Hemoglobin 9.1L, Hematocrit 28.3L , Mean Corpuscular Volume 89, Mean Corpuscular Hemoglobin 28.6, Mean Corpuscular Hemoglobin Concent 32.3, Red Cell Distribution Width 14.7, Platelet Count 394, Mean Platelet Volume 5.1L, Neutrophils (%) (Auto) 79.7H, Lymphocytes (%) (Auto) 13.6L, Monocytes (%) (Auto) 5.4, Eosinophils (%) (Auto) 1.0, Basophils (%) (Auto) 0.3, Haptoglobin [Pending], Prothrombin Time 11.1, Prothromb Time International Ratio 1.1, Activated Partial Thromboplast Time 30, Sodium Level 145, Potassium Level 4.5, Chloride Level 113H, Carbon Dioxide Level 24, Anion Gap 8, Blood Urea Nitrogen 32H, Creatinine 2.9H, Estimat Glomerular Filtration Rate 21.7, Glucose Level 132H, Calcium Level 9.1, Phosphorus Level 4.2, Magnesium Level 2.1, Total Bilirubin 0.2, Aspartate Amino Transf (AST/SGOT) 25, Alanine Aminotransferase (ALT/SGPT) 23, Alkaline Phosphatase 109, Total Protein 7.4, Albumin 1.7L, Globulin 5.7, Albumin/ Globulin Ratio 0.3L, Methylmalonic Acid [Pending], Homocystine [Pending], Valproic Acid (Depakene) Level 6L Current Medications Medications (Trade) Dose Ordered Sig/Sharif Route PRN Reason Start Time Stop Time Status Last Admin Dose Admin Acetaminophen (Tylenol) 650 mg Q4H PRN ORAL T>100.5 09/11/17 17:45 10/09/17 17:44 Albuterol/ Ipratropium (Albuterol/ Ipratropium) 3 ml Q4H PRN HHN Shortness of Breath 09/11/17 17:45 09/14/17 17:44 Amlodipine Besylate (Norvasc) 10 mg DAILY ORAL 09/12/17 09:00 10/10/17 08:59 09/13/17 09:51 Carvedilol (Coreg) 6.25 mg EVERY 12 HOURS ORAL 09/12/17 21:00 10/12/17 20:59 09/13/17 09:51 Dextrose (Dextrose 50%) STAT PRN IV Hypoglycemia 09/12/17 17:30 10/09/17 17:29 Ertapenem 1 gm/ Sodium Chloride 55 ml @ 110 mls/hr Q24H IVPB 09/12/17 14:00 09/17/17 13:59 09/12/17 14:59 Folic Acid (Folate) 5 mg DAILY ORAL 09/12/17 09:00 10/12/17 08:59 09/13/17 09:51 Heparin Sodium (Porcine) (Heparin 5000 units/ml) 5,000 units EVERY 12 HOURS SUBQ 09/11/17 21:00 10/09/17 20:59 09/12/17 08:48 Hydralazine HCl (Apresoline) 25 mg Q8HR ORAL 09/13/17 14:00 10/13/17 13:59 Insulin Aspart (NovoLOG) BEFORE MEALS AND HS SUBQ 09/11/17 21:00 10/09/17 20:59 09/13/17 12:16 Lorazepam (Ativan 2mg/ml 1ml) 0.5 mg Q4H PRN IV For Anxiety 09/11/17 17:45 09/16/17 17:44 09/12/17 22:48 Morphine Sulfate (Morphine Sulfate) 1 mg Q4H PRN IVP For Pain 7-10 09/11/17 17:45 09/16/17 17:44 Nitroglycerin (Ntg) 0.4 mg Q5M X 3 DOSES PRN SL Prn Chest Pain 09/11/17 17:45 10/09/17 17:29 Olanzapine (ZyPREXA) 5 mg DAILYPRN PRN ORAL severe agitation 09/11/17 17:45 10/11/17 17:44 Ondansetron HCl (Zofran) 4 mg Q6H PRN IVP Nausea & Vomiting 09/11/17 17:45 10/09/17 17:44 Pantoprazole (Protonix) 40 mg DAILY ORAL 09/13/17 09:00 10/13/17 08:59 09/13/17 09:51 Phenytoin (Dilantin) 200 mg Q12HR ORAL 09/12/17 09:05 10/12/17 09:04 09/13/17 09:51 Polyethylene Glycol (Miralax) 17 gm HSPRN PRN ORAL Constipation 09/11/17 17:45 10/11/17 17:44 Sertraline HCl (Zoloft) 25 mg DAILY ORAL 09/12/17 09:00 10/11/17 17:14 09/13/17 09:51 Sodium Chloride 1,000 ml @ 75 mls/hr [id number] IV 09/11/17 17:45 10/11/17 17:44 09/13/17 09:52 Tamsulosin HCl (Flomax) 0.4 mg BID ORAL 09/13/17 14:00 10/11/17 20:59 Temazepam (Restoril) 15 mg HSPRN PRN ORAL Insomnia 09/11/17 21:00 09/18/17 20:59 Valproic Acid (Depakene) 250 mg Q12HR ORAL 09/12/17 09:00 10/12/17 08:59 09/13/17 09:51 LATANYA GALLARDO Sep 13, 2017 14:46
[2017-09-13] MEDS: HydrALAZINE 25mg tab ORAL SCH ×2 (15:08→23:15)
[2017-09-13] MEDS: Ertapenem 1 GM in NS 55 ML IVPB SCH (15:09)
[2017-09-13] MEDS: Tamsulosin 0.4mg cap ORAL SCH ×2 (15:09→17:52)
--- NOTE | 2017-09-13 16:15 | Procedure Note ---
DATE OF PROCEDURE: 09/13/2017 SURGEON: Hugo Bonilla M.D. REFERRING PHYSICIAN: Remi Wren M.D. PROCEDURE: Upper endoscopy with biopsy, attempted colonoscopy, but was canceled given poor prep. INDICATION: Anemia. The procedure, risks, benefits, and possible consequences, including hemorrhage, aspiration, perforation and infection, and alternative treatments, were explained to the patient/legal guardian by Dr. Hugo Bonilla and the patient/legal guardian understood and accepted these risks. DESCRIPTION OF PROCEDURE: After informed consent was obtained and the patient was adequately sedated, the Olympus upper endoscope was advanced from mouth into the second portion of duodenum and retroflexion was performed in the stomach. The patient had evidence of multiple erosions in the antrum of the stomach and also maybe 1 or 2 shallow ulcerations without any active bleeding. In the duodenal bulb also multiple very shallow erosions in the duodenal bulb. There was also a nodule in the antrum of the stomach, nonspecific, that nodule was biopsied. Also we biopsied the antrum and body to rule out H. pylori infection. At this time, the upper endoscope was retrieved and the patient was turned over for colonoscopy. Rectal exam showed solid stool in the rectum. We even introduced the scope into the rectum and there was so much stool that we could not pass the rectum, so we decided to abort the procedure. SUMMARY OF FINDINGS: 1. Gastritis. 2. Multiple gastric, antrum, and duodenal erosions. 3. At least two shallow ulcerations in the antrum. 4. One gastric nodule. RECOMMENDATIONS: Follow up biopsy results and treat accordingly. We will start the patient on PPI daily. At this time, we are going to repeat the stool for OB. If it comes back positive, we will consider colonoscopy on Monday. I want to thank Dr. Wren for this kind referral. Hugo Bonilla M.D. DR: SUSHIL JOB#: [id number] CC: Remi Wren M.D.; Fax#: [phone]
--- NOTE | 2017-09-13 18:30 | Electroencephalogram ---
DATE OF PROCEDURE: 09/12/2017 ELECTROENCEPHALOGRAPHY REPORT REFERRING PHYSICIAN: Remi Wren M.D. HISTORY: This is a 67-year-old man with new changes in mental status in the setting of chronic seizure disorder. EEG was requested to assess possible ongoing seizure activities. The patient's treatment now include Dilantin and Zoloft as well as treatment for high blood pressure, diabetes and renal insufficiency. The patient is blind and deaf. TECHNIQUE: EEG was done using 18 electrodes placed scalp to scalp, scalp to ear montages according to 10/20 International System. The patient described as being awake or drowsy, but not cooperative due to lack of communication. Throughout the recording, background activity consists of a somewhat irregular 7-8 cycles per second theta activities bilaterally with intermittent slowing 6-7 cycles bilaterally. There was no spike or wave activities, no amplitude asymmetry noted. IMPRESSION: Mildly abnormal electroencephalogram due to diffuse slowing. COMMENT: Absence of paroxysmal event on a single recording does not rule out seizure disorder. Freddy Mayra Dubois DR: CELINA JOB#: [id number] CC:
--- NOTE | 2017-09-13 19:05 | General Progress Note ---
Assessment/Plan Problem List: (1) Renal insufficiency ICD Codes: N28.9 - Disorder of kidney and ureter, unspecified SNOMED: 617441063, 012062210 (2) UTI (urinary tract infection) ICD Codes: N39.0 - Urinary tract infection, site not specified SNOMED: 27225514, 209236520 Qualifiers: Qualified Codes: N39.0 - Urinary tract infection, site not specified (3) Anemia ICD Codes: D64.9 - Anemia, unspecified SNOMED: 090062829 Qualifiers: Qualified Codes: D64.9 - Anemia, unspecified (4) Syncope ICD Codes: R55 - Syncope and collapse SNOMED: 117462476 Qualifiers: Qualified Codes: R55 - Syncope and collapse (5) Blind ICD Codes: H54.0 - Blindness, both eyes SNOMED: 203818762 (6) Renal failure ICD Codes: N19 - Unspecified kidney failure SNOMED: 50816917 (7) Seizure disorder ICD Codes: G40.909 - Epilepsy, unspecified, not intractable, without status epilepticus SNOMED: 640038544 (8) Deaf ICD Codes: H91.90 - Unspecified hearing loss, unspecified ear SNOMED: 06044928 (9) Diabetes mellitus type II, controlled ICD Codes: E11.9 - Type 2 diabetes mellitus without complications SNOMED: 83417194 (10) Blind in both eyes ICD Codes: H54.3 - Unqualified visual loss, both eyes SNOMED: 36285746, 562232199 (11) Chronic paranoid psychosis ICD Codes: F22 - Delusional disorders SNOMED: 308790418 (12) sp severe TBI (13) Acute encephalopathy ICD Codes: G93.40 - Encephalopathy, unspecified SNOMED: 63492802, 778810625 (14) COPD (chronic obstructive pulmonary disease) ICD Codes: J44.9 - Chronic obstructive pulmonary disease, unspecified SNOMED: 52306185 (15) HTN (hypertension) ICD Codes: I10 - Essential (primary) hypertension SNOMED: 27429867 (16) Bacteremia ICD Codes: R78.81 - Bacteremia SNOMED: 5110699 (17) Respiratory failure ICD Codes: J96.90 - Respiratory failure, unspecified, unspecified whether with hypoxia or hypercapnia SNOMED: 022399040 (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) ICD Codes: F09 - Unspecified mental disorder due to known physiological condition SNOMED: 310493492 (19) Adrenal mass, left ICD Codes: E27.9 - Disorder of adrenal gland, unspecified SNOMED: 909917385 (20) Hypertensive urgency ICD Codes: I16.0 - Hypertensive urgency SNOMED: 208285563 (21) HCAP (healthcare-associated pneumonia) ICD Codes: J18.9 - Pneumonia, unspecified organism SNOMED: 381156129 Status: stable Assessment/Plan encephalopathy ativan the daughter reluctant to other meds Subjective Date patient seen: Sep 13, 2017 Neurologic/Psychiatric: Reports: anxiety, depressed Allergies: Coded Allergies: No Known Allergies (Unverified , 08/19/16) Subjective the daughter was in room. the pt slept last night not agitated Objective Last 24 Hour Vital Signs Date Time Temp Pulse Resp B/P (MAP) Pulse Ox O2 Delivery O2 Flow Rate FiO2 09/13/17 16:00 98.0 76 18 169/75 97 Room Air 98.0 09/13/17 15:08 169/75 09/13/17 13:00 207.1 68 18 100 09/13/17 12:58 207.1 68 18 100 09/13/17 12:00 97.6 85 18 162/99 100 Room Air 97.6 09/13/17 09:51 66 183/83 09/13/17 09:51 183/83 09/13/17 09:51 66 183/83 09/13/17 08:10 97.6 66 19 183/83 100 Room Air 97.6 09/13/17 08:01 69 20 Room Air 21 09/13/17 07:55 68 18 185/85 100 Room Air 09/13/17 07:45 68 19 187/85 100 Room Air 09/13/17 07:40 68 19 165/89 100 Simple Mask 6.0 09/13/17 07:35 97.3 68 20 169/88 100 Simple Mask 6.0 97.3 09/13/17 05:11 162/77 09/13/17 04:00 97.9 75 20 162/77 97 97.9 09/13/17 00:00 97.7 73 22 156/87 98 97.7 09/12/17 20:59 166/77 09/12/17 20:57 73 166/77 09/12/17 20:00 97.6 73 21 166/77 98 97.6 09/12/17 19:02 82 20 Room Air 21 Intake and Output 09/12/17 09/13/17 19:00 07:00 Intake Total 1345 ml 600 ml Balance 1345 ml 600 ml Intake Oral 840 ml IV Total 505 ml 600 ml # Voids 7 # Bowel Movements 3 Laboratory Tests 09/13/17 03:00: Urine Eosinophils Positive 09/13/17 08:30: Stool Occult Blood [Pending] 09/13/17 10:40: White Blood Count 8.2, Red Blood Count 3.19L, Hemoglobin 9.1L, Hematocrit 28.3L , Mean Corpuscular Volume 89, Mean Corpuscular Hemoglobin 28.6, Mean Corpuscular Hemoglobin Concent 32.3, Red Cell Distribution Width 14.7, Platelet Count 394, Mean Platelet Volume 5.1L, Neutrophils (%) (Auto) 79.7H, Lymphocytes (%) (Auto) 13.6L, Monocytes (%) (Auto) 5.4, Eosinophils (%) (Auto) 1.0, Basophils (%) (Auto) 0.3, Haptoglobin [Pending], Prothrombin Time 11.1, Prothromb Time International Ratio 1.1, Activated Partial Thromboplast Time 30, Sodium Level 145, Potassium Level 4.5, Chloride Level 113H, Carbon Dioxide Level 24, Anion Gap 8, Blood Urea Nitrogen 32H, Creatinine 2.9H, Estimat Glomerular Filtration Rate 21.7, Glucose Level 132H, Calcium Level 9.1, Phosphorus Level 4.2, Magnesium Level 2.1, Total Bilirubin 0.2, Aspartate Amino Transf (AST/SGOT) 25, Alanine Aminotransferase (ALT/SGPT) 23, Alkaline Phosphatase 109, Total Protein 7.4, Albumin 1.7L, Globulin 5.7, Albumin/ Globulin Ratio 0.3L, Methylmalonic Acid [Pending], Homocystine [Pending], Valproic Acid (Depakene) Level 6L Height (Feet): 6 Height (Inches): 6.00 Weight (Pounds): 172 General Appearance: no apparent distress, alert Lan Weeks M.D. Sep 13, 2017 19:05
--- NOTE | 2017-09-13 23:56 | General Progress Note ---
Assessment/Plan Assessment/Plan 1. Anemia due to underlying chronic disease. Closely monitor. --> Anemia workup completed and reviewed. --> Iron 23, TIBC 136, Ferritin 536, Vit B12 202, Folate 2.8 --> Occult blood has been detected. Consider GI services and recommendations. --> Blood transfusion not required unless symptomatic or hgb <7 2. Leukocytosis, potentially secondary to infection versus reactive process. --> Resolved. --> Wbc count improved from yesterday. 3. Thrombocytosis secondary to reactive process from anemia. --> Platelet count now WNL. Resolved. 4. Seizures. 5. Hypertension. --> Monitor BP 6. Cerebrovascular accident and transient ischemic attack. --> Closely monitor. 7. Tetanus. Evaluate as needed. Time of document entry does not reflect date patient was seen Subjective Date patient seen: Sep 13, 2017 Constitutional: Denies: no symptoms, chills, diaphoresis, fever, malaise, weakness, other HEENT: Denies: no symptoms, eye pain, blurred vision, tearing, double vision, ear pain, ear discharge, nose pain, nose congestion, throat pain, throat swelling, mouth pain, mouth swelling, other Cardiovascular: Denies: no symptoms, chest pain, edema, irregular heart rate, lightheadedness, palpitations, syncope, other Respiratory: Denies: no symptoms, cough, orthopnea, shortness of breath, SOB with excertion, SOB at rest, sputum, stridor, wheezing, other Gastrointestinal/Abdominal: Denies: no symptoms, abdomen distended, abdominal pain, black stools, tarry stools, blood in stool, constipated, diarrhea, difficulty swallowing, nausea, poor appetite, poor fluid intake, rectal bleeding , vomiting, other Genitourinary: Denies: no symptoms, burning, discharge, frequency, flank pain, hematuria, incontinence, pain, urgency, other Neurologic/Psychiatric: Denies: no symptoms, anxiety, depressed, emotional problems, headache, numbness, paresthesia, pre-existing deficit, seizure, tingling, tremors, weakness, other Hematologic/Lymphatic: Reports: anemia Allergies: Coded Allergies: No Known Allergies (Unverified , 08/19/16) Subjective Leukocytosis improved. ++ hematochezia. Objective Last 24 Hour Vital Signs Date Time Temp Pulse Resp B/P (MAP) Pulse Ox O2 Delivery O2 Flow Rate FiO2 09/13/17 23:15 168/84 09/13/17 23:00 168/84 98 Room Air 09/13/17 20:18 75 123/86 09/13/17 20:00 97.9 75 20 122/86 98 97.9 09/13/17 16:00 98.0 76 18 169/75 97 Room Air 98.0 09/13/17 15:08 169/75 09/13/17 13:00 207.1 68 18 100 09/13/17 12:58 207.1 68 18 100 09/13/17 12:00 97.6 85 18 162/99 100 Room Air 97.6 09/13/17 09:51 66 183/83 09/13/17 09:51 183/83 09/13/17 09:51 66 183/83 09/13/17 08:10 97.6 66 19 183/83 100 Room Air 97.6 09/13/17 08:01 69 20 Room Air 21 09/13/17 07:55 68 18 185/85 100 Room Air 09/13/17 07:45 68 19 187/85 100 Room Air 09/13/17 07:40 68 19 165/89 100 Simple Mask 6.0 09/13/17 07:35 97.3 68 20 169/88 100 Simple Mask 6.0 97.3 09/13/17 05:11 162/77 09/13/17 04:00 97.9 75 20 162/77 97 97.9 09/13/17 00:00 97.7 73 22 156/87 98 97.7 Intake and Output 09/12/17 09/13/17 19:00 07:00 Intake Total 1345 ml 600 ml Balance 1345 ml 600 ml Intake Oral 840 ml IV Total 505 ml 600 ml # Voids 7 # Bowel Movements 3 Laboratory Tests 09/13/17 03:00: Urine Eosinophils Positive 09/13/17 08:30: Stool Occult Blood [Pending] 09/13/17 10:40: White Blood Count 8.2, Red Blood Count 3.19L, Hemoglobin 9.1L, Hematocrit 28.3L , Mean Corpuscular Volume 89, Mean Corpuscular Hemoglobin 28.6, Mean Corpuscular Hemoglobin Concent 32.3, Red Cell Distribution Width 14.7, Platelet Count 394, Mean Platelet Volume 5.1L, Neutrophils (%) (Auto) 79.7H, Lymphocytes (%) (Auto) 13.6L, Monocytes (%) (Auto) 5.4, Eosinophils (%) (Auto) 1.0, Basophils (%) (Auto) 0.3, Haptoglobin [Pending], Prothrombin Time 11.1, Prothromb Time International Ratio 1.1, Activated Partial Thromboplast Time 30, Sodium Level 145, Potassium Level 4.5, Chloride Level 113H, Carbon Dioxide Level 24, Anion Gap 8, Blood Urea Nitrogen 32H, Creatinine 2.9H, Estimat Glomerular Filtration Rate 21.7, Glucose Level 132H, Calcium Level 9.1, Phosphorus Level 4.2, Magnesium Level 2.1, Total Bilirubin 0.2, Aspartate Amino Transf (AST/SGOT) 25, Alanine Aminotransferase (ALT/SGPT) 23, Alkaline Phosphatase 109, Total Protein 7.4, Albumin 1.7L, Globulin 5.7, Albumin/ Globulin Ratio 0.3L, Methylmalonic Acid [Pending], Homocystine [Pending], Valproic Acid (Depakene) Level 6L Height (Feet): 6 Height (Inches): 6.00 Weight (Pounds): 172 Juaquin Mace Sep 13, 2017 23:56
[2017-09-14 05:00] VITALS: BP 198/99
[2017-09-14] MEDS: HydrALAZINE 25mg tab ORAL SCH ×3 (05:09→22:07)
[2017-09-14] MEDS: NovoLOG Insulin Flexpen SUBQ SCH ×4 (05:38→21:00)
[2017-09-14] MEDS ORDERED: cloNIDine 0.2mg Tab ORAL PRN (06:30)
[2017-09-14 08:00] VITALS: BP 188/94
[2017-09-14] MEDS: Tamsulosin 0.4mg cap ORAL SCH ×2 (10:08→18:39)
[2017-09-14] MEDS: Carvedilol 6.25mg Tab ORAL SCH (10:11)
[2017-09-14] MEDS: Phenytoin Susp 100mg/4ml ORAL SCH ×2 (10:12→22:09)
[2017-09-14] MEDS: Valproic Acid 250mg/5ml Liquid ORAL SCH ×2 (10:12→22:08)
[2017-09-14] MEDS: Sertraline 50mg tab ORAL SCH (10:13)
[2017-09-14] MEDS: Heparin 5000 units/ml inj SUBQ SCH ×2 (10:29→22:08)
[2017-09-14 12:00] VITALS: BP 141/81
--- NOTE | 2017-09-14 12:00 | Nephrology Progress Note ---
Assessment/Plan Problem List: (1) Renal failure (2) HTN (hypertension) (3) Diabetes mellitus type II, controlled (4) Seizure disorder (5) UTI (urinary tract infection) Assessment - Anemia. - Diabetes. - Hypertension. - Seizure disorder. - Renal failure. acute on chronic - Deaf. - Blind. Plan up dose hydralazine and coreg hydrate- urine studies- avoid nephrotoxics B12- Folate- Iron monitor renal parameters ? DC planning Subjective ROS Limited/Unobtainable: No Constitutional: Reports: malaise Objective Objective Last 24 Hour Vital Signs Date Time Temp Pulse Resp B/P (MAP) Pulse Ox O2 Delivery O2 Flow Rate FiO2 09/14/17 10:13 84 188/94 09/14/17 10:11 84 188/94 09/14/17 08:00 97.9 84 18 188/94 99 Room Air 97.9 09/14/17 06:49 200/102 09/14/17 05:09 198/99 09/14/17 05:00 198/99 100 Room Air 09/14/17 04:00 97.4 83 19 100 Room Air 97.4 09/14/17 00:00 98 Room Air 09/13/17 23:15 168/84 09/13/17 23:00 168/84 98 Room Air 09/13/17 20:18 75 123/86 09/13/17 20:00 97.9 75 20 122/86 98 97.9 09/13/17 20:00 97 Room Air 09/13/17 16:00 98.0 76 18 169/75 97 Room Air 98.0 09/13/17 15:08 169/75 09/13/17 13:00 207.1 68 18 100 09/13/17 12:58 207.1 68 18 100 09/13/17 12:00 97.6 85 18 162/99 100 Room Air 97.6 Intake and Output 09/13/17 09/14/17 19:00 07:00 Intake Total 1055 ml 600 ml Balance 1055 ml 600 ml IV Total 1055 ml 600 ml # Voids 3 # Bowel Movements 4 Height (Feet): 6 Height (Inches): 6.00 Weight (Pounds): 172 General Appearance: no apparent distress Cardiovascular: tachycardia Respiratory/Chest: decreased breath sounds Objective no change BRAYAN BRITO Sep 14, 2017 11:59
--- NOTE | 2017-09-14 12:06 | GI Progress Note ---
Assessment/Plan Problems: (1) Anemia ICD Codes: D64.9 - Anemia, unspecified SNOMED: 586836826 Qualifiers: Qualified Codes: D64.9 - Anemia, unspecified (2) Blind ICD Codes: H54.0 - Blindness, both eyes SNOMED: 411189262 (3) Syncope ICD Codes: R55 - Syncope and collapse SNOMED: 478844260 Qualifiers: Qualified Codes: R55 - Syncope and collapse Status: stable Status Narrative Discussed with Dr. Bonilla. Assessment/Plan SUMMARY OF FINDINGS: 1. Gastritis. 2. Multiple gastric, antrum, and duodenal erosions. 3. At least two shallow ulcerations in the antrum. 4. One gastric nodule. OB stool positive >> most recent OB stool negative stable H&H RECOMMENDATIONS: okay for DC per GI standpoint Follow up biopsy results and treat accordingly. ppi daily adv diet per ST prn transfusions fu as outpatient The patient was seen and examined at bedside and all new and available data was reviewed in the patients chart. I agree with the above findings, impression and plan. (Patient seen earlier today. Signature stamp does not reflect patient encounter time.). - Jay Bonilla MD Subjective Subjective limited Objective Last 24 Hour Vital Signs Date Time Temp Pulse Resp B/P (MAP) Pulse Ox O2 Delivery O2 Flow Rate FiO2 09/14/17 10:13 84 188/94 09/14/17 10:11 84 188/94 09/14/17 08:00 97.9 84 18 188/94 99 Room Air 97.9 09/14/17 06:49 200/102 09/14/17 05:09 198/99 09/14/17 05:00 198/99 100 Room Air 09/14/17 04:00 97.4 83 19 100 Room Air 97.4 09/14/17 00:00 98 Room Air 09/13/17 23:15 168/84 09/13/17 23:00 168/84 98 Room Air 09/13/17 20:18 75 123/86 09/13/17 20:00 97.9 75 20 122/86 98 97.9 09/13/17 20:00 97 Room Air 09/13/17 16:00 98.0 76 18 169/75 97 Room Air 98.0 09/13/17 15:08 169/75 09/13/17 13:00 207.1 68 18 100 09/13/17 12:58 207.1 68 18 100 Intake and Output 09/13/17 09/14/17 19:00 07:00 Intake Total 1055 ml 600 ml Balance 1055 ml 600 ml IV Total 1055 ml 600 ml # Voids 3 # Bowel Movements 4 Height (Feet): 6 Height (Inches): 6.00 Weight (Pounds): 172 General Appearance: WD/WN, no apparent distress, alert Cardiovascular: normal rate Respiratory/Chest: normal breath sounds, no respiratory distress Abdominal Exam: normal bowel sounds, non tender, soft Extremities: non-tender Angelique Wheat N.P. Sep 14, 2017 12:06 SILVINA BONILLA Sep 20, 2017 11:33
[2017-09-14 12:37] LABS: BASOPHILS % (AUTO) 0.2 % (0.0-2.0); EOSINOPHILS % (AUTO) 0.9 % (0.0-3.0); HEMATOCRIT 27.9 % (42.0-52.0); HEMOGLOBIN 8.9 G/DL (14.2-18.0); LYMPHOCYTES % (AUTO) 16.9 % (20.0-45.0); MEAN CORPUSCULAR VOLUME 88 FL (80-99); MONOCYTES % (AUTO) 5.8 % (1.0-10.0); NEUTROPHILS % (AUTO) 76.1 % (45.0-75.0); PLATELET COUNT 332 K/UL (150-450); RED BLOOD COUNT 3.16 M/UL (4.70-6.10); RED CELL DISTRIBUTION WIDTH 14.5 % (11.6-14.8); WHITE BLOOD COUNT 8.1 K/UL (4.8-10.8)
[2017-09-14 12:51] LABS: ALANINE AMINOTRANSFERASE 21 U/L (12-78); ALBUMIN 1.6 G/DL (3.4-5.0); ALBUMIN/GLOBULIN RATIO 0.3 (1.0-2.7); ALKALINE PHOSPHATASE 101 U/L (46-116); ANION GAP 6 mmol/L (5-15); ASPARTATE AMINO TRANSFERASE 24 U/L (15-37); BILIRUBIN,TOTAL 0.1 MG/DL (0.2-1.0); BLOOD UREA NITROGEN 26 mg/dL (7-18); CALCIUM 8.8 MG/DL (8.5-10.1); CARBON DIOXIDE 28 MMOL/L (21-32); CHLORIDE 107 MMOL/L (98-107); CREATININE 2.5 MG/DL (0.55-1.30); POTASSIUM 4.6 MMOL/L (3.5-5.1); SODIUM 140 MMOL/L (136-145)
--- NOTE | 2017-09-14 14:42 | Pulmonology Progress Note ---
Assessment/Plan Problems: (1) Acute encephalopathy (2) COPD (chronic obstructive pulmonary disease) (3) UTI (urinary tract infection) (4) Anemia (5) HTN (hypertension) (6) Diabetes mellitus type II, controlled (7) Seizure disorder Assessment/Plan urine has MDR Ecoli sensitive to zosyn respiratory treatment swallow study noted, diet upgraded check sputum EGD results noted: gastritis anemia w/u stool of OB GI f/u hem f/u dc planning in process Subjective ROS Limited/Unobtainable: No Constitutional: Reports: no symptoms HEENT: Repors: no symptoms Respiratory: Reports: no symptoms Allergies: Coded Allergies: No Known Allergies (Unverified , 08/19/16) Objective Last 24 Hour Vital Signs Date Time Temp Pulse Resp B/P (MAP) Pulse Ox O2 Delivery O2 Flow Rate FiO2 09/14/17 12:00 98.0 81 18 141/81 99 Room Air 98.0 09/14/17 10:13 84 188/94 09/14/17 10:11 84 188/94 09/14/17 08:00 97.9 84 18 188/94 99 Room Air 97.9 09/14/17 06:49 200/102 09/14/17 05:09 198/99 09/14/17 05:00 198/99 100 Room Air 09/14/17 04:00 97.4 83 19 100 Room Air 97.4 09/14/17 00:00 98 Room Air 09/13/17 23:15 168/84 09/13/17 23:00 168/84 98 Room Air 09/13/17 20:18 75 123/86 09/13/17 20:00 97.9 75 20 122/86 98 97.9 09/13/17 20:00 97 Room Air 09/13/17 16:00 98.0 76 18 169/75 97 Room Air 98.0 09/13/17 15:08 169/75 Intake and Output 09/13/17 09/14/17 19:00 07:00 Intake Total 1055 ml 600 ml Balance 1055 ml 600 ml IV Total 1055 ml 600 ml # Voids 3 # Bowel Movements 4 General Appearance: WD/WN HEENT: normocephalic, atraumatic Respiratory/Chest: chest wall non-tender, lungs clear Cardiovascular: normal peripheral pulses, normal rate Abdomen: normal bowel sounds, soft, non tender Genitourinary: normal external genitalia Extremities: no cyanosis Skin: no rash, no ulcers Laboratory Tests 09/14/17 12:00: White Blood Count 8.1, Red Blood Count 3.16L, Hemoglobin 8.9L, Hematocrit 27.9L , Mean Corpuscular Volume 88, Mean Corpuscular Hemoglobin 28.1, Mean Corpuscular Hemoglobin Concent 31.8L, Red Cell Distribution Width 14.5, Platelet Count 332, Mean Platelet Volume 5.4L, Neutrophils (%) (Auto) 76.1H, Lymphocytes (%) (Auto) 16.9L, Monocytes (%) (Auto) 5.8, Eosinophils (%) (Auto) 0.9, Basophils (%) (Auto) 0.2, Sodium Level 140, Potassium Level 4.6, Chloride Level 107, Carbon Dioxide Level 28, Anion Gap 6, Blood Urea Nitrogen 26H, Creatinine 2.5H, Estimat Glomerular Filtration Rate 25.7, Glucose Level 113H, Calcium Level 8.8, Total Bilirubin 0.1L, Aspartate Amino Transf (AST/SGOT) 24, Alanine Aminotransferase (ALT/SGPT) 21, Alkaline Phosphatase 101, Total Protein 7.1, Albumin 1.6L, Globulin 5.5, Albumin/Globulin Ratio 0.3L Current Medications Medications (Trade) Dose Ordered Sig/Sharif Route PRN Reason Start Time Stop Time Status Last Admin Dose Admin Acetaminophen (Tylenol) 650 mg Q4H PRN ORAL T>100.5 09/11/17 17:45 10/09/17 17:44 Albuterol/ Ipratropium (Albuterol/ Ipratropium) 3 ml Q4H PRN HHN Shortness of Breath 09/11/17 17:45 09/14/17 17:44 Amlodipine Besylate (Norvasc) 10 mg DAILY ORAL 09/12/17 09:00 10/10/17 08:59 09/14/17 10:13 Carvedilol (Coreg) 12.5 mg EVERY 12 HOURS ORAL 09/14/17 21:00 10/14/17 20:59 Clonidine HCl (Catapres tab) 0.2 mg Q4H PRN ORAL For High Blood Pressure 09/14/17 06:30 10/14/17 06:29 09/14/17 06:49 Dextrose (Dextrose 50%) STAT PRN IV Hypoglycemia 09/12/17 17:30 10/09/17 17:29 Ertapenem 1 gm/ Sodium Chloride 55 ml @ 110 mls/hr Q24H IVPB 09/12/17 14:00 09/17/17 13:59 09/13/17 15:09 Folic Acid (Folate) 5 mg DAILY ORAL 09/12/17 09:00 10/12/17 08:59 09/14/17 10:11 Heparin Sodium (Porcine) (Heparin 5000 units/ml) 5,000 units EVERY 12 HOURS SUBQ 09/11/17 21:00 10/09/17 20:59 09/14/17 10:29 Hydralazine HCl (Apresoline) 50 mg Q8HR ORAL 09/14/17 14:00 10/14/17 13:59 Insulin Aspart (NovoLOG) BEFORE MEALS AND HS SUBQ 09/11/17 21:00 10/09/17 20:59 09/14/17 12:18 Lorazepam (Ativan 2mg/ml 1ml) 0.5 mg Q4H PRN IV For Anxiety 09/11/17 17:45 09/16/17 17:44 09/12/17 22:48 Morphine Sulfate (Morphine Sulfate) 1 mg Q4H PRN IVP For Pain 7-09/11/17 17:45 09/16/17 17:44 Nitroglycerin (Ntg) 0.4 mg Q5M X 3 DOSES PRN SL Prn Chest Pain 09/11/17 17:45 10/09/17 17:29 Olanzapine (ZyPREXA) 5 mg DAILYPRN PRN ORAL severe agitation 09/11/17 17:45 10/11/17 17:44 Ondansetron HCl (Zofran) 4 mg Q6H PRN IVP Nausea & Vomiting 09/11/17 17:45 10/09/17 17:44 Pantoprazole (Protonix) 40 mg DAILY ORAL 09/13/17 09:00 10/13/17 08:59 09/14/17 10:08 Phenytoin (Dilantin) 200 mg Q12HR ORAL 09/12/17 09:05 10/12/17 09:04 09/14/17 10:12 Polyethylene Glycol (Miralax) 17 gm HSPRN PRN ORAL Constipation 09/11/17 17:45 10/11/17 17:44 Sertraline HCl (Zoloft) 25 mg DAILY ORAL 09/12/17 09:00 10/11/17 17:14 09/14/17 10:13 Sodium Chloride 1,000 ml @ 75 mls/hr [id number] IV 09/11/17 17:45 10/11/17 17:44 09/13/17 23:22 Tamsulosin HCl (Flomax) 0.4 mg BID ORAL 09/13/17 14:00 10/11/17 20:59 09/14/17 10:08 Temazepam (Restoril) 15 mg HSPRN PRN ORAL Insomnia 09/11/17 21:00 09/18/17 20:59 Valproic Acid (Depakene) 250 mg Q12HR ORAL 09/12/17 09:00 10/12/17 08:59 09/14/17 10:12 LATANYA GALLARDO Sep 14, 2017 14:42
[2017-09-14] MEDS: Ertapenem 1 GM in NS 55 ML IVPB SCH (15:49)
[2017-09-14 16:00] VITALS: BP 126/69
--- NOTE | 2017-09-14 16:31 | General Progress Note ---
Assessment/Plan Problem List: (1) Renal insufficiency ICD Codes: N28.9 - Disorder of kidney and ureter, unspecified SNOMED: 578870173, 234536636 (2) UTI (urinary tract infection) ICD Codes: N39.0 - Urinary tract infection, site not specified SNOMED: 06595266, 730437659 Qualifiers: Qualified Codes: N39.0 - Urinary tract infection, site not specified (3) Syncope ICD Codes: R55 - Syncope and collapse SNOMED: 493823137 Qualifiers: Qualified Codes: R55 - Syncope and collapse (4) Blind ICD Codes: H54.0 - Blindness, both eyes SNOMED: 070016475 (5) Renal failure ICD Codes: N19 - Unspecified kidney failure SNOMED: 23932696 (6) Seizure disorder ICD Codes: G40.909 - Epilepsy, unspecified, not intractable, without status epilepticus SNOMED: 680037651 (7) Deaf ICD Codes: H91.90 - Unspecified hearing loss, unspecified ear SNOMED: 38943309 (8) Diabetes mellitus type II, controlled ICD Codes: E11.9 - Type 2 diabetes mellitus without complications SNOMED: 28191429 (9) Blind in both eyes ICD Codes: H54.3 - Unqualified visual loss, both eyes SNOMED: 83305645, 771142916 (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 ICD Codes: F22 - Delusional disorders SNOMED: 143624385 (11) sp severe TBI (12) Acute encephalopathy ICD Codes: G93.40 - Encephalopathy, unspecified SNOMED: 60174835, 898271127 (13) COPD (chronic obstructive pulmonary disease) ICD Codes: J44.9 - Chronic obstructive pulmonary disease, unspecified SNOMED: 89661414 (14) HTN (hypertension) ICD Codes: I10 - Essential (primary) hypertension SNOMED: 19724487 (15) Bacteremia ICD Codes: R78.81 - Bacteremia SNOMED: 8750607 (16) Respiratory failure ICD Codes: J96.90 - Respiratory failure, unspecified, unspecified whether with hypoxia or hypercapnia SNOMED: 999039992 (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 - Unspecified mental disorder due to known physiological condition SNOMED: 493292370 (18) Adrenal mass, left ICD Codes: E27.9 - Disorder of adrenal gland, unspecified SNOMED: 222233968 (19) Hypertensive urgency ICD Codes: I16.0 - Hypertensive urgency SNOMED: 973153329 (20) HCAP (healthcare-associated pneumonia) ICD Codes: J18.9 - Pneumonia, unspecified organism SNOMED: 890765001 Status: stable Assessment/Plan encephalopathy ativan the daughter reluctant to other meds Subjective Neurologic/Psychiatric: Reports: anxiety, depressed, emotional problems Allergies: Coded Allergies: No Known Allergies (Unverified , 08/19/16) Subjective the daughter was in room. the pt slept last night Objective Last 24 Hour Vital Signs Date Time Temp Pulse Resp B/P (MAP) Pulse Ox O2 Delivery O2 Flow Rate FiO2 09/14/17 15:54 141/81 09/14/17 12:00 98.0 81 18 141/81 99 Room Air 98.0 09/14/17 10:13 84 188/94 09/14/17 10:11 84 188/94 09/14/17 08:00 97.9 84 18 188/94 99 Room Air 97.9 09/14/17 06:49 200/102 09/14/17 05:09 198/99 09/14/17 05:00 198/99 100 Room Air 09/14/17 04:00 97.4 83 19 100 Room Air 97.4 09/14/17 00:00 98 Room Air 09/13/17 23:15 168/84 09/13/17 23:00 168/84 98 Room Air 09/13/17 20:18 75 123/86 09/13/17 20:00 97.9 75 20 122/86 98 97.9 09/13/17 20:00 97 Room Air Intake and Output 09/13/17 09/14/17 19:00 07:00 Intake Total 1055 ml 600 ml Balance 1055 ml 600 ml IV Total 1055 ml 600 ml # Voids 3 # Bowel Movements 4 Laboratory Tests 09/14/17 12:00: White Blood Count 8.1, Red Blood Count 3.16L, Hemoglobin 8.9L, Hematocrit 27.9L , Mean Corpuscular Volume 88, Mean Corpuscular Hemoglobin 28.1, Mean Corpuscular Hemoglobin Concent 31.8L, Red Cell Distribution Width 14.5, Platelet Count 332, Mean Platelet Volume 5.4L, Neutrophils (%) (Auto) 76.1H, Lymphocytes (%) (Auto) 16.9L, Monocytes (%) (Auto) 5.8, Eosinophils (%) (Auto) 0.9, Basophils (%) (Auto) 0.2, Sodium Level 140, Potassium Level 4.6, Chloride Level 107, Carbon Dioxide Level 28, Anion Gap 6, Blood Urea Nitrogen 26H, Creatinine 2.5H, Estimat Glomerular Filtration Rate 25.7, Glucose Level 113H, Calcium Level 8.8, Total Bilirubin 0.1L, Aspartate Amino Transf (AST/SGOT) 24, Alanine Aminotransferase (ALT/SGPT) 21, Alkaline Phosphatase 101, Total Protein 7.1, Albumin 1.6L, Globulin 5.5, Albumin/Globulin Ratio 0.3L Height (Feet): 6 Height (Inches): 6.00 Weight (Pounds): 172 General Appearance: no apparent distress, alert Lan Weeks M.D. Sep 14, 2017 16:31
--- NOTE | 2017-09-14 19:30 | Internal Med Progress Note ---
Subjective Date of Service: Sep 14, 2017 Physician Name Chai Seth Attending Physician Remi Wren MD Current Medications Medications (Trade) Dose Ordered Sig/Sharif Route PRN Reason Start Time Stop Time Status Last Admin Dose Admin Acetaminophen (Tylenol) 650 mg Q4H PRN ORAL T>100.5 09/11/17 17:45 10/09/17 17:44 Amlodipine Besylate (Norvasc) 10 mg DAILY ORAL 09/12/17 09:00 10/10/17 08:59 09/14/17 10:13 Carvedilol (Coreg) 12.5 mg EVERY 12 HOURS ORAL 09/14/17 21:00 10/14/17 20:59 Clonidine HCl (Catapres tab) 0.2 mg Q4H PRN ORAL For High Blood Pressure 09/14/17 06:30 10/14/17 06:29 09/14/17 06:49 Dextrose (Dextrose 50%) STAT PRN IV Hypoglycemia 09/12/17 17:30 10/09/17 17:29 Ertapenem 1 gm/ Sodium Chloride 55 ml @ 110 mls/hr Q24H IVPB 09/12/17 14:00 09/17/17 13:59 09/14/17 15:49 Folic Acid (Folate) 5 mg DAILY ORAL 09/12/17 09:00 10/12/17 08:59 09/14/17 10:11 Heparin Sodium (Porcine) (Heparin 5000 units/ml) 5,000 units EVERY 12 HOURS SUBQ 09/11/17 21:00 10/09/17 20:59 09/14/17 10:29 Hydralazine HCl (Apresoline) 50 mg Q8HR ORAL 09/14/17 14:00 10/14/17 13:59 09/14/17 15:54 Insulin Aspart (NovoLOG) BEFORE MEALS AND HS SUBQ 09/11/17 21:00 10/09/17 20:59 09/14/17 17:12 Lorazepam (Ativan 2mg/ml 1ml) 0.5 mg Q4H PRN IV For Anxiety 09/11/17 17:45 09/16/17 17:44 09/12/17 22:48 Morphine Sulfate (Morphine Sulfate) 1 mg Q4H PRN IVP For Pain 7-10 09/11/17 17:45 09/16/17 17:44 Nitroglycerin (Ntg) 0.4 mg Q5M X 3 DOSES PRN SL Prn Chest Pain 09/11/17 17:45 10/09/17 17:29 Olanzapine (ZyPREXA) 5 mg DAILYPRN PRN ORAL severe agitation 09/11/17 17:45 10/11/17 17:44 Ondansetron HCl (Zofran) 4 mg Q6H PRN IVP Nausea & Vomiting 09/11/17 17:45 10/09/17 17:44 Pantoprazole (Protonix) 40 mg DAILY ORAL 09/13/17 09:00 10/13/17 08:59 09/14/17 10:08 Phenytoin (Dilantin) 200 mg Q12HR ORAL 09/12/17 09:05 10/12/17 09:04 09/14/17 10:12 Polyethylene Glycol (Miralax) 17 gm HSPRN PRN ORAL Constipation 09/11/17 17:45 10/11/17 17:44 Sertraline HCl (Zoloft) 25 mg DAILY ORAL 09/12/17 09:00 10/11/17 17:14 09/14/17 10:13 Sodium Chloride 1,000 ml @ 75 mls/hr [id number] IV 09/11/17 17:45 10/11/17 17:44 09/13/17 23:22 Tamsulosin HCl (Flomax) 0.4 mg BID ORAL 09/13/17 14:00 10/11/17 20:59 09/14/17 18:39 Temazepam (Restoril) 15 mg HSPRN PRN ORAL Insomnia 09/11/17 21:00 09/18/17 20:59 Valproic Acid (Depakene) 250 mg Q12HR ORAL 09/12/17 09:00 10/12/17 08:59 09/14/17 10:12 Allergies: Coded Allergies: No Known Allergies (Unverified , 08/19/16) ROS Limited/Unobtainable: No Constitutional: Reports: no symptoms HEENT: Reports: no symptoms Cardiovascular: Reports: no symptoms Respiratory: Reports: no symptoms Gastrointestinal/Abdominal: Reports: no symptoms Genitourinary: Reports: no symptoms Neurologic/Psychiatric: Reports: no symptoms Subjective 67 YO M admitted with vertigo and severe anemia. S/P transfusion. S/P endoscopy 09/13/17. Cover for Int Med-Dr Wren. Objective Last Vital Signs Date Time Temp Pulse Resp B/P (MAP) Pulse Ox O2 Delivery O2 Flow Rate FiO2 09/14/17 16:00 97.7 87 20 126/69 97 Room Air 97.7 09/13/17 08:01 21 09/13/17 07:40 6.0 Laboratory Tests Test 09/14/17 12:00 White Blood Count 8.1 K/UL (4.8-10.8) Red Blood Count 3.16 M/UL (4.70-6.10) L Hemoglobin 8.9 G/DL (14.2-18.0) L Hematocrit 27.9 % (42.0-52.0) L Mean Corpuscular Volume 88 FL (80-99) Mean Corpuscular Hemoglobin 28.1 PG (27.0-31.0) Mean Corpuscular Hemoglobin Concent 31.8 G/DL (32.0-36.0) L Red Cell Distribution Width 14.5 % (11.6-14.8) Platelet Count 332 K/UL (150-450) Mean Platelet Volume 5.4 FL (6.5-10.1) L Neutrophils (%) (Auto) 76.1 % (45.0-75.0) H Lymphocytes (%) (Auto) 16.9 % (20.0-45.0) L Monocytes (%) (Auto) 5.8 % (1.0-10.0) Eosinophils (%) (Auto) 0.9 % (0.0-3.0) Basophils (%) (Auto) 0.2 % (0.0-2.0) Sodium Level 140 MMOL/L (136-145) Potassium Level 4.6 MMOL/L (3.5-5.1) Chloride Level 107 MMOL/L (98-107) Carbon Dioxide Level 28 MMOL/L (21-32) Anion Gap 6 mmol/L (5-15) Blood Urea Nitrogen 26 mg/dL (7-18) H Creatinine 2.5 MG/DL (0.55-1.30) H Estimat Glomerular Filtration Rate 25.7 mL/min (>60) Glucose Level 113 MG/DL (74-106) H Calcium Level 8.8 MG/DL (8.5-10.1) Total Bilirubin 0.1 MG/DL (0.2-1.0) L Aspartate Amino Transf (AST/SGOT) 24 U/L (15-37) Alanine Aminotransferase (ALT/SGPT) 21 U/L (12-78) Alkaline Phosphatase 101 U/L (46-116) Total Protein 7.1 G/DL (6.4-8.2) Albumin 1.6 G/DL (3.4-5.0) L Globulin 5.5 g/dL Albumin/Globulin Ratio 0.3 (1.0-2.7) L Intake and Output 09/13/17 09/14/17 19:00 07:00 Intake Total 1055 ml 600 ml Balance 1055 ml 600 ml IV Total 1055 ml 600 ml # Voids 3 # Bowel Movements 4 Objective General Appearance: WD/WN, lethargic EENT: normal ENT inspection Neck: non-tender, normal alignment, supple, normal inspection Cardiovascular: normal peripheral pulses, normal rate, regular rhythm, no gallop/murmur, no JVD Respiratory/Chest: chest wall non-tender, lungs clear, normal breath sounds, no respiratory distress, no accessory muscle use Abdomen: normal bowel sounds, non tender, soft, no organomegaly, no mass Extremities: non-tender 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 Await neurology consult. (3) Renal failure Assessment & Plan: Await nephrology consult. 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 Coli. Continue ertapenem per ID (7) Anemia Assessment & Plan: Severe Iron defiency. S/P transfusion 2 units PRBC total. Await colonoscopy and endoscopy 09/13/17. (8) Gastric ulcer Assessment & Plan: S/P endoscopy 09/13/17. See GI note. Continue protonix (9) Gastritis Assessment & Plan: Continue protonix Status: progressing Assessment/Plan Discharge planning: Home; patient is bed bound and requires hospital bed at home. CHAI SETH Sep 14, 2017 19:30
[2017-09-14 20:00] VITALS: BP 153/68
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
[2017-09-14] MEDS: Carvedilol 12.5mg tab ORAL SCH (22:08)
[2017-09-15] VITALS (7 sets, daily range): BP systolic 107–190; BP diastolic 57–91
[2017-09-15] MEDS: HydrALAZINE 25mg tab ORAL SCH ×2 (06:10→14:58)
[2017-09-15] MEDS: NovoLOG Insulin Flexpen SUBQ SCH ×4 (06:30→21:42)
[2017-09-15] MEDS: Valproic Acid 250mg/5ml Liquid ORAL SCH ×2 (09:03→21:37)
[2017-09-15] MEDS: Heparin 5000 units/ml inj SUBQ SCH ×2 (09:03→21:38)
[2017-09-15] MEDS: Phenytoin Susp 100mg/4ml ORAL SCH ×2 (09:03→21:36)
[2017-09-15] MEDS: Sertraline 50mg tab ORAL SCH (09:04)
[2017-09-15] MEDS: Carvedilol 12.5mg tab ORAL SCH ×2 (09:04→21:36)
[2017-09-15] MEDS: Tamsulosin 0.4mg cap ORAL SCH ×2 (09:04→17:36)
--- NOTE | 2017-09-15 09:25 | General Progress Note ---
Assessment/Plan Assessment/Plan 1. Anemia due to underlying chronic disease. Closely monitor. --> Hgb downtrended from yesterday, but remains above goal. --> Anemia workup completed and reviewed. --> Iron 23, TIBC 136, Ferritin 536, Vit B12 202, Folate 2.8 --> Occult blood has been detected. Consider GI services and recommendations. --> Blood transfusion not required unless symptomatic or hgb <7 2. Leukocytosis, potentially secondary to infection versus reactive process. --> Resolved. --> Wbc count improved from yesterday. 3. Thrombocytosis secondary to reactive process from anemia. --> Platelet count now WNL. Resolved. 4. Seizures. 5. Hypertension. --> Monitor BP 6. Cerebrovascular accident and transient ischemic attack. --> Closely monitor. 7. Tetanus. Evaluate as needed. Time of document entry does not reflect date patient was seen Subjective Date patient seen: Sep 14, 2017 Constitutional: Denies: no symptoms, chills, diaphoresis, fever, malaise, weakness, other HEENT: Denies: no symptoms, eye pain, blurred vision, tearing, double vision, ear pain, ear discharge, nose pain, nose congestion, throat pain, throat swelling, mouth pain, mouth swelling, other Cardiovascular: Denies: no symptoms, chest pain, edema, irregular heart rate, lightheadedness, palpitations, syncope, other Respiratory: Denies: no symptoms, cough, orthopnea, shortness of breath, SOB with excertion, SOB at rest, sputum, stridor, wheezing, other Gastrointestinal/Abdominal: Denies: no symptoms, abdomen distended, abdominal pain, black stools, tarry stools, blood in stool, constipated, diarrhea, difficulty swallowing, nausea, poor appetite, poor fluid intake, rectal bleeding , vomiting, other Genitourinary: Denies: no symptoms, burning, discharge, frequency, flank pain, hematuria, incontinence, pain, urgency, other Neurologic/Psychiatric: Denies: no symptoms, anxiety, depressed, emotional problems, headache, numbness, paresthesia, pre-existing deficit, seizure, tingling, tremors, weakness, other Hematologic/Lymphatic: Reports: anemia Allergies: Coded Allergies: No Known Allergies (Unverified , 08/19/16) Subjective Leukocytosis resolved. NAD. Objective Last 24 Hour Vital Signs Date Time Temp Pulse Resp B/P (MAP) Pulse Ox O2 Delivery O2 Flow Rate FiO2 09/15/17 09:04 99 190/91 09/15/17 09:04 99 190/91 09/15/17 08:00 98.1 99 18 190/91 98 Room Air 98.1 09/15/17 06:10 148/72 09/15/17 04:00 98.1 98 20 148/72 96 Room Air 98.1 09/15/17 00:00 98.1 75 19 130/62 97 Room Air 98.1 09/14/17 22:08 76 153/68 09/14/17 22:07 153/68 09/14/17 20:00 98.6 76 20 153/68 97 Room Air 98.6 09/14/17 16:00 97.7 87 20 126/69 97 Room Air 97.7 09/14/17 15:54 141/81 09/14/17 12:00 98.0 81 18 141/81 99 Room Air 98.0 09/14/17 10:13 84 188/94 09/14/17 10:11 84 188/94 Intake and Output 09/14/17 09/15/17 19:00 07:00 Intake Total 240 ml 120 ml Balance 240 ml 120 ml Intake Oral 240 ml 120 ml # Voids 2 2 # Bowel Movements 1 1 Laboratory Tests 09/14/17 12:00: White Blood Count 8.1, Red Blood Count 3.16L, Hemoglobin 8.9L, Hematocrit 27.9L , Mean Corpuscular Volume 88, Mean Corpuscular Hemoglobin 28.1, Mean Corpuscular Hemoglobin Concent 31.8L, Red Cell Distribution Width 14.5, Platelet Count 332, Mean Platelet Volume 5.4L, Neutrophils (%) (Auto) 76.1H, Lymphocytes (%) (Auto) 16.9L, Monocytes (%) (Auto) 5.8, Eosinophils (%) (Auto) 0.9, Basophils (%) (Auto) 0.2, Sodium Level 140, Potassium Level 4.6, Chloride Level 107, Carbon Dioxide Level 28, Anion Gap 6, Blood Urea Nitrogen 26H, Creatinine 2.5H, Estimat Glomerular Filtration Rate 25.7, Glucose Level 113H, Calcium Level 8.8, Total Bilirubin 0.1L, Aspartate Amino Transf (AST/SGOT) 24, Alanine Aminotransferase (ALT/SGPT) 21, Alkaline Phosphatase 101, Total Protein 7.1, Albumin 1.6L, Globulin 5.5, Albumin/Globulin Ratio 0.3L 09/14/17 23:40: Urine Eosinophils None seen Height (Feet): 6 Height (Inches): 6.00 Weight (Pounds): 172 General Appearance: no apparent distress Respiratory/Chest: decreased breath sounds Abdomen: non tender, soft Edema: trace edema Juaquin Mace Sep 15, 2017 09:25
[2017-09-15 10:07] LABS: BASOPHILS % (AUTO) 0.3 % (0.0-2.0); EOSINOPHILS % (AUTO) 1.4 % (0.0-3.0); HEMATOCRIT 31.9 % (42.0-52.0); HEMOGLOBIN 10.3 G/DL (14.2-18.0); LYMPHOCYTES % (AUTO) 19.7 % (20.0-45.0); MEAN CORPUSCULAR VOLUME 89 FL (80-99); MONOCYTES % (AUTO) 4.3 % (1.0-10.0); NEUTROPHILS % (AUTO) 74.3 % (45.0-75.0); PLATELET COUNT 493 K/UL (150-450); RED BLOOD COUNT 3.57 M/UL (4.70-6.10); RED CELL DISTRIBUTION WIDTH 14.7 % (11.6-14.8); WHITE BLOOD COUNT 10.9 K/UL (4.8-10.8)
[2017-09-15 10:26] LABS: ANION GAP 9 mmol/L (5-15); BLOOD UREA NITROGEN 27 mg/dL (7-18); CARBON DIOXIDE 25 MMOL/L (21-32); CHLORIDE 107 MMOL/L (98-107); CREATININE 2.7 MG/DL (0.55-1.30); POTASSIUM 4.2 MMOL/L (3.5-5.1); SODIUM 141 MMOL/L (136-145)
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
--- NOTE | 2017-09-15 12:25 | GI Progress Note ---
Assessment/Plan Problems: (1) Anemia ICD Codes: D64.9 - Anemia, unspecified SNOMED: 243455011 Qualifiers: Qualified Codes: D64.9 - Anemia, unspecified (2) Blind ICD Codes: H54.0 - Blindness, both eyes SNOMED: 759268712 (3) Syncope ICD Codes: R55 - Syncope and collapse SNOMED: 800997690 Qualifiers: Qualified Codes: R55 - Syncope and collapse Status: stable Status Narrative Discussed with Dr. Bonilla. Assessment/Plan SUMMARY OF FINDINGS: 1. Gastritis. 2. Multiple gastric, antrum, and duodenal erosions. 3. At least two shallow ulcerations in the antrum. 4. One gastric nodule. OB stool positive >> most recent OB stool negative stable H&H RECOMMENDATIONS: okay for DC per GI standpoint Follow up biopsy results and treat accordingly. ppi daily adv diet per ST prn transfusions fu as outpatient Subjective Subjective limited Objective Last 24 Hour Vital Signs Date Time Temp Pulse Resp B/P (MAP) Pulse Ox O2 Delivery O2 Flow Rate FiO2 09/15/17 10:00 104 107/62 09/15/17 09:04 99 190/91 09/15/17 09:04 99 190/91 09/15/17 08:00 98.1 99 18 190/91 98 Room Air 98.1 09/15/17 06:10 148/72 09/15/17 04:00 98.1 98 20 148/72 96 Room Air 98.1 09/15/17 00:00 98.1 75 19 130/62 97 Room Air 98.1 09/14/17 22:08 76 153/68 09/14/17 22:07 153/68 09/14/17 20:00 98.6 76 20 153/68 97 Room Air 98.6 09/14/17 16:00 97.7 87 20 126/69 97 Room Air 97.7 09/14/17 15:54 141/81 Intake and Output 09/14/17 09/15/17 19:00 07:00 Intake Total 240 ml 120 ml Balance 240 ml 120 ml Intake Oral 240 ml 120 ml # Voids 2 2 # Bowel Movements 1 1 Laboratory Tests Test 09/14/17 23:40 09/15/17 09:40 Urine Eosinophils None seen White Blood Count 10.9 K/UL (4.8-10.8) H Red Blood Count 3.57 M/UL (4.70-6.10) L Hemoglobin 10.3 G/DL (14.2-18.0) L Hematocrit 31.9 % (42.0-52.0) L Mean Corpuscular Volume 89 FL (80-99) Mean Corpuscular Hemoglobin 28.7 PG (27.0-31.0) Mean Corpuscular Hemoglobin Concent 32.2 G/DL (32.0-36.0) Red Cell Distribution Width 14.7 % (11.6-14.8) Platelet Count 493 K/UL (150-450) H Mean Platelet Volume 5.2 FL (6.5-10.1) L Neutrophils (%) (Auto) 74.3 % (45.0-75.0) Lymphocytes (%) (Auto) 19.7 % (20.0-45.0) L Monocytes (%) (Auto) 4.3 % (1.0-10.0) Eosinophils (%) (Auto) 1.4 % (0.0-3.0) Basophils (%) (Auto) 0.3 % (0.0-2.0) Sodium Level 141 MMOL/L (136-145) Potassium Level 4.2 MMOL/L (3.5-5.1) Chloride Level 107 MMOL/L (98-107) Carbon Dioxide Level 25 MMOL/L (21-32) Anion Gap 9 mmol/L (5-15) Blood Urea Nitrogen 27 mg/dL (7-18) H Creatinine 2.7 MG/DL (0.55-1.30) H Estimat Glomerular Filtration Rate 23.5 mL/min (>60) Glucose Level 179 MG/DL (74-106) H Calcium Level 9.0 MG/DL (8.5-10.1) Height (Feet): 6 Height (Inches): 6.00 Weight (Pounds): 172 General Appearance: alert Cardiovascular: normal rate Respiratory/Chest: normal breath sounds Abdominal Exam: normal bowel sounds, non tender, soft Angelique Wheat N.PDouglas Sep 15, 2017 12:25
--- NOTE | 2017-09-15 13:28 | Nephrology Progress Note ---
Assessment/Plan Problem List: (1) Renal failure (2) HTN (hypertension) (3) Diabetes mellitus type II, controlled (4) Seizure disorder (5) UTI (urinary tract infection) Assessment - Anemia. - Diabetes. - Hypertension. - Seizure disorder. - Renal failure. acute on chronic - Deaf. - Blind. Plan hydralazine and coreg PRN Clonidine hydrate- urine studies- avoid nephrotoxics B12- Folate- Iron monitor renal parameters ? DC planning Objective Objective Last 24 Hour Vital Signs Date Time Temp Pulse Resp B/P (MAP) Pulse Ox O2 Delivery O2 Flow Rate FiO2 09/15/17 12:00 98.1 75 18 108/57 99 Room Air 98.1 09/15/17 10:00 104 107/62 09/15/17 09:04 99 190/91 09/15/17 09:04 99 190/91 09/15/17 08:00 98.1 99 18 190/91 98 Room Air 98.1 09/15/17 06:10 148/72 09/15/17 04:00 98.1 98 20 148/72 96 Room Air 98.1 09/15/17 00:00 98.1 75 19 130/62 97 Room Air 98.1 09/14/17 22:08 76 153/68 09/14/17 22:07 153/68 09/14/17 20:00 98.6 76 20 153/68 97 Room Air 98.6 09/14/17 16:00 97.7 87 20 126/69 97 Room Air 97.7 09/14/17 15:54 141/81 Intake and Output 09/14/17 09/15/17 19:00 07:00 Intake Total 240 ml 120 ml Balance 240 ml 120 ml Intake Oral 240 ml 120 ml # Voids 2 2 # Bowel Movements 1 1 Laboratory Tests 09/14/17 23:40: Urine Eosinophils None seen 09/15/17 09:40: White Blood Count 10.9H, Red Blood Count 3.57L, Hemoglobin 10.3L, Hematocrit 31.9L, Mean Corpuscular Volume 89, Mean Corpuscular Hemoglobin 28.7, Mean Corpuscular Hemoglobin Concent 32.2, Red Cell Distribution Width 14.7, Platelet Count 493H, Mean Platelet Volume 5.2L, Neutrophils (%) (Auto) 74.3, Lymphocytes (%) (Auto) 19.7L, Monocytes (%) (Auto) 4.3, Eosinophils (%) (Auto) 1.4, Basophils (%) (Auto) 0.3, Sodium Level 141, Potassium Level 4.2, Chloride Level 107, Carbon Dioxide Level 25, Anion Gap 9, Blood Urea Nitrogen 27H, Creatinine 2.7H, Estimat Glomerular Filtration Rate 23.5, Glucose Level 179H, Calcium Level 9.0 Height (Feet): 6 Height (Inches): 6.00 Weight (Pounds): 172 Objective no change BRAYAN BRITO Sep 15, 2017 13:28
--- NOTE | 2017-09-15 14:44 | Pulmonology Progress Note ---
Assessment/Plan Problems: (1) Acute encephalopathy (2) COPD (chronic obstructive pulmonary disease) (3) UTI (urinary tract infection) (4) Anemia (5) HTN (hypertension) (6) Diabetes mellitus type II, controlled (7) Seizure disorder Assessment/Plan urine has MDR Ecoli sensitive to zosyn respiratory treatment swallow study noted, diet upgraded check sputum EGD results noted: gastritis anemia w/u stool of OB GI f/u hem f/u dc planning in process, for today Subjective ROS Limited/Unobtainable: No Allergies: Coded Allergies: No Known Allergies (Unverified , 08/19/16) Objective Last 24 Hour Vital Signs Date Time Temp Pulse Resp B/P (MAP) Pulse Ox O2 Delivery O2 Flow Rate FiO2 09/15/17 12:00 98.1 75 18 108/57 99 Room Air 98.1 09/15/17 10:00 104 107/62 09/15/17 09:04 99 190/91 09/15/17 09:04 99 190/91 09/15/17 08:00 98.1 99 18 190/91 98 Room Air 98.1 09/15/17 06:10 148/72 09/15/17 04:00 98.1 98 20 148/72 96 Room Air 98.1 09/15/17 00:00 98.1 75 19 130/62 97 Room Air 98.1 09/14/17 22:08 76 153/68 09/14/17 22:07 153/68 09/14/17 20:00 98.6 76 20 153/68 97 Room Air 98.6 09/14/17 16:00 97.7 87 20 126/69 97 Room Air 97.7 09/14/17 15:54 141/81 Intake and Output 09/14/17 09/15/17 19:00 07:00 Intake Total 240 ml 120 ml Balance 240 ml 120 ml Intake Oral 240 ml 120 ml # Voids 2 2 # Bowel Movements 1 1 Objective General Appearance: WD/WN HEENT: normocephalic, atraumatic Respiratory/Chest: chest wall non-tender, lungs clear Cardiovascular: normal peripheral pulses, normal rate Abdomen: normal bowel sounds, soft, non tender Genitourinary: normal external genitalia Extremities: no cyanosis Skin: no rash, no ulcers Laboratory Tests 09/14/17 23:40: Urine Eosinophils None seen 09/15/17 09:40: White Blood Count 10.9H, Red Blood Count 3.57L, Hemoglobin 10.3L, Hematocrit 31.9L, Mean Corpuscular Volume 89, Mean Corpuscular Hemoglobin 28.7, Mean Corpuscular Hemoglobin Concent 32.2, Red Cell Distribution Width 14.7, Platelet Count 493H, Mean Platelet Volume 5.2L, Neutrophils (%) (Auto) 74.3, Lymphocytes (%) (Auto) 19.7L, Monocytes (%) (Auto) 4.3, Eosinophils (%) (Auto) 1.4, Basophils (%) (Auto) 0.3, Sodium Level 141, Potassium Level 4.2, Chloride Level 107, Carbon Dioxide Level 25, Anion Gap 9, Blood Urea Nitrogen 27H, Creatinine 2.7H, Estimat Glomerular Filtration Rate 23.5, Glucose Level 179H, Calcium Level 9.0 Current Medications Medications (Trade) Dose Ordered Sig/Sharif Route PRN Reason Start Time Stop Time Status Last Admin Dose Admin Acetaminophen (Tylenol) 650 mg Q4H PRN ORAL T>100.5 09/11/17 17:45 10/09/17 17:44 Amlodipine Besylate (Norvasc) 10 mg DAILY ORAL 09/12/17 09:00 10/10/17 08:59 09/15/17 09:04 Carvedilol (Coreg) 12.5 mg EVERY 12 HOURS ORAL 09/14/17 21:00 10/14/17 20:59 09/15/17 09:04 Clonidine HCl (Catapres Tab) 0.1 mg Q4H PRN ORAL SBP > 160 09/15/17 14:30 10/15/17 14:29 Dextrose (Dextrose 50%) STAT PRN IV Hypoglycemia 09/12/17 17:30 10/09/17 17:29 Ertapenem 1 gm/ Sodium Chloride 55 ml @ 110 mls/hr Q24H IVPB 09/12/17 14:00 09/17/17 13:59 09/14/17 15:49 Folic Acid (Folate) 5 mg DAILY ORAL 09/12/17 09:00 10/12/17 08:59 09/15/17 09:04 Heparin Sodium (Porcine) (Heparin 5000 units/ml) 5,000 units EVERY 12 HOURS SUBQ 09/11/17 21:00 10/09/17 20:59 09/15/17 09:03 Hydralazine HCl (Apresoline) 50 mg Q8HR ORAL 09/14/17 14:00 10/14/17 13:59 09/15/17 06:10 Insulin Aspart (NovoLOG) BEFORE MEALS AND HS SUBQ 09/11/17 21:00 10/09/17 20:59 09/15/17 11:38 Lorazepam (Ativan 2mg/ml 1ml) 0.5 mg Q4H PRN IV For Anxiety 09/11/17 17:45 09/16/17 17:44 09/12/17 22:48 Morphine Sulfate (Morphine Sulfate) 1 mg Q4H PRN IVP For Pain 01-1609/11/17 17:45 09/16/17 17:44 Nitroglycerin (Ntg) 0.4 mg Q5M X 3 DOSES PRN SL Prn Chest Pain 09/11/17 17:45 10/09/17 17:29 Olanzapine (ZyPREXA) 5 mg DAILYPRN PRN ORAL severe agitation 09/11/17 17:45 10/11/17 17:44 Ondansetron HCl (Zofran) 4 mg Q6H PRN IVP Nausea & Vomiting 09/11/17 17:45 10/09/17 17:44 Pantoprazole (Protonix) 40 mg DAILY ORAL 09/13/17 09:00 10/13/17 08:59 09/15/17 09:04 Phenytoin (Dilantin) 200 mg Q12HR ORAL 09/12/17 09:05 10/12/17 09:04 09/15/17 09:03 Polyethylene Glycol (Miralax) 17 gm HSPRN PRN ORAL Constipation 09/11/17 17:45 10/11/17 17:44 Sertraline HCl (Zoloft) 25 mg DAILY ORAL 09/12/17 09:00 10/11/17 17:14 09/15/17 09:04 Sodium Chloride 1,000 ml @ 75 mls/hr [id number] IV 09/11/17 17:45 10/11/17 17:44 09/13/17 23:22 Tamsulosin HCl (Flomax) 0.4 mg BID ORAL 09/13/17 14:00 10/11/17 20:59 09/15/17 09:04 Temazepam (Restoril) 15 mg HSPRN PRN ORAL Insomnia 09/11/17 21:00 09/18/17 20:59 Valproic Acid (Depakene) 250 mg Q12HR ORAL 09/12/17 09:00 10/12/17 08:59 09/15/17 09:03 LATANYA GALLARDO Sep 15, 2017 14:44
[2017-09-15] MEDS: Ertapenem 1 GM in NS 55 ML IVPB SCH (14:46)
[2017-09-15] MEDS ORDERED: INVANZ1 G1 IM ×2 (14:55→15:01)
[2017-09-15] MEDS ORDERED: Tubing IV Secondary IV ONE (17:06)
--- NOTE | 2017-09-15 19:38 | Internal Med Progress Note ---
Subjective Date of Service: Sep 15, 2017 Physician Name Destiny Seth Attending Physician Remi Wren MD Current Medications Medications (Trade) Dose Ordered Sig/Sharif Route PRN Reason Start Time Stop Time Status Last Admin Dose Admin Acetaminophen (Tylenol) 650 mg Q4H PRN ORAL T>100.5 09/11/17 17:45 10/09/17 17:44 Amlodipine Besylate (Norvasc) 10 mg DAILY ORAL 09/12/17 09:00 10/10/17 08:59 09/15/17 09:04 Carvedilol (Coreg) 12.5 mg EVERY 12 HOURS ORAL 09/14/17 21:00 10/14/17 20:59 09/15/17 09:04 Clonidine HCl (Catapres Tab) 0.1 mg Q4H PRN ORAL SBP > 160 09/15/17 14:30 10/15/17 14:29 Dextrose (Dextrose 50%) STAT PRN IV Hypoglycemia 09/12/17 17:30 10/09/17 17:29 Ertapenem 1 gm/ Sodium Chloride 55 ml @ 110 mls/hr Q24H IVPB 09/12/17 14:00 09/17/17 13:59 09/15/17 14:46 Folic Acid (Folate) 5 mg DAILY ORAL 09/12/17 09:00 10/12/17 08:59 09/15/17 09:04 Heparin Sodium (Porcine) (Heparin 5000 units/ml) 5,000 units EVERY 12 HOURS SUBQ 09/11/17 21:00 10/09/17 20:59 09/15/17 09:03 Hydralazine HCl (Apresoline) 50 mg Q8HR ORAL 09/14/17 14:00 10/14/17 13:59 09/15/17 14:58 Insulin Aspart (NovoLOG) BEFORE MEALS AND HS SUBQ 09/11/17 21:00 10/09/17 20:59 09/15/17 17:37 Lorazepam (Ativan 2mg/ml 1ml) 0.5 mg Q4H PRN IV For Anxiety 09/11/17 17:45 09/16/17 17:44 09/12/17 22:48 Morphine Sulfate (Morphine Sulfate) 1 mg Q4H PRN IVP For Pain 7-10 09/11/17 17:45 09/16/17 17:44 Nitroglycerin (Ntg) 0.4 mg Q5M X 3 DOSES PRN SL Prn Chest Pain 09/11/17 17:45 10/09/17 17:29 Olanzapine (ZyPREXA) 5 mg DAILYPRN PRN ORAL severe agitation 09/11/17 17:45 10/11/17 17:44 Ondansetron HCl (Zofran) 4 mg Q6H PRN IVP Nausea & Vomiting 09/11/17 17:45 10/09/17 17:44 Pantoprazole (Protonix) 40 mg DAILY ORAL 09/13/17 09:00 10/13/17 08:59 09/15/17 09:04 Phenytoin (Dilantin) 200 mg Q12HR ORAL 09/12/17 09:05 10/12/17 09:04 09/15/17 09:03 Polyethylene Glycol (Miralax) 17 gm HSPRN PRN ORAL Constipation 09/11/17 17:45 10/11/17 17:44 Sertraline HCl (Zoloft) 25 mg DAILY ORAL 09/12/17 09:00 10/11/17 17:14 09/15/17 09:04 Sodium Chloride 1,000 ml @ 75 mls/hr [id number] IV 09/11/17 17:45 10/11/17 17:44 09/13/17 23:22 Tamsulosin HCl (Flomax) 0.4 mg BID ORAL 09/13/17 14:00 10/11/17 20:59 09/15/17 17:36 Temazepam (Restoril) 15 mg HSPRN PRN ORAL Insomnia 09/11/17 21:00 09/18/17 20:59 Valproic Acid (Depakene) 250 mg Q12HR ORAL 09/12/17 09:00 10/12/17 08:59 09/15/17 09:03 Allergies: Coded Allergies: No Known Allergies (Unverified , 08/19/16) ROS Limited/Unobtainable: Yes Subjective 67 YO M admitted with vertigo and severe anemia. S/P transfusion. S/P endoscopy 09/13/17. Cover for Int Hu-Dr Wren. Objective Last Vital Signs Date Time Temp Pulse Resp B/P (MAP) Pulse Ox O2 Delivery O2 Flow Rate FiO2 09/15/17 16:00 97.7 74 20 159/72 97 97.7 09/15/17 12:00 Room Air 09/13/17 08:01 21 09/13/17 07:40 6.0 Laboratory Tests Test 09/14/17 23:40 09/15/17 09:40 Urine Eosinophils None seen White Blood Count 10.9 K/UL (4.8-10.8) H Red Blood Count 3.57 M/UL (4.70-6.10) L Hemoglobin 10.3 G/DL (14.2-18.0) L Hematocrit 31.9 % (42.0-52.0) L Mean Corpuscular Volume 89 FL (80-99) Mean Corpuscular Hemoglobin 28.7 PG (27.0-31.0) Mean Corpuscular Hemoglobin Concent 32.2 G/DL (32.0-36.0) Red Cell Distribution Width 14.7 % (11.6-14.8) Platelet Count 493 K/UL (150-450) H Mean Platelet Volume 5.2 FL (6.5-10.1) L Neutrophils (%) (Auto) 74.3 % (45.0-75.0) Lymphocytes (%) (Auto) 19.7 % (20.0-45.0) L Monocytes (%) (Auto) 4.3 % (1.0-10.0) Eosinophils (%) (Auto) 1.4 % (0.0-3.0) Basophils (%) (Auto) 0.3 % (0.0-2.0) Sodium Level 141 MMOL/L (136-145) Potassium Level 4.2 MMOL/L (3.5-5.1) Chloride Level 107 MMOL/L (98-107) Carbon Dioxide Level 25 MMOL/L (21-32) Anion Gap 9 mmol/L (5-15) Blood Urea Nitrogen 27 mg/dL (7-18) H Creatinine 2.7 MG/DL (0.55-1.30) H Estimat Glomerular Filtration Rate 23.5 mL/min (>60) Glucose Level 179 MG/DL (74-106) H Calcium Level 9.0 MG/DL (8.5-10.1) Intake and Output 09/14/17 09/15/17 19:00 07:00 Intake Total 240 ml 120 ml Balance 240 ml 120 ml Intake Oral 240 ml 120 ml # Voids 2 2 # Bowel Movements 1 1 Objective General Appearance: WD/WN, lethargic EENT: normal ENT inspection Neck: non-tender, normal alignment, supple, normal inspection Cardiovascular: normal peripheral pulses, normal rate, regular rhythm, no gallop/murmur, no JVD Respiratory/Chest: chest wall non-tender, lungs clear, normal breath sounds, no respiratory distress, no accessory muscle use Abdomen: normal bowel sounds, non tender, soft, no organomegaly, no mass Extremities: non-tender 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 Await neurology consult. (3) Renal failure Assessment & Plan: Await nephrology consult. 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 Coli. Continue ertapenem per ID (7) Anemia Assessment & Plan: Severe Iron defiency. S/P transfusion 2 units PRBC total. Await colonoscopy and endoscopy 09/13/17. (8) Gastric ulcer Assessment & Plan: S/P endoscopy 09/13/17. See GI note. Continue protonix (9) Gastritis Assessment & Plan: Continue protonix Assessment/Plan Discharge planning: D/C Home when hospital bed delivered to home. DESTINY SETH Sep 15, 2017 19:38
--- NOTE | 2017-09-15 21:50 | General Progress Note ---
Assessment/Plan Problem List: (1) Renal insufficiency ICD Codes: N28.9 - Disorder of kidney and ureter, unspecified SNOMED: 005712196, 487353452 (2) UTI (urinary tract infection) ICD Codes: N39.0 - Urinary tract infection, site not specified SNOMED: 09348010, 708563338 Qualifiers: Qualified Codes: N39.0 - Urinary tract infection, site not specified (3) Syncope ICD Codes: R55 - Syncope and collapse SNOMED: 123848578 Qualifiers: Qualified Codes: R55 - Syncope and collapse (4) Blind ICD Codes: H54.0 - Blindness, both eyes SNOMED: 509704874 (5) Renal failure ICD Codes: N19 - Unspecified kidney failure SNOMED: 89780395 (6) Seizure disorder ICD Codes: G40.909 - Epilepsy, unspecified, not intractable, without status epilepticus SNOMED: 397834565 (7) Deaf ICD Codes: H91.90 - Unspecified hearing loss, unspecified ear SNOMED: 32217635 (8) Diabetes mellitus type II, controlled ICD Codes: E11.9 - Type 2 diabetes mellitus without complications SNOMED: 07674188 (9) Blind in both eyes ICD Codes: H54.3 - Unqualified visual loss, both eyes SNOMED: 36042875, 354890534 (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 ICD Codes: F22 - Delusional disorders SNOMED: 650868570 (11) sp severe TBI (12) Acute encephalopathy ICD Codes: G93.40 - Encephalopathy, unspecified SNOMED: 99755798, 222828002 (13) COPD (chronic obstructive pulmonary disease) ICD Codes: J44.9 - Chronic obstructive pulmonary disease, unspecified SNOMED: 18366672 (14) HTN (hypertension) ICD Codes: I10 - Essential (primary) hypertension SNOMED: 60505390 (15) Bacteremia ICD Codes: R78.81 - Bacteremia SNOMED: 6215660 (16) Respiratory failure ICD Codes: J96.90 - Respiratory failure, unspecified, unspecified whether with hypoxia or hypercapnia SNOMED: 639037728 (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 - Unspecified mental disorder due to known physiological condition SNOMED: 342001326 (18) Adrenal mass, left ICD Codes: E27.9 - Disorder of adrenal gland, unspecified SNOMED: 877860022 (19) Hypertensive urgency ICD Codes: I16.0 - Hypertensive urgency SNOMED: 893002863 (20) HCAP (healthcare-associated pneumonia) ICD Codes: J18.9 - Pneumonia, unspecified organism SNOMED: 909898801 Assessment/Plan encephalopathy ativan the daughter reluctant to other meds Subjective Date patient seen: Sep 15, 2017 Neurologic/Psychiatric: Reports: anxiety, depressed, emotional problems Allergies: Coded Allergies: No Known Allergies (Unverified , 08/19/16) Subjective the daughter was in room. the pt slept last night Objective Last 24 Hour Vital Signs Date Time Temp Pulse Resp B/P (MAP) Pulse Ox O2 Delivery O2 Flow Rate FiO2 09/15/17 21:36 93 159/72 09/15/17 20:00 97.2 93 19 99 Room Air 97.2 09/15/17 16:00 97.7 74 20 159/72 97 97.7 09/15/17 14:58 155/75 09/15/17 12:00 98.1 75 18 108/57 99 Room Air 98.1 09/15/17 10:00 104 107/62 09/15/17 09:04 99 190/91 09/15/17 09:04 99 190/91 09/15/17 08:00 98.1 99 18 190/91 98 Room Air 98.1 09/15/17 06:10 148/72 09/15/17 04:00 98.1 98 20 148/72 96 Room Air 98.1 09/15/17 00:00 98.1 75 19 130/62 97 Room Air 98.1 09/14/17 22:08 76 153/68 09/14/17 22:07 153/68 Intake and Output 09/14/17 09/15/17 19:00 07:00 Intake Total 240 ml 120 ml Balance 240 ml 120 ml Intake Oral 240 ml 120 ml # Voids 2 2 # Bowel Movements 1 1 Laboratory Tests 09/14/17 23:40: Urine Eosinophils None seen 09/15/17 09:40: White Blood Count 10.9H, Red Blood Count 3.57L, Hemoglobin 10.3L, Hematocrit 31.9L, Mean Corpuscular Volume 89, Mean Corpuscular Hemoglobin 28.7, Mean Corpuscular Hemoglobin Concent 32.2, Red Cell Distribution Width 14.7, Platelet Count 493H, Mean Platelet Volume 5.2L, Neutrophils (%) (Auto) 74.3, Lymphocytes (%) (Auto) 19.7L, Monocytes (%) (Auto) 4.3, Eosinophils (%) (Auto) 1.4, Basophils (%) (Auto) 0.3, Sodium Level 141, Potassium Level 4.2, Chloride Level 107, Carbon Dioxide Level 25, Anion Gap 9, Blood Urea Nitrogen 27H, Creatinine 2.7H, Estimat Glomerular Filtration Rate 23.5, Glucose Level 179H, Calcium Level 9.0 Height (Feet): 6 Height (Inches): 6.00 Weight (Pounds): 172 Lan Weeks M.D. Sep 15, 2017 21:50
--- NOTE | 2017-09-16 11:11 | General Progress Note ---
Assessment/Plan Assessment/Plan 1. Anemia due to underlying chronic disease. Closely monitor. --> Hgb downtrended from yesterday, but remains above goal. --> Anemia workup completed and reviewed. --> Iron 23, TIBC 136, Ferritin 536, Vit B12 202, Folate 2.8 --> Occult blood has been detected. Consider GI services and recommendations. --> Blood transfusion not required unless symptomatic or hgb <7 2. Leukocytosis, potentially secondary to infection versus reactive process. --> Resolved. --> Wbc count improved from yesterday. 3. Thrombocytosis secondary to reactive process from anemia. --> Platelet count now WNL. Resolved. 4. Seizures. 5. Hypertension. --> Monitor BP 6. Cerebrovascular accident and transient ischemic attack. --> Closely monitor. 7. Tetanus. Evaluate as needed. Time of document entry does not reflect date patient was seen Subjective Date patient seen: Sep 15, 2017 Constitutional: Denies: no symptoms, chills, diaphoresis, fever, malaise, weakness, other HEENT: Denies: no symptoms, eye pain, blurred vision, tearing, double vision, ear pain, ear discharge, nose pain, nose congestion, throat pain, throat swelling, mouth pain, mouth swelling, other Cardiovascular: Denies: no symptoms, chest pain, edema, irregular heart rate, lightheadedness, palpitations, syncope, other Respiratory: Denies: no symptoms, cough, orthopnea, shortness of breath, SOB with excertion, SOB at rest, sputum, stridor, wheezing, other Gastrointestinal/Abdominal: Denies: no symptoms, abdomen distended, abdominal pain, black stools, tarry stools, blood in stool, constipated, diarrhea, difficulty swallowing, nausea, poor appetite, poor fluid intake, rectal bleeding , vomiting, other Genitourinary: Denies: no symptoms, burning, discharge, frequency, flank pain, hematuria, incontinence, pain, urgency, other Neurologic/Psychiatric: Denies: no symptoms, anxiety, depressed, emotional problems, headache, numbness, paresthesia, pre-existing deficit, seizure, tingling, tremors, weakness, other Hematologic/Lymphatic: Reports: anemia Allergies: Coded Allergies: No Known Allergies (Unverified , 08/19/16) Subjective No major events. Resting in bed. Pending dc. Objective Last 24 Hour Vital Signs Date Time Temp Pulse Resp B/P (MAP) Pulse Ox O2 Delivery O2 Flow Rate FiO2 09/15/17 21:36 93 159/72 09/15/17 20:00 97.2 93 19 99 Room Air 97.2 09/15/17 16:00 97.7 74 20 159/72 97 97.7 09/15/17 14:58 155/75 09/15/17 12:00 98.1 75 18 108/57 99 Room Air 98.1 Intake and Output 09/15/17 09/16/17 19:00 07:00 Intake Total 175 ml Balance 175 ml Intake Oral 120 ml IV Total 55 ml # Voids 3 Height (Feet): 6 Height (Inches): 6.00 Weight (Pounds): 172 General Appearance: no apparent distress EENT: normal ENT inspection Neck: normal alignment Respiratory/Chest: normal breath sounds Abdomen: non tender Skin: warm/dry Juaquin Mace Sep 16, 2017 11:11
--- NOTE | 2017-09-16 23:58 | General Progress Note ---
Assessment/Plan Problem List: (1) Renal insufficiency ICD Codes: N28.9 - Disorder of kidney and ureter, unspecified SNOMED: 722666983, 947825466 (2) UTI (urinary tract infection) ICD Codes: N39.0 - Urinary tract infection, site not specified SNOMED: 62706012, 214502158 Qualifiers: Qualified Codes: N39.0 - Urinary tract infection, site not specified (3) Syncope ICD Codes: R55 - Syncope and collapse SNOMED: 500381511 Qualifiers: Qualified Codes: R55 - Syncope and collapse (4) Blind ICD Codes: H54.0 - Blindness, both eyes SNOMED: 659692974 (5) Renal failure ICD Codes: N19 - Unspecified kidney failure SNOMED: 13991961 (6) Seizure disorder ICD Codes: G40.909 - Epilepsy, unspecified, not intractable, without status epilepticus SNOMED: 472765544 (7) Deaf ICD Codes: H91.90 - Unspecified hearing loss, unspecified ear SNOMED: 86896741 (8) Diabetes mellitus type II, controlled ICD Codes: E11.9 - Type 2 diabetes mellitus without complications SNOMED: 07026220 (9) Blind in both eyes ICD Codes: H54.3 - Unqualified visual loss, both eyes SNOMED: 36874716, 208368746 (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 ICD Codes: F22 - Delusional disorders SNOMED: 361609216 (11) sp severe TBI (12) Acute encephalopathy ICD Codes: G93.40 - Encephalopathy, unspecified SNOMED: 49152375, 710845314 (13) COPD (chronic obstructive pulmonary disease) ICD Codes: J44.9 - Chronic obstructive pulmonary disease, unspecified SNOMED: 44745473 (14) HTN (hypertension) ICD Codes: I10 - Essential (primary) hypertension SNOMED: 73922299 (15) Bacteremia ICD Codes: R78.81 - Bacteremia SNOMED: 2839033 (16) Respiratory failure ICD Codes: J96.90 - Respiratory failure, unspecified, unspecified whether with hypoxia or hypercapnia SNOMED: 882425459 (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 - Unspecified mental disorder due to known physiological condition SNOMED: 316958015 (18) Adrenal mass, left ICD Codes: E27.9 - Disorder of adrenal gland, unspecified SNOMED: 320744032 (19) Hypertensive urgency ICD Codes: I16.0 - Hypertensive urgency SNOMED: 545244958 (20) HCAP (healthcare-associated pneumonia) ICD Codes: J18.9 - Pneumonia, unspecified organism SNOMED: 879079400 Assessment/Plan encephalopathy ativan the daughter reluctant to other meds Subjective Neurologic/Psychiatric: Reports: anxiety, depressed, emotional problems Allergies: Coded Allergies: No Known Allergies (Unverified , 08/19/16) Subjective the daughter was in room. the pt slept last night Objective Intake and Output 09/15/17 09/16/17 19:00 07:00 Intake Total 175 ml Balance 175 ml Intake Oral 120 ml IV Total 55 ml # Voids 3 Height (Feet): 6 Height (Inches): 6.00 Weight (Pounds): 172 General Appearance: no apparent distress, alert, agitated Lan Weeks M.D. Sep 16, 2017 23:58
--- NOTE | 2017-09-20 08:45 | Discharge Summary ---
Discharge Summary Hospital Course Date of Admission Sep 09, 2017 at 15:29 Date of Discharge Sep 16, 2017 at 00:35 Admitting Diagnosis Syncope HPI Costa Kelly is a 67 year old male who was admitted on Sep 09, 2017 at 15:29 for Syncope Hospital Course dc summary #[id number] Discharge Medications New Medications: Ertapenem (Invanz) 1 Gm Vial 1 GM IM DAILY for 10 Days, VIAL Continued Medications: Clonazepam* (Klonopin*) 1 Mg Tablet 0.5 MG ORAL BID Clonidine (Clonidine) 1 Each Patch.tdwk 1 EACH TD Metformin Hcl* (Metformin Hcl*) 1,000 Mg Tablet 1000 MG ORAL BID Metoprolol Succinate* (Metoprolol Succinate*) 25 Mg Tab.er.24h 25 MG ORAL DAILY, TAB Olanzapine (Olanzapine Odt) 5 Mg Tab.rapdis 5 MG PO DAILY Pantoprazole* (Pantoprazole*) 40 Mg Tablet.dr 40 MG ORAL DAILY, TAB Sitagliptin (Januvia) 100 Mg Tablet 100 MG ORAL DAILY Valsartan (Diovan) 160 Mg Tablet 160 MG ORAL DAILY, TAB Discharge Condition Upon Discharge: stable Discharge Disposition Patient was discharged to Home with [facility] Discharge Diagnoses: Quinn (Madiharah)[place] NP Sep 20, 2017 08:45
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
--- NOTE | 2017-10-02 16:22 | Diagnostic Imaging Report ---
Indications: Reason For Exam: DYSPHAGIA Technique: Patient ingested multiple substances under the supervision of speech pathology. Video fluoroscopic recording performed. Total fluoroscopy time when 96 seconds. Total dose area product [id number] mGycm2 Comparison: none Findings: Episode of quitnen aspiration of thin liquid barium were ingested by a cup noted. Ingestion of nectar thick liquid barium demonstrates early pooling in the vallecula, and one or more episodes of penetration. Ingestion of honey thick liquid barium and barium puree demonstrates early pooling, but no aspiration or penetration. Impression: Positive for aspiration of thin liquid barium and penetration of nectar thick liquid barium
== END 2017-09-16 00:35 | disposition home health service (06) | DRG 871 ==
LOC: EDBD 15:02 → EMR 15:20 → 2E 15:29 → EDBEDREQ 17:04 → 4E 09-11 17:41
DX: A41.9 Sepsis, unspecified organism (principal); G92 Toxic encephalopathy; J96.90 Respiratory failure, unspecified, unspecified whether with hypoxia or hypercapnia; N17.9 Acute kidney failure, unspecified; N13.30 Unspecified hydronephrosis; R13.10 Dysphagia, unspecified; N39.0 Urinary tract infection, site not specified; E11.22 Type 2 diabetes mellitus with diabetic chronic kidney disease; I12.9 Hypertensive chronic kidney disease with stage 1 through stage 4 chronic kidney disease, or unspecified chronic kidney disease; K25.9 Gastric ulcer, unspecified as acute or chronic, without hemorrhage or perforation; F20.9 Schizophrenia, unspecified; N18.9 Chronic kidney disease, unspecified; G40.909 Epilepsy, unspecified, not intractable, without status epilepticus; H91.90 Unspecified hearing loss, unspecified ear; H54.8 Legal blindness, as defined in USA; D50.9 Iron deficiency anemia, unspecified; D63.8 Anemia in other chronic diseases classified elsewhere; K29.00 Acute gastritis without bleeding; E53.8 Deficiency of other specified B group vitamins; K29.50 Unspecified chronic gastritis without bleeding; F09 Unspecified mental disorder due to known physiological condition; E27.9 Disorder of adrenal gland, unspecified; I16.0 Hypertensive urgency; J44.9 Chronic obstructive pulmonary disease, unspecified; Z78.1 Physical restraint status; Z16.12 Extended spectrum beta lactamase (ESBL) resistance; Y95 Nosocomial condition; B96.20 Unspecified Escherichia coli [E. coli] as the cause of diseases classified elsewhere; Z86.73 Personal history of transient ischemic attack (TIA), and cerebral infarction without residual deficits
CPT/HCPCS: 36415; 70450; 71045; 74230; 76770; 80048; 80053; 80061; 80164; 80185; 81001; 81003; 82270; 82378; 82550; 82553; 82607; 82728; 82746; 82962; 82977; 83010; 83036; 83090; 83540; 83550; 83735; 83880; 83921; 84100; 84300; 84443; 84484; 84550; 85007; 85025; 85610; 85730; 86140; 86850; 86900; 86901; 86920; 87086; 87181; 89050; 93005; 93306; 93880; 94003; 94150; 94664; 95819; 99285; J1165; J1815